=== PATIENT | female | born 1985 | race Caucasian/White ===

== ENCOUNTER 2018-06-03 21:30 | Emergency (ER) | payer MEDICAID, SELFPAY ==
[2018-06-03 21:39] VITALS: BP 127/99; PULSE 87; RESP 18; TEMP 36.2; O2SAT 100
[2018-06-03 21:44] VITALS: RESP 18
--- NOTE | 2018-06-03 21:46 | DI.RAD_ITS ---
SYMPTOM/DIAGNOSIS: RT CHEST PAIN PA AND LATERAL CHEST: Comparison is made with 02/29/12. The heart is normal in size. The lungs are clear. The mediastinal structures and pleura appear intact. CONCLUSION: Normal chest.
--- NOTE | 2018-06-03 21:48 | W.ED.GENAD ---
Discharge Plan Disposition Patient Disposition: HOME Condition: Improving Discharge Details Chief Complaint: Chest Pain Clinical Impression: Strain of right pectoralis muscle Primary Care Provider: Kourtney Lam ED Provider: Joe Garzon Home Meds and New Rx's Prescriptions: Continued aripiprazole [Abilify] 5 MG tablet 5 mg PO DAILY Qty: 90 RF: 2 Vyvanse 70 MG capsule 70 mg PO DAILY RF: 0 venlafaxine [Effexor XR] 150 MG capsule,extended release 24hr 150 mg PO DAILY RF: 0 loratadine 10 MG tablet 10 mg PO DAILY Qty: 30 RF: 3 Discharge Instructions Instructions: Muscle Strain (ED) Additional Instructions: Home to rest. Ice and/or heat to reduce discomfort. May use ibuprofen and/or Tylenol as needed for pain. Return if you develop a fever, cough, rash, worsening pain or any other acute concerns. Medical Decision Making 32-year-old female presents with the progressive onset today of aching right chest pain. She has not had a cough, leg pain or swelling, recent travel. 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 She is afebrile, well-appearing, with normal vital signs (mild diastolic HTN). Differential diagnosis includes PE, ACS, mild muscular strain from her recent activity. Screening EKG, labs, chest x-ray obtained: images are unremarkable for acute process. Pt with some mild improvement following Toradol. Given the reproducible nature and recent strain of playing [employer], I do feel this is most consistent with myalgias. Discussed with her home management. She stable for discharge home at this time. Lab Data Lab results reviewed: Yes I reviewed the patient's lab results. Laboratory Results - last 24 hr 06/03/18 06/03/18 06/03/18 Unknown Unknown Unknown WBC 6.69 RBC 4.07 Hgb 14.4 Hct 41.4 MCV 101.7 H MCH 35.4 H MCHC 34.8 RDW 11.2 L Plt Count 333 MPV 9.3 Immature Gran % 0.1 Neutrophils % 52.5 Lymphocytes % 36.0 Monocytes % 8.2 Eosinophils % 2.8 Basophils % 0.4 Absolute Neutrophils 3.50 Absolute Lymphocytes 2.41 Absolute Monocytes 0.55 Absolute Eosinophils 0.19 Absolute Basophils 0.03 D-Dimer 146 Sodium 143 Potassium 3.7 Chloride 105 Carbon Dioxide 27.8 Anion Gap 10.2 BUN 17 Creatinine 0.82 Estimated GFR/1.73 m2 >= 60.00 Glucose 86 Calcium 8.7 Magnesium 2.2 Total Bilirubin 0.2 AST 17 ALT 23 Alkaline Phosphatase 100 Troponin I < 0.02 Total Protein 7.4 Albumin 4.0 ECG Data Attestation: I personally reviewed and interpreted this ECG (s) as follows: Interpretation: Normal sinus rhythm, rate of 89, there is inverted T wave present in V3, no ST segment elevation HPI General Mode of arrival: ambulatory. Date/Time Provider Initiated Documentation: 06/03/18 21:32. Limitations to Documentation: no limitations. Information obtained by: patient and family. History of Present Illness 32 year old F presents to the emergency department with the chief complaint of Right chest pain increasing over the day, described as moderate, Quality is described as aching, and is localized to the chest and right. Patient reports no radiation. Patient started experiencing this hour(s) and it has been constant. No relieving factors improve symptom(s), Movement worsens symptoms . Patient notes no other symptoms.; denies cough, fever/chills and shortness of breath. Patient did receive the following treatments prior to arrival, none Related Data Home Medications Medication Instructions Recorded Confirmed aripiprazole [Abilify] 5 mg PO DAILY #90 tab-cap 10/30/13 06/03/18 Vyvanse 70 mg PO DAILY tab-cap 09/10/14 06/03/18 venlafaxine [Effexor XR] 150 mg PO DAILY tab-cap 02/20/16 06/03/18 loratadine 10 mg PO DAILY #30 tab-cap 09/15/17 06/03/18 Previous Rx's Medication Instructions Recorded loratadine 10 mg PO DAILY #30 tab-cap 09/15/17 Allergies Allergy/AdvReac Type Severity Reaction Status Date / Time hydromorphone HCl Allergy Skin Rash Unverified 06/03/18 21:42 [From Dilaudid] latex Allergy Rash Unverified 06/03/18 21:42 sulfamethoxazole Allergy Hives Unverified 06/03/18 21:42 [From Bactrim] trimethoprim Allergy Hives Unverified 06/03/18 21:42 lactose AdvReac Diarrhea/Vo Unverified 06/03/18 21:42 miting General Stated Complaint: Chest Pain KARLEE: 2 Review of Systems Review of Systems 8 systems reviewed and otherwise - [facility] Medical History Kidney stone Substance use disorder pseudotumor cerebri Surgical History Kidney Stone Extraction (~2006) Ligation of fallopian tube (08/29/14) SARWAT IN LEG (~2012) Tonsillectomy (~2010) Family History Mother No problems noted. Father No problems noted. Grandfather Personal history of malignant neoplasm Heart disease Hyperlipidemia Grandfather Personal history of malignant neoplasm Grandmother No problems noted. Grandmother No problems noted. Social History Smoking/Tobacco Use Status: Current every day Exam Narrative Exam Narrative: GEN: awake, alert, oriented 3. Pleasant, well groomed, interactive. HEAD: Normocephalic, atraumatic ENT: Mucous membranes moist, oropharynx unremarkable, External ear exam unremarkable EYES: PERRL, EOMI NECK: Full ROM, no SHERRI, no menigismus CHEST/RESP: Right chest wall tenderness anteriorly, no rash, clear to auscultation bilateral, no wheeze/rhonchi/rales CARDIOVASCULAR: RRR, no murmur, rub marisela. 2+ Rad pulse bilateral ABDOMEN: Soft, nontender, no mass. +Bowel sounds EXT: Full ROM, no edema, no rash Neuro: Grossly normal neurologic exam, conversant, interactive. Psych: Speech fluent, thoughts congruent, affect normal Course Vital Signs Temperature 36.2 C L 06/03/18 21:39 Pulse 87 06/03/18 21:39 Respiratory Rate 18 06/03/18 21:39 Blood Pressure 127/99 H 06/03/18 21:39 Pulse Oximetry 100 06/03/18 21:39 Temperature 36.2 C L 06/03/18 21:39 Temperature Source Temporal Artery Scan 06/03/18 21:39 Pulse 87 06/03/18 21:39 Respiratory Rate 18 06/03/18 21:44 Respiratory Effort Non-Labored 06/03/18 21:44 Respiratory Depth Normal 06/03/18 21:44 Blood Pressure 127/99 H 06/03/18 21:39 Blood Pressure Position Supine 06/03/18 21:39 Pulse Oximetry 100 06/03/18 21:39 Oxygen Delivery Method Room Air 06/03/18 21:39 Oxygen Flow Rate 0 06/03/18 21:39 Pain Level 7 06/03/18 21:44
--- NOTE | 2018-06-03 21:51 | ED.GENADUL_ITS ---
Discharge Plan Disposition Patient Disposition: HOME Condition: Improving Discharge Details Chief Complaint: Chest Pain Clinical Impression: Strain of right pectoralis muscle Primary Care Provider: Kourtney Lam ED Provider: Joe Garzon Home Meds and New Rx's Prescriptions: Continued aripiprazole [Abilify] 5 MG tablet 5 mg PO DAILY Qty: 90 RF: 2 Vyvanse 70 MG capsule 70 mg PO DAILY RF: 0 venlafaxine [Effexor XR] 150 MG capsule,extended release 24hr 150 mg PO DAILY RF: 0 loratadine 10 MG tablet 10 mg PO DAILY Qty: 30 RF: 3 Discharge Instructions Instructions: Muscle Strain (ED) Additional Instructions: Home to rest. Ice and/or heat to reduce discomfort. May use ibuprofen and/or Tylenol as needed for pain. Return if you develop a fever, cough, rash, worsening pain or any other acute concerns. Medical Decision Making 32-year-old female presents with the progressive onset today of aching right chest pain. She has not had a cough, leg pain or swelling, recent travel. 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 She is afebrile, well-appearing, with normal vital signs (mild diastolic HTN). Differential diagnosis includes PE, ACS, mild muscular strain from her recent activity. Screening EKG, labs, chest x-ray obtained: images are unremarkable for acute process. Pt with some mild improvement following Toradol. Given the reproducible nature and recent strain of playing [employer], I do feel this is most consistent with myalgias. Discussed with her home management. She stable for discharge home at this time. Lab Data Lab results reviewed: Yes I reviewed the patient's lab results. Laboratory Results - last 24 hr 06/03/18 06/03/18 06/03/18 Unknown Unknown Unknown WBC 6.69 RBC 4.07 Hgb 14.4 Hct 41.4 MCV 101.7 H MCH 35.4 H MCHC 34.8 RDW 11.2 L Plt Count 333 MPV 9.3 Immature Gran % 0.1 Neutrophils % 52.5 Lymphocytes % 36.0 Monocytes % 8.2 Eosinophils % 2.8 Basophils % 0.4 Absolute Neutrophils 3.50 Absolute Lymphocytes 2.41 Absolute Monocytes 0.55 Absolute Eosinophils 0.19 Absolute Basophils 0.03 D-Dimer 146 Sodium 143 Potassium 3.7 Chloride 105 Carbon Dioxide 27.8 Anion Gap 10.2 BUN 17 Creatinine 0.82 Estimated GFR/1.73 m2 >= 60.00 Glucose 86 Calcium 8.7 Magnesium 2.2 Total Bilirubin 0.2 AST 17 ALT 23 Alkaline Phosphatase 100 Troponin I < 0.02 Total Protein 7.4 Albumin 4.0 ECG Data Attestation: I personally reviewed and interpreted this ECG (s) as follows: Interpretation: Normal sinus rhythm, rate of 89, there is inverted T wave present in V3, no ST segment elevation HPI General Mode of arrival: ambulatory . Date/Time Provider Initiated Documentation: 06/03/18 21:32 . Limitations to Documentation: no limitations . Information obtained by: patient and family . History of Present Illness 32 year old F presents to the emergency department with the chief complaint of Right chest pain increasing over the day, described as moderate, Quality is described as aching, and is localized to the chest and right. Patient reports no radiation. Patient started experiencing this hour(s) and it has been constant. No relieving factors improve symptom(s), Movement worsens symptoms . Patient notes no other symptoms.; denies cough, fever/chills and shortness of breath. Patient did receive the following treatments prior to arrival, none Related Data Home Medications Medication Instructions Recorded Confirmed aripiprazole [Abilify] 5 mg PO DAILY #90 tab-cap 10/30/13 06/03/18 Vyvanse 70 mg PO DAILY tab-cap 09/10/14 06/03/18 venlafaxine [Effexor XR] 150 mg PO DAILY tab-cap 02/20/16 06/03/18 loratadine 10 mg PO DAILY #30 tab-cap 09/15/17 06/03/18 Previous Rx's Medication Instructions Recorded loratadine 10 mg PO DAILY #30 tab-cap 09/15/17 Allergies Allergy/AdvReac Type Severity Reaction Status Date / Time hydromorphone HCl Allergy Skin Rash Unverified 06/03/18 21:42 [From Dilaudid] latex Allergy Rash Unverified 06/03/18 21:42 sulfamethoxazole Allergy Hives Unverified 06/03/18 21:42 [From Bactrim] trimethoprim Allergy Hives Unverified 06/03/18 21:42 lactose AdvReac Diarrhea/Vo Unverified 06/03/18 21:42 miting General Stated Complaint: Chest Pain KARLEE: 2 Review of Systems Review of Systems 8 systems reviewed and otherwise - [facility] Medical History Kidney stone Substance use disorder pseudotumor cerebri Surgical History Kidney Stone Extraction (~2006) Ligation of fallopian tube (08/29/14) SARWAT IN LEG (~2012) Tonsillectomy (~2010) Family History Mother No problems noted. Father No problems noted. Grandfather Personal history of malignant neoplasm Heart disease Hyperlipidemia Grandfather Personal history of malignant neoplasm Grandmother No problems noted. Grandmother No problems noted. Social History Smoking/Tobacco Use Status: Current every day Exam Narrative Exam Narrative: GEN: awake, alert, oriented 3. Pleasant, well groomed, interactive. HEAD: Normocephalic, atraumatic ENT: Mucous membranes moist, oropharynx unremarkable, External ear exam unremarkable EYES: PERRL, EOMI NECK: Full ROM, no SHERRI, no menigismus CHEST/RESP: Right chest wall tenderness anteriorly, no rash, clear to ausc ultation bilateral, no wheeze/rhonchi/rales CARDIOVASCULAR: RRR, no murmur, rub marisela. 2+ Rad pulse bilateral ABDOMEN: Soft, nontender, no mass. +Bowel sounds EXT: Full ROM, no edema, no rash Neuro: Grossly normal neurologic exam, conversant, interactive. Psych: Speech fluent, thoughts congruent, affect normal Course Vital Signs Temperature 36.2 C L 06/03/18 21:39 Pulse 87 06/03/18 21:39 Respiratory Rate 18 06/03/18 21:39 Blood Pressure 127/99 H 06/03/18 21:39 Pulse Oximetry 100 06/03/18 21:39 Temperature 36.2 C L 06/03/18 21:39 Temperature Source Temporal Artery Scan 06/03/18 21:39 Pulse 87 06/03/18 21:39 Respiratory Rate 18 06/03/18 21:44 Respiratory Effort Non-Labored 06/03/18 21:44 Respiratory Depth Normal 06/03/18 21:44 Blood Pressure 127/99 H 06/03/18 21:39 Blood Pressure Position Supine 06/03/18 21:39 Pulse Oximetry 100 06/03/18 21:39 Oxygen Delivery Method Room Air 06/03/18 21:39 Oxygen Flow Rate 0 06/03/18 21:39 Pain Level 7 06/03/18 21:44
[2018-06-03] MEDS: Ketorolac 15 MG/ML VIAL IVP (21:52)
[2018-06-03 21:54] LABS: Abs Immature Grans 0.01 k/cumm (0.0-0.09); Absolute Basophil Count 0.03 k/cumm (0.0-0.2); Absolute Eosinophil Count 0.19 k/cumm (0.0-0.7); Absolute Lymphocyte Count 2.41 k/cumm (1.2-3.4); Absolute Monocyte Count 0.55 k/cumm (0.11-0.7); Basophils % 0.4; Eosinophils % 2.8; HCT 41.4 % (36.0-46.0); HGB 14.4 g/dL (12.0-15.5); Immature Grans % 0.1; Mean Corp. HGB Concentration 34.8 g/dL (32.0-36.0); Mean Corpuscular Hemoglobin 35.4 pg (27.0-33.0); Mean Corpuscular Volume 101.7 fL (80-95); Mean Platelet Volume 9.3 fL (8.0-11.0); Monocytes % 8.2; Neutrophils % 52.5; Platelet Count 333 x1000/uL (130-400); RBC 4.07 m/cumm (4.00-5.20); RBC Distribution Width 11.2 % (11.7-14.6); White Blood Cell Count 6.69 k/cumm (4.4-10.8)
[2018-06-03 22:13] LABS: ALT 23 U/L (12-78); AST 17 U/L (15-37); Alkaline Phosphatase 100 U/L (46-116); Anion Gap 10.2 mmol/L (3-11); BUN 17 mg/dL (7-18); Bilirubin, Total 0.2 mg/dL (0.2-1.0); CO2 27.8 mmol/L (21.0-32.0); CREATININE 0.82 mg/dL (0.55-1.02); Calcium 8.7 mg/dL (8.5-10.1); Chloride 105 mmol/L (98-107); Glucose 86 mg/dL (70-100); Magnesium 2.2 mg/dL (1.8-2.4); Potassium 3.7 mmol/L (3.5-5.1); Sodium 143 mmol/L (136-145); Total Protein 7.4 g/dL (6.4-8.2)
[2018-06-03 22:17] LABS: Troponin I < 0.02 ng/mL (0.00-0.06)
[2018-06-03 22:28] LABS: D-Dimer 146 ng/mlFEU (<500)
--- NOTE | 2018-06-03 22:39 | DI.VRAD_ITS ---
EXAM: XR Chest, 2 Views EXAM DATE/TIME: 06/03/2018 9:47 PM CLINICAL HISTORY: 32 years old, female; Pain; Chest pain; On breathing; Patient HX: R chest pain TECHNIQUE: XR of the chest, 2 views. COMPARISON: CT Chest / Abdomen / P 02/29/2012 5:50 PM FINDINGS: Lungs: Unremarkable. No consolidation. Pleural space: Unremarkable. No pleural effusion. No pneumothorax. Heart/Mediastinum: Unremarkable. No cardiomegaly. Bones/joints: No acute bony findings. IMPRESSION: Normal chest x-ray. Dictated and Authenticated by: Jerald Martinez MD. Ordering:HARSHAL Diaz MD
[2018-06-03 22:56] VITALS: BP 132/79; PULSE 81; RESP 18; TEMP 36.2; O2SAT 100
== END 2018-06-03 22:53 | disposition home or self-care (01) ==
PROVIDERS: Emergency Provider Emergency Medicine; PCP Family Medicine
DX: S29.011A Strain of muscle and tendon of front wall of thorax, initial encounter (principal); X50.9XXA Other and unspecified overexertion or strenuous movements or postures, initial encounter
CPT/HCPCS: 36415; 80053; 93005; 96374; 99285; 71046; 83735; 84484; 85025; 85379; 93010; 99284; J1885

== ENCOUNTER 2018-06-07 12:45 | Emergency (ER) | payer MEDICAID, SELFPAY ==
--- NOTE | 2018-06-07 12:52 | W.ED.GENAD ---
Discharge Plan Disposition Patient Disposition: HOME Condition: Stable Discharge Details Chief Complaint: Orthopedic Clinical Impression: Pain in right shoulder, Right-sided chest pain Primary Care Provider: Kourtney Lam ED Provider: Doris Smith Home Meds and New Rx's Prescriptions: Continued aripiprazole [Abilify] 5 MG tablet 5 mg PO DAILY Qty: 90 RF: 2 Vyvanse 70 MG capsule 70 mg PO DAILY RF: 0 venlafaxine [Effexor XR] 150 MG capsule,extended release 24hr 150 mg PO DAILY RF: 0 loratadine 10 MG tablet 10 mg PO DAILY Qty: 30 RF: 3 Discharge Instructions Instructions: Chest Pain (ED), Shoulder Pain (ED) Additional Instructions: Please return immediately to the emergency department if you develop any new or worsening symptoms or if you become otherwise concerned. It is extremely important that you make an appointment to be seen by your primary care doctor within the next week and follow-up for this visit. You have elected to leave the emergency department AGAINST MEDICAL ADVICE. You may return to emergency department at any time if you change your mind. Referrals: Kourtney Lam MD [Primary Care Provider] - Medical Decision Making Giulia Forbes is a 32 y/o woman with history of anxiety, depression, ADHD who presented to the emergency department with ongoing right chest/shoulder pain after being seen here for same 06/03 with negative workup. On exam patient is very well and nontoxic appearing. Pain is reproducible with palpation of the right lateral pectoralis and right trapezius, also with ranging right shoulder. She does have full range of motion of the right shoulder. There is no neuro deficit. At this time, particularly in light of recent workup suspect myalgia, doubt acute emergent life-threatening process. However cannot rule out cardiac, PE, other pulmonary cause at this time. Exam/history not consistent with septic joint, sepsis, other life-threatening infectious process, acute aortic etiology. Plan for EKG, chest x-ray, screening labs troponin x1 given constant pain unchanged for greater than 6 hours. Patient initially amenable to workup, and states that she does not think that her pain is related to a problem with her lungs or her heart. She reports that she needs to go to work, and does not have time for laboratory studies EKG, or x-ray. I discussed the risks of leaving the medical the patient , or permanent disability and that life-threatening etiologies not ruled out at this time. Patient verbalizes understanding of the risks, and continues to wish to leave the emergency department at this time. I had a lengthy discussion with the patient regarding return to emergency department precautions, that she may return to the emergency department at any time, and importance of outpatient follow-up with her PCP. She verbalizes understanding of the plan and is amenable. Medical Records Medical records reviewed: Yes I reviewed the patient's medical records. HPI General Mode of arrival: ambulatory. Date/Time Provider Initiated Documentation: 06/07/18 12:48. Limitations to Documentation: no limitations. Information obtained by: patient, RN notes reviewed and old records reviewed. HPI Narrative: Giulia Forbes is a 32 y/o woman with history of anxiety, depression, ADHD presenting to the emergency department with right chest/right shoulder pain. Patient reports that she was seen here for same on 06/03. She reports that she woke up the morning of 06/03 with pain in her right chest and right shoulder. Upon considering events surrounding onset of pain, she reports that she had played [employer] recently and also had been wrestling with her kids. She is unsure if she injured herself. At that time patient underwent negative cardiac workup and was discharged home, etiology of pain was thought to be myalgia. Patient reports that pain has been constant and unchanged since that encounter. She reports that she has pain in the right anterior chest, the top of her right shoulder, and behind her shoulder blade. She reports that pain is burning and aching, is pleuritic, and is worse with babying the arm or loss of movement of the right shoulder, improved with pressure/rubbing the affected areas and with moderate motion of the right arm. Pain is not exertional. No associated symptoms, no other pain, no fever, no shortness of breath, no cough, no nausea/vomiting/diarrhea, no numbness/tingling/weakness. No recent illness. Has been eating and drinking as usual. Patient reports that pain is not waxing and waning, she wakes up with it in the morning and goes to bed with it at night unchanged. Related Data Home Medications Medication Instructions Recorded Confirmed aripiprazole [Abilify] 5 mg PO DAILY #90 tab-cap 10/30/13 06/07/18 Vyvanse 70 mg PO DAILY tab-cap 09/10/14 06/07/18 venlafaxine [Effexor XR] 150 mg PO DAILY tab-cap 02/20/16 06/07/18 loratadine 10 mg PO DAILY #30 tab-cap 09/15/17 06/07/18 Previous Rx's Medication Instructions Recorded loratadine 10 mg PO DAILY #30 tab-cap 09/15/17 Allergies Allergy/AdvReac Type Severity Reaction Status Date / Time hydromorphone HCl Allergy Skin Rash Unverified 06/07/18 12:56 [From Dilaudid] latex Allergy Rash Unverified 06/07/18 12:56 sulfamethoxazole Allergy Hives Unverified 06/07/18 12:56 [From Bactrim] trimethoprim Allergy Hives Unverified 06/07/18 12:56 lactose AdvReac Diarrhea/Vo Unverified 06/07/18 12:56 miting General Stated Complaint: Orthopedic KARLEE: 4 Review of Systems Review of Systems Constitutional: denies fevers Eyes: denies eye pain ENT: denies facial pain, dental pain, sore throat Cardiovascular: denies edema, reports right chest pain Respiratory: denies SOB, cough GI: denies abdominal pain, vomiting, diarrhea : denies flank pain MSK: denies back pain, neck pain, reports right shoulder arthralgia, myalgia, denies other joint/muscle pain Skin: denies rash Neuro: denies headaches, numbness, weakness PFSH Medical History Kidney stone Substance use disorder pseudotumor cerebri Social History Smoking/Tobacco Use Status: Current every day Exam Narrative Exam Narrative: Constitutional: well and [id number], pleasant, conversing normally HENT: head atraumatic, normocephalic normal inspection, mucous membranes moist Eyes: conjunctiva normal, sclera normal, pupils 3mm b/l Neck: no stridor, normal ROM, trachea midline Chest: normal inspection, pain with palpation of right lateral pectoralis muscle, reproduces pain, no overlying skin changes Resp: normal work of breathing, LCTAB Cardio: normal rate, normal rhythm, no murmur appreciated, radial pulses intact and symmetric GI: abdomen soft, non-tender, non-distended Back: normal inspection, no rash Skin: warm, dry, normal color, no rash Neuro: alert, not altered, grossly non-focal, normal tone, normal strength/sensation right upper extremity Ext: no edema, no skin changes to right shoulder, right scapula, paraspinals nontender to palpation, right trapezius tender to palpation, reproduces pain, full range of motion right shoulder with some pain Psych: normal mood, normal affect, normal behavior
[2018-06-07 12:54] VITALS: BP 132/88; PULSE 98; RESP 16; TEMP 36.8; O2SAT 99
== END 2018-06-07 13:45 | disposition home or self-care (01) ==
PROVIDERS: Emergency Provider Student in an Organized Health Care Education/Training Program; PCP Family Medicine
DX: M25.511 Pain in right shoulder (principal); R07.89 Other chest pain; Z53.29 Procedure and treatment not carried out because of patient's decision for other reasons; F17.210 Nicotine dependence, cigarettes, uncomplicated
CPT/HCPCS: 80053; 99282; 84484; 85025; 85379

== ENCOUNTER 2019-01-18 09:07 | Emergency (ER) | payer MEDICAID, SELFPAY ==
[2019-01-18 09:10] VITALS: BP 137/70; PULSE 88; RESP 16; TEMP 36.7; O2SAT 99
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
[2019-01-18] MEDS: Acetaminophen 325 MG TAB (09:42)
== END 2019-01-18 10:30 | disposition home or self-care (01) ==
PROVIDERS: Emergency Provider Physician Assistant; PCP Family Medicine
DX: S00.83XA Contusion of other part of head, initial encounter (principal); S00.12XA Contusion of left eyelid and periocular area, initial encounter; R68.84 Jaw pain; M26.621 Arthralgia of right temporomandibular joint; Y04.0XXA Assault by unarmed brawl or fight, initial encounter; M54.2 Cervicalgia
CPT/HCPCS: 81025; 99284; 70450; 70486; 72125; 99285

== ENCOUNTER 2019-02-11 14:58 | Emergency (ER) | payer MEDICAID, SELFPAY ==
[2019-02-11 15:02] VITALS: BP 140/83; PULSE 78; RESP 20; TEMP 36.7; O2SAT 100
--- NOTE | 2019-02-11 15:25 | ED.GENADUL_ITS ---
Discharge Plan Disposition Patient Disposition: HOME Discharge Details Chief Complaint: Nk/Back Pain Clinical Impression: Leg pain, right Primary Care Provider: Kourtney Lam ED Provider: Ru Smith Home Meds and New Rx's Prescriptions: Continued hydroxyzine HCl 50 mg tablet 50 mg PO BID PRN (Reason: itching) Qty: 60 RF: 0 triamcinolone acetonide 0.025 % cream 1 applic TP BID Qty: 15 RF: 1 aripiprazole [Abilify] 5 MG tablet 5 mg PO DAILY Qty: 90 RF: 2 Vyvanse 70 MG capsule 70 mg PO DAILY RF: 0 venlafaxine [Effexor XR] 150 MG capsule,extended release 24hr 150 mg PO DAILY RF: 0 Discharge Instructions Instructions: Leg Pain (ED) Additional Instructions: Please take ibuprofen over the counter. Take 600mg by mouth every 6 hours as needed for pain. Please contact your primary care physician to arrange follow-up. Return to the ER for any worsening or new concerning symptoms. Stand Alone Forms: Work Release Referrals: Kourtney Lam MD [Primary Care Provider] - Jamil Frankel MD [ [facility] STAFF PHYSICIAN] - Medical Decision Making 15:32 -- 33-year-old female status post remote right femur ORIF and subsequent hardware removal, here with exacerbation of chronic intermittent pain in her right femur which she attributes to overuse and associated right mid to low back spasm. No recent trauma. No infectious signs or symptoms. Plan to treat with Toradol 30 mg IM and Valium 2 mg po. Patient did take Tylenol prior to arrival. Plan to reassess. --Patient refusing Valium. 16:23 --patient reassessed and with significant improvement after Toradol. Leg was examined and there is no erythema or warmth. Now able to elevate off the bed. Back pain resolved. Patient was instructed to follow-up with orthopedics given recurrent in termittent pain. She was encouraged to return for any worsening or new concerning symptoms. Usual and customary discharge instructions were provided. HPI General Mode of arrival: ambulatory . Date/Time Provider Initiated Documentation: 02/11/19 14:58 . Limitations to Documentation: no limitations . Information obtained by: patient . HPI Narrative: 33-year-old female presents with chief complaint of right leg pain. Pain is localized to her right mid lateral thigh. Pain radiates up into her right hip. Pain is described as an ache. Pain is currently severe. Pain worse with certain positions. She notes that she has experienced the same in the past with intermittent exacerbations of pain in her right femur status post ORIF for femur fracture and subsequent removal of hardware. She notes that when weather changes and its raining and cold she notices the pain more often. She also notes she notices it after excessive use. She states that over the past week she has been working daily on her feet and thinks she may have overdone it. No trauma to the leg. No fall. No fever or rash. Patient does also note a knot in her right mid to low back that she attributes to muscle spasm from ambulating/positioning herself in such a way to minimize pain in her thigh. Related Data Home Medications Medication Instructions Recorded Confirmed aripiprazole [Abilify] 5 mg PO DAILY #90 tab-cap 10/30/13 02/11/19 Vyvanse 70 mg PO DAILY tab-cap 09/10/14 02/11/19 venlafaxine [Effexor XR] 150 mg PO DAILY tab-cap 02/20/16 02/11/19 hydroxyzine HCl 50 mg tablet 50 mg PO BID PRN #60 tab 02/07/19 02/11/19 triamcinolone acetonide 0.025 % 1 applic TP BID #15 gm 02/07/19 02/11/19 topical cream Previous Rx's Medication Instructions Recorded hydroxyzine HCl 50 mg tablet 50 mg PO BID PRN #60 tab 02/07/19 triamcinolone acetonide 0.025 % 1 applic TP BID #15 gm 02/07/19 topical cream Allergies Allergy/AdvReac Type Severity Reaction Status Date / Time hydromorphone HCl Allergy Skin Rash Verified 02/11/19 15:06 [From Dilaudid] latex Allergy Rash Verified 02/11/19 15:06 sulfamethoxazole Allergy Hives Verified 02/11/19 15:06 [From Bactrim] trimethoprim Allergy Hives Verified 02/11/19 15:06 lactose AdvReac Diarrhea/Vo Verified 02/11/19 15:06 miting General Stated Complaint: Nk/Back Pain KARLEE: 3 Review of Systems Constitutional Constitutional: Denies fever(s) Musculoskeletal Musculoskeletal: Reports as per [facility] Medical History ADHD (attention deficit hyperactivity disorder) (Inactive) Agoraphobia with panic attacks (Inactive) Anxiety and depression (Inactive) History of alcoholism (Inactive) History of papilledema (Inactive) neg. CT; neg. spinal tap; Kidney stone Migraine (Inactive) Opioid abuse (Inactive) H/O SUBOXONE THERAPY (CURRENTLY OFF THIS) pseudotumor cerebri pseudotumor cerebri in (Resolved 03/05/14) with headaches Substance use disorder Hx of opiate use in past. In AA for ETOH use. Thyroiditis (Inactive) Surgical History Kidney Stone Extraction (~2006) Ligation of fallopian tube (08/29/14) bilateral laparoscopic salpingectomy. aoc SARWAT IN LEG (~2012) Tonsillectomy (~2010) Family History Mother No problems noted. Father No problems noted. Grandfather Personal history of malignant neoplasm Heart disease Hyperlipidemia Grandfather Personal history of malignant neoplasm Grandmother No problems noted. Grandmother No problems noted. Social History Smoking/Tobacco Use Status: Current every day Alcohol Intake: current Alcohol Intake frequency: a few times a month Drug use: Current Sobriety Substance use type: does not use Do you feel safe at home: Yes Do you feel safe in your relationship?: Yes Exam Const General: cooperative and no acute distress HENMT Mouth: moist mucous membranes Eyes Conjunctivae: normal conjunctivae Sclera: normal sclerae Cardio Rate: regular rate and not tachycardic Rhythm: regular rhythm Pulses: dorsalis pedis pulses present on the right 2+ Skin General skin exam: no rashes or lesions noted Neuro General: awake Extrem General: no edema Right lower extremity: hip/thigh Details: tenderness Location: of the proximal upper leg Location: laterally and of the mid upper leg Location: laterally and abnormal ROM Details: pain with active ROM during (Elevation or external rotation of the hip); no swelling and no unusual warmth Course Vital Signs Vital signs: Vital Signs Temperature 36.7 C 02/11/19 15:02 Pulse 78 02/11/19 15:02 Respiratory Rate 20 02/11/19 15:02 Blood Pressure 140/83 02/11/19 15:02 Pulse Oximetry 100 02/11/19 15:02 Temperature 36.7 C 02/11/19 15:02 Temperature Source Skin 02/11/19 15:02 Pulse 78 02/11/19 15:02 Respiratory Rate 20 02/11/19 15:02 Respiratory Effort Non-Labored 02/11/19 15:08 Blood Pressure 140/83 02/11/19 15:02 Blood Pressure Position Sitting 02/11/19 15:02 Pulse Oximetry 100 02/11/19 15:02 Oxygen Delivery Method Room Air 02/11/19 15:02 Oxygen Flow Rate 0 02/11/19 15:02 Pain Level 10 02/11/19 15:02
[2019-02-11] MEDS: Ketorolac 30 MG/ML VIAL IVP (15:34)
== END 2019-02-11 17:03 | disposition home or self-care (01) ==
LOC: ER 16:08
PROVIDERS: Emergency Provider Student in an Organized Health Care Education/Training Program; PCP Family Medicine
DX: M79.604 Pain in right leg (principal)
CPT/HCPCS: 96372; 99284; J1885

== ENCOUNTER 2019-02-21 01:32 | Outpatient (CLI) | payer MEDICAID, SELFPAY ==
--- NOTE | 2019-02-21 11:15 | DI.RAD_ITS ---
EXAM: XR HIP RT COMPLETE AP PELVIS INDICATION: Hip pain, M25.559. COMPARISON: THORACIC SPINE from 06/09/2017 TECHNIQUE: 2D digital imaging was performed. FINDINGS: The patient is status post right hip pinning with removal of the orthopedic hardware. There are minim al periarticular degenerative changes involving the hip joint. There is no evidence of a fracture or dislocation. The pelvic bones are intact.
--- NOTE | 2019-02-21 11:17 | DI.RAD_ITS ---
EXAM: XR FEMUR RT INDICATION: Anterior leg pain, M79.606. COMPARISON: No exams were available for comparison TECHNIQUE: 2D digital imaging was performed. FINDINGS: There is evidence of an intramedullary yesy. There is no evidence of fracture or dislocation. As visu alized, the knee appears intact.
== END 2019-02-21 01:52 ==
PROVIDERS: PCP Family Medicine
DX: M79.661 Pain in right lower leg (principal); M25.551 Pain in right hip; M16.11 Unilateral primary osteoarthritis, right hip; M25.561 Pain in right knee; Z47.89 Encounter for other orthopedic aftercare
CPT/HCPCS: 73552; 73502

== ENCOUNTER 2019-03-08 06:47 | Emergency (ER) | payer MEDICAID, SELFPAY ==
[2019-03-08 06:54] VITALS: BP 118/84; PULSE 82; RESP 16; TEMP 36.5; O2SAT 100
--- NOTE | 2019-03-08 06:56 | ED.GENADUL_ITS ---
Discharge Plan Disposition Patient Disposition: HOME Condition: Stable Discharge Details Chief Complaint: Sorethroat Clinical Impression: Painful thyroid Primary Care Provider: Kourtney Lam ED Provider: Grayson Vasquez Home Meds and New Rx's Prescriptions: Continued hydroxyzine HCl 50 mg tablet 50 mg PO BID PRN (Reason: itching) Qty: 60 RF: 0 triamcinolone acetonide 0.025 % cream 1 applic TP BID Qty: 15 RF: 1 aripiprazole [Abilify] 5 MG tablet 5 mg PO DAILY Qty: 90 RF: 2 Vyvanse 70 MG capsule 70 mg PO DAILY RF: 0 venlafaxine [Effexor XR] 150 MG capsule,extended release 24hr 150 mg PO DAILY RF: 0 Discharge Instructions Additional Instructions: Your blood work did not show any concerning findings. follow up with your primary care provider within 1-2 weeks if you have difficulty swallowing liquids or difficulty breathing, or if you feel more ill return to the emergency department Discharge Data Discharge Date/Time-TO BE ENTERED AT DEPARTURE: 03/08/19 09:01 Medical Decision Making <Robert Neal MD - Last Filed: 03/08/19 20:01> This is not sore throat in the classic sense. This is anterior neck pain and is likely related to thyroiditis. Past medical history has thyroiditis listed but patient does not recall. She is not on thyroid medications currently. Will place IV and get labs. Will give Toradol for pain. Will obtain ultrasound of the thyroid. 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 Does have tenderness on thyroid. She doesn't want to stay for an ultrasound and wants to f/u with her pcp which I feel is reasonable given stable exam. Return precautions given Lab Data Lab results reviewed: Yes I reviewed the patient's lab results. HPI <Robert Neal MD - Last Filed: 03/08/19 20:01> General Mode of arrival: ambulatory . Date/Time Provider Initiated Documentation: 03/08/19 06:54 . Limitations to Documentation: no limitations . Information obtained by: patient and RN notes reviewed . HPI Narrative: Patient presents to ED with complaint of sore throat. Patient reports pain started yesterday. She denies having fever but has felt hot and cold spells. She denies earache, congestion, sinus pressure. She has had a cough this morning. She felt like there was something in her throat that needed to come up when she coughed to the point where she vomited. Her pain is not worse with swallowing. She does not have difficulty breathing. Related Data Home Medications Medication Instructions Recorded Confirmed aripiprazole [Abilify] 5 mg PO DAILY #90 tab-cap 10/30/13 03/08/19 Vyvanse 70 mg PO DAILY tab-cap 09/10/14 03/08/19 venlafaxine [Effexor XR] 150 mg PO DAILY tab-cap 02/20/16 03/08/19 hydroxyzine HCl 50 mg tablet 50 mg PO BID PRN #60 tab 02/07/19 03/08/19 triamcinolone acetonide 0.025 % 1 applic TP BID #15 gm 02/07/19 03/08/19 topical cream Previous Rx's Medication Instructions Recorded hydroxyzine HCl 50 mg tablet 50 mg PO BID PRN #60 tab 02/07/19 triamcinolone acetonide 0.025 % 1 applic TP BID #15 gm 02/07/19 topical cream Allergies Allergy/AdvReac Type Severity Reaction Status Date / Time hydromorphone HCl Allergy Skin Rash Verified 03/08/19 06:57 [From Dilaudid] latex Allergy Rash Verified 03/08/19 06:57 sulfamethoxazole Allergy Hives Verified 03/08/19 06:57 [From Bactrim] trimethoprim Allergy Hives Verified 03/08/19 06:57 lactose AdvReac Diarrhea/Vo Verified 03/08/19 06:57 miting General KARLEE: 3 Review of Systems <Robert Neal MD - Last Filed: 03/08/19 20:01> Review of Systems Narrative: As documented in HPI otherwise negative as below. Const: no fever, chills, weakness Resp: no cough, SOB, pleuritic pain CV: no CP, diaphoresis, edema, syncope GI: no abdominal pain, nausea, vomiting, diarrhea Neuro: no headache, numbness, focal weakness, confusion PFSH <Robert Neal MD - Last Filed: 03/08/19 20:01> Medical History ADHD (attention deficit hyperactivity disorder) (Inactive) Agoraphobia with panic attacks (Inactive) Anxiety and depression (Inactive) History of alcoholism (Inactive) History of papilledema (Inactive) neg. CT; neg. spinal tap; Kidney stone Migraine (Inactive) Opioid abuse (Inactive) H/O SUBOXONE THERAPY (CURRENTLY OFF THIS) pseudotumor cerebri in (Resolved 03/05/14) with headaches Substance use disorder Hx of opiate use in past. In AA for ETOH use. Thyroiditis (Inactive) Surgical History Kidney Stone Extraction (~2006) Ligation of fallopian tube (08/29/14) bilateral laparoscopic salpingectomy. aoc SARWAT IN LEG (~2012) Tonsillectomy (~2010) Social History Smoking/Tobacco Use Status: Current every day Alcohol Intake: current Alcohol Intake frequency: a few times a month Drug use: Current Sobriety Substance use type: does not use Current gender identity: female Do you feel safe at home: Yes Do you feel safe in your relationship?: Yes Exam <Robert Neal MD - Last Filed: 03/08/19 20:01> Narrative Exam Narrative: Vitals: Afebrile with normal vitals and room air pulse oximetry. Const: WDWN female in NAD. HEENT: NC/AT. Normal facial exam. TMs clear. OP with cobblestoning posteriorly. No exudate or edema. No ulcerations. Status post tonsillectomy. Eyes: Normal conjunctiva and sclera. Neck: Supple. Trachea midline. Fullness and significant tenderness to the thyroid. No discrete nodule. No significant adenopathy. Lungs: Normal respiratory effort. Lungs are clear. Cor: RRR without murmur/gallop. Good radial pulses. Neuro: A+O x 3. CN grossly in tact. Good strength and no focal deficit. Ext: No C/C/E. Skin: Warm and dry without rash. No erythema. Sign Out <Robert Neal MD - Last Filed: 03/08/19 20:01> Sign Out Data: Sign Out Comment: pending labs and U/S Last updated by Robert Neal MD at 03/08/19 07:39
[2019-03-08] MEDS: Ketorolac 30 MG/ML VIAL IVP (07:24)
[2019-03-08 07:27] LABS: Abs Immature Grans 0.01 k/cumm (0.0-0.09); Absolute Basophil Count 0.02 k/cumm (0.0-0.2); Absolute Eosinophil Count 0.38 k/cumm (0.0-0.7); Absolute Lymphocyte Count 1.41 k/cumm (1.2-3.4); Absolute Monocyte Count 0.54 k/cumm (0.11-0.7); Absolute Neutrophil Count 4.33 k/cumm (1.2-6.7); Basophils % 0.3; Eosinophils % 5.7; HCT 41.6 % (36.0-46.0); HGB 14.1 g/dL (12.0-15.5); Immature Grans % 0.1; Lymphocytes % 21.1; Mean Corp. HGB Concentration 33.9 g/dL (32.0-36.0); Mean Corpuscular Hemoglobin 34.6 pg (27.0-33.0); Mean Platelet Volume 9.8 fL (8.0-11.0); Monocytes % 8.1; Neutrophils % 64.7; Platelet Count 341 x1000/uL (130-400); RBC 4.08 m/cumm (4.00-5.20); White Blood Cell Count 6.69 k/cumm (4.4-10.8)
[2019-03-08 07:49] LABS: TSH (W/Ref FT4) 0.95 uIU/mL (0.36-3.74)
--- NOTE | 2019-03-08 08:51 | NUR.NOTE ---
post strep result but do not sent to lab for screen per Dr Arenas Note:
[2019-03-08 09:00] VITALS: BP 117/79; PULSE 79; RESP 16; TEMP 36.5; O2SAT 100
--- NOTE | 2019-03-08 09:51 | NUR.NOTE ---
Nursing Note: Referral faxed to PCP for follow up of ED visit and needs US. Maribeth Huntley.
== END 2019-03-08 09:01 | disposition home or self-care (01) ==
PROVIDERS: Emergency Medicine; Emergency Provider Emergency Medicine; PCP Family Medicine
DX: M54.2 Cervicalgia (principal)
CPT/HCPCS: 36415; 87880; 96374; 99284; 84443; 85025; J1885

== ENCOUNTER 2019-04-11 01:27 | Outpatient (CLI) | payer MEDICAID, SELFPAY ==
--- NOTE | 2019-04-11 09:23 | DI.MAMMO_ITS ---
EXAM: DIAGNOSTIC MAMMOGRAM AND US BREAST RT COMPLETE CLINICAL HISTORY: LUMP OF RT BREAST N63.10 TECHNIQUE: Mammograms were interpreted according to the usual protocol including computer analysis w Diffbot CAD system, tomosynthesis and C-view imaging. Ultrasound performed using standard protocol. COMPARISON: No previous for comparison FINDINGS: Mammogram and right breast ultrasound are interpreted in conjunction. The patient has palpable abnor mality of the medial retroareolar portion of the right breast. The breasts are heterogeneously dense. A fairly well-circumscribed bilobed 11 x 18 millimeter in diameter mass is noted in the medial retr oareolar portion of the right breast. No additional mass identified in either breast. No clumped mi crocalcification seen. Breast ultrasound shows a heterogeneous lobulated hypoechoic mass with minimally increased internal v ascularity corresponding to mammographically identified mass, ultrasonographically this measures abou t 10 x 10 x 19 millimeters in diameter. IMPRESSION: Findings as described are suspicious for breast carcinoma. Biopsy recommended for further evaluation. Category 4, breast density category C. BI-RADS Cat 4 - Suspicious Abnormality: Biopsy should be considered. Breast Density - Category C - Heterogeneously dense
== END 2019-04-11 01:47 ==
PROVIDERS: PCP Family Medicine; Visit Provider Internal Medicine
DX: N63.10 Unspecified lump in the right breast, unspecified quadrant (principal); R92.8 Other abnormal and inconclusive findings on diagnostic imaging of breast
CPT/HCPCS: 76642; 77062; 77066; G0279

== ENCOUNTER 2019-04-25 06:15 | Day surgery (SDC) | payer MEDICAID, SELFPAY ==
[2019-04-25 06:25] VITALS: BP 102/71; PULSE 79; RESP 16; TEMP 36.5; O2SAT 100
[2019-04-25] MEDS: Lactated Ringers 1,000 ML 80 ML IV ×2 (06:45→08:03)
[2019-04-25] MEDS: Celecoxib 200 MG CAP PO (06:46)
[2019-04-25] MEDS: Gabapentin 300 MG CAP 600 MG PO (06:46)
[2019-04-25] MEDS: Acetaminophen 500 MG TAB 1000 MG PO (06:46)
--- NOTE | 2019-04-25 06:51 | ROE_ITS ---
Date of service: 04/25/19 Time of Service: 08:20 Operative Note Operative Note DATE OF PROCEDURE: 04/25/19 PRE-OP DIAGNOSIS: Right Breast Lesion POST-OP DIAGNOSIS: same PROCEDURE: Excisional Biopsy of Right Breast Lesion SURGEON: Molly Greene TECHNICAL SPECIALIST CYTOGENETICS: Anusha Dutta ANESTHESIA: MAC, local (Exparel mixed 50/50 with 0.25 % Bupivocaine) and other ESTIMATED BLOOD LOSS: 5 PATHOLOGY: other (Right Breast lesion, single suture medial and double suture anterior) COMPLICATIONS: None Patient was transported to: same day Patient's condition: stable Indications: Mrs. Forbes is a pleasant 33-year-old female who was seen in the office for an abnormal mammogram and ultrasound. Biopsy was recommended. We discussed core needle biopsy under ultrasound in the office versus excisional biopsy. Because this lesion is causing her pain the patient wants it removed no matter whether it is benign or malignant. She would like to proceed with excisional biopsy. Risks, benefits and complications were reviewed with her. Complications include but are not limited to bleeding, seroma, hematoma, injury to nerve, infection and need for further surgery if this comes back malignant. Questions were entertained and answered to her satisfaction and she wished to proceed. We also discussed pain control with Tylenol and ibuprofen. I will inject Exparel for long-acting postoperative pain control. Findings: Small 11 x 15 cm hard lesion Specimen size 2.5 x 3 cm Procedure Description: After informed consent was obtained and the right breast was marked in same-day surgery, the patient was taken to the operating room and placed in a supine position. Monitors were applied by anesthesia and she was given moderate sedation. Once sedated and comfortable a timeout was done. The patient's name, date of , procedure type and site were reviewed. Fire risk was assessed. The patient's right breast and chest wall were prepped and draped in a sterile surgical fashion. Exparel mixed with bupivacaine was injected into the dermis and subcutaneous tissue of the palpable mass. A small 2-1/2 cm incision was made over the palpable lesion. Dissection was taken through the subcutaneous tissue with cautery. The lesion was palpated and grasped with an Allis grasper. Normal appearing tissue was dissected with cautery around the lesion circumferentially. The excised tissue was then carefully removed and marked with a single suture medially and double suture anteriorly. The specimen measured 2.5 x 3 cm. The specimen was placed in formalin and was sent to pathology. The cavity was then inspected small amount of bleeding was identified and was cauterized. The wound was then irrigated. No more bleeding was identified. The subcutaneous tissue was then re-approximated with 3-0 Vicryl interrupted sutures. The dermis was re-approximated with a running 4-0 Vicryl suture. The skin was then cleaned and dried and skin affix was applied over the incision. Instrument needle and sponge counts were correct at the end of the case. The patient was woken up and taken back to same-day surgery in stable condition. There were no immediate complications.
--- NOTE | 2019-04-25 06:54 | W.PM.DSUDISC ---
Discharge Plan Disposition Patient Disposition: HOME Condition: Good Discharge Details Reason For Visit: (R) BREAST MASS Attending Provider: Molly Greene Primary Care Provider: Kourtney Lam Home Meds and New Rx's Prescriptions: Continued hydroxyzine HCl 50 mg tablet 50 mg PO BID PRN (Reason: itching) Qty: 60 RF: 0 aripiprazole [Abilify] 5 MG tablet 5 mg PO DAILY Qty: 90 RF: 2 Vyvanse 70 MG capsule 70 mg PO DAILY RF: 0 venlafaxine [Effexor XR] 150 MG capsule,extended release 24hr 150 mg PO DAILY RF: 0 Discharge Instructions Instructions: Excisional Breast Biopsy (DC) Additional Instructions: Activity at Home after surgery: 1. Make sure you walk outside at least 4 times per day 2. You should be able to climb a flight of stairs 3. No driving while in pain or taking pain medications 4. No strenuous activity or heavy lifting for 4 weeks Diet, Nutrition, & wound healin. Avoid alcohol until after you are recovered from your surgery 2. Make sure to eat plenty of lean protein (meat, fish, eggs, cottage cheese, beans) 3. Eat a variety of fruits and vegetables. Eat plenty of high fiber foods to avoid constipation. 4. Drink plenty of liquids to stay hydrated and avoid constipation Pain Medications: 1. Tylenol 650 mg every 6 hours and Ibuprofen 600 mg every 6 hours (You may alternate between Tylenol and Ibuprofen every 3 hours. For example take Tylenol and 3 hours later you can take 600 mg of ibuprofen) 2. If a narcotic has been prescribed take as directed only for breakthrough pain For Constipation: 1. Take Milk of Magnesia or MiraLax as needed for constipation Other: 1. You may shower daily. Do not scrub the incisions 2. Do not soak the incisions for 1 week 3. You may alternate ice and heat as needed for pain and swelling Wound Care: 1. Keep the incisions clean and dry Please call our office if you develop: 1. Fevers >101.5 2. Nausea or Vomiting 3. Worsening pain 4. Redness and thick discharge from the wounds If after hours please call the Hospital at and ask to speak to the on-call surgeon Referrals: Molly Greene MD [ [facility] STAFF PHYSICIAN] - 05/18/19 8:45 am Activity:: Activity as Tolerated Diet:: As Tolerated Discharge Orders Discharge Orders: Discharge Order (Routine); Ordered 04/25/19 Ordered By: Molly Greene DS: Diagnosis Discharge Diagnosis (1) Breast mass, right: Status: Acute
[2019-04-25] MEDS: ceFAZolin 2 GM/50 ML BAG IVPB (07:33)
--- NOTE | 2019-04-25 07:55 | BREAST_PTH ---
PATIENT: Giulia Forbes LOC: [facility] U#:[id number] AGE/SX: 33/F ROOM: RE04/25/[address]: Molly Greene MD : 1985 BED: DIS: 04/25/2019 SPEC #: [id number] RECD: 04/25/19 12:41 STATUS: KERMITLeticia REQ #: [id number] EVELYN: 04/25/19 07:[address]: Molly Greene DEPT: Surgical Specimen RECD BY: Loretta Herring ENTERED: 04/25/19 12:42 SP TYPE: Breast OTHR DR: Kourtney Lam MD Tissues: 1 - BREAST INCISION/EXCISION Procedures: GROSS AND MICRO LEVEL 5 Comments: [id number]
[2019-04-25] MEDS: Bupivacaine 0.25% Pres-Free 30 ML VIAL (07:59)
[2019-04-25] MEDS: Bupivacaine LIPOSOME/PF 133 MG/10 ML VIAL IJ (07:59)
[2019-04-25 08:55] VITALS: BP 124/71; PULSE 75; RESP 16; TEMP 36; O2SAT 100
== END 2019-04-25 09:15 | disposition home or self-care (01) ==
LOC: SUR 09:47
PROVIDERS: PCP Family Medicine; Visit Provider Surgery
PROC: (CPT 19120; principal; 2019-04-25 07:30)
DX: D24.1 Benign neoplasm of right breast (principal); N60.11 Diffuse cystic mastopathy of right breast
CPT/HCPCS: 19120; 88307; J0131; J0690; J1100; J1200; J1885; J2250; J2405; J3010

== ENCOUNTER 2019-06-02 14:10 | Emergency (ER) | payer MEDICAID, SELFPAY ==
[2019-06-02 14:25] VITALS: BP 117/87; PULSE 87; TEMP 36.4; O2SAT 100
--- NOTE | 2019-06-02 14:36 | W.ED.GENAD ---
Discharge Plan Disposition Patient Disposition: HOME Condition: Improving Discharge Details Chief Complaint: Headache Clinical Impression: Migraine Primary Care Provider: Kourtney Lam ED Provider: Joe Garzon Home Meds and New Rx's Prescriptions: Continued hydroxyzine HCl 50 mg tablet 50 mg PO BID PRN (Reason: itching) Qty: 60 RF: 0 aripiprazole [Abilify] 5 MG tablet 5 mg PO DAILY Qty: 90 RF: 2 Vyvanse 70 MG capsule 70 mg PO DAILY RF: 0 venlafaxine [Effexor XR] 150 MG capsule,extended release 24hr 150 mg PO DAILY RF: 0 triamcinolone acetonide 0.1 % cream 1 applic TP BID Qty: 80 RF: 0 Discharge Instructions Instructions: Migraine Headache (ED) Additional Instructions: Home to rest today. Please sleep in a dark, quiet room. Return for recurrent or worsening headache, the development of fever, or any other acute concerns. Continue your regularly prescribed medications. Medical Decision Making 33-year-old female presents from home complaining of day 4-/2 of typical migraine headache associated with one episode of emesis after trying to take ibuprofen. She denies fall or injury, no recent illness. Her vital signs are unremarkable and she has no neurologic deficits on exam. IV placed, patient given dexamethasone, Toradol, fluids and antiemetic. She is observed and subsequently both subjectively and objectively improved, stating that her pain is improved. We will discharged home. She understands indications to seek reevaluation. HPI General Mode of arrival: ambulatory. Date/Time Provider Initiated Documentation: 06/02/19 14:30. Limitations to Documentation: no limitations. Information obtained by: patient. History of Present Illness 33 year old F presents to the emergency department with the chief complaint of Day 4 of headache, described as moderate and similar to prior episodes, and is localized to the head. Patient reports no radiation. Patient started experiencing this day(s) and it has been constant. No relieving factors improve symptom(s), Other factors that worsen symptoms (Bright lights) . Patient notes loss of appetite and nausea/vomiting. Patient did receive the following treatments prior to arrival, NSAID Related Data Home Medications Medication Instructions Recorded Confirmed aripiprazole [Abilify] 5 mg PO DAILY #90 tab-cap 10/30/06/02/19 Vyvanse 70 mg PO DAILY tab-cap 09/10/14 06/02/19 venlafaxine [Effexor XR] 150 mg PO DAILY tab-cap 02/20/16 06/02/19 hydroxyzine HCl 50 mg tablet 50 mg PO BID PRN #60 tab 02/07/19 06/02/19 triamcinolone acetonide 0.1 % 1 applic TP BID #80 gm 05/04/19 06/02/19 topical cream Previous Rx's Medication Instructions Recorded hydroxyzine HCl 50 mg tablet 50 mg PO BID PRN #60 tab 02/07/19 triamcinolone acetonide 0.1 % 1 applic TP BID #80 gm 05/04/19 topical cream Allergies Allergy/AdvReac Type Severity Reaction Status Date / Time hydromorphone HCl Allergy Skin Rash Verified 06/02/19 14:33 [From Dilaudid] latex Allergy Rash Verified 06/02/19 14:33 sulfamethoxazole Allergy Hives Verified 06/02/19 14:33 [From Bactrim] trimethoprim Allergy Hives Verified 06/02/19 14:33 lactose AdvReac Diarrhea/Vo Verified 06/02/19 14:33 miting General Stated Complaint: Headache KARLEE: 3 Review of Systems Narrative: No fall or injury. No fever or recent illness. Vomited once. No change to speech or gait, no focal weakness. [facility], [facility] Medical History ADHD (attention deficit hyperactivity disorder) (Inactive) Agoraphobia with panic attacks (Inactive) Anxiety and depression (Inactive) Atopic dermatitis (Acute) Fibroadenoma of right breast in female (Acute) History of alcoholism (Inactive) History of papilledema (Inactive) neg. CT; neg. spinal tap; Kidney stone Migraine (Inactive) Opioid abuse (Inactive) H/O SUBOXONE THERAPY (CURRENTLY OFF THIS) pseudotumor cerebri in (Resolved 03/05/14) with headaches Substance use disorder Hx of opiate use in past. In AA for ETOH use. Thyroiditis (Inactive) Surgical History (Updated 05/18/19 @ 08:18 by Molly Greene MD) History of breast lump/mass excision (Acute ~04/25/19) Fibroadenoma RT Breast Kidney Stone Extraction (~2006) Ligation of fallopian tube (08/29/14) bilateral laparoscopic salpingectomy. aoc SARWAT IN LEG (~2012) SARWAT AND ASSOCIATED HARDWARE HAS SINCE BEEN REMOVED Tonsillectomy (~2010) Family History Mother No problems noted. Father No problems noted. Grandfather Personal history of malignant neoplasm Heart disease Hyperlipidemia Grandfather Personal history of malignant neoplasm Grandmother No problems noted. Grandmother No problems noted. Social History Smoking/Tobacco Use Status: Current every day Tobacco Type: cigarettes Alcohol Intake: current Alcohol Intake frequency: a few times a month Drug use: Current Sobriety Substance use type: does not use Current gender identity: female Do you feel safe at home: Yes Do you feel safe in your relationship?: Yes Exam Narrative Exam Narrative: GEN: awake, alert, oriented 3. Pleasant, well groomed, interactive, lying in a darkened room HEAD: Normocephalic, atraumatic ENT: Mucous membranes moist, oropharynx unremarkable, External ear exam unremarkable EYES: PERRL, EOMI NECK: Full ROM, no SHERRI, no menigismus CHEST/RESP: Nontender, clear to auscultation bilateral, no wheeze/rhonchi/rales CARDIOVASCULAR: RRR, no murmur, rub marisela. 2+ Rad pulse bilateral ABDOMEN: Soft, nontender, no mass. +Bowel sounds EXT: Full ROM, no edema, no rash Neuro: Grossly normal neurologic exam, conversant, interactive. Psych: Speech fluent, thoughts congruent, affect normal Course Vital Signs Vital signs: Vital Signs Temperature 36.4 C L 06/02/19 14:25 Pulse 87 06/02/19 14:25 Blood Pressure 117/87 06/02/19 14:25 Pulse Oximetry 100 06/02/19 14:25 Temperature 36.4 C L 06/02/19 14:25 Temperature Source Skin 06/02/19 14:25 Pulse 87 06/02/19 14:25 Respiratory Effort Non-Labored 06/02/19 14:33 Blood Pressure 117/87 06/02/19 14:25 Blood Pressure Position Sitting 06/02/19 14:25 Pulse Oximetry 100 06/02/19 14:25 Oxygen Delivery Method Room Air 06/02/19 14:25 Oxygen Flow Rate 0 06/02/19 14:25 Pain Level 5 06/02/19 14:25
[2019-06-02] MEDS: Normal Saline 1,000 ML 1000 ML IV (15:04)
[2019-06-02] MEDS: Ondansetron 4 MG/2 ML VIAL IVP (15:05)
[2019-06-02] MEDS: Ketorolac 30 MG/ML VIAL IVP (15:06)
[2019-06-02] MEDS: Dexamethasone 10 MG/ML VIAL IVP (15:07)
[2019-06-02] MEDS: Normal Saline Flush 10 ML SYR IVP (15:07)
[2019-06-02 15:55] VITALS: BP 116/74; PULSE 78; RESP 17; TEMP 36.8; O2SAT 99
== END 2019-06-02 15:56 | disposition home or self-care (01) ==
PROVIDERS: Emergency Provider Emergency Medicine; PCP Family Medicine
DX: R51 Headache (principal); R11.2 Nausea with vomiting, unspecified; G43.909 Migraine, unspecified, not intractable, without status migrainosus
CPT/HCPCS: 96361; 96374; 96375; 99284; J1100; J1885; J2405; J3490

== ENCOUNTER 2019-06-10 13:48 | Emergency (ER) | payer MEDICAID, SELFPAY ==
[2019-06-10 13:52] VITALS: BP 126/77; PULSE 88; RESP 18; TEMP 37.3; O2SAT 98
--- NOTE | 2019-06-10 14:05 | W.ED.GENAD ---
Discharge Plan Disposition Patient Disposition: HOME Condition: Improving Discharge Details Chief Complaint: RespSymp Clinical Impression: Acute bronchitis Primary Care Provider: Kourtney Lam ED Provider: Joe Garzon Home Meds and New Rx's Prescriptions: New amoxicillin-pot clavulanate 875-125 mg tablet 1 tab PO BID 10 Days Qty: 19 RF: 0 Continued hydroxyzine HCl 50 mg tablet 50 mg PO BID PRN (Reason: itching) Qty: 60 RF: 0 aripiprazole [Abilify] 5 MG tablet 5 mg PO DAILY Qty: 90 RF: 2 Vyvanse 70 MG capsule 70 mg PO DAILY RF: 0 venlafaxine [Effexor XR] 150 MG capsule,extended release 24hr 150 mg PO DAILY RF: 0 triamcinolone acetonide 0.1 % cream 1 applic TP BID Qty: 80 RF: 0 Discharge Instructions Instructions: Acute Bronchitis (ED) Additional Instructions: Continue efforts to decrease tobacco use. Please take antibiotics as prescribed. Small, frequent sips of fluids to maintain hydration. Return to the emergency department for any acute concerns. Medical Decision Making Otherwise healthy 33-year-old female who is a smoker. She presents with day 5 of upper respiratory illness with cough, congestion, fever, body ache. Her vital signs are normal but she is mildly ill in appearance. Differential diagnosis includes bronchitis, pneumonia, influenza, viral syndrome. Patient had flu swab obtained and is referred for chest x-ray. Chest x-ray without acute findings. Flu swab was negative. As she is a smoker with production of sputum as well as sinus pain and pressure I do feel she merits treatment for acute bronchitis. Discussed with her home management as well as indications to return. She will continue her efforts to decrease tobacco use. HPI General Mode of arrival: ambulatory. Date/Time Provider Initiated Documentation: 06/10/19 13:50. Limitations to Documentation: no limitations. Information obtained by: patient. History of Present Illness 33 year old F presents to the emergency department with the chief complaint of Cough, congestion, fever for 4 to 5 days, described as moderate, Quality is described as dull, and is localized to the chest. Patient reports no radiation. Patient started experiencing this day(s) and it has been constant. No relieving factors improve symptom(s), No exacerbating factors reported . Patient notes cough, fever/chills, malaise and other (Sore throat); denies nausea/vomiting. Patient did receive the following treatments prior to arrival, other (Tylenol) Related Data Home Medications Medication Instructions Recorded Confirmed aripiprazole [Abilify] 5 mg PO DAILY #90 tab-cap 10/30/13 06/10/19 Vyvanse 70 mg PO DAILY tab-cap 09/10/14 06/10/19 venlafaxine [Effexor XR] 150 mg PO DAILY tab-cap 02/20/16 06/10/19 hydroxyzine HCl 50 mg tablet 50 mg PO BID PRN #60 tab 02/07/19 06/10/19 triamcinolone acetonide 0.1 % 1 applic TP BID #80 gm 05/04/19 06/10/19 topical cream amoxicillin-pot clavulanate 1 tab PO BID 10 Days #19 tab 06/10/19 Previous Rx's Medication Instructions Recorded hydroxyzine HCl 50 mg tablet 50 mg PO BID PRN #60 tab 02/07/19 triamcinolone acetonide 0.1 % 1 applic TP BID #80 gm 05/04/19 topical cream amoxicillin-pot clavulanate 1 tab PO BID 10 Days #19 tab 06/10/19 Allergies Allergy/AdvReac Type Severity Reaction Status Date / Time hydromorphone HCl Allergy Skin Rash Verified 06/10/19 13:59 [From Dilaudid] latex Allergy Rash Verified 06/10/19 13:59 sulfamethoxazole Allergy Hives Verified 06/10/19 13:59 [From Bactrim] trimethoprim Allergy Hives Verified 06/10/19 13:59 lactose AdvReac Diarrhea/Vo Verified 06/10/19 13:59 miting General Stated Complaint: RespSymp KARLEE: 3 Review of Systems Narrative: 6 systems reviewed and otherwise negative [facility] Surgical History (Updated 05/18/19 @ 08:18 by Molly Greene MD) History of breast lump/mass excision (Acute ~04/25/19) Fibroadenoma RT Breast Kidney Stone Extraction (~2006) Ligation of fallopian tube (08/29/14) bilateral laparoscopic salpingectomy. aoc SARWAT IN LEG (~2012) SARWAT AND ASSOCIATED HARDWARE HAS SINCE BEEN REMOVED Tonsillectomy (~2010) Social History Smoking/Tobacco Use Status: Current every day Tobacco Type: cigarettes Alcohol Intake: current Alcohol Intake frequency: a few times a month Drug use: Current Sobriety Substance use type: does not use Current gender identity: female Do you feel safe at home: Yes Do you feel safe in your relationship?: Yes Exam Narrative Exam Narrative: GEN: awake, alert, oriented 3. Pleasant, well groomed, interactive. HEAD: Normocephalic, atraumatic ENT: Mucous membranes moist, oropharynx unremarkable, External ear exam unremarkable EYES: PERRL, EOMI NECK: Full ROM, no SHERRI, no menigismus CHEST/RESP: Nontender, few scattered rhonchi CARDIOVASCULAR: RRR, no murmur, rub marisela. 2+ Rad pulse bilateral ABDOMEN: Soft, nontender, no mass. +Bowel sounds EXT: Full ROM, no edema, no rash Neuro: Grossly normal neurologic exam, conversant, interactive. Psych: Speech fluent, thoughts congruent, affect normal Course Vital Signs Vital signs: Vital Signs Temperature 37.3 C 06/10/19 13:52 Pulse 88 06/10/19 13:52 Respiratory Rate 18 06/10/19 13:52 Blood Pressure 126/77 06/10/19 13:52 Pulse Oximetry 98 06/10/19 13:52 Temperature 37.3 C 06/10/19 13:52 Temperature Source Oral 06/10/19 13:52 Pulse 88 06/10/19 13:52 Respiratory Rate 18 06/10/19 13:52 Respiratory Effort Non-Labored 06/10/19 14:00 Respiratory Depth Normal 06/10/19 14:00 Blood Pressure 126/77 06/10/19 13:52 Blood Pressure Position Sitting 06/10/19 13:52 Pulse Oximetry 98 06/10/19 13:52 Oxygen Delivery Method Room Air 06/10/19 13:52 Oxygen Flow Rate 0 06/10/19 13:52 Pain Level 6 06/10/19 13:52 Lab/Test Results Lab/Test Results: 06/10/19 14:05 Nasopharynx Influenza Types A,B Antigen - Pending
[2019-06-10] MEDS: Ibuprofen 800 MG TAB PO (14:09)
--- NOTE | 2019-06-10 14:32 | DI.RAD_ITS ---
EXAM: XR CHEST 2V PA LATERAL CLINICAL HISTORY: cough, congestion TECHNIQUE: 2D digital imaging was performed. COMPARISON: XR CHEST 2V PA LATERAL from 06/03/2018 FINDINGS: The cardiac and mediastinal contours have a normal appearance. The lungs are well inflated and clear . No infiltrate, effusion or pneumothorax is seen. No spine or rib fracture is identified. IMPRESSION: Negative chest x-ray.
[2019-06-10] MEDS: Amoxicillin 875/Clav. 125 TAB PO (14:54)
--- NOTE | 2019-06-10 15:19 | DI.VRAD_ITS ---
PROCEDURE INFORMATION: Exam: XR Chest, 2 Views Exam date and time: 06/10/2019 2:33 PM Age: 33 years old Clinical indication: Cough TECHNIQUE: Imaging protocol: XR of the chest Views: 2 views. COMPARISON: CR XR CHEST 2V PA LATERAL 06/03/2018 10:09 PM FINDINGS: Lungs: Unremarkable. No consolidation. Pleural space: Unremarkable. No pleural effusion. No pneumothorax. Heart/Mediastinum: Unremarkable. No cardiomegaly. Bones/joints: Unremarkable. IMPRESSION: No acute findings. Dictated and Authenticated by: Jessie Okeefe MD. Ordering:HARSHAL Diaz MD
== END 2019-06-10 14:56 | disposition home or self-care (01) ==
PROVIDERS: Emergency Provider Emergency Medicine; PCP Family Medicine
DX: J20.9 Acute bronchitis, unspecified (principal); F17.210 Nicotine dependence, cigarettes, uncomplicated
CPT/HCPCS: 87449; 99283; 71046

== ENCOUNTER 2019-10-03 12:20 | Outpatient (REF) | payer MEDICAID, SELFPAY ==
--- NOTE | 2019-10-03 10:30 | PAPFT_PTH ---
PATIENT: Giulia Forbes LOC: [facility] U#:[id number] AGE/SX: 34/F ROOM: RE10/03/[address]: Kourtney Lam MD : 1985 BED: DIS: 10/03/2019 SPEC #: [id number] RECD: 10/04/19 12:39 STATUS: [place] #: [id number] EVELYN: 10/03/19 10:[address]: Kourtney Lam DEPT: [facility] Cytology RECD BY: Loretta Herring Tissues: 1 - CX/ENDOCX FOR PAP SMEARS Procedures: PAP THIN PREP/UVM Screening HPV DNA PROBE Comments: [id number]
== END 2019-10-03 12:40 ==
LOC: LBN 12:20
PROVIDERS: PCP Family Medicine; Visit Provider Family Medicine
DX: Z12.4 Encounter for screening for malignant neoplasm of cervix (principal); Z11.51 Encounter for screening for human papillomavirus (HPV)
CPT/HCPCS: 88142; 87624

== ENCOUNTER 2019-11-20 13:50 | Emergency (ER) | payer MEDICAID, SELFPAY ==
[2019-11-20 13:53] VITALS: BP 130/87; PULSE 87; RESP 16; TEMP 36.9; O2SAT 99
[2019-11-20] MEDS: Lactated Ringers 1,000 ML 1000 ML IV ×2 (14:05→14:34)
[2019-11-20] MEDS: Ondansetron 4 MG/2 ML VIAL IVP (14:14)
[2019-11-20 14:25] LABS: Abs Immature Grans 0.01 k/cumm (0.0-0.09); Absolute Basophil Count 0.01 k/cumm (0.0-0.2); Absolute Eosinophil Count 0.22 k/cumm (0.0-0.7); Absolute Lymphocyte Count 1.97 k/cumm (1.2-3.4); Absolute Monocyte Count 0.56 k/cumm (0.11-0.7); Absolute Neutrophil Count 3.48 k/cumm (1.2-6.7); Basophils % 0.2; Eosinophils % 3.5; HCT 42.6 % (36.0-46.0); HGB 14.1 g/dL (12.0-15.5); Immature Grans % 0.2 %; Lymphocytes % 31.5; Mean Corp. HGB Concentration 33.1 g/dL (32.0-36.0); Mean Corpuscular Hemoglobin 33.8 pg (27.0-33.0); Mean Corpuscular Volume 102.2 fL (80-95); Neutrophils % 55.6; Platelet Count 322 x1000/uL (130-400); RBC 4.17 m/cumm (4.00-5.20); RBC Distribution Width 11.7 % (11.7-14.6); White Blood Cell Count 6.25 k/cumm (4.4-10.8)
[2019-11-20 14:37] LABS: ALT 28 U/L (14-59); AST 22 U/L (15-37); Albumin 3.7 g/dL (3.4-5.0); Alkaline Phosphatase 103 U/L (46-116); Anion Gap 8.3 mmol/L (3-11); BUN 15 mg/dL (7-18); Bilirubin, Total 0.5 mg/dL (0.2-1.0); CO2 27.7 mmol/L (21.0-32.0); CREATININE 0.67 mg/dL (0.55-1.02); Calcium 9.1 mg/dL (8.5-10.1); Chloride 105 mmol/L (98-107); Glucose 98 mg/dL (74-106); Magnesium 2.1 mg/dL (1.8-2.4); Potassium 3.7 mmol/L (3.5-5.1); Sodium 141 mmol/L (136-145); Total Protein 7.1 g/dL (6.4-8.2)
--- NOTE | 2019-11-20 14:40 | ED.GENADUL_ITS ---
Discharge Plan Disposition Patient Disposition: HOME Condition: Stable Discharge Details Chief Complaint: Nausea/Vomit/Diar Clinical Impression: Nausea & vomiting, Excess sun exposure Primary Care Provider: Kourtney Lam ED Provider: Ru Smith Home Meds and New Rx's Prescriptions: New ondansetron 4 mg tablet,disintegrating 4 mg PO Q8H PRN (Reason: nausea and vomiting) Qty: 10 RF: 0 Continued meloxicam 15 mg tablet 15 mg PO DAILY Qty: 30 RF: 1 hydroxyzine HCl 50 mg tablet 50 mg PO BID PRN (Reason: itching) Qty: 60 RF: 0 aripiprazole [Abilify] 5 MG tablet 5 mg PO DAILY Qty: 90 RF: 2 Vyvanse 70 MG capsule 70 mg PO DAILY RF: 0 venlafaxine [Effexor XR] 150 MG capsule,extended release 24hr 150 mg PO DAILY RF: 0 Discharge Instructions Instructions: Acute Nausea and Vomiting (ED) Additional Instructions: Rest and stay out of the sun over the next few days. Limit future sun exposure and take frequent breaks indoors. Please drink small amounts of food, frequently in order to stay hydrated. Please contact your primary care physician to arrange follow-up. Return to the ER for any worsening or new concerning symptoms. Referrals: Kourtney Lam MD [Primary Care Provider] - Medical Decision Making 1500??34-year-old female here with nausea, vomiting, inability to tolerate fluids over the past 2 days after significant sun exposure. Abdominal exam is benign. Concern for heat related illness versus gastroenteritis. Consider electrolyte abnormality given biliary disease. Will check labs. Will give IV fluid bolus and Zofran IV. --Labs reviewed and nondiagnostic. No anion gap acidosis noted. Patient was given 2 L of crystalloid and reassessed. She is feeling much better. Tolerating p.o. fluids. Usual and customary discharge instructions were provided. HPI General Mode of arrival: ambulatory . Date/Time Provider Initiated Documentation: 11/20/19 14:02 . Limitations to Documentation: no limitations . Information obtained by: patient . HPI Narrative: 34-year-old female here with chief complaint of nausea. Patient notes nausea and vomiting for the past 2 days. She states that she had significant sun exposure outside in her pool Tuesday and Tuesday and then developed symptoms. Nausea is severe. She has inability to tolerate fluids. No associated diarrhea. No abdominal pain. No fever. No known sick contacts or travel. Related Data Home Medications Medication Instructions Recorded Confirmed aripiprazole [Abilify] 5 mg PO DAILY #90 tab-cap 10/30/13 11/20/19 Vyvanse 70 mg PO DAILY tab-cap 09/10/14 11/20/19 venlafaxine [Effexor XR] 150 mg PO DAILY tab-cap 02/20/16 11/20/19 hydroxyzine HCl 50 mg tablet 50 mg PO BID PRN #60 tab 02/07/19 11/20/19 meloxicam 15 mg tablet 15 mg PO DAILY #30 tab 11/05/19 11/20/19 ondansetron 4 mg PO Q8H PRN #10 tab 11/20/19 Previous Rx's Medication Instructions Recorded hydroxyzine HCl 50 mg tablet 50 mg PO BID PRN #60 tab 02/07/19 meloxicam 15 mg tablet 15 mg PO DAILY #30 tab 11/05/19 ondansetron 4 mg PO Q8H PRN #10 tab 11/20/19 Allergies Allergy/AdvReac Type Severity Reaction Status Date / Time hydromorphone HCl Allergy Skin Rash Verified 11/20/19 13:58 [From Dilaudid] latex Allergy Rash Verified 11/20/19 13:58 sulfamethoxazole Allergy Hives Verified 11/20/19 13:58 [From Bactrim] trimethoprim Allergy Hives Verified 11/20/19 13:58 lactose AdvReac Diarrhea/Vo Verified 11/20/19 13:58 miting General Stated Complaint: Nausea/Vomit/Diar KARLEE: 3 Review of Systems All systems reviewed & are unremarkable except as noted in HPI and below Constitutional Constitutional: Denies fever(s) Cardiovascular Cardiovascular: Denies chest pain Gastrointestinal Gastrointestinal: Reports as per HPI, Denies abdominal pain, Reports nausea, Reports vomiting and Denies hematemesis Genitourinary Genitourinary: Denies dysuria [facility] Medical History ADHD (attention deficit hyperactivity disorder) (Inactive) Agoraphobia with panic attacks (Inactive) Anxiety and depression (Inactive) Atopic dermatitis (Acute) Fibroadenoma of right breast in female (Acute) History of alcoholism (Inactive) History of papilledema (Inactive) neg. CT; neg. spinal tap; Kidney stone Migraine (Inactive) Opioid abuse (Inactive) H/O SUBOXONE THERAPY (CURRENTLY OFF THIS) pseudotumor cerebri in (Resolved 03/05/14) with headaches Substance use disorder Hx of opiate use in past. In AA for ETOH use. Thyroiditis (Inactive) Surgical History History of breast lump/mass excision (Acute ~04/25/19) Fibroadenoma RT Breast Kidney Stone Extraction (~2006) Ligation of fallopian tube (08/29/14) bilateral laparoscopic salpingectomy. aoc SARWAT IN LEG (~2012) SARWAT AND ASSOCIATED HARDWARE HAS SINCE BEEN REMOVED Tonsillectomy (~2010) Family History Mother Depression Father , age 70 COPD (chronic obstructive pulmonary disease) Maternal Grandfather Heart disease Hyperlipidemia Cancer Paternal Grandfather Cancer Maternal Grandmother No problems noted. Paternal Grandmother No problems noted. Social History Smoking/Tobacco Use Status: Current every day Tobacco Type: cigarettes Tobacco: How many years used: 10 Quit status: not considering quitting Alcohol Intake: former Drug use: Current Sobriety Substance use type: does not use Caregiver/Support person: No Household members: children Housing: house Communication Needs: Cannot Read Pets and animals: Yes Pets and animals: cat(s) and dog(s) Sexually active: No Current gender identity: female What is your relationship status?: How often do you talk on the phone with friends or family?: three or more times per week How often do you get together with friends or relatives?: once per week How often do you attend yazidism or bahai services?: decline to answer Do you belong to any clubs or organized social groups?: no Panel score (0-1 are the most socially isolated patients): 1 What type of physical activity do you participate in: walking, running and yoga Duration: 30-45 minutes/day Frequency: 3-4 times per week Lynnette/Temple: None Special lynnette needs: No Seatbelt use: always Drive intox or ride w/intox driver license reviewing officer: No Do you feel safe at home: Yes Do you feel safe in your relationship?: Yes Exam Const General: cooperative and no acute distress HENMT Mouth: mucous membranes dry Eyes Conjunctivae: normal conjunctivae Sclera: normal sclerae Neck Neck: trachea midline and supple Resp Auscultation: clear to auscultation bilaterally, no rales, no rhonchi and no wheezes Cardio Jugular venous pressure: no JVD Rate: regular rate and not tachycardic Rhythm: regular rhythm GI Palpation: soft, not firm, no guarding, no masses, not rigid, nontender and No ascites Auscultation: normal bowel sounds Skin General skin exam: no rashes or lesions noted Neuro General: patient alert, patient awake and tone normal Extrem General: no edema Psych Appearance: grossly normal Mental Status: mental status grossly normal Speech and Movement: speech and movement normal Course Vital Signs Vital signs: Vital Signs Temperature 36.9 C 11/20/19 13:53 Pulse 87 11/20/19 13:53 Respiratory Rate 16 11/20/19 13:53 Blood Pressure 130/87 11/20/19 13:53 Pulse Oximetry 99 11/20/19 13:53 Temperature 36.9 C 11/20/19 13:53 Temperature Source Oral 11/20/19 13:53 Pulse 87 11/20/19 13:53 Respiratory Rate 16 11/20/19 13:53 Respiratory Effort Non-Labored 11/20/19 13:59 Blood Pressure 130/87 11/20/19 13:53 Blood Pressure Position Sitting 11/20/19 13:53 Pulse Oximetry 99 11/20/19 13:53 Oxygen Delivery Method Room Air 11/20/19 13:53 Oxygen Flow Rate 0 11/20/19 13:53 Pain Level 0 11/20/19 13:53 Lab/Test Results Lab/Test Results: Laboratory Tests Range/Units 11/20/19 11/20/19 14:05 14:05 WBC (4.4-10.8) k/cumm 6.25 RBC (4.00-5.20) m/cumm 4.17 Hgb (12.0-15.5) g/dL 14.1 Hct (36.0-46.0) % 42.6 MCV (80-95) fL 102.2 H MCH (27.0-33.0) pg 33.8 H MCHC (32.0-36.0) g/dL 33.1 RDW (11.7-14.6) % 11.7 Plt Count (130-400) x1000/uL 322 MPV (8.0-11.0) fL 10.0 Immature Gran % % 0.2 Neutrophils % 55.6 Lymphocytes % 31.5 Monocytes % 9.0 Eosinophils % 3.5 Basophils % 0.2 Absolute Neutrophils (1.2-6.7) k/cumm 3.48 Absolute Lymphocytes (1.2-3.4) k/cumm 1.97 Absolute Monocytes (0.11-0.7) k/cumm 0.56 Absolute Eosinophils (0.0-0.7) k/cumm 0.22 Absolute Basophils (0.0-0.2) k/cumm 0.01 Sodium (136-145) mmol/L 141 Potassium (3.5-5.1) mmol/L 3.7 Chloride (98-107) mmol/L 105 Carbon Dioxide (21.0-32.0) mmol/L 27.7 Anion Gap (3-11) mmol/L 8.3 BUN (7-18) mg/dL 15 Creatinine (0.55-1.02) mg/dL 0.67 Estimated GFR/1.73 m2 (mL/min/1.73m2) >= 60.00 Glucose (74-106) mg/dL 98 Calcium (8.5-10.1) mg/dL 9.1 Magnesium (1.8-2.4) mg/dL 2.1 Total Bilirubin (0.2-1.0) mg/dL 0.5 AST (15-37) U/L 22 ALT (14-59) U/L 28 Alkaline Phosphatase (46-116) U/L 103 Total Protein (6.4-8.2) g/dL 7.1 Albumin (3.4-5.0) g/dL 3.7
[2019-11-20 15:14] LABS: Bilirubin Negative (Negative); Blood Negative (Negative); Clarity Sl Cloudy (Clear); Glucose Negative (Negative); Ketones Negative (Negative); Leukocyte Esterase Small (Negative); Nitrite Negative (Negative); Specific Gravity 1.025 (1.005-1.025)
[2019-11-20 15:23] LABS: Bacteria Moderate HPF (Negative); C & S Indicated? Yes; Casts Negative LPF (Negative); Crystals Few Amorphous HPF (Negative); Epithelial Cells Few HPF (Negative); Mucus Trace (Negative); RBC Negative HPF (0-2)
[2019-11-20 15:54] VITALS: BP 116/72; PULSE 66; RESP 18; TEMP 37; O2SAT 100
== END 2019-11-20 16:08 | disposition home or self-care (01) ==
PROVIDERS: Emergency Provider Student in an Organized Health Care Education/Training Program; PCP Family Medicine
DX: R11.2 Nausea with vomiting, unspecified (principal); X32.XXXA Exposure to sunlight, initial encounter
CPT/HCPCS: 80053; 81025; 87077; 96361; 96374; 99284; 81003; 81015; 83735; 85025; 87086; 87186; J2405

== ENCOUNTER 2020-02-28 07:30 | Outpatient (CLI) | payer MEDICAID, SELFPAY ==
[2020-03-01 23:32] LABS: Patient Race White; SARS-CoV-2 RNA Undetected (Undetected); SARS-CoV-2 Specimen Source Nasopharynx
== END 2020-02-28 07:50 ==
PROVIDERS: PCP Family Medicine; Visit Provider Physician Assistant
DX: Z20.828 Contact with and (suspected) exposure to other viral communicable diseases (principal)
CPT/HCPCS: U0003

== ENCOUNTER 2020-07-17 15:40 | Outpatient (REF) | payer MEDICAID, SELFPAY ==
[2020-07-19 14:06] LABS: COVID-19 RT-PCR UVMMC Result Negative (Negative)
== END 2020-07-17 15:41 | disposition home or self-care (01) ==
LOC: NCHCN 15:40
PROVIDERS: PCP Family Medicine; Visit Provider Nurse Practitioner Family
DX: Z20.822 Contact with and (suspected) exposure to COVID-19 (principal)
CPT/HCPCS: U0003

== ENCOUNTER 2020-10-07 18:07 | Outpatient (REF) | payer MEDICAID, SELFPAY ==
--- NOTE | 2020-10-07 17:35 | PAPFT_PTH ---
PATIENT: Giulia Forbes LOC: [facility] U#:[id number] AGE/SX: 35/F ROOM: RE10/07/[address]: Karo Simpson NP : 1985 BED: DIS: 10/07/2020 SPEC #: [id number] RECD: 10/08/20 12:21 STATUS: ANU [place] #: [id number] EVELYN: 10/07/20 17:[address]: Karo Simpson DEPT: [facility] Cytology RECD BY: Loretta Herring ENTERED: 10/08/20 12:22 SP TYPE: PAPFT OTHR DR: Kourtney Lam MD Tissues: 1 - CX/ENDOCX FOR PAP SMEARS Procedures: PAP THIN PREP/UVM Screening HPV DNA PROBE Comments: [id number] (CHLAMYDIA/GC)
[2020-10-09 14:36] LABS: Chlamydia Result Negative (Negative); GC Result Negative (Negative)
== END 2020-10-07 18:08 | disposition home or self-care (01) ==
LOC: LBN 18:07
PROVIDERS: PCP Family Medicine; Visit Provider Nurse Practitioner Family
DX: Z12.4 Encounter for screening for malignant neoplasm of cervix (principal); Z11.3 Encounter for screening for infections with a predominantly sexual mode of transmission; Z11.51 Encounter for screening for human papillomavirus (HPV)
CPT/HCPCS: 87491; 87591; 88142; 87624

== ENCOUNTER 2020-10-21 16:20 | Emergency (ER) | payer MEDICAID, SELFPAY ==
--- NOTE | 2020-10-21 16:30 | DI.RAD_ITS ---
Exam(s) XR ELBOW RT COMPLETE EXAM: XR ELBOW RT COMPLETE CLINICAL HISTORY: bent elbow in railing, suspect fx. TECHNIQUE: 2D digital imaging was performed. COMPARISON: No exams were available for comparison FINDINGS: BONES: No acute fracture is present. No bony destructive lesion is seen. JOINTS: The elbow is normally aligned. No joint effusion is seen. SOFT TISSUE: Normal. IMPRESSION: Unremarkable radiographs of the right elbow. DATA REPOSITORY: RADIATION DOSE DELIVERED:
[2020-10-21 16:31] VITALS: BP 130/99; PULSE 83; RESP 18; TEMP 36.4; O2SAT 98
[2020-10-21] MEDS: Ketorolac 30 MG/ML VIAL IM (16:42)
[2020-10-21] MEDS: Acetaminophen 500 MG TAB 1000 MG PO (16:42)
--- NOTE | 2020-10-21 17:25 | DI.VRAD_ITS ---
PROCEDURE INFORMATION: Exam: XR Right Elbow Exam date and time: 10/21/2020 4:35 PM Age: 35 years old Clinical indication: Pain; Elbow; Right; Patient HX: PT fell, limited rom, PT unable to do good lateral TECHNIQUE: Imaging protocol: XR Right elbow. Views: 3 or more views. Total images: 3 COMPARISON: No relevant prior studies available. FINDINGS: Bones/joints: No bony or joint space abnormality. No fracture. No dislocation. Soft tissues: Unremarkable. No effusion. IMPRESSION: No acute findings. Dictated and Authenticated by: Joe Leyva MD. Ordering:CHRISTIAN Muller MD
--- NOTE | 2020-10-21 17:41 | W.ED.GENAD ---
Discharge Plan Disposition Patient Disposition: HOME Condition: Good Discharge Details Clinical Impression: Ulnar nerve compression Primary Care Provider: Kourtney Lam ED Provider: Renzo Torres Home Meds and New Rx's Prescriptions: Continued hydroxyzine HCl 50 mg tablet 50 mg PO BID PRN (Reason: itching) Qty: 60 RF: 0 aripiprazole [Abilify] 5 MG tablet 5 mg PO DAILY Qty: 90 RF: 2 Vyvanse 70 MG capsule 70 mg PO DAILY RF: 0 venlafaxine [Effexor XR] 150 MG capsule,extended release 24hr 150 mg PO DAILY RF: 0 valacyclovir 1 gram tablet 2,000 mg PO .bid as directed Qty: 20 RF: 2 Discharge Instructions Instructions: Tennis Elbow (ED) Additional Instructions: At this time your x-ray shows no evidence of fracture. I suspect what occurred with compression of the ulnar nerve by the elbow. This is often similar to a condition called golfers elbow. I have included discharge instructions of tennis elbow which is similar and helpful for understanding. Often times the irritation around the nerve will improve over the next 2 to 3 days. Please take 800 mg of ibuprofen every 6 hours and 1000 mg of Tylenol every 6 hours as needed for pain. These are the maximum doses. Please use ice on the area as often as possible. Use the sling only as needed. If you do not have an improvement of your symptoms over the neck 3 to 5 days you may need further evaluation by the media center specialist. If you notice any worsening of your symptoms, or any new symptoms such as vomiting, diarrhea, fever, chills, shortness of breath, chest pain, numbness, weakness, or fainting , please return immediately to the emergency department for reevaluation. Please follow up with your primary care provider as soon as possible for reassessment and reevaluation. As always, it was a pleasure participating in your medical care today. Referrals: Kourtney Lam MD [Primary Care Provider] - Discharge Data Discharge Date/Time-TO BE ENTERED AT DEPARTURE: 10/21/20 17:53 Medical Decision Making This is a pleasant 35-year-old female who presents today for evaluation of right arm pain. Patient states that she was walking down her stairs when her arm got caught in the railings, and she notably pinched the medial aspect of her arm just proximal to the elbow. After that she had severe searing pain in that area unable to move her hand or arm otherwise. Pain was described as 10 out of 10. She denies any other trauma. No other complaints at this time. Pain is made worse with palpation and movement. Improved by nothing. Exam demonstrates a small bruise and pinch linden just proximal to the medial right elbow. Exam also demonstrates subjective tingling in the ulnar distribution of the right hand. She does have good two-point discrimination though still. Notable reproducible tenderness over the pinch linden on the elbow. X-ray is negative for acute fracture. After Tylenol and Motrin and a sling the patient had significant improvement of her symptoms. Pain is notably more tolerable, she feels well and comfortable for going home. Repeat neurovascular exam demonstrates continued symptoms but improving sensation over the ulnar distribution. Suspect notable ulnar nerve compression and irritation secondary to pincer movement that was enacted on her arm. With this mild neuralgia will recommend continue Tylenol, Motrin and ice as well as sling. No indication for emergent surgical management at this time. Discussed red flags which to return. I have extensively reviewed the treatment plan and discharge instructions with the patient and their family. I have addressed all patient concerns at this time. The patient and family was made aware of what symptoms to monitor for that would warrant a return to the emergency department. Discussed the plan with the patient and family, they demonstrate verbal understanding and agreement with our assessment and plan at this time. The documentation in this chart was dictated using [employer] ([email or web address]) dictation software. Please excuse any dictation errors. FINDINGS: Bones/joints: No bony or joint space abnormality. No fracture. No dislocation. Soft tissues: Unremarkable. No effusion. IMPRESSION: No acute findings. Thank you for allowing us to participate in the care of your patient. Dictated and Authenticated by: Joe Leyva MD 10/21/2020 5:25 PM Eastern Time ([place] & [place]) HPI General Date/Time Provider Initiated Documentation: 10/21/20 16:21. HPI Narrative: This is a pleasant 35-year-old female who presents today for evaluation of right arm pain. Patient states that she was walking down her stairs when her arm got caught in the railings, and she notably pinched the medial aspect of her arm just proximal to the elbow. After that she had severe searing pain in that area unable to move her hand or arm otherwise. Pain was described as 10 out of 10. She denies any other trauma. No other complaints at this time. Pain is made worse with palpation and movement. Improved by nothing. Related Data Home Medications Medication Instructions Recorded Confirmed aripiprazole [Abilify] 5 mg PO DAILY #90 tab-cap 10/30/13 10/21/20 Vyvanse 70 mg PO DAILY tab-cap 09/10/14 10/21/20 venlafaxine [Effexor XR] 150 mg PO DAILY tab-cap 02/20/16 10/21/20 hydroxyzine HCl 50 mg tablet 50 mg PO BID PRN #60 tab 02/07/19 10/21/20 valacyclovir 1 gram tablet 2,000 mg PO .bid as directed #20 06/05/20 10/21/20 tab Previous Rx's Medication Instructions Recorded hydroxyzine HCl 50 mg tablet 50 mg PO BID PRN #60 tab 02/07/19 valacyclovir 1 gram tablet 2,000 mg PO .bid as directed #20 06/05/20 tab Allergies Allergy/AdvReac Type Severity Reaction Status Date / Time hydromorphone HCl Allergy Skin Rash Verified 10/21/20 16:37 [From Dilaudid] latex Allergy Rash Verified 10/21/20 16:37 sulfamethoxazole Allergy Hives Verified 10/21/20 16:37 [From Bactrim] trimethoprim Allergy Hives Verified 10/21/20 16:37 lactose AdvReac Diarrhea/Vo Verified 10/21/20 16:37 miting General Stated Complaint: Orthopedic KARLEE: 3 Review of Systems All systems reviewed & are unremarkable except as noted in HPI and below PFSH Medical History ADHD (attention deficit hyperactivity disorder) Agoraphobia with panic attacks Anxiety and depression Atopic dermatitis 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 CT; neg. spinal tap; Kidney stone Migraine Opioid abuse H/O SUBOXONE THERAPY (CURRENTLY OFF THIS) pseudotumor cerebri in (03/05/14) with headaches Substance use disorder Hx of opiate use in past. In AA for ETOH use. Thyroiditis Surgical History History of breast lump/mass excision (~04/25/19) Fibroadenoma RT Breast Kidney Stone Extraction (~2006) Ligation of fallopian tube (08/29/14) bilateral laparoscopic salpingectomy. aoc SARWAT IN LEG (~2012) SARWAT AND ASSOCIATED HARDWARE HAS SINCE BEEN REMOVED Tonsillectomy (~2010) Family History Mother Depression Father , age 70 COPD (chronic obstructive pulmonary disease) Maternal Grandfather Heart disease Hyperlipidemia Cancer Paternal Grandfather Cancer Maternal Grandmother No problems noted. Paternal Grandmother No problems noted. Social History Smoking/Tobacco Use Status: Current every day Tobacco Type: cigarettes Tobacco: How many years used: 10 Quit status: not considering quitting Second Hand Exposure: Yes Smoking risk assessment performed?: Yes Alcohol Intake: former Drug use: Current Sobriety Substance use type: does not use Caregiver/Support person: No Household members: children Housing: house Communication Needs: None Do you need help understanding health information?: Often Pets and animals: Yes Sexually active: Yes Do you think of yourself as: straight/heterosexual Current gender identity: female What is your relationship status?: How often do you talk on the phone with friends or family?: twice per week How often do you get together with friends or relatives?: decline to answer How often do you attend latter day or voodoo services?: decline to answer Do you belong to any clubs or organized social groups?: decline to answer Panel score (0-1 are the most socially isolated patients): 0 What type of physical activity do you participate in: walking Duration: 15-30 minutes/day Frequency: 3-4 times per week Lynnette/Orthodox: No preference Special lynnette needs: No Seatbelt use: always Helmet use: Yes Helmet use: always Drive intox or ride w/intox taxi 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 3.ENT: Atraumatic external nose and ears. Moist MM. Neck: Symmetric, trachea midline, No thyromegaly. 4.CVS: +S1/S2, No murmurs or gallops. Peripheral pulses 2+ and equal in all extremities. Brisk capillary refill in all extremities. 5.RESP: Unlabored respiratory effort. Clear to auscultation bilaterally. No wheezes rales or rhonchi 6.GI: Soft, Nontender/Nondistended, No hepatosplenomegaly. No guarding or rebound. 7.MSK: Normocephalic patient's right upper extremity demonstrates a small bruise just proximal to the medial aspect of the elbow. No bony tenderness over the proximal radius ulna or humerus. Patient demonstrates good range of motion of the elbow and wrist although it is somewhat limited by pain. Patient does have subjective tingling in the ulnar distribution of the hand, however she does demonstrate good intact two-point discrimination of the fingertips of all fingers. Good capillary refill. 8.Skin: Warm, Dry. No rashes or lesions. 9.Neuro: nuclear pharmacist II-XII grossly intact. Sensation grossly intact, no focal neurologic deficits. 10.Psych: (AAO) x3. Appropriate mood and affect Course Vital Signs Vital signs: Vital Signs Temperature 36.4 C L 10/21/20 16:31 Pulse 83 10/21/20 16:31 Respiratory Rate 18 10/21/20 16:31 Blood Pressure 130/99 H 10/21/20 16:31 Pulse Oximetry 98 10/21/20 16:31 Temperature 36.4 C L 10/21/20 16:31 Temperature Source Temporal Artery Scan 10/21/20 16:31 Pulse 83 10/21/20 16:31 Respiratory Rate 18 10/21/20 16:31 Respiratory Effort Non-Labored 10/21/20 16:35 Blood Pressure 130/99 H 10/21/20 16:31 Blood Pressure Position Sitting 10/21/20 16:31 Pulse Oximetry 98 10/21/20 16:31 Oxygen Delivery Method Room Air 10/21/20 16:31 Oxygen Flow Rate 0 10/21/20 16:31 Pain Level 7 10/21/20 16:36
== END 2020-10-21 17:53 | disposition home or self-care (01) ==
PROVIDERS: Emergency Provider Student in an Organized Health Care Education/Training Program; PCP Family Medicine
DX: G56.21 Lesion of ulnar nerve, right upper limb (principal); R20.2 Paresthesia of skin; W23.1XXA Caught, crushed, jammed, or pinched between stationary objects, initial encounter
CPT/HCPCS: 96372; 99284; 73080; J1885

== ENCOUNTER 2021-02-27 10:18 | Outpatient (REF) | payer MEDICAID, SELFPAY ==
[2021-02-28 15:32] LABS: COVID-19 RT-PCR UVMMC Result Negative (Negative)
== END 2021-02-27 10:19 | disposition home or self-care (01) ==
LOC: LBN 10:18
PROVIDERS: PCP Family Medicine; Visit Provider Family Medicine
DX: Z20.822 Contact with and (suspected) exposure to COVID-19 (principal)
CPT/HCPCS: U0003

== ENCOUNTER 2022-03-08 10:21 | Emergency (ER) | payer MEDICAID, SELFPAY ==
[2022-03-08 10:39] VITALS: BP 130/90; PULSE 100; RESP 14; TEMP 36.8; O2SAT 98
--- NOTE | 2022-03-08 18:50 | NUR.NOTE ---
Nursing Note: Access called stating patient LWBS @ [id number]
== END 2022-03-08 10:50 | disposition left before discharge ==
LOC: ER 10:26
PROVIDERS: PCP Nurse Practitioner
DX: Z53.21 Procedure and treatment not carried out due to patient leaving prior to being seen by health care provider (principal)

== ENCOUNTER → 2022-03-08 15:56 | Outpatient (CLI) | payer MEDICAID, SELFPAY ==
--- NOTE | 2022-03-08 13:22 | DI.RAD_ITS ---
Exam(s) XR MANDIBLE COMPLETE EXAM: XR MANDIBLE COMPLETE CLINICAL HISTORY: trauma to mandible/inability to bite, S09.93XA-unspecified injury of face. TECHNIQUE: 2D digital imaging was performed. COMPARISON: No exams were available for comparison FINDINGS: BONES: No evidence of fracture. JOINTS: No evidence of temporomandibular joint dislocation. SOFT TISSUES: Unremarkable. IMPRESSION: Unremarkable radiographs of the mandible. DATA REPOSITORY: RADIATION DOSE DELIVERED:
== END ==
PROVIDERS: PCP Nurse Practitioner; Visit Provider Nurse Practitioner Family
DX: S09.93XA Unspecified injury of face, initial encounter (principal); X58.XXXA Exposure to other specified factors, initial encounter
CPT/HCPCS: 70110

== ENCOUNTER 2022-07-29 02:45 | Outpatient (CLI) | payer MEDICAID, SELFPAY ==
[2022-07-29 13:25] LABS: Abs Immature Grans 0.02 10^3/uL (0.0-0.06); Absolute Basophil Count 0.03 10^3/uL (0.0-0.2); Absolute Eosinophil Count 0.28 10^3/uL (0.0-0.7); Absolute Monocyte Count 0.56 10^3/uL (0.1-0.8); Absolute Neutrophil Count 4.22 10^3/uL (1.2-6.7); Basophils % 0.4; Eosinophils % 3.8; HCT 43.3 % (36.0-46.0); HGB 15.2 g/dL (11.2-15.7); Immature Grans % 0.3; MCH 35.1 pg (27.0-33.0); MCHC 35.1 % (32.0-36.0); MCV 100 fL (80-95); MPV 9.6 fL (8.0-11.0); Monocytes % 7.6; Neutrophils % 56.9; Platelet Count 317 10^3/uL (130-400); RBC 4.33 10^6/uL (3.93-5.22); RDW 11.2 % (11.7-14.6); RDW-SD 41.2 fL; WBC 7.41 10^3/uL (4.4-10.8)
[2022-07-29 13:43] LABS: Hemoglobin A1C 5.3 % (<5.7)
[2022-07-29 14:49] LABS: ALT 50 U/L (14-59); AST 25 U/L (15-37); Albumin 3.8 g/dL (3.4-5.0); Alkaline Phosphatase 118 U/L (46-116); Anion Gap 6.9 mmol/L (3-11); BUN 24 mg/dL (7-18); Bilirubin, Total 0.2 mg/dL (0.2-1.0); CO2 27.1 mmol/L (21.0-32.0); CREATININE 0.7 mg/dL (0.55-1.02); Calcium 8.8 mg/dL (8.5-10.1); Calculated LDL 68 mg/dL (<100); Chloride 105 mmol/L (98-107); Cholesterol 163 mg/dL (<200); Estimated GFR 112.75 (mL/min/1.73m2); Ferritin 691 ng/mL (8-252); Folate 17.2 ng/mL (8.6-20.0); Glucose 120 mg/dL (74-106); HDL Cholesterol 60 mg/dL (40-60); Magnesium 2.2 mg/dL (1.8-2.4); Potassium 3.8 mmol/L (3.5-5.1); Sodium 139 mmol/L (136-145); TSH 1.36 uIU/mL (0.36-3.74); Total Protein 7.4 g/dL (6.4-8.2); Triglyceride 177 mg/dL (<150); Vitamin B12 545 pg/mL (193-986)
[2022-07-29 15:45] LABS: FREE T4 0.91 ng/dL (0.76-1.46)
[2022-07-29 16:44] LABS: Vitamin D 25 Total 15.6 ng/mL (30-100)
[2022-07-29 22:07] LABS: T3,Free 4.1 pg/mL (2.8-5.3)
[2022-07-31 10:58] LABS: Copper, Serum 119 mcg/dL (77-206)
== END 2022-07-29 02:46 | disposition home or self-care (01) ==
LOC: LBO 02:45
PROVIDERS: Psychiatry & Neurology Psychiatry; PCP Nurse Practitioner Family; Visit Provider Nurse Practitioner Family
DX: F43.10 Post-traumatic stress disorder, unspecified (principal); Z79.899 Other long term (current) drug therapy; L28.2 Other prurigo
CPT/HCPCS: 36415; 80053; 80061; 82306; 82525; 83090; 84630; 82607; 82728; 82746; 83036; 83735; 84439; 84443; 84481; 85025

== ENCOUNTER 2022-08-10 02:53 | Outpatient (CLI) | payer MEDICAID, SELFPAY ==
[2022-08-11 22:08] LABS: Zinc, S 62 mcg/dL (60-106)
== END 2022-08-10 02:54 | disposition home or self-care (01) ==
LOC: LBO 02:53
PROVIDERS: PCP Nurse Practitioner Family; Visit Provider Psychiatry & Neurology Psychiatry
DX: F43.12 Post-traumatic stress disorder, chronic (principal); Z79.899 Other long term (current) drug therapy
CPT/HCPCS: 84630

== ENCOUNTER 2022-08-13 08:10 | Emergency (ER) | payer MEDICAID, SELFPAY ==
[2022-08-13 08:12] VITALS: BP 129/75; PULSE 88; RESP 16; TEMP 36.7; O2SAT 100
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
[2022-08-13] MEDS: Ketorolac 10 MG TAB PO (08:53)
[2022-08-13] MEDS: Clindamycin 150 MG CAP 450 MG PO (08:53)
== END 2022-08-13 09:00 | disposition home or self-care (01) ==
PROVIDERS: Emergency Provider Nurse Practitioner Family; PCP Nurse Practitioner Family
DX: M70.31 Other bursitis of elbow, right elbow (principal)
CPT/HCPCS: 99283; 99284

== ENCOUNTER 2022-08-14 15:11 | Observation (INO) | payer MEDICAID, SELFPAY ==
[2022-08-14 15:19] VITALS: BP 129/87; PULSE 95; RESP 16; TEMP 36.7; O2SAT 98
--- NOTE | 2022-08-14 15:35 | ED.GENADUL_ITS ---
Discharge Plan Disposition Patient Disposition: Admit to [facility] Condition: Fair Discharge Details Clinical Impression: Bursitis, Cellulitis Primary Care Provider: Alyssa Hernandez ED Provider: Robert Neal and New Rx's Prescriptions: No Action hydroxyzine HCl 50 mg tablet 50 mg PO BID PRN (Reason: itching) Qty: 60 0RF aripiprazole [Abilify] 5 MG tablet 5 mg PO DAILY Qty: 90 Vyvanse 70 MG capsule 70 mg PO DAILY venlafaxine [Effexor XR] 150 MG capsule,extended release 24hr 150 mg PO DAILY clindamycin HCl 150 mg capsule 450 mg PO QID 7 Days Qty: 84 0RF ibuprofen [IBU] 600 mg tablet 600 mg PO QID PRN (Reason: pain) Qty: 20 0RF Medical Decision Making Patient presents to ED with worsening erythema and pain after 6 doses of oral clindamycin on for presumed septic bursitis. She has had no injury to the area. Since being seen about 36 hours ago her pain has become much worse as well as the redness. She has had chills but no fever. She has had nausea and diarrhea since starting the clindamycin. She denies any numbness or weakness in the distal right upper extremity. She denies any significant medical history. She does have prior substance abuse history but has been clean. Her exam is concerning for bursitis/cellulitis. Unfortunately, there does not appear to be enough fluid within the bursa to aspirate. I did speak with orthopedics, Dr. Tijerina. Given the apparent failure of oral antibiotics we do think IV antibiotics and observation admission until improvement is reasonable. Discussed with patient. IV established and CBC, ESR, C-reactive protein sent. 2 g of Ancef given. Patient sed rate and white count are normal. C-reactive protein slightly elevated. Case discussed with hospitalist and plan as discussed with orthoped ics reviewed. We will continue Ancef 1 g every 6 hours. Admitted in stable condition. Lab Data Lab results reviewed: Yes I reviewed the patient's lab results. HPI General Date/Time Provider Initiated Documentation: 08/14/22 15:12 . HPI Narrative: Patient presents to ED with worsening right elbow pain and swelling. Patient woke with same yesterday morning. She was seen in the ED and diagnosed with bursitis possibly infectious and started on clindamycin. She has taken 6 doses of 450 mg clindamycin over the last day and a half. Her pain, redness, swelling has all worsened. She has had chills but no fever. She denies any previous trauma or injury. She did have blood drawn in the right antecubitus a couple of days prior. She is otherwise healthy in regards to medical problems. She does have prior history of substance abuse but has been clean for years. Related Data Home Medications Medication Instructions Recorded Confirmed aripiprazole 5 mg tablet (Abilify) 5 mg PO DAILY #90 tab-caps 10/30/13 08/14/22 lisdexamfetamine 70 mg capsule 70 mg PO DAILY 09/10/14 08/14/22 (Vyvanse) venlafaxine 150 mg 150 mg PO DAILY 02/20/16 08/14/22 capsule,extended release 24 hr (Effexor XR) hydroxyzine HCl 50 mg tablet 50 mg PO BID PRN itching #60 tabs 02/07/19 08/14/22 clindamycin HCl 150 mg capsule 450 mg PO QID 7 days #84 caps 08/13/22 08/14/22 ibuprofen 600 mg tablet (IBU) 600 mg PO QID PRN pain #20 tabs 08/13/22 08/14/22 Previous Rx's Medication Instructions Recorded hydroxyzine HCl 50 mg tablet 50 mg PO BID PRN itching #60 tabs 02/07/19 clindamycin HCl 150 mg capsule 450 mg PO QID 7 days #84 caps 08/13/22 ibuprofen 600 mg tablet (IBU) 600 mg PO QID PRN pain #20 tabs 08/13/22 Allergies Allergy/AdvReac Type Severity Reaction Status Date / Time hydromorphone HCl Allergy Skin Rash Verified 08/14/22 15:24 [From Dilaudid] latex Allergy Rash Verified 08/14/22 15:24 sulfamethoxazole Allergy Hives Verified 08/14/22 15:24 [From Bactrim] trimethoprim Allergy Hives Verified 08/14/22 15:24 lactose AdvReac Diarrhea/Vo Verified 08/14/22 15:24 miting General Stated Complaint: Cellulitis KARLEE: 3 Review of Systems Narrative: per HPI PFSH All Active Problems (Updated 08/14/22 @ 18:35 by Kory Torres) Cellulitis of right elbow (Acute) Olecranon bursa abscess (Acute) Bursitis (Acute) Injury of mandible (Acute) Pruritic rash (Acute) ADD (attention deficit disorder) (Acute) psychiatry Depressive disorder (Chronic) with learning disorder Lipoma of back (Acute) Lump of skin of back (Acute) Nicotine dependence (Acute) 08/2021-05/17 ppd Chronic pain syndrome (Chronic 04/19/12) Medical History ADHD (attention deficit hyperactivity disorder) Adrenal gland cyst Agoraphobia with panic attacks Anxiety and depression Atopic dermatitis 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 CT; neg. spinal tap; Kidney stone Migraine Mood disorder psychiatry Opioid abuse H/O SUBOXONE THERAPY (CURRENTLY OFF THIS) pseudotumor cerebri in (03/05/14) with headaches Renal cyst Spontaneous (04/14/00) Substance use disorder Hx of opiate use in past. In AA for ETOH use. Thyroiditis Surgical History History of breast lump/mass excision (~04/25/19) Fibroadenoma RT Breast Kidney Stone Extraction (~2006) Ligation of fallopian tube (08/29/14) bilateral laparoscopic salpingectomy. aoc SARWAT IN LEG (~2012) SARWAT AND ASSOCIATED HARDWARE HAS SINCE BEEN REMOVED Tonsillectomy (~2010) Family History Mother Depression Father , age 70 COPD (chronic obstructive pulmonary disease) Maternal Grandfather Heart disease Hyperlipidemia Cancer Paternal Grandfather Cancer Maternal Grandmother No problems noted. Paternal Grandmother No problems noted. Social History Smoking/Tobacco Use Status: Current every day Tobacco Type: cigarettes Tobacco: How many years used: 10 Quit status: not considering quitting Second Hand Exposure: Yes Counseling given: provider counseling Smoking risk assessment performed?: Yes Alcohol Intake: current Alcohol Intake frequency: a few times a week Drug use: Current Sobriety Substance use type: does not use Caregiver/Support person: No Household members: children Housing: house Communication Needs: None Do you need help understanding health information?: Often Pets and animals: Yes Sexually active: Yes Do you think of yourself as: straight/heterosexual Current gender identity: female What is your relationship status?: How often do you talk on the phone with friends or family?: twice per week How often do you get together with friends or relatives?: decline to answer How often do you attend temple or gnosticist services?: decline to answer Do you belong to any clubs or organized social groups?: decline to answer Panel score (0-1 are the most socially isolated patients): 0 What type of physical activity do you participate in: walking Duration: 15-30 minutes/day Frequency: 3-4 times per week Lynnette/Quaker: No preference Special lynnette needs: No Seatbelt use: always Helmet use: Yes Helmet use: always Drive intox 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 HEENT: NC/AT. Normal facial exam. Eyes: Normal conjunctiva and sclera. Neck: Supple. Trachea midline. Lungs: Normal respiratory effort. Cor: RRR. Good radial pulses. Neuro: A+O x 3. Normal speech, mentation, gait. Cranial nerves II - XII grossly intact. No gross motor or sensory deficit. Ext: No C/C/E. R elbow with erythema in a circular pattern that is about 4 cm in diameter. There is marked tenderness centrally and fullness. Pronation and supination is normal. Flexion and extension is mostly normal though causes significant pain. She is neurovascularly intact distally. Course Vital Signs Vital signs: Vital Signs Temperature 98.0 F 08/14/22 15:19 Pulse 95 H 08/14/22 15:19 Respiratory Rate 16 08/14/22 15:19 Blood Pressure 129/87 08/14/22 15:19 Pulse Oximetry 98 08/14/22 15:19 Temperature 98.0 F 08/14/22 15:19 Temperature Source Tympanic 08/14/22 15:19 Pulse 95 H 08/14/22 15:19 Respiratory Rate 16 08/14/22 15:19 Respiratory Effort Normal 08/14/22 15:23 Blood Pressure 129/87 08/14/22 15:19 Blood Pressure Position Sitting 08/14/22 15:19 Pulse Oximetry 98 08/14/22 15:19 Oxygen Delivery Method Room Air 08/14/22 15:19 Oxygen Flow Rate 0 08/14/22 15:19 Pain Level 8 08/14/22 15:19
[2022-08-14 17:32] LABS: Abs Immature Grans 0.04 10^3/uL (0.0-0.06); Absolute Basophil Count 0.04 10^3/uL (0.0-0.2); Absolute Eosinophil Count 0.35 10^3/uL (0.0-0.7); Absolute Lymphocyte Count 2.55 10^3/uL (1.2-3.4); Absolute Monocyte Count 0.79 10^3/uL (0.1-0.8); Absolute Neutrophil Count 4.42 10^3/uL (1.2-6.7); Basophils % 0.5; Eosinophils % 4.3; HCT 40.3 % (36.0-46.0); HGB 13.9 g/dL (11.2-15.7); Immature Grans % 0.5; Lymphocytes % 31.1; MCHC 34.5 % (32.0-36.0); MCV 99 fL (80-95); MPV 9.6 fL (8.0-11.0); Monocytes % 9.6; Platelet Count 309 10^3/uL (130-400); RBC 4.09 10^6/uL (3.93-5.22); RDW 11.6 % (11.7-14.6); RDW-SD 41.7 fL; WBC 8.19 10^3/uL (4.4-10.8)
[2022-08-14 17:37] LABS: ESR 13 mm/hr (0-20)
[2022-08-14 17:43] LABS: C-Reactive Protein 1.95 mg/dL (0.0-0.3)
--- NOTE | 2022-08-14 18:30 | HPE_ITS ---
Date of service: 08/14/22 Time of Service: 18:30 Assessment and Plan Assessment and plan (1) Olecranon bursa abscess: Start date: 08/12/22 Status: Acute Assessment and plan: This is a 37-year-old lady who awakened with tenderness and swelling of her right elbow about 2 days prior to admission. She was seen 1 day prior to admission and initiated on oral antibiotic therapy which she failed. She had progressive erythema and tenderness as well as stiffness but has responded to Ancef IV loading dose 2 g and now on 1 g every 6 hours. She will continue the same covering to Keflex before discharge with observation of the next 24 hours. Surgery had been consulted and can evaluate patient if I&D is necessary. It appears this is not going to be a problem. She is a full code. (2) Cellulitis of right elbow: Start date: 08/14/22 Status: Acute Assessment and plan: Worsening symptoms with outpatient therapy now improving on IV Ancef. Continue the same covering the Keflex if continued improvement. Surgery was consulted to review if needed. (3) ADD (attention deficit disorder): Status: Chronic Assessment and plan: Continue outpatient medical therapy. (4) Depressive disorder: Status: Chronic Assessment and plan: Continue outpatient medical therapy. (5) Chronic pain syndrome: Status: Chronic Assessment and plan: Ibuprofen as needed with patient not on it recently. She does not complain of pain with the tenderness in right elbow even improving with IV antibiotic th erapy. She did receive something for pain with one of her earlier ED visits and narcotics will be avoided with a history of substance abuse. (6) Substance use disorder: Assessment and plan: Previously on Suboxone but now on no medical therapy for this problem. She takes ibuprofen as needed for chronic pain and is not asking for narcotic pain control at this time. She seems to have good insight. History of Present Illness History of Present Illness Chief Complaint: Right elbow stiffness and swelling Narrative: This is a 37-year-old female patient with no previous trauma over her right upper extremity but awakening with a stiff right elbow about 2 days prior to admission which worsened having been seen in the ED the day prior to admission and initiated on clindamycin. This did not improve and was worsening with increasing redness and pain prompting evaluation in the ED today. There is no imaging performed of the extremity. She does have a blood draw on the right arm prior to the onset of the symptoms. She is not diabetic. She was initiated on Ancef 2 g loading dose and is on Ancef 1 g every 6 hours with improvement of her right elbow over the last couple of hours in the ED. She will continue IV antibiotic therapy converted to oral Keflex if continues improving over the next 24 hours. She is a full code. Review of Systems Narrative: 13 point review of systems otherwise unrevealing or stable. PFSH All Active Problems (Updated 08/14/22 @ 23:19 by Kory Torres) Cellulitis of right elbow (Acute) Olecranon bursa abscess (Acute) Bursitis (Acute) Injury of mandible (Acute) Pruritic rash (Acute) ADD (attention deficit disorder) (Chronic) psychiatry Depressive disorder (Chronic) with learning disorder Lipoma of back (Acute) Lump of skin of back (Acute) Nicotine dependence (Acute) 08/2021-05/17 ppd Chronic pain syndrome (Chronic 04/19/12) Medical History ADHD (attention deficit hyperactivity disorder) Adrenal gland cyst Agoraphobia with panic attacks Anxiety and depression Atopic dermatitis 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 CT; neg. spinal tap; Kidney stone Migraine Mood disorder psychiatry Opioid abuse H/O SUBOXONE THERAPY (CURRENTLY OFF THIS) pseudotumor cerebri in (03/05/14) with headaches Renal cyst Spontaneous (04/14/00) Substance use disorder Hx of opiate use in past. In AA for ETOH use. Thyroiditis Surgical History History of breast lump/mass excision (~04/25/19) Fibroadenoma RT Breast Kidney Stone Extraction (~2006) Ligation of fallopian tube (08/29/14) bilateral laparoscopic salpingectomy. aoc SARWAT IN LEG (~2012) SARWAT AND ASSOCIATED HARDWARE HAS SINCE BEEN REMOVED Tonsillectomy (~2010) Family History Mother Depression Father , age 70 COPD (chronic obstructive pulmonary disease) Maternal Grandfather Heart disease Hyperlipidemia Cancer Paternal Grandfather Cancer Maternal Grandmother No problems noted. Paternal Grandmother No problems noted. Social History Smoking/Tobacco Use Status: Current every day Tobacco Type: cigarettes Tobacco: How many years used: 10 Quit status: not considering quitting Second Hand Exposure: Yes Counseling given: provider counseling Smoking risk assessment performed?: Yes Alcohol Intake: current Alcohol Intake frequency: a few times a week Drug use: Current Sobriety Substance use type: does not use Caregiver/Support person: No Household members: children Housing: house Communication Needs: None Do you need help understanding health information?: Often Pets and animals: Yes Sexually active: Yes Do you think of yourself as: straight/heterosexual Current gender identity: female What is your relationship status?: How often do you talk on the phone with friends or family?: twice per week How often do you get together with friends or relatives?: decline to answer How often do you attend mu-ism or worship services?: decline to answer Do you belong to any clubs or organized social groups?: decline to answer Panel score (0-1 are the most socially isolated patients): 0 What type of physical activity do you participate in: walking Duration: 15-30 minutes/day Frequency: 3-4 times per week Lynnette/Scientology: No preference Special lynnette needs: No Seatbelt use: always Helmet use: Yes Helmet use: always Drive intox or ride w/intox front 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: No Do you feel safe at home: Yes Do you feel safe in your relationship?: Yes Meds Allergies and Home Medications Allergies Allergy/AdvReac Type Severity Reaction Status Date / Time hydromorphone HCl Allergy Skin Rash Verified 08/14/22 15:24 [From Dilaudid] latex Allergy Rash Verified 08/14/22 15:24 sulfamethoxazole Allergy Hives Verified 08/14/22 15:24 [From Bactrim] trimethoprim Allergy Hives Verified 08/14/22 15:24 lactose AdvReac Diarrhea/Vo Verified 08/14/22 15:24 miting Home Medications Medication Instructions Recorded Confirmed Type aripiprazole 5 mg tablet (Abilify) 5 mg PO DAILY #90 tab-caps 10/30/13 08/14/22 History lisdexamfetamine 70 mg capsule 70 mg PO DAILY 09/10/14 08/14/22 History (Vyvanse) venlafaxine 150 mg 150 mg PO DAILY 02/20/16 08/14/22 History capsule,extended release 24 hr (Effexor XR) hydroxyzine HCl 50 mg tablet 50 mg PO BID PRN itching #60 tabs 02/07/19 08/14/22 Rx clindamycin HCl 150 mg capsule 450 mg PO QID 7 days #84 caps 08/13/22 08/14/22 Rx ibuprofen 600 mg tablet (IBU) 600 mg PO QID PRN pain #20 tabs 08/13/22 08/14/22 Rx Exam Narrative Exam Narrative: General: Patient appears appropriate for age, alert and oriented x3 and in no acute distress. She is moderately obese. HEENT: Normocephalic, eyes with pupils equal react light symmetrically, extraocular movement tact and sclera anicteric. Oropharynx with moist mucosa. Neck: Supple without JVD. Back: Stooped posture without CVA tenderness. Lungs: Fair aeration clear to auscultation percussion. No focalizing rales or rhonchi. Breast: Exam deferred. Heart: Regular rate and rhythm with no murmurs gallops future. Abdomen: Obese contour, soft and nontender to palpation with no palpable hepatosplenomegaly. Bowel sounds positive all quadrants. Genitalia/rectal: Exam deferred. Extremities: Without clubbing, cyanosis or pitting edema. Peripheral pulses intact. Right elbow does have erythema with exquisite tenderness over the olecranon process but no fluctuance and only moderate swelling. Fair range of motion of right elbow. Skin: Normal color, warm and dry. Neuro: Cranial nerves II through XII gross intact, no focalizing motor deficits and no tremors. Psych: Normal affect and mood. No abnormal th Results Labs 08/14/22 17:22 Labs: Laboratory Results - last 24 hr 08/14/22 08/14/22 08/14/22 17:22 17:22 17:22 WBC 8.19 RBC 4.09 Hgb 13.9 Hct 40.3 MCV 99 H MCH 34.0 H MCHC 34.5 RDW 11.6 L Plt Count 309 MPV 9.6 Immature Gran % 0.5 Neutrophils % 54.0 Lymphocytes % 31.1 Monocytes % 9.6 Eosinophils % 4.3 Basophils % 0.5 Nucleated RBC % 0.0 Absolute Neutrophils 4.42 Absolute Lymphocytes 2.55 Absolute Monocytes 0.79 Absolute Eosinophils 0.35 Absolute Basophils 0.04 ESR 13 C-Reactive Protein 1.95 H Last Vital Signs Temp 36.7 C 08/14/22 15:19 Pulse 95 H 08/14/22 15:19 Resp 16 08/14/22 15:19 BP 129/87 08/14/22 15:19 Pulse Ox 98 08/14/22 15:19 Time Spent Time spent with Patient: 55-74 minutes Time was spent: preparing to see the patient(eg.review tests), obtaining and/or reviewing separately otained hiistory, ordering medications,tests, procedures, indepentently interpreting results and care coordination
[2022-08-14 18:34] LABS: Source Nasal/Nares
[2022-08-14 19:10] LABS: COVID-19 PCR Negative (Negative)
[2022-08-14] MEDS: Ondansetron 4 MG/2 ML VIAL IVP (20:15)
[2022-08-14] MEDS: ACETAMINOPHEN 1,000 MG/100 ML BTL 400 MG IVPB (20:17)
[2022-08-14] MEDS: Heparin 5,000 UNITS/ML VIAL 5000 UNITS SC (21:52)
[2022-08-14 23:01] VITALS: BP 129/66; PULSE 85; TEMP 36.7; O2SAT 96
[2022-08-15] VITALS (7 sets, daily range): BP systolic 101–132; BP diastolic 64–73; PULSE 70–85; RESP 16–19; TEMP 36.4–36.7; O2SAT 96–98
[2022-08-15] MEDS: Acetaminophen 325 MG TAB PO (01:02)
[2022-08-15] MEDS: Heparin 5,000 UNITS/ML VIAL 5000 UNITS SC ×2 (06:21→13:30)
[2022-08-15 08:25] LABS: Lab Add On Test DONE
[2022-08-15 08:37] LABS: HCT 40.2 % (36.0-46.0); HGB 13.7 g/dL (11.2-15.7); MCH 34.3 pg (27.0-33.0); MCHC 34.1 % (32.0-36.0); MCV 101 fL (80-95); MPV 9.8 fL (8.0-11.0); Platelet Count 289 10^3/uL (130-400); RDW 11.6 % (11.7-14.6); RDW-SD 42.9 fL; WBC 5.69 10^3/uL (4.4-10.8)
[2022-08-15 08:49] LABS: ALT 45 U/L (14-59); AST 18 U/L (15-37); Albumin 3.5 g/dL (3.4-5.0); Alkaline Phosphatase 100 U/L (46-116); Anion Gap 8.6 mmol/L (3-11); BUN 23 mg/dL (7-18); Bilirubin, Total 0.4 mg/dL (0.2-1.0); C-Reactive Protein 1.46 mg/dL (0.0-0.3); CO2 24.4 mmol/L (21.0-32.0); CREATININE 0.8 mg/dL (0.55-1.02); Calcium 8.5 mg/dL (8.5-10.1); Chloride 106 mmol/L (98-107); Estimated GFR 96.06 (mL/min/1.73m2); Glucose 135 mg/dL (74-106); Magnesium 1.8 mg/dL (1.8-2.4); Potassium 3.9 mmol/L (3.5-5.1); Sodium 139 mmol/L (136-145); Total Protein 6.8 g/dL (6.4-8.2)
[2022-08-15] MEDS: ARIPiprazole 5 MG TAB PO (08:49)
[2022-08-15] MEDS: Venlafaxine 150 MG CAPCR PO (08:49)
[2022-08-15 08:58] LABS: Procalcitonin < 0.1 ng/mL
[2022-08-15] MEDS: Ibuprofen 600 MG TAB PO (09:25)
[2022-08-15] MEDS: ceFAZolin 1 GM/50 ML BAG IVPB (09:30)
--- NOTE | 2022-08-15 11:41 | OCONE_ITS ---
Date of service: 08/15/22 Time of Service: 11:41 History of Present Illness History of Present Illness Chief Complaint: Right elbow pain Narrative: The patient is a pleasant 37-year-old [id number] female who was admitted yesterday from the emergency department with right elbow pain and concern for cellulitis versus septic bursitis. She states that about 2 days ago she had the acute onset waking up in the morning with right elbow pain posteriorly. No prior issues with this. No history of gout. She was put on clindamycin and took that for about 24 hours without improvement. She came to the emergency department yesterday and was admitted to the hospital medicine service and put on IV Ancef. She states that today her right elbow feels much better than it did yesterday. At times she was unable to even move her elbow but today only has pain at the extremes of flexion and extension. She had numbness posterior in the elbow originally but now that is gone and no numbness in the fingers. She had some chills but no fevers. Consults Consult date: 08/15/22 Requesting physician: Chantell Carrera Consult Reason Right elbow pain concern for septic bursitis Assessment and Plan Assessment and plan (1) Cellulitis of right elbow: Status: Acute Assessment and plan: 37-year-old [id number] female with right elbow pain consistent with cellulitis versus very mild olecranon septic bursitis. At this point there is no fluid collection noted on exam. She has basically full range of motion. No effusion. Normal neurovascular exam. She has gotten better on 1 day of Ancef IV. At this point I recommend discharge home with p.o. antibiotics as deemed reasonable by the hospital medicine service. Keflex seems reasonable given her improvement on Ancef. We did discuss the possibility of gout but no history of this and antibiotics have improved her situation. I think septic arthritis is extremely low on the differential given her good range of motion and white count that is normal and CRP only mildly elevated at 1.4. She will return if things get worse. Would recommend right elbow x-rays if things are not improving. 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 CT; neg. spinal tap; Kidney stone Migraine Mood disorder psychiatry Opioid abuse H/O SUBOXONE THERAPY (CURRENTLY OFF THIS) pseudotumor cerebri in (03/05/14) with headaches Renal cyst Spontaneous (04/14/00) Substance use disorder Hx of opiate use in past. In AA for ETOH use. Thyroiditis Surgical History History of breast lump/mass excision (~04/25/19) Fibroadenoma RT Breast Kidney Stone Extraction (~2006) Ligation of fallopian tube (08/29/14) bilateral laparoscopic salpingectomy. aoc SARWAT IN LEG (~2012) SARWAT AND ASSOCIATED HARDWARE HAS SINCE BEEN REMOVED Tonsillectomy (~2010) Family History Mother Depression Father , age 70 COPD (chronic obstructive pulmonary disease) Maternal Grandfather Heart disease Hyperlipidemia Cancer Paternal Grandfather Cancer Maternal Grandmother No problems noted. Paternal Grandmother No problems noted. Social History Smoking/Tobacco Use Status: Current every day Tobacco Type: cigarettes Tobacco: How many years used: 10 Quit status: not considering quitting Second Hand Exposure: Yes Counseling given: provider counseling Smoking risk assessment performed?: Yes Alcohol Intake: current Alcohol Intake frequency: a few times a week Drug use: Current Sobriety Substance use type: does not use Caregiver/Support person: No Household members: children Housing: house Communication Needs: None Do you need help understanding health information?: Often Pets and animals: Yes Sexually active: Yes Do you think of yourself as: straight/heterosexual Current gender identity: female What is your relationship status?: How often do you talk on the phone with friends or family?: twice per week How often do you get together with friends or relatives?: decline to answer How often do you attend yazidi or worship services?: decline to answer Do you belong to any clubs or organized social groups?: decline to answer Panel score (0-1 are the most socially isolated patients): 0 What type of physical activity do you participate in: walking Duration: 15-30 minutes/day Frequency: 3-4 times per week Lynnette/Catholic: No preference Special lynnette needs: No Seatbelt use: always Helmet use: Yes Helmet use: always Drive intox or ride w/intox refrigerated 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 Range of motion from a few degrees shy of full extension to about 125 degrees of flexion. No fluid collection noted. Some mild warmth posteriorly in the elbow. 2+ radial pulse brisk capillary fill distally. EPL FPL interossei intact. Sensation intact axillary median radial ulnar. Results Last Vital Signs Temp 36.7 C 08/15/22 11:21 Pulse 70 08/15/22 11:21 Resp 16 08/15/22 11:21 BP 113/73 08/15/22 11:21 Pulse Ox 98 08/15/22 11:21 Labs 08/15/22 08:15 08/15/22 08:15 Labs: Laboratory Results - last 24 hr 08/14/22 08/14/22 08/14/22 17:22 17:22 17:22 WBC 8.19 RBC 4.09 Hgb 13.9 Hct 40.3 MCV 99 H MCH 34.0 H MCHC 34.5 RDW 11.6 L Plt Count 309 MPV 9.6 Immature Gran % 0.5 Neutrophils % 54.0 Lymphocytes % 31.1 Monocytes % 9.6 Eosinophils % 4.3 Basophils % 0.5 Nucleated RBC % 0.0 Absolute Neutrophils 4.42 Absolute Lymphocytes 2.55 Absolute Monocytes 0.79 Absolute Eosinophils 0.35 Absolute Basophils 0.04 ESR 13 Sodium Potassium Chloride Carbon Dioxide Anion Gap BUN Creatinine Est GFR (CKD-EPI 2020) Glucose Calcium Magnesium Total Bilirubin AST ALT Alkaline Phosphatase C-Reactive Protein 1.95 H Total Protein Albumin Procalcitonin COVID-19 Source SARS-CoV-2 (PCR) Add-On Test Request 08/14/22 08/15/22 08/15/22 18:28 08:15 08:15 WBC 5.69 RBC 4.00 Hgb 13.7 Hct 40.2 MCV 101 H MCH 34.3 H MCHC 34.1 RDW 11.6 L Plt Count 289 MPV 9.8 Immature Gran % Neutrophils % Lymphocytes % Monocytes % Eosinophils % Basophils % Nucleated RBC % Absolute Neutrophils Absolute Lymphocytes Absolute Monocytes Absolute Eosinophils Absolute Basophils ESR Sodium 139 Potassium 3.9 Chloride 106 Carbon Dioxide 24.4 Anion Gap 8.6 BUN 23 H Creatinine 0.8 Est GFR (CKD-EPI 2020) 96.06 Glucose 135 H Calcium 8.5 Magnesium 1.8 Total Bilirubin 0.4 AST 18 ALT 45 Alkaline Phosphatase 100 C-Reactive Protein Total Protein 6.8 Albumin 3.5 Procalcitonin COVID-19 Source Nasal/Nares SARS-CoV-2 (PCR) Negative Add-On Test Request 08/15/22 08/15/22 08/15/22 08:15 08:15 08:15 WBC RBC Hgb Hct MCV MCH MCHC RDW Plt Count MPV Immature Gran % Neutrophils % Lymphocytes % Monocytes % Eosinophils % Basophils % Nucleated RBC % Absolute Neutrophils Absolute Lymphocytes Absolute Monocytes Absolute Eosinophils Absolute Basophils ESR Sodium Potassium Chloride Carbon Dioxide Anion Gap BUN Creatinine Est GFR (CKD-EPI 2020) Glucose Calcium Magnesium Total Bilirubin AST ALT Alkaline Phosphatase C-Reactive Protein 1.46 H Total Protein Albumin Procalcitonin < 0.1 COVID-19 Source SARS-CoV-2 (PCR) Add-On Test Request DONE
--- NOTE | 2022-08-15 13:59 | DSE_ITS ---
Date of service: 08/15/22 Time of Service: 14:27 DS: Diagnosis Discharge Diagnosis (1) Cellulitis of right elbow: Status: Acute (2) Bursitis: Status: Acute (3) Antibiotic-associated diarrhea: Status: Acute (4) Tobacco abuse: Status: Acute Discharge Plan Disposition Patient Disposition: Home Condition: Improving Discharge Details Reason For Visit: Right Elbow Cellulitis,Olecranon Bursistis Admit Date/Time: 08/14/22 18:35 Admit Provider: Kory Torres Attending Provider: Kory Torres [facility]: Ms Forbes is a 37 year old female with PMHx of prior substance use disorder, as well as h/o anxiety, depressnion, ADHD, and obesity with BMI of 38.3 kg/M2 who was a patient on [facility] hospitalist service from 08/14/22 until 08/15/22 for septic olecranon bursitis of the R elbow, not having improved on outpatient clindamycin x 24 hrs. The patient was started on empiric cefazolin with significant improvement of her symptoms. She was evaluated by orthopedics and not felt to have an abscess or to require drainage. She is being discharged home today with 10 days of PO keflex, referral to orthopedics prn, and a follow up with PCP. Because the patient did report diarrhea while on antibiotics, I also recommended probiotics. She was advised to stop smoking. The patient requested nicotrol inhalers on discharge - I was unable to verify whether her pharmacy carries them, so we are also sending in a script for nicotine patches. Care for patient as well as completion of her discharge summary on day of discharge took 45 minutes. Home Meds and New Rx's Prescriptions: New Nicotrol 10 mg Cartridge 120 mg inhalation Q2H PRN PRN (Reason: nicotine cravings) Qty: 168 0RF nicotine 14 mg/24 hr patch 24 hour 1 patch transdermal DAILY PRN PRN (Reason: nicotine withdrawal) Qty: 28 0RF cephalexin 500 mg capsule 500 mg PO QID Qty: 40 0RF Bio-K plus 50 billion cell capsule,delayed release(DR/EC) 1 cap PO DAILY Qty: 30 0RF Continued hydroxyzine HCl 50 mg tablet 50 mg PO BID PRN (Reason: itching) Qty: 60 0RF aripiprazole [Abilify] 5 MG tablet 5 mg PO DAILY Qty: 90 Vyvanse 70 MG capsule 70 mg PO DAILY venlafaxine [Effexor XR] 150 MG capsule,extended release 24hr 150 mg PO DAILY ibuprofen [IBU] 600 mg tablet 600 mg PO QID PRN (Reason: pain) Qty: 20 0RF Discontinued clindamycin HCl 150 mg capsule 450 mg PO QID 7 Days Qty: 84 0RF Discharge Instructions Instructions: Cephalexin (By mouth), Elbow Bursitis (ED) Additional Instructions: Finish your antibiotics as prescribed. Return to the hospital with any worsening redness/swelling/fever, bleeding, chest pain, or shortness of breath. Follow up with your PCP In 1-2 days. Follow up with orthopedics prn. Stand Alone Forms: Nursing Discharge Form Referrals: Alyssa Hernandez NP [Primary Care Provider] - (Please call on Tuesday to make a follow up appointment.) Cameron Castillo MD [ [facility] STAFF PHYSICIAN] - (Please call Tuesday to make an appointment.) Activity:: Activity as Tolerated Equipment/Supplies:: No Equipment Needed Diet:: As Tolerated Discharge Orders Discharge Orders: Discharge Order (Routine); Ordered 08/15/22 Ordered By: Chantell Carrera Discharge Data Discharge Date/Time-TO BE ENTERED AT DEPARTURE: 08/15/22 14:56 DS: Summary Time Spent with Patient providing and/or coordinating discharge services: Greater than 30 minutes Status at Discharge Functional status at discharge: independent ambulation Overall status at discharge: patient is progressing back to baseline Mental Status: mental status grossly normal Speech and Movement: speech and movement normal Mood: congruent mood Affect: normal affect Exam Narrative Exam Narrative: General: Pleasant Obese female who appears comfortable HEENT: EOMI, MMM Heart: RRR, no m/r/g Lungs: CTAB Abdomen: soft, nontender, nondistended Extremities: very mild erythema around R elbow, preserved ROM, minimal TTP, no evidence of a fluid collection/abscess Psych Mental Status: mental status grossly normal Speech and Movement: speech and movement normal Mood: congruent mood Affect: normal affect DS: Data Vitals/I&O Vitals and I&O: Vital Signs Temperature 36.7 C 08/15/22 11:21 Temperature Source Tympanic 08/15/22 11:21 Pulse 70 08/15/22 11:21 Pulse Rhythm Regular 08/15/22 07:30 Respiratory Rate 16 08/15/22 11:21 Respiratory Effort Normal, Non-Labored 08/15/22 07:30 Respiratory Depth Normal 08/15/22 07:30 Respiratory Pattern Normal 08/15/22 07:30 Blood Pressure 113/73 08/15/22 11:21 Blood Pressure Mean 72 08/15/22 06:25 Blood Pressure Position Sitting 08/14/22 15:19 Pulse Oximetry 98 08/15/22 11:21 Oxygen Delivery Method Room Air 08/15/22 11:21 Oxygen Flow Rate 0 08/15/22 11:21 Pain Level 2 08/15/22 07:32 Intake & Output 08/14/22 08/15/22 08/15/22 23:59 11:59 23:59 Intake Total 200 / 200 250 / 370 120 / 370 Output Total 435 / 435 Balance 200 / 200 -185 / -65 120 / -65 Weight 95.254 kg 101.2 kg Intake: IV 200 / 200 100 / 100 Oral 150 / 270 120 / 270 Output: Urine 435 / 435 Other: Urine Color Yellow Urine Appearance Clear Urine Odor None Comment pT voided in toliet Voiding Methods Toilet Data Completed and Pending Labs on day of discharge: Labs from last 24 hours 08/15/22 08/15/22 08/15/22 08:15 08:15 08:15 WBC RBC Hgb Hct MCV MCH MCHC RDW Plt Count MPV Immature Gran % Neutrophils % Lymphocytes % Monocytes % Eosinophils % Basophils % Nucleated RBC % Absolute Neutrophils Absolute Lymphocytes Absolute Monocytes Absolute Eosinophils Absolute Basophils ESR Sodium Potassium Chloride Carbon Dioxide Anion Gap BUN Creatinine Est GFR (CKD-EPI 2020) Glucose Calcium Magnesium Total Bilirubin AST ALT Alkaline Phosphatase C-Reactive Protein 1.46 H Total Protein Albumin Procalcitonin < 0.1 COVID-19 Source SARS-CoV-2 (PCR) Add-On Test Request DONE 08/15/22 08/15/22 08/14/22 08:15 08:15 18:28 WBC 5.69 RBC 4.00 Hgb 13.7 Hct 40.2 MCV 101 H MCH 34.3 H MCHC 34.1 RDW 11.6 L Plt Count 289 MPV 9.8 Immature Gran % Neutrophils % Lymphocytes % Monocytes % Eosinophils % Basophils % Nucleated RBC % Absolute Neutrophils Absolute Lymphocytes Absolute Monocytes Absolute Eosinophils Absolute Basophils ESR Sodium 139 Potassium 3.9 Chloride 106 Carbon Dioxide 24.4 Anion Gap 8.6 BUN 23 H Creatinine 0.8 Est GFR (CKD-EPI 2020) 96.06 Glucose 135 H Calcium 8.5 Magnesium 1.8 Total Bilirubin 0.4 AST 18 ALT 45 Alkaline Phosphatase 100 C-Reactive Protein Total Protein 6.8 Albumin 3.5 Procalcitonin COVID-19 Source Nasal/Nares SARS-CoV-2 (PCR) Negative Add-On Test Request 08/14/22 08/14/22 08/14/22 17:22 17:22 17:22 WBC 8.19 RBC 4.09 Hgb 13.9 Hct 40.3 MCV 99 H MCH 34.0 H MCHC 34.5 RDW 11.6 L Plt Count 309 MPV 9.6 Immature Gran % 0.5 Neutrophils % 54.0 Lymphocytes % 31.1 Monocytes % 9.6 Eosinophils % 4.3 Basophils % 0.5 Nucleated RBC % 0.0 Absolute Neutrophils 4.42 Absolute Lymphocytes 2.55 Absolute Monocytes 0.79 Absolute Eosinophils 0.35 Absolute Basophils 0.04 ESR 13 Sodium Potassium Chloride Carbon Dioxide Anion Gap BUN Creatinine Est GFR (CKD-EPI 2020) Glucose Calcium Magnesium Total Bilirubin AST ALT Alkaline Phosphatase C-Reactive Protein 1.95 H Total Protein Albumin Procalcitonin COVID-19 Source SARS-CoV-2 (PCR) Add-On Test Request COUNTS INCLUDE 234 BEDS AT THE [facility] All Active Problems (Updated 08/15/22 @ 14:28 by Chantell Carrera MD) Antibiotic-associated diarrhea (Acute) Tobacco abuse (Acute) Cellulitis of right elbow (Acute) Olecranon bursa abscess (Acute) Bursitis (Acute) Injury of mandible (Acute) Pruritic rash (Acute) ADD (attention deficit disorder) (Chronic) psychiatry Depressive disorder (Chronic) with learning disorder Lipoma of back (Acute) Lump of skin of back (Acute) Nicotine dependence (Acute) 08/2021-05/17 ppd Chronic pain syndrome (Chronic 04/19/12) Medical History ADHD (attention deficit hyperactivity disorder) Adrenal gland cyst Agoraphobia with panic attacks Anxiety and depression Atopic dermatitis 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 CT; neg. spinal tap; Kidney stone Migraine Mood disorder psychiatry Opioid abuse H/O SUBOXONE THERAPY (CURRENTLY OFF THIS) pseudotumor cerebri in (03/05/14) with headaches Renal cyst Spontaneous (04/14/00) Substance use disorder Hx of opiate use in past. In AA for ETOH use. Thyroiditis Surgical History History of breast lump/mass excision (~04/25/19) Fibroadenoma RT Breast Kidney Stone Extraction (~2006) Ligation of fallopian tube (08/29/14) bilateral laparoscopic salpingectomy. aoc SARWAT IN LEG (~2012) SARWAT AND ASSOCIATED HARDWARE HAS SINCE BEEN REMOVED Tonsillectomy (~2010) Family History Mother Depression Father , age 70 COPD (chronic obstructive pulmonary disease) Maternal Grandfather Heart disease Hyperlipidemia Cancer Paternal Grandfather Cancer Maternal Grandmother No problems noted. Paternal Grandmother No problems noted. Social History Smoking/Tobacco Use Status: Current every day Tobacco Type: cigarettes Tobacco: How many years used: 10 Quit status: not considering quitting Second Hand Exposure: Yes Counseling given: provider counseling Smoking risk assessment performed?: Yes Alcohol Intake: current Alcohol Intake frequency: a few times a week Drug use: Current Sobriety Substance use type: does not use Caregiver/Support person: No Household members: children Housing: house Communication Needs: None Do you need help understanding health information?: Often Pets and animals: Yes Sexually active: Yes Do you think of yourself as: straight/heterosexual Current gender identity: female What is your relationship status?: How often do you talk on the phone with friends or family?: twice per week How often do you get together with friends or relatives?: decline to answer How often do you attend anabaptist or protestant services?: decline to answer Do you belong to any clubs or organized social groups?: decline to answer Panel score (0-1 are the most socially isolated patients): 0 What type of physical activity do you participate in: walking Duration: 15-30 minutes/day Frequency: 3-4 times per week Lynnette/Restoration: No preference Special lynnette needs: No Seatbelt use: always Helmet use: Yes Helmet use: always Drive intox or ride w/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
--- NOTE | 2022-08-15 14:08 | PDOC.CMIN ---
- If Service Date Differs Date of service: 08/15/22 Time of Service: 14:08 Care Management Initial Assess REASON FOR HOSPITALIZATION:: Right elbow cellulitis, olecranon bursitis. PAST MEDICAL HISTORY/PAST SURGICAL HISTORY:: All Active Problems: Cellulitis of right elbow (Acute), Olecranon bursa abscess (Acute), Bursitis (Acute), Injury of mandible (Acute), Pruritic rash (Acute), ADD (attention deficit disorder) (Chronic) - psychiatry, Depressive disorder (Chronic) - with learning disorder, Lipoma of back (Acute), Lump of skin of back (Acute), Nicotine dependence (Acute) - 08/2021-05/17 ppd, and Chronic pain syndrome (Chronic 04/19/12). Medical History: ADHD (attention deficit hyperactivity disorder), Adrenal gland cyst, Agoraphobia with panic attacks, Anxiety and depression,. Atopic dermatitis, Fibroadenoma of right breast in female, History of alcoholism, History of papilledema - neg. CT; neg. spinal tap, Kidney stone, Migraine, Mood disorder - psychiatry, Opioid abuse - H/O SUBOXONE THERAPY (CURRENTLY OFF THIS), pseudotumor cerebri in (03/05/14) - with headaches, Renal cyst, Spontaneous (04/14/00), Substance use disorder - Hx of opiate use in past. In AA for ETOH use, and Thyroiditis. Surgical History: History of breast lump/mass excision (~04/25/19) -. Fibroadenoma RT Breast, Kidney Stone Extraction (~2006), Ligation of fallopian tube (08/29/14) - bilateral laparoscopic salpingectomy. aoc,. SARWAT IN LEG (~2012) - SARWAT AND ASSOCIATED HARDWARE HAS SINCE BEEN REMOVED, and Tonsillectomy (~2010). PREVIOUS FUNCTIONAL STATUS/SOCIAL/FAMILY SUPPORTS:: Giulia resides in [place] with her 3 daughters. She works at the [employer] and is independent at baseline. She has a sister and brother who live locally and are supportive of her. CURRENT FUNCTIONAL STATUS:: Giulia is sitting up in bed when FABIANA enters her room. One of her daughters is present in the room. Giulia states she is feeling better and is looking forward to returning home. She shares she does not like hospitals and has some anxiety around needles/IVs. ADVANCE DIRECTIVES:: None on file; patient declines form. Has patient been provided with info about the portal/API?: Yes Did the patient sign up for the portal?: Yes (Previously enrolled.) CODE STATUS:: Full Code INSURANCE COVERAGE / FINANCIAL ISSUES:: Medicaid. CURRENT HOME/COMMUNITY SERVICES/EQUIPMENT:: None. PRIMARY CARE PHYSICIAN:: OMAR Newell POTENTIAL DISCHARGE NEEDS:: Follow up appointment with PCP. PATIENT/FAMILY EDUCATION NEEDS:: Review of discharge instructions re medications and limitations; discuss Ask Me Three. ANTICIPATED BARRIERS TO DISCHARGE:: None identified at this time. TRANSPORTATION:: Via private vehicle with family. PLAN:: Giulia will be discharged home with no services when medically cleared by provider. She will follow up with her PCP and plan of care as instructed. She will be transported home by her daughter via private vehicle when ready. CM will continue to follow.
--- NOTE | 2022-08-15 14:23 | PDOC.CMDIS ---
- If Service Date Differs Date of service: 08/15/22 Time of Service: 14:23 LACE Index Scoring Tool - Questions: Length of Stay (in days): 1 Acuity (Admit via E.D.?): Yes E.D. Visits: 3 - Answers: Total Score: 7 Risk of Readmission: Low Risk Care Management Discharge Reason for Hospitalization: Right elbow cellulitis, olecranon bursitis. Discharge Plan: Giulia is discharged home with no services. She will follow up with her PCP and plan of care as instructed. She is transported home by her daughter via private vehicle. Patient/Family Education Needs: Review of discharge instructions including medications and limitations; discuss Ask Me Three.
== END 2022-08-15 14:56 | disposition home or self-care (01) ==
LOC: ER 23:27 → ICU 08-15 00:24 → MS 08-15 07:35
PROVIDERS: Internal Medicine; Admitting Provider Family Medicine; Emergency Provider Emergency Medicine; PCP Nurse Practitioner Family; Visit Provider Family Medicine
DX: M71.021 Abscess of bursa, right elbow (principal); L03.113 Cellulitis of right upper limb; K52.1 Toxic gastroenteritis and colitis; F98.8 Other specified behavioral and emotional disorders with onset usually occurring in childhood and adolescence; F32.9 Major depressive disorder, single episode, unspecified; F17.210 Nicotine dependence, cigarettes, uncomplicated; G89.4 Chronic pain syndrome; F81.9 Developmental disorder of scholastic skills, unspecified; G43.909 Migraine, unspecified, not intractable, without status migrainosus; F11.11 Opioid abuse, in remission; F10.21 Alcohol dependence, in remission; F40.01 Agoraphobia with panic disorder; T36.95XA Adverse effect of unspecified systemic antibiotic, initial encounter; Z20.822 Contact with and (suspected) exposure to COVID-19
CPT/HCPCS: 36415; 80053; 84145; 85027; 85652; 87635; 96365; 96366; 96367; 96375; 96376; 99223; 99285; 83735; 85025; 86140; 99222; 99239; G0378; J0131; J0690; J1644; J2405

== ENCOUNTER 2022-08-25 18:51 | Emergency (ER) | payer MEDICAID, SELFPAY ==
[2022-08-25 19:01] VITALS: BP 125/79; PULSE 91; RESP 18; TEMP 37.1; O2SAT 98
--- NOTE | 2022-08-25 19:24 | ED.GENADUL_ITS ---
Discharge Plan Disposition Patient Disposition: Home Condition: Stable Discharge Details Clinical Impression: Arthralgia of right shoulder region Primary Care Provider: Alyssa Hernandez ED Provider: Ru Smith Home Meds and New Rx's Prescriptions: Continued hydroxyzine HCl 50 mg tablet 50 mg PO BID PRN (Reason: itching) Qty: 60 0RF aripiprazole [Abilify] 5 MG tablet 5 mg PO DAILY Qty: 90 Vyvanse 70 MG capsule 70 mg PO DAILY venlafaxine [Effexor XR] 150 MG capsule,extended release 24hr 150 mg PO DAILY cephalexin 500 mg capsule 500 mg PO QID Qty: 16 0RF ibuprofen [IBU] 600 mg tablet 600 mg PO QID PRN (Reason: pain) Qty: 20 0RF Nicotrol 10 mg Cartridge 120 mg inhalation Q2H PRN PRN (Reason: nicotine cravings) Qty: 168 0RF nicotine 14 mg/24 hr patch 24 hour 1 patch transdermal DAILY PRN PRN (Reason: nicotine withdrawal) Qty: 28 0RF Bio-K plus 50 billion cell capsule,delayed release(DR/EC) 1 cap PO DAILY Qty: 30 0RF Discharge Instructions Instructions: Shoulder Pain (ED) Additional Instructions: Perform pendulum shoulder exercises as reviewed. Continue antibiotic course for another 4 days. Please contact your primary care physician to arrange follow-up. Please follow-up with orthopedics as scheduled. Return to the ER immediately for any worsening or new concerning symptoms including fever, worsening pain or swelling. Referrals: [facility] [Provider Group] Alyssa Hernandez NP [Primary Care Provider] - Discharge Data Discharge Date/Time-TO BE ENTERED AT DEPARTURE: 08/25/22 19:36 Medical Decision Making 37-year-old female with recent cellulitis and bursitis of right elbow, completed 10-day course of clindamycin today with improvement in elbow inflammation, now with some discomfort in her upper arm and shoulder. Patient is afebrile and hemodynamically stable. No inflammatory changes on exam. Patient does acknowledge that she may have slept on her arm wrong and has been babying her elbow recently. No signs of septic joint at this time. Plan for continued use of ibuprofen. Recommended pendulum exercises of the shoulder. Patient has follow-up scheduled with orthopedics. Out of an abundance of caution, I will continue clindamycin for another 4 days for full 2-week course. HPI General Mode of arrival: ambulatory . Date/Time Provider Initiated Documentation: 08/25/22 19:11 . Limitations to Documentation: no limitations . Information obtained by: patient . HPI Narrative: 37-year-old female presents with chief complaint of right upper arm and shoulder discomfort. Patient notes she had infection of her right elbow bursa and was admitted to the hospital for 123 for IV antibiotics. Infection improved with antibiotic and she was discharged on clindamycin which she has been taking as prescribed. She notes she just completed her 10-day course today. She states that earlier today she developed discomfort described as an ache in her right upper arm and shoulder. She is concerned that maybe she slept on it wrong last night but worried that it could be worsening infection. She states her elbow still hurts on palpation of her bursa but otherwise has dramatically improved in terms of inflammation. Patient denies associated fever. Related Data Home Medications Medication Instructions Recorded Confirmed aripiprazole 5 mg tablet (Abilify) 5 mg PO DAILY #90 tab-caps 10/30/13 08/19/22 lisdexamfetamine 70 mg capsule 70 mg PO DAILY 09/10/14 08/19/22 (Vyvanse) venlafaxine 150 mg 150 mg PO DAILY 02/20/16 08/19/22 capsule,extended release 24 hr (Effexor XR) hydroxyzine HCl 50 mg tablet 50 mg PO BID PRN itching #60 tabs 02/07/19 08/19/22 ibuprofen 600 mg tablet (IBU) 600 mg PO QID PRN pain #20 tabs 08/13/22 08/19/22 L. acidophilus,casei,rhamnosus 50 1 cap PO DAILY #30 caps 08/15/22 08/19/22 billion cell capsule,delayed release (Bio-K plus) nicotine 10 mg inhalation 120 mg inhalation Q2H PRN PRN 08/15/22 08/19/22 cartridge (Nicotrol) nicotine cravings #168 ea nicotine 14 mg/24 hr daily 1 patch transdermal DAILY PRN PRN 08/15/22 08/19/22 transdermal patch nicotine withdrawal #28 ea cephalexin 500 mg capsule 500 mg PO QID #16 caps 08/25/22 Previous Rx's Medication Instructions Recorded hydroxyzine HCl 50 mg tablet 50 mg PO BID PRN itching #60 tabs 02/07/19 ibuprofen 600 mg tablet (IBU) 600 mg PO QID PRN pain #20 tabs 08/13/22 L. acidophilus,casei,rhamnosus 50 1 cap PO DAILY #30 caps 08/15/22 billion cell capsule,delayed release (Bio-K plus) nicotine 10 mg inhalation 120 mg inhalation Q2H PRN PRN 08/15/22 cartridge (Nicotrol) nicotine cravings #168 ea nicotine 14 mg/24 hr daily 1 patch transdermal DAILY PRN PRN 08/15/22 transdermal patch nicotine withdrawal #28 ea cephalexin 500 mg capsule 500 mg PO QID #16 caps 08/25/22 Allergies Allergy/AdvReac Type Severity Reaction Status Date / Time hydromorphone HCl Allergy Skin Rash Verified 08/19/22 14:38 [From Dilaudid] latex Allergy Rash Verified 08/19/22 14:38 sulfamethoxazole Allergy Hives Verified 08/19/22 14:38 [From Bactrim] trimethoprim Allergy Hives Verified 08/19/22 14:38 lactose AdvReac Diarrhea/Vo Verified 08/19/22 14:38 miting General Stated Complaint: Orthopedic KARLEE: 3 Review of Systems All systems reviewed & are unremarkable except as noted in HPI and below Constitutional Constitutional: Denies body ache(s) and Denies fever(s) Cardiovascular Cardiovascular: Denies chest pain Musculoskeletal Musculoskeletal: Reports as per HPI, Denies joint swelling and Denies numbness Neurologic Neurologic: Denies numbness PFSH All Active Problems Arthralgia of right shoulder region (Acute) Antibiotic-associated diarrhea (Acute) Tobacco abuse (Acute) Cellulitis of right elbow (Acute) Olecranon bursa abscess (Acute) Bursitis (Acute) Injury of mandible (Acute) Pruritic rash (Acute) ADD (attention deficit disorder) (Chronic) psychiatry Depressive disorder (Chronic) with learning disorder Lipoma of back (Acute) Lump of skin of back (Acute) Nicotine dependence (Acute) 08/2021-05/17 ppd Chronic pain syndrome (Chronic 04/19/12) Medical History ADHD (attention deficit hyperactivity disorder) Adrenal gland cyst Agoraphobia with panic attacks Anxiety and depression Atopic dermatitis 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 CT; neg. spinal tap; Kidney stone Migraine Mood disorder psychiatry Opioid abuse H/O SUBOXONE THERAPY (CURRENTLY OFF THIS) pseudotumor cerebri in (03/05/14) with headaches Renal cyst Spontaneous (04/14/00) Substance use disorder Hx of opiate use in past. In AA for ETOH use. Thyroiditis Surgical History History of breast lump/mass excision (~04/25/19) Fibroadenoma RT Breast Kidney Stone Extraction (~2006) Ligation of fallopian tube (08/29/14) bilateral laparoscopic salpingectomy. aoc SARWAT IN LEG (~2012) SARWAT AND ASSOCIATED HARDWARE HAS SINCE BEEN REMOVED Tonsillectomy (~2010) Family History Mother Depression Father , age 70 COPD (chronic obstructive pulmonary disease) Maternal Grandfather Heart disease Hyperlipidemia Cancer Paternal Grandfather Cancer Maternal Grandmother No problems noted. Paternal Grandmother No problems noted. Social History Smoking/Tobacco Use Status: Current every day Tobacco Type: cigarettes Tobacco: How many years used: 10 Quit status: not considering quitting Second Hand Exposure: Yes Counseling given: provider counseling Smoking risk assessment performed?: Yes Alcohol Intake: current Alcohol Intake frequency: a few times a week Drug use: Current Sobriety Substance use type: does not use Caregiver/Support person: No Household members: children Housing: house Communication Needs: None Do you need help understanding health information?: Often Pets and animals: Yes Sexually active: Yes Do you think of yourself as: straight/heterosexual Current gender identity: female What is your relationship status?: How often do you talk on the phone with friends or family?: twice per week How often do you get together with friends or relatives?: decline to answer How often do you attend christian or shinto services?: decline to answer Do you belong to any clubs or organized social groups?: decline to answer Panel score (0-1 are the most socially isolated patients): 0 What type of physical activity do you participate in: walking Duration: 15-30 minutes/day Frequency: 3-4 times per week Lynnette/Nondenominational: No preference Special lynnette needs: No Seatbelt use: always Helmet use: Yes Helmet use: always Drive intox or ride w/intox driver 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: No Do you feel safe at home: Yes Do you feel safe in your relationship?: Yes Exam Cardio Rate: regular rate and not tachycardic Rhythm: regular rhythm Skin General skin exam: no rashes or lesions noted Neuro General: patient alert, patient awake and tone normal Extrem General: no edema Right upper extremity: shoulder/upper arm Details: normal to inspection, tenderness (mild over shoulder laterally ), axillary nerve sensory function normal and other (no erythema or swelling); no swelling and no unusual warmth and elbow/forearm Details: tenderness (over bursa), swelling (mild swelling bursa), normal ROM and distal pulses intact; no unusual warmth Course Vital Signs Vital signs: Vital Signs Temperature 37.1 C 08/25/22 19:01 Pulse 91 H 08/25/22 19:01 Respiratory Rate 18 08/25/22 19:01 Blood Pressure 125/79 08/25/22 19:01 Pulse Oximetry 98 08/25/22 19:01 Temperature 37.1 C 08/25/22 19:01 Temperature Source Oral 08/25/22 19:01 Pulse 91 H 08/25/22 19:01 Respiratory Rate 18 08/25/22 19:01 Respiratory Effort Normal 08/25/22 19:05 Blood Pressure 125/79 08/25/22 19:01 Blood Pressure Position Sitting 08/25/22 19:01 Pulse Oximetry 98 08/25/22 19:01 Oxygen Delivery Method Room Air 08/25/22 19:01 Oxygen Flow Rate 0 08/25/22 19:01 Pain Level 4 08/25/22 19:01
== END 2022-08-25 19:36 | disposition home or self-care (01) ==
PROVIDERS: Emergency Provider Student in an Organized Health Care Education/Training Program; PCP Nurse Practitioner Family
DX: M25.511 Pain in right shoulder (principal)
CPT/HCPCS: 99281; 99282

== ENCOUNTER 2022-11-07 21:10 | Emergency (ER) | payer MEDICAID, SELFPAY ==
[2022-11-07 21:14] VITALS: BP 131/85; PULSE 94; RESP 20; TEMP 37; O2SAT 99
--- NOTE | 2022-11-07 21:20 | ED.GENADUL_ITS ---
Discharge Plan Disposition Patient Disposition: Home Condition: Stable Discharge Details Clinical Impression: Sore throat, Environmental allergies Primary Care Provider: Alyssa Hernandez ED Provider: Monae Livingston Home Meds and New Rx's Prescriptions: New cetirizine [Zyrtec] 10 mg tablet 10 mg PO DAILY PRNQty: 20 0RF Rx Instructions: Take one tablet as directed daily Continued hydroxyzine HCl 50 mg tablet 50 mg PO BID PRN (Reason: itching) Qty: 60 0RF Nicotrol 10 mg cartridge 120 mg inhalation Q2H PRN MDD 12 inhalations daily PRN (Reason: nicotine cravings) Qty: 168 1RF Vyvanse 70 mg capsule 70 mg PO DAILY MDD 70 mg Qty: 28 0RF ibuprofen [IBU] 600 mg tablet 600 mg PO QID PRN (Reason: pain) Qty: 20 0RF Bio-K plus 50 billion cell capsule,delayed release(DR/EC) 1 cap PO DAILY Qty: 30 0RF Discharge Instructions Instructions: Pharyngitis (ED) Additional Instructions: The Rapid strep test is negative. Gargle with warm salt water three times daily. Take Zyrtec or similar as directed. I do suspect you have seasonal allergies. Follow up with primary care provider in 3-5 days. Return to ED sooner if any worsening or concerns. Increase oral fluids. Please take Tylenol or Ibuprofen with food every 4-6 hours as needed for pain and swelling. Referrals: Alyssa Hernandez, WEB MANAGER [Primary Care Provider] - 5 days Medical Decision Making 37-year-old female presents to the ER with a CC of sore throat x 3 weeks. Reports associated cough. She is a daily smoker. Has been seen at and tested for MOno and strep which were negative. Posterior oropharynx appears cobble- stoned. Last took Ibuprofen at 1400. Rapid strep swab obtained, 10 mg Dexamethasone and 8oo mg Ibuprofen ordered. Rapid strep negative. Patient given Ceterizine prescription, discussed home care, verbalized understanding. This text was generated using [employer] system, please disregard any oddities of phrase or misspellings. HPI General Mode of arrival: ambulatory . Date/Time Provider Initiated Documentation: 11/07/22 21:13 . Limitations to Documentation: no limitations . Information obtained by: patient, RN notes reviewed and old records reviewed . HPI Narrative: 37-year-old female presents to the ER with a CC of sore throat x 3 weeks. R eports associated cough. She is a daily smoker. Has been seen at and tested for MOno and strep which were negative. Posterior oropharynx appears cobble- stoned. Last took Ibuprofen at 1400. Related Data Home Medications Medication Instructions Recorded Confirmed hydroxyzine HCl 50 mg tablet 50 mg PO BID PRN itching #60 tabs 02/07/19 10/25/22 ibuprofen 600 mg tablet (IBU) 600 mg PO QID PRN pain #20 tabs 08/13/22 10/25/22 L. acidophilus,casei,rhamnosus 50 1 cap PO DAILY #30 caps 08/15/22 10/25/22 billion cell capsule,delayed release (Bio-K plus) nicotine 10 mg inhalation 120 mg inhalation Q2H PRN PRN 09/13/22 10/25/22 cartridge (Nicotrol) nicotine cravings #168 ea lisdexamfetamine 70 mg capsule 70 mg PO DAILY #28 tab-caps 11/04/22 (Vyvanse) cetirizine 10 mg tablet (Zyrtec) 10 mg PO DAILY PRN #20 tabs 11/07/22 Previous Rx's Medication Instructions Recorded hydroxyzine HCl 50 mg tablet 50 mg PO BID PRN itching #60 tabs 02/07/19 ibuprofen 600 mg tablet (IBU) 600 mg PO QID PRN pain #20 tabs 08/13/22 L. acidophilus,casei,rhamnosus 50 1 cap PO DAILY #30 caps 08/15/22 billion cell capsule,delayed release (Bio-K plus) nicotine 10 mg inhalation 120 mg inhalation Q2H PRN PRN 09/13/22 cartridge (Nicotrol) nicotine cravings #168 ea lisdexamfetamine 70 mg capsule 70 mg PO DAILY #28 tab-caps 11/04/22 (Vyvanse) cetirizine 10 mg tablet (Zyrtec) 10 mg PO DAILY PRN #20 tabs 11/07/22 Allergies Allergy/AdvReac Type Severity Reaction Status Date / Time hydromorphone HCl Allergy Skin Rash Verified 11/07/22 21:17 [From Dilaudid] latex Allergy Rash Verified 11/07/22 21:17 sulfamethoxazole Allergy Hives Verified 11/07/22 21:17 [From Bactrim] trimethoprim Allergy Hives Verified 11/07/22 21:17 lactose AdvReac Diarrhea/Vo Verified 11/07/22 21:17 miting General Stated Complaint: Sorethroat KARLEE: 4 Review of Systems All systems reviewed & are unremarkable except as noted in HPI and below ENT Ears, Nose, Mouth, and Throat: Reports as per HPI and Reports sore throat PFSH All Active Problems (Updated 11/07/22 @ 21:30 by Monae Livingston NP) Sore throat (Acute) Environmental allergies (Acute) Septic olecranon bursitis of right elbow (Acute) Tobacco abuse (Acute) ADD (attention deficit disorder) (Chronic) psychiatry Depressive disorder (Chronic) with learning disorder Lipoma of back (Acute) Nicotine dependence (Acute) 08/2021-05/17 ppd Chronic pain syndrome (Chronic 04/19/12) Medical History ADHD (attention deficit hyperactivity disorder) Adrenal gland cyst Agoraphobia with panic attacks Anxiety and depression Atopic dermatitis Cellulitis of right elbow 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 CT; neg. spinal tap; Injury of mandible Kidney stone Lump of skin of back Migraine Mood disorder psychiatry Olecranon bursa abscess Opioid abuse H/O SUBOXONE THERAPY (CURRENTLY OFF THIS) Pruritic rash pseudotumor cerebri in (03/05/14) with headaches Renal cyst Spontaneous (04/14/00) Substance use disorder Hx of opiate use in past. In AA for ETOH use. Thyroiditis Surgical History History of breast lump/mass excision (~04/25/19) Fibroadenoma RT Breast Kidney Stone Extraction (~2006) Ligation of fallopian tube (08/29/14) bilateral laparoscopic salpingectomy. aoc SARWAT IN LEG (~2012) SARWAT AND ASSOCIATED HARDWARE HAS SINCE BEEN REMOVED Tonsillectomy (~2010) Family History Mother Depression Father , age 70 COPD (chronic obstructive pulmonary disease) Maternal Grandfather Heart disease Hyperlipidemia Cancer Paternal Grandfather Cancer Maternal Grandmother No problems noted. Paternal Grandmother No problems noted. Social History Smoking/Tobacco Use Status: Current every day Tobacco Type: cigars Tobacco: How many years used: 10 Quit status: not considering quitting Second Hand Exposure: Yes Counseling given: provider counseling Smoking risk assessment performed?: Yes Alcohol Intake: former Drug use: Never Substance use type: does not use Caregiver/Support person: No Household members: children Housing: house Communication Needs: Cannot Read Do you need help understanding health information?: Rarely Pets and animals: Yes Pets and animals: cat(s) and dog(s) Sexually active: Yes Do you think of yourself as: straight/heterosexual Current gender identity: female What is your relationship status?: refused to answer How often do you talk on the phone with friends or family?: three or more times per week How often do you get together with friends or relatives?: twice per week How often do you attend mandaen or amish services?: decline to answer Do you belong to any clubs or organized social groups?: no Panel score (0-1 are the most socially isolated patients): 1 What type of physical activity do you participate in: walking Duration: 15-30 minutes/day Frequency: 5-6 times per week Lynnette/Gnosticism: No preference Special lynnette needs: No Seatbelt use: always Helmet use: Yes Helmet use: always Drive intox or ride w/intox 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: No Do you feel safe at home: Yes Do you feel safe in your relationship?: Yes Exam HENMT Head: normal to inspection Ears: hearing grossly normal bilaterally General nose exam: external nose normal Throat: uvula midline, posterior oropharynx abnormal cobblestoning and erythema and tonsils absent Resp Effort & Inspection: normal respiratory effort Auscultation: clear to auscultation bilaterally Cardio Palpation: normal PMI Rate: regular rate Rhythm: regular rhythm Heart Sounds: S1 normal and S2 normal Course Vital Signs Vital signs: Vital Signs Temperature 37.0 C 11/07/22 21:14 Pulse 94 H 11/07/22 21:14 Respiratory Rate 20 11/07/22 21:14 Blood Pressure 131/85 11/07/22 21:14 Pulse Oximetry 99 11/07/22 21:14 Temperature 37.0 C 11/07/22 21:14 Temperature Source Oral 11/07/22 21:14 Pulse 94 H 11/07/22 21:14 Respiratory Rate 20 11/07/22 21:14 Respiratory Effort Normal 11/07/22 21:18 Blood Pressure 131/85 11/07/22 21:14 Blood Pressure Position Sitting 11/07/22 21:14 Pulse Oximetry 99 11/07/22 21:14 Oxygen Delivery Method Room Air 11/07/22 21:14 Oxygen Flow Rate 0 11/07/22 21:14
[2022-11-07] MEDS: Dexamethasone 10 MG/ML VIAL PO (21:36)
[2022-11-07] MEDS: Ibuprofen 800 MG TAB PO (21:37)
== END 2022-11-07 21:37 | disposition home or self-care (01) ==
PROVIDERS: Emergency Provider Registered Nurse Emergency; PCP Nurse Practitioner Family
DX: Z91.09 Other allergy status, other than to drugs and biological substances (principal); J02.9 Acute pharyngitis, unspecified
CPT/HCPCS: 87880; 99283; 87081; 99284; J1100

== ENCOUNTER 2022-11-10 17:18 | Outpatient (REF) | payer MEDICAID, SELFPAY ==
[2022-11-10 22:18] LABS: Abs Immature Grans 0.05 10^3/uL (0.0-0.06); Absolute Basophil Count 0.05 10^3/uL (0.0-0.2); Absolute Eosinophil Count 0.29 10^3/uL (0.0-0.7); Absolute Lymphocyte Count 2.63 10^3/uL (1.2-3.4); Absolute Monocyte Count 1.01 10^3/uL (0.1-0.8); Absolute Neutrophil Count 4.86 10^3/uL (1.2-6.7); Basophils % 0.6; Eosinophils % 3.3; HCT 39.8 % (36.0-46.0); HGB 13.6 g/dL (11.2-15.7); Immature Grans % 0.6; Lymphocytes % 29.6; MCH 33.9 pg (27.0-33.0); MCHC 34.2 % (32.0-36.0); MCV 99 fL (80-95); MPV 10.3 fL (8.0-11.0); Monocytes % 11.4; Neutrophils % 54.5; Platelet Count 326 10^3/uL (130-400); RBC 4.01 10^6/uL (3.93-5.22); RDW 11.3 % (11.7-14.6); RDW-SD 41.4 fL; WBC 8.89 10^3/uL (4.4-10.8)
[2022-11-10 22:37] LABS: Anion Gap 9.2 mmol/L (3-11); BUN 25 mg/dL (7-18); CO2 26.8 mmol/L (21.0-32.0); CREATININE 0.7 mg/dL (0.55-1.02); Calcium 8.7 mg/dL (8.5-10.1); Chloride 103 mmol/L (98-107); Estimated GFR 112.75 (mL/min/1.73m2); Glucose 94 mg/dL (74-106); Potassium 4.1 mmol/L (3.5-5.1); Sodium 139 mmol/L (136-145); TSH 1.62 uIU/mL (0.36-3.74)
== END 2022-11-10 17:19 | disposition home or self-care (01) ==
LOC: LBN 17:18
PROVIDERS: PCP Nurse Practitioner Family; Visit Provider Nurse Practitioner Family
DX: M54.2 Cervicalgia (principal)
CPT/HCPCS: 80048; 84443; 85025

== ENCOUNTER 2022-11-12 00:16 | Outpatient (CLI) | payer MEDICAID, SELFPAY ==
--- NOTE | 2022-11-12 07:45 | DI.US_ITS ---
Exam(s) US SOFT TISSUE HEAD OR NECK EXAM: US SOFT TISSUE HEAD OR NECK CLINICAL HISTORY: evaluate pathology,? growth,NECK PAIN, M54.2. TECHNIQUE: Ultrasound was performed using standard protocol. COMPARISON: No exams were available for comparison FINDINGS: Sonographic assessment utilizing grayscale and color Doppler imaging was performed and targeted to th e area of clinical concern. Edema is noted in the anterior soft tissues. There is hyperemia. A 4 x 2 millimeter fluid collectio n is measured. No mass is seen. CT recommended for further evaluation. DATA REPOSITORY:
== END 2022-11-12 00:36 ==
LOC: DI 00:17
PROVIDERS: PCP Nurse Practitioner Family; Visit Provider Nurse Practitioner Family
DX: M54.2 Cervicalgia (principal); E78.5 Hyperlipidemia, unspecified; R60.0 Localized edema
CPT/HCPCS: 76536

== ENCOUNTER 2022-11-15 13:09 | Outpatient (CLI) | payer MEDICAID, SELFPAY ==
--- NOTE | 2022-11-15 12:45 | DI.CT_ITS ---
Exam(s) CT NECK W EXAM: CT NECK W CLINICAL HISTORY: neck swelling, see US results, fluid collection, R22.1. TECHNIQUE: Imaging Protocol: Axial computed tomography images with coronal and sagittal reformatted images were created and reviewed CONTRAST MATERIAL: Intravenous: Omnipaque 350 Contrast volume:100 ml contrast COMPARISON: CT CT HEAD CERV SPINE FACIAL WO from 01/18/2019 US US SOFT TISSUE HEAD OR NECK from 11/12/2022 FINDINGS: Parotids/submandibular/thyroid gland: Normal. Lymphadenopathy: There are scattered lymph nodes seen along the level one to level three all measuri ng less than 8 mm in short axis diameter which are physiologic in nature. Carotids/Jugular: No significant stenosis or dissection.. Soft tissues: The floor the mouth is unremarkable. The epiglottis and vocal cords are within normal limits. There is minimal edema in the anterior soft tissues beneath the level of the hyoid. No fluid collect ion is visible. Lungs: Images through both lung apices are unremarkable. Bones: Degenerative changes of the cervical spine. Visualized portions of the brain and orbits: Unremarkable. Sinuses and mastoids: Clear. IMPRESSION: Mild edema beneath the level of the hyoid. No localized fluid collection mass or adenopathy is seen. RADIATION DOSE DELIVERED: 441.95mGy.cm Total DLP DATA REPOSITORY: All CT scans at this facility are submitted to the National Radiology Data Registry (NRDR) Dose Index Registry (DIR) with the [employer] (ACR). RADIATION OPTIMIZATION: All CT scans at this facility use at least one of these dose optimization te chniques: automated exposure control; mA and/or kV adjustment per patient size (includes targeted exa ms where dose is matched to clinical indication); or iterative reconstruction.
[2022-11-15] MEDS: Normal Saline - Diluent 50 ML VIAL IJ (14:42)
[2022-11-15] MEDS: Omnipaque 350 MG/ML 500 ML BTL-Imaging package IJ (14:43)
== END 2022-11-15 13:29 ==
LOC: DI 13:10
PROVIDERS: PCP Nurse Practitioner Family; Visit Provider Physician Assistant
DX: R22.1 Localized swelling, mass and lump, neck (principal)
CPT/HCPCS: 70491

== ENCOUNTER → 2023-03-23 00:41 | Outpatient (CLI) | payer MEDICAID, SELFPAY ==
--- NOTE | 2023-03-23 07:30 | DI.MAMMO_ITS ---
Exam(s) MAMMO SCREENING EXAM: MAMMO SCREENING CLINICAL HISTORY: screening,z12.39 TECHNIQUE: Bilateral full field digital CC and MLO mammographic images were obtained with 3D tomosyn thesis and utilizing computer aided detection (CAD). COMPARISON: Available for comparison. FINDINGS: Masses/Architectural Distortion: Question of a new 7 mm nodule in the medial left breast on the crani ocaudad view 6.5 cm from the nipple. No suspicious areas of architectural distortion. Microcalcifications: No suspicious pleomorphic-type are seen. Skin Thickening/Nipple Retraction: None. IMPRESSION: 1. Question of a new 7 mm nodule in the medial left breast. 2. Spot compression views requested for further evaluation. Ultrasound may be indicated at that time . BI-RADS Category 0 - Assessment Incomplete: Need additional imaging evaluation Breast Density - Category C - Heterogeneously dense Breast density category C or D implies that the patient has dense breast tissue. Dense breast tissue is very common and is not abnormal but dense breast tissue can make it harder to find cancer on a ma mmogram. Also, dense breast tissue may increase their breast cancer risk. This information about the result of the mammogram report was provided to the patient to raise their awareness. Use this report when you speak with the patient about their risks for breast cancer, which includes their family hist ory. At that time, you may recommend for more screening tests (Ultrasound or MRI) as they might be us eful based on their risk. A negative radiographic report should not delay biopsy if a dominant or clinically suspicious mass is present. Up to ten percent of cancers are not identified on mammography. A negative report may reinforce clinical impression. Adenosis and dense breasts may obscure an underlying neoplasm. False positive reports average 6 to 10%. Patient will receive a letter notifying them of these results.
== END ==
PROVIDERS: PCP Nurse Practitioner Family; Visit Provider Nurse Practitioner Family
DX: Z12.31 Encounter for screening mammogram for malignant neoplasm of breast (principal); R92.333 Mammographic heterogeneous density, bilateral breasts; R92.8 Other abnormal and inconclusive findings on diagnostic imaging of breast
CPT/HCPCS: 77063; 77067

== ENCOUNTER → 2023-04-13 01:24 | Outpatient (CLI) | payer MEDICAID, SELFPAY ==
--- NOTE | 2023-04-13 13:07 | DI.MAMMO_ITS ---
Exam(s) MG MAMMO SCREEN CALL BACK UNI EXAM: MG MAMMO SCREEN CALL BACK UNI CLINICAL HISTORY: F/U MAMMO, 7 MM NODULE MEDIAL LT BREAST. TECHNIQUE: Craniocaudal and mediolateral oblique Full Field Digital Mammography views of the left br east with Computer Aided Diagnosis. COMPARISON: Comparison is made with prior examinations. FINDINGS: Mammography/Tomosynthesis: Masses/Architectural Distortion: The area is rendered less concerning on the additional view. No mas s is identified. No area of architectural distortion is seen. Microcalcifictions: No suspicious pleomorphic-type are seen. Skin Thickening/Nipple Retraction: None. IMPRESSION: 1. No evidence of malignancy is noted. 2. Unless there is more urgent need, follow-up screening mammography is recommended, as per [place] [employer] guidelines. 3. The findings were discussed with the patient on the date of the examination. BI-RADS Category 1 - Negative Breast Density - Category C - Heterogeneously dense Breast density Category C or D implies that the patient has dense breast tissue. Dense breast tissue can make it harder to find cancer on a mammogram. Dense breast tissue is also associated with an incr eased risk of breast cancer. This information about the result of the mammogram report was provided to the patient to raise their awareness. Use this report when you speak with the patient about their risks for breast cancer, which includes their family history. At that time, you may recommend additional screening tests (Ultrasoun d or MRI) as these tests may add significant information. A negative radiographic report should not delay biopsy if a dominant or clinically suspicious mass is present. Up to ten percent of cancers are not identified on mammography. A negative report may reinforce clinical impression. Adenosis and dense breasts may obscure an underlying neoplasm. False positive reports average 6 to 10%. Patient will receive a letter notifying them of these results.
== END ==
PROVIDERS: PCP Nurse Practitioner Family; Visit Provider Nurse Practitioner Family
DX: Z12.31 Encounter for screening mammogram for malignant neoplasm of breast (principal); R92.8 Other abnormal and inconclusive findings on diagnostic imaging of breast
CPT/HCPCS: 77063; 77067

== ENCOUNTER 2023-04-29 16:06 | Outpatient (REF) | payer MEDICAID, SELFPAY ==
[2023-04-29 13:09] LABS: Abs Immature Grans 0.03 10^3/uL (0.0-0.06); Absolute Basophil Count 0.04 10^3/uL (0.0-0.2); Absolute Eosinophil Count 0.28 10^3/uL (0.0-0.7); Absolute Lymphocyte Count 2.04 10^3/uL (1.2-3.4); Absolute Monocyte Count 0.63 10^3/uL (0.1-0.8); Absolute Neutrophil Count 4.75 10^3/uL (1.2-6.7); Basophils % 0.5; Eosinophils % 3.6; HCT 43.1 % (36.0-46.0); HGB 14.9 g/dL (11.2-15.7); Immature Grans % 0.4; Lymphocytes % 26.3; MCH 34.6 pg (27.0-33.0); MCHC 34.6 % (32.0-36.0); MCV 100 fL (80-95); MPV 10.3 fL (8.0-11.0); Monocytes % 8.1; Neutrophils % 61.1; Platelet Count 348 10^3/uL (130-400); RBC 4.31 10^6/uL (3.93-5.22); RDW 11.5 % (11.7-14.6); RDW-SD 41.9 fL; WBC 7.77 10^3/uL (4.4-10.8)
[2023-04-29 13:15] LABS: ESR 4 mm/hr (0-20)
[2023-04-29 13:44] LABS: ALT 50 U/L (14-59); AST 21 U/L (15-37); Alkaline Phosphatase 111 U/L (46-116); BUN 25 mg/dL (7-18); Bilirubin, Total 0.3 mg/dL (0.2-1.0); CREATININE 0.7 mg/dL (0.55-1.02); Calcium 9.7 mg/dL (8.5-10.1); Chloride 101 mmol/L (98-107); Estimated GFR 112.75 (mL/min/1.73m2); Glucose 98 mg/dL (74-106); Potassium 4.7 mmol/L (3.5-5.1); Sodium 136 mmol/L (136-145); Total Protein 7.5 g/dL (6.4-8.2)
[2023-05-01 23:03] LABS: Anaplasma phagocytophilum Negative (Negative); B. miyamotoi PCR Negative (Negative); Babesia divergens/MO-1 Negative (Negative); Babesia duncani Negative (Negative); Babesia microti Negative (Negative); Ehrlichia chaffeensis Negative (Negative); Ehrlichia ewingii/canis Negative (Negative); Ehrlichia muris eauclairensis Negative (Negative)
[2023-05-02 11:37] LABS: Lyme Ab w Rflx to Lyme Confirm Negative (Negative)
== END 2023-04-29 16:07 | disposition home or self-care (01) ==
LOC: LBN 16:06
PROVIDERS: PCP Nurse Practitioner Family; Visit Provider Nurse Practitioner Family
DX: R52 Pain, unspecified (principal)
CPT/HCPCS: 80053; 85652; 87798; 85025; 86140; 86618

== ENCOUNTER 2023-12-14 02:43 | Outpatient (CLI) | payer MEDICAID, SELFPAY ==
--- OUTSIDE RECORDS SUMMARY | 2023-12-14 02:45 | XMS_ITS | Encounter Summary ---
Author Organization [facility] Address [facility] [place] [address] Care Team Providers Care Copper Miner Blasting Name Role Phone Antonia De La Vega MD Primary Care Provider Encounter Details Date Type Department Care Team (Late st Contact Info) Description 02/13/2014 Telephone Psychiatry [place] [id number] Sonia Lopez MD [facility] [place] [address] Social History Tobacco Use Types Packs/Day Years Used Date Smoking Tobacco: Every Day Cigarettes 0.5 5 Smokeless Tobacco: Never Alcohol Use Standard Drinks/Week Comments Yes 0 (1 standard drink = 0.6 oz pur e alcohol) occasionally Comments Yes Sex and Gender Information Value Date Recorded Sex Assigned at Not on file Gender Identity Not on file Sexual Orientation Not on file documented as of this encounter Miscellaneous Notes * Telephone Encounter - Sonia Lopez MD - 02/13/2014 2:14 PM EDT Women's Mental health Phone Note Patient called with questions about her Vyvanse-- she had 36 week appointment yesterday and was told that her baby may have growth restriction. Head is measuring 35 weeks, and femur and abdominal circumference are measuring 32 weeks, per patient. Her midwives suggested that this could be related to smoking and/or Vyvanse use and suggested she call me to discuss tapering or discontinuing Vyvanse. I recommended she try stopping the medication for the remainder of her . If she is unable to manage without it, we could consider resuming at a lower dose (~20mg). I also suggested she minimize her smoking as much as possible. She is unsure about and plans to discuss this with her record cutter (regarding safety of Vyvanse). I suggested that she may be able to manage her symptoms without this medication for several months, but that we can re-evaluate if needed. She will stop Vyvanse for now and is scheduled to see me again on 02/28. She will call sooner with questions/concerns. documented in this encounter Plan of Treatment Not on file documented as of this encounter Visit Diagnoses Not on filedocumented in this encounter Care Teams Copper Miner Blasting Relationship Specialty Start Date End Date Antonia De La Vega MD [address] [facility] [address] [place] [address] PCP - General 03/20/12 04/02/19 documented as of this encounter
--- OUTSIDE RECORDS SUMMARY | 2023-12-14 02:45 | XMS_ITS | Encounter Summary ---
Author Organization [facility] Address [facility] [place] [address] Care Team Providers Care Desktop Technician Name Role Phone Kourtney Lam MD Primary Care Provider [phone] Encounter Details Date Type Department Care Team (Late st Contact Info) Description 06/04/2019 [place] [phone] Will Alfredo MD [facility] [address] Social History Tobacco Use Types Packs/Day Years [...] encounter Miscellaneous Notes * Telephone Encounter - Agustin Macdonald RN - 06/04/2019 9:32 AM EST Letter of Metabolic lab work and instructions mailed to Giulia per her request * Telephone Encounter - Soledad Raymond - 06/04/2019 8:44 AM EST Pt called to cancel appt and MRI for Tuesday06/08/[address] Alfredo. She will call back to reschedule. She is also requesting that we resend the letter and orders instructing her how to do the lab work associated with the appt. She has already picked up the prescription she needs for it. She can be reached, if needed at [phone] documented in this encounter Plan of Treatment Not on file documented as of this encounter Visit Diagnoses Not on filedocumented in this encounter Care Teams Desktop Technician Relationship Specialty Start Date End Date Kourtney Lam MD [address] [place] [address] PCP - General Family Medicine 04/03/19 documented as of this encounter
--- OUTSIDE RECORDS SUMMARY | 2023-12-14 02:45 | XMS_ITS | Encounter Summary ---
Author Organization [facility] Address [facility] [place] [address] Care Team Providers Care Mangle Roller Name Role Phone Antonia De La Vega MD Primary Care Provider [phone] Encounter Details Date Type Department Care Team (Late st Contact Info) Description 03/25/2019 Ancillary Procedure [place] [address] Will Alfredo MD [facility] [address] Social History Tobacco Use Types Packs/Day Years Used Date Smoking Tobacco: Never Assessed Comments Yes Sex and Gender Information Value Date Recorded Sex Assigned at Not on file Gender Identity Not on file Sexual Orientation Not on file documented as of this encounter Plan of Treatment Not on file documented as of this encounter Procedures Procedure Name Priority Date/Time Associated Diagnosis Comments FILM LIBRARY STORAGE ONLY CT CHEST ABDOMEN PELVIS Routine 03/25/2019 12:00 AM EST documented in this encounter Results * Film Library- Storage Only CT Chest Abdomen Pelvis (03/25/2019 12:00 AM EST) Narrative [facility] - 05/03/2019 4:26 PM EST This exam is auto-finalizing. It's purpose is for storage only. Will Alfredo MD G FILM LIBRARY ORD ERABLES DH [place], [place] documented in this encounter Visit Diagnoses Not on filedocumented in this encounter Care Teams Mangle Roller Relationship Specialty Start Date End Date Antonia De La Vega MD [address] [facility] [place] [address] PCP - General 03/20/12 04/02/19 documented as of this encounter
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
--- OUTSIDE RECORDS SUMMARY | 2023-12-14 02:45 | XMS_ITS | Encounter Summary ---
Author Organization [facility] Address [facility] [place] [address] Care Team Providers Care Microarray Analyst Name Role Phone Antonia De La Vega MD Primary Care Provider [phone] Encounter Details Date Type Department Care Team (Late st Contact Info) Description 03/25/2019 12:10 AM EST Ancillary Procedure [place] [address] Sanford Soto MD [address] [place] [phone] Social History Tobacco Use Types Packs/Day Years [...] Associated Diagnosis Comments FILM LIBRARY STORAGE ONLY DX ANKLE Routine 03/25/2019 12:10 AM EST documented in this encounter Results * Film Library- Storage Only DX Ankle (03/25/2019 12:10 AM EST) Narrative [facility] - 05/03/2019 4:39 PM EST This exam is auto-finalizing. It's purpose is for storage only. Sanford Soto MD IMG FILM LIBRARY OR DERABLES DH [place], [place] documented in this encounter Visit Diagnoses Not on filedocumented in this encounter Care Teams Microarray Analyst Relationship Specialty Start Date End Date Antonia De La Vega MD [address] [place] [address] PCP - General 03/20/12 04/02/19 documented as of this encounter
--- OUTSIDE RECORDS SUMMARY | 2023-12-14 02:45 | XMS_ITS | Encounter Summary ---
Author Organization [facility] Address [facility] [place] [address] Care Team Providers Care Aircraft Landing Gear Inspector Name Role Phone Kourtney Lam MD Primary Care Provider [phone] Encounter Details Date Type Department Care Team (Late st Contact Info) Description 05/21/2019 [place] [address] Will Alfredo MD [facility] [address] Social History Tobacco Use Types Packs/Day Years [...] on file documented as of this encounter Progress Notes * Agustin Macdonald, RN - 05/21/2019 10:38 AM EST Called Giulia and discussed Metabolic testing. Labs order were sent to [facility] and prescription for 1mg dexamethazone was sent to her pharmacy. She will call once labs are completed and then will notify Dr Alfredo with results. documented in this encounter Plan of Treatment Not on file documented as of this encounter Visit Diagnoses Not on filedocumented in this encounter Care Teams Aircraft Landing Gear Inspector Relationship Specialty Start Date End Date Kourtney Lam MD [address] [place] [address] PCP - General Family Medicine 04/03/19 documented as of this encounter
--- OUTSIDE RECORDS SUMMARY | 2023-12-14 02:45 | XMS_ITS | Encounter Summary ---
Author Organization [facility] Address [facility] [place] [address] Care Team Providers Care Ordnance Officer Name Role Phone Kourtney Lam MD Primary Care Provider [phone] Encounter Details Date Type Department Care Team (Late st Contact Info) Description 05/18/2019 Tele[place] [phone] Will Alfredo MD [facility] [address] Social History Tobacco Use Types Packs/Day Years [...] encounter Miscellaneous Notes * Telephone Encounter - Cammy Mcfarland - 05/21/2019 11:10 AM EST She called back and is scheduled to see Dr. Alfredo on 06/08. Earl spoke with her regarding the metabolic work up, you'll have to make sure to get results scanned in prior her appointment. Typically takes a week for the labs to finalize. Thanks! * Telephone Encounter - Cammy Mcfarland - 05/18/2019 8:35 AM EST VM did not pick pack worker, trying to schedule Appt in ~ 1 month with results of metabolic w/u and MR with Dr. Alfredo on 06/08/19. Earl, the RN will call her in regards to setting up her metabolic work up locally. documented in this encounter Plan of Treatment Not on file documented as of this encounter Visit Diagnoses Not on filedocumented in this encounter Care Teams Ordnance Officer Relationship Specialty Start Date End Date Kourtney Lam MD [address] [place] [address] [address] [place] [address] PCP - General Family Medicine 04/03/19 documented as of this encounter
--- OUTSIDE RECORDS SUMMARY | 2023-12-14 02:45 | XMS_ITS | Encounter Summary ---
Author Organization [facility] Address [facility] [place] [address] Care Team Providers Care Carburetor Mechanic Name Role Phone Antonia De La Vega MD Primary Care Provider [phone] Encounter Details Date Type Department Care Team (Late st Contact Info) Description 03/25/2019 12:05 AM EST Ancillary Procedure [place] [address] Sanford Soto MD [address] [place] [phone] Social History Tobacco Use Types Packs/Day Years [...] Diagnosis Comments FILM LIBRARY STORAGE ONLY DX SHOULDER Routine 03/25/2019 12:05 AM EST documented in this encounter Results * Film Library- Storage Only DX Shoulder (03/25/2019 12:05 AM EST) Narrative [facility] - 05/03/2019 4:37 PM EST This exam is auto-finalizing. It's purpose is for storage only. Sanford Soto MD IMG FILM LIBRARY OR DERABLES DH [place], [place] documented in this encounter Visit Diagnoses Not on filedocumented in this encounter Care Teams Carburetor Mechanic Relationship Specialty Start Date End Date Antonia De La Vega MD [address] [place] [address] PCP - General 03/20/12 04/02/19 documented as of this encounter
--- OUTSIDE RECORDS SUMMARY | 2023-12-14 02:45 | XMS_ITS | Encounter Summary ---
Author Organization [facility] Address [facility] [place] [address] Care Team Providers Care Tafe Lecturer Name Role Phone Kourtney Lam MD Primary Care Provider [phone] Encounter Details Date Type Department Care Team (Late st Contact Info) Description 05/21/2019 Orders [place] [address] Will Alfredo MD [facility] [place] [address] Social History Tobacco Use Types Packs/Day Years [...] on filedocumented in this encounter Care Teams Tafe Lecturer Relationship Specialty Start Date End Date Kourtney Lam MD [address] [place] [address] PCP - General Family Medicine 04/03/19 documented as of this encounter
--- OUTSIDE RECORDS SUMMARY | 2023-12-14 02:45 | XMS_ITS | Encounter Summary ---
Author Organization [facility] Address [facility] [place] [address] Care Team Providers Care Cider Press Operator Name Role Phone Kourtney Lam MD Primary Care Provider [phone] Encounter Details Date Type Department Care Team (Late st Contact Info) Description 06/01/2019 [place] [phone] Will Alfredo MD [facility] [address] Social History Tobacco Use Types Packs/Day Years [...] encounter Miscellaneous Notes * Telephone Encounter - Jono Steele - 06/01/2019 8:15 AM EST LMOM - Need to know if pt had her labs done locally and, if so, where as we have not received them yet. documented in this encounter Plan of Treatment Not on file documented as of this encounter Visit Diagnoses Not on filedocumented in this encounter Care Teams Cider Press Operator Relationship Specialty Start Date End Date Kourtney Lam MD [address] [place] [address] PCP - General Family Medicine 04/03/19 documented as of this encounter
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
--- OUTSIDE RECORDS SUMMARY | 2023-12-14 02:46 | XMS_ITS | Encounter Summary ---
Author Organization [facility] Address [facility] [place] [address] Care Team Providers Care Heel Pricker Name Role Phone Antonia De La Vega MD Primary Care Provider [phone] Encounter Details Date Type Department Care Team (Late st Contact Info) Description 11/29/2013 12:57 PM EDT - 11/29/2013 11:59 PM EDT Hospital En[place] [address] Social History Tobacco Use Types Packs/Day Years [...] on file documented as of this encounter Medications at Time of Discharge Medication Sig Dispensed Refills Start Date End Date ARIPiprazole (ABILIFY) 5 mg Tablet Daily 10/30/2013 lisdexamfetamine (VYVANSE) 70 mg capsule Take 1 capsule by mouth every morning. 30 capsule 0 11/29/2013 12/27/2013 acetaminophen (TYLENOL) 500 mg tablet Take 2 tablets by mouth every 8 hours. 30 tablet 04/28/2013 02/28/2014 sertraline (ZOLOFT) 100 mg tablet Take 1 tablet by mouth Daily. 03/06/2013 05/17/2019 ABILIFY 5 mg tablet Take 1 tablet by mouth Daily. 03/06/2013 05/17/2019 documented as of this encounter Plan of Treatment Not on file documented as of this encounter Procedures Procedure Name Priority Date/Time Associated Diagnosis Comments US OB DETAILED MORPHOLOGY Routine 11/29/2013 1:58 PM EDT documented in this encounter Results * US OB Targeted Morphology (11/29/2013 1:58 PM EDT) Anatomical Region Laterality Modality Pelvis, Abdomen Ultrasound 11/29/2013 1:58 PM EDT Narrative 11/29/2013 2:10 PM EDT ?OBSTETRICS REPORT ? (Signed Final 11/29/2013 02:09 pm) Patient Info ID: ? [id number] ? : ??[birth year] (28 yrs) Name: ? GIULIA MATTHEWS ? Visit Date: 11/29/2013 01:52 pm Performed By Performed By: ?Pat Nagel RDMS Attending: ? Irais SWAN, Lilly Orourke Referred By: ? JOSE BROOKS MD Service(s) Provided [facility] - Targeted Morphology - Genetics - ? [id number] Indications Morphology MFM TO READ Evaluation Num Of Fetuses: ?1 Heart Rate: ??155 ?bpm Cardiac Activity: ??Observed, normal rhythm Presentation: ?Breech Placenta: ?Posterior P. Cord ?Within Normal Limits Insertion: Amniotic Fluid EMILE FV: ?Normal EMILE Sum: ? 15.76 ?? cm ? Larg Pckt: ?5.89 ??cm RUQ: ?? 4.34 ?cm ?LUQ: ?? 2 ?cm RLQ: ?? 5.89 ?cm ?LLQ: ?? 3.53 ?? cm -------- Biometry -------- BPD: ?60 ??mm ?G. Age: ?? 24w 4d ? 14 ??% HC: ? 223 ?? mm ?G. Age: ?? 24w 2d ?5 ??% AC: ? 197 ?? mm ?G. Age: ?? 24w 3d ? 14 ??% FL: ? 43 ??mm ?G. Age: ?? 24w 1d ?7 ??% HUM: ?40 ??mm ?G. Age: ?? 24w 2d ? 18 ??% CI: ? 73.14 ??% ? 70 - 86 FL/HC: ? 19.3 ??% ? 18.7 - 20.3 HC/AC: ? 1.13 ?1.04 - 1.22 FL/BPD: ?71.7 ??% ? 71 - 87 FL/AC: ? 21.8 ??% ? 20 - 24 Est. FW: ? 678 ?? gm ? 1 lb 8 oz ? 44 ??% Gestational Age Clinical LORENZO: ??25w 3d ?LORENZO: ?? 03/11/14 U/S Today: ? 24w 3d ?LORENZO: ?? 03/18/14 Best: ?25w 3d ?? Det. By: ??Clinical LORENZO ? LORENZO: ?? 03/11/14 Targeted Anatomy Central Nervous System Calvarium: ?Within Normal Limits Intracranial: ? Within Normal Limits Lat. Ventricles: ?Within Normal Limits Cerebellum: ? Within Normal Limits Choroid Plexus: ? Within Normal Limits Cisterna Magna: ? Within Normal Limits Spine Cervical: ? Visualized Thoracic: ? Visualized Lumbar: ? Visualized Sacral: ? Visualized Head/Neck Face: ? Within Normal Limits Lips: ? Within Normal Limits Nuchal Fold: ?Within Normal Limits Eyes: ? Within Normal limits Thorax Four Chamber: ? Within Normal Limits Cardiac Motion: ? Normal Rhythm R Outflow Tract: ?Visualized L Outflow Tract: ?Visualized Aortic Arch: ?Visualized Cardiac [place]: ? Visualized Diaphragm: ?Visualized Abdomen Ventral Wall: ? Visualized Stomach: ?Visualized Lt Kidney: ?Visualized Rt Kidney: ?Visualized Bladder: ?Visualized Extremities Lt Humerus: ? Within Nomal Limits Rt Humerus: ? Within Normal Limits Lt Forearm: ? Within Normal Limits Rt Forearm: ? Within Normal Limits Lt Hand: ?Within Normal Limits Rt Hand: ?Within Normal Limits Lt Femur: ? Within Normal Limits Rt Femur: ? Within Normal Limits Lt Lower Leg: ? Within Normal Limits Rt Lower Leg: ? Within Normal Limits Lt Foot: ?Visualized Rt Foot: ?Visualized Other Umbilical Cord: ? 3 vessel cord Cord Insertion: ? WIthin Normal Limits Comment: ? Nasal Bone: Visualized Cervix Uterus Adnexa Left Ovary: ?Not visualized Right Ovary: ?? Not visualized Impression 2nd Trimester - Targeted Morphology- Summary Single intrauterine with a gestational age of 25w 3d based on clinical LORENZO. Composite age based on the current ultrasound alone is 24w 3d. Amniotic fluid volume is Normal, EMILE = 15.76 cm Current growth parameters are consistent indicating normal growth. Detailed anatomic evaluation was performed and no structural abnormalities are noted. I ??viewed the images and agree with the above interpretation. Thank you for allowing us to participate in the care of GIULIA MATTHEWS. Please do not hesitate to call if you have any questions. ? Lilly Braxton MD Electronically Signed Final Report ?? 11/29/2013 02:09 pm Procedure Note Lilly Braxton MD - 11/29/2013 OBSTETRICS REPORT (Signed Final 11/29/2013 02:09 pm) Patient Info ID: [id number] : [birth year] (28 yrs) Name: GIULIA MATTHEWS Visit Date: 11/29/2013 01:52 pm Performed By Performed By: Pat Nagel RDMS Attending: Lilly Braxton MD Referred By: JOSE BROOKS MD Service(s) Provided [facility] - Targeted Morphology - Genetics - [id number] [phone] Indications Morphology MFM TO READ Evaluation Num Of Fetuses: 1 Heart Rate: 155 bpm Cardiac Activity: Observed, normal rhythm Presentation: Breech Placenta: Posterior P. Cord Within Normal Limits Insertion: Amniotic Fluid EMILE FV: Normal EMILE Sum: 15.76 cm Larg Pckt: 5.89 cm RUQ: 4.34 cm LUQ: 2 cm RLQ: 5.89 cm LLQ: 3.53 cm -------- Biometry -------- BPD: 60 mm G. Age: 24w 4d 14 % HC: 223 mm G. Age: 24w 2d 5 % AC: 197 mm G. Age: 24w 3d 14 % FL: 43 mm G. Age: 24w 1d 7 % HUM: 40 mm G. Age: 24w 2d 18 % CI: 73.14 % 70 - 86 FL/HC: 19.3 % 18.7 - 20.3 HC/AC: 1.13 1.04 - 1.22 FL/BPD: 71.7 % 71 - 87 FL/AC: 21.8 % 20 - 24 Est. FW: 678 gm 1 lb 8 oz 44 % Gestational Age Clinical LORENZO: 25w 3d LORENZO: 03/11/14 U/S Today: 24w 3d LORENZO: 03/18/14 Best: 25w 3d Det. By: Clinical LORENZO LORENZO: 03/11/14 Targeted Anatomy Central Nervous System Calvarium: Within Normal Limits Intracranial: Within Normal Limits Lat. Ventricles: Within Normal Limits Cerebellum: Within Normal Limits Choroid Plexus: Within Normal Limits Cisterna Magna: Within Normal Limits Spine Cervical: Visualized Thoracic: Visualized Lumbar: Visualized Sacral: Visualized Head/Neck Face: Within Normal Limits Lips: Within Normal Limits Nuchal Fold: Within Normal Limits Eyes: Within Normal limits Thorax Four Chamber: Within Normal Limits Cardiac Motion: Normal Rhythm R Outflow Tract: Visualized L Outflow Tract: Visualized Aortic Arch: Visualized Cardiac [place]: Visualized Diaphragm: Visualized Abdomen Ventral Wall: Visualized Stomach: Visualized Lt Kidney: Visualized Rt Kidney: Visualized Bladder: Visualized Extremities Lt Humerus: Within Nomal Limits Rt Humerus: Within Normal Limits Lt Forearm: Within Normal Limits Rt Forearm: Within Normal Limits Lt Hand: Within Normal Limits Rt Hand: Within Normal Limits Lt Femur: Within Normal Limits Rt Femur: Within Normal Limits Lt Lower Leg: Within Normal Limits Rt Lower Leg: Within Normal Limits Lt Foot: Visualized Rt Foot: Visualized Other Umbilical Cord: 3 vessel cord Cord Insertion: WIthin Normal Limits Comment: Nasal Bone: Visualized Cervix Uterus Adnexa Left Ovary: Not visualized Right Ovary: Not visualized Impression 2nd Trimester - Targeted Morphology- Summary Single intrauterine with a gestational age of 25w 3d based on clinical LORENZO. Composite age based on the current ultrasound alone is 24w 3d. Amniotic fluid volume is Normal, EMILE = 15.76 cm Current growth parameters are consistent indicating normal growth. Detailed anatomic evaluation was performed and no structural abnormalities are noted. I viewed the images and agree with the above interpretation. Thank you for allowing us to participate in the care of GIULIA MATTHEWS. Please do not hesitate to call if you have any questions. Lilly Braxton MD Electronically Signed Final Report 11/29/2013 02:09 pm Jose Brooks MD IMG US OB ORDERABL ES documented in this encounter Visit Diagnoses Diagnosis state, incidental documented in this encounter Care Teams Heel Pricker Relationship Specialty Start Date End Date Antonia De La Vega MD [address] [place] [address] PCP - General 03/20/12 04/02/19 documented as of this encounter
--- OUTSIDE RECORDS SUMMARY | 2023-12-14 02:46 | XMS_ITS | Encounter Summary ---
Author Organization [facility] Address [facility] [place] [address] Care Team Providers Care Forestry Contractor Name Role Phone Antonia De La Vega MD Primary Care Provider [phone] Encounter Details Date Type Department Care Team (Late st Contact Info) Description 01/31/2014 Notes Only Psychiatry [place] [id number] Sonia Lopez MD [facility] [place] [address] Social History Tobacco Use Types Packs/Day Years [...] as of this encounter Progress Notes * Sonia Lopez MD - 01/31/2014 11:00 AM EDT Received returned mail containing prescription mailed to patient on 01/21/14-- envelope marked Return to Sender. No such number. Unable to forward. Envelope was addressed to address in eDH: Giulia Hand [address] [place] [address] Will need to confirm address with patient prior to sending any additional mail to this address. Will destroy this prescription, which has already been replaced for her. documented in this encounter Plan of Treatment Not on file documented as of this encounter Visit Diagnoses Not on filedocumented in this encounter Care Teams Forestry Contractor Relationship Specialty Start Date End Date Antonia De La Vega MD [address] [place] [address] PCP - General 03/20/12 04/02/19 documented as of this encounter
--- OUTSIDE RECORDS SUMMARY | 2023-12-14 02:46 | XMS_ITS | Encounter Summary ---
Author Organization [facility] Address [facility] [place] [address] Care Team Providers Care Commissioned Defence [employer] Officer Name Role Phone Antonia De La Vega MD Primary Care Provider [phone] Encounter Details Date Type Department Care Team (Late st Contact Info) Description 05/26/2013 [place] [id number] Vern Rankin MD [facility] [place] [address] Social History Tobacco Use Types Packs/Day Years Used Date Smoking Tobacco: Every Day Cigarettes 0.1 5 Smokeless Tobacco: Never Alcohol Use Standard Drinks/Week Comments Yes 0 (1 standard drink = 0.6 oz pur e alcohol) occasionally Sex and Gender Information Value Date Recorded Sex Assigned at Not on file Gender Identity Not on file Sexual Orientation Not on file documented as of this encounter Plan of Treatment Pending Results Name Type Priority Associated Diagnoses Date /Time Film Library- Storage only CT Lower Extremity Imaging Routine 05/26/19 14 11:46 AM EST documented as of this encounter Visit Diagnoses Not on filedocumented in this encounter Care Teams Commissioned [employer] Officer Relationship Specialty Start Date End Date Antonia De La Vega MD [address] [place] [address] PCP - General 03/20/12 04/02/19 documented as of this encounter
--- OUTSIDE RECORDS SUMMARY | 2023-12-14 02:46 | XMS_ITS | Encounter Summary ---
Author Organization [facility] Address [facility] [place] [address] Care Team Providers Care Swiss Machinist Name Role Phone Antonia De La Vega MD Primary Care Provider [phone] Encounter Details Date Type Department Care Team (Latest Contact Info) Description 08/01/2012 2:29 PM EDT - 08/01/2012 11:59 PM EDT Hospital Encounter XRay at [address] [place] [address] Right closed femur fx 02/29/12 Social History Tobacco Use Types Packs/Day Years Used Date Smoking Tobacco: Every Day Cigarettes 0.3 5 Smokeless Tobacco: Never Alcohol Use Standard Drinks/Week Comments Yes 0 (1 standard drink = 0.6 oz pur e alcohol) occasionally Sex and Gender Information Value Date Recorded Sex Assigned at Not on file Gender Identity Not on file Sexual Orientation Not on file documented as of this encounter Medications at Time of Discharge Medication Sig Dispensed Refills Start Date End Date OXYcodone (ROXICODONE) 5 mg immediate release tablet Take 1-2 tablets by mouth every 4 hours as needed for Pain. 70 tablet 0 04/12/2012 02/28/2013 acetaminophen (TYLENOL) 500 mg tablet Take 2 tablets by mouth every 6 hours as needed for Pain. 30 tablet 03/02/2012 04/24/2013 aspirin 325 mg tablet Take 1 tablet by mouth daily. 30 tablet 0 03/02/2012 02/28/2013 aripiprazole (ABILIFY) 5 mg tablet Take 5 mg by mouth daily. 04/24/2013 sertraline (ZOLOFT) 100 mg tablet Take 100 mg by mouth daily. 04/24/2013 lisdexamfetamine (VYVANSE) 70 mg capsule Take 70 mg by mouth every morning. 04/24/2013 documented as of this encounter Plan of Treatment Not on file documented as of this encounter Procedures Procedure Name Priority Date/Time Associated Diagnosis Comments XR FEMUR 2 VIEW Routine 08/01/2012 2:39 PM EDT Closed fracture of unspecified part of femur documented in this encounter Results * XR femur 2 view (08/01/2012 2:39 PM EDT) Anatomical Region Laterality Modality Thigh N/A Radiographic Arianne ging 08/01/2012 2:39 PM EDT Narrative 08/01/2012 4:02 PM EDT Examination DIAG FEMUR 2 VIEWS/RIGHT Clinical History right hip pain Comparison May 23, 2012. Technique AP and lateral right femur. Findings There is a fracture of the midshaft of the right femur that has been fixed with a cephalomedullary yesy which has two distal interlocking screws. ??The fracture fragments are well aligned. ??There is callus at the fracture site. ??The fracture line is only faintly visible. ??There has been progression of healing in the interval since the prior study. Impression Ongoing healing fracture of the mid right femoral shaft. Procedure Note Chidi Brown MD - 08/01/2012 Examination DIAG FEMUR 2 VIEWS/RIGHT Clinical History right hip pain Comparison May 23, 2012. Technique AP and lateral right femur. Findings There is a fracture of the midshaft of the right femur that has been fixedwith a cephalomedullary yesy which has two distal interlocking screws. Thefracture fragments are well aligned. There is callus at the fracture site. The fracture line is only faintly visible. There has been progression ofhealing in the interval since the prior study. Impression Ongoing healing fracture of the mid right femoral shaft. Vern Rankin MD IMG DX ORDERABLES documented in this encounter Visit Diagnoses Diagnosis Right closed femur fx 02/29/12 Closed fracture of unspecified part of femur documented in this encounter Care Teams Swiss Machinist Relationship Specialty Start Date End Date Antonia De La Vega MD [address] [place] [address] PCP - General 03/20/12 04/02/19 documented as of this encounter
--- OUTSIDE RECORDS SUMMARY | 2023-12-14 02:46 | XMS_ITS | Encounter Summary ---
Author Organization [facility] Address [facility] [place] [address] Care Team Providers Care Shoulder Sawyer Name Role Phone Antonia De La Vega MD Primary Care Provider [phone] Reason for Referral * Physical Therapy (Routine) - Closed by system - unspecified Specialty Diagnoses / Procedures Referred By Contac t Referred To Contact Physical Therapy Diagnoses Femur fracture, right, closed, with routine healing, subsequent encounter Fixation hardware in leg, subsequent encounter Niki Jones PA [facility] [place] [address] Referral ID Status Reason Start Date Expiration Date Visits Requested Visits Authorized [id number] Closed by system - unspecified Evaluate and Treat 05/29/2013 11/25/2013 1 1 Reason for Visit * Reason Comments Follow Up Surgery SP LEEANN R FEMUR DOS 1 06/28/12 Encounter Details Date Type Department Care Team (Late st Contact Info) Description 05/29/2013 1:30 PM EST Office [place] [address] Vern Rankin MD [facility] [place] [address] Fixation hardware in leg, subsequent encounter (Primary Dx); Femur fracture, right, closed, with routine healing, subsequent encounter Discharge Disposition: Home Social History Tobacco Use Types Packs/Day Years [...] Sign Reading Time Taken Comments Blood Pressure 109/79 05/29/2013 1:17 PM EST Pulse 90 05/29/2013 1:17 PM EST Temperature 36.7 ??C (98 ??F) 05/29/2013 1:17 PM EST Respiratory Rate - - Oxygen Saturation - - Inhaled Oxygen Concentration - - Weight 65.8 kg (145 lb) 05/29/2013 1:17 PM EST S TATED Height 162.6 cm (5' 4) 05/29/2013 1:17 PM EST S TATED Body Mass Index 24.89 05/29/2013 1:17 PM EST documented in this encounter Progress Notes * Niki Jones PA - 05/31/2013 10:00 PM EST Date of visit: 05/29/2013 Case Date: 04/27/2013 Preoperative Diagnosis: Painful hardware s/p R femur IM nail Postoperative Diagnosis: Same Procedure Performed: Removal of hardware, deep, right femur Trochanteric Bursectomy right hip HPI: patient is 4 weeks s/p above procedure. Continues with pain at incision site along with some edema. Pain over incision on right hip. She has recently presented to outside ED with workup and CT. CT is available today. She states she has had fever and chills along with some nausea and vomitting.. No drainage noted from hip. Continues to be 50% weight bearing without increase pain in extremitywith wt bearing status. Using oxycodone for pain management. She recently had refill that was used more frequently. She did not realize a time change in dosing. Exam: Alert and oriented x 3. NAD. Right hip incision and knee incision well healed. No erythema or drainage. Mild edema noted. Sensitivity to light touch about the lateral aspect of the limb. Some numbness about the incision at the lateral aspect left knee. ROM of hip and knee tolerated. Extremity warm and dry. 2+ pulses. Xray today does not show any fracture or dislocation. A/P: Patient seen with Dr. Rankin. 4 weeks s/p above procedure. Discussed s/s of infection. Will move forward with some lab work today, knowing that it will be elevated due to recent surgery. Can usevalues as baseline moving forward. Wounds and hip/knee ROM very reassuring. Refilled oxycodone wit ween protocol. May use 1-2 tabs q6 PRN for 5 days. Then 1 tab q 6 PRN x 5 days. Will extend to Q8 aft er. This was discussed with the patient. Continue 50%WB for 2 more weeks. i have given her a referral to start PT. Follow up scheduled in 4 weeks with xray. Will move forward with WB after 6 weeks. documented in this encounter Plan of Treatment Scheduled Referrals Name Type Priority Associated Diagnoses Orde r Schedule Referral to Physical Therapy Outpatient Referral Routine Femur fracture, right, closed, with routine healing, subsequent encounter Fixation hardware in leg, subsequent encounter Ordered: 05/29/2013 documented as of this encounter Procedures Procedure Name Priority Date/Time Associated Diagnosis Comments DIFFERENTIAL, AUTOMATED STAT 05/29/2013 3:04 PM EST SEDIMENTATION RATE STAT 05/29/2013 3: 04 PM EST Femur fracture, right, closed, with routine healing, subsequent encounter Fixation hardware in leg, subsequent encounter CBC (WITH DIFF) STAT 05/29/2013 3:04 PM EST Femur fracture, right, closed, with routine healing, subsequent encounter Fixation hardware in leg, subsequent encounter CRP, CARDIAC RISK (HS CRP) STAT 05/29/2013 3:04 PM EST Femur fracture, right, closed, with routine healing, subsequent encounter Fixation hardware in leg, subsequent encounter documented in this encounter Results * (ABNORMAL) Differential, Automated (05/29/2013 3:04 PM EST) Neutrophils % 77.6(H) 34.0 - 71.0 % CERNER MILLENNIUM Neutr Abs (ANC) 6.33(H) 1.50 - 6.30 x10(3)/mc L CERNER MILLENNIUM Lymphocytes % 12.0(L) 19.0 - 53.0 % CERNER MILLENNIUM Lymphocytes Abs 1.0 1.0 - 3.6 x10(3)/mc L CERNER MILLENNIUM Monocytes % 6.7 4.0 - 13.0 % CERNER MILLENNIUM Monocyte Abs 0.6 0.2 - 1.0 x10(3)/mc L CERNER MILLENNIUM Eosinophils % 3.4 0.0 - 7.0 % CERNER MILLENNIUM Eosinophils Abs 0.3 0.0 - 0.5 x10(3)/mc L CERNER MILLENNIUM Basophils % 0.2 0.0 - 2.0 % CERNER MILLENNIUM Basophils Abs 0.0 0.0 - 0.2 x10(3)/mc L CERNER MILLENNIUM Immature Gran % 0.10 0.00 - 0.66 % CERNER MILLENNIUM Comment: Immature granulocytes(IG's)percentage and absolute count will include metamyelocytes, myelocytes, and promyelocytes. Blood smears from CBCs yielding IG's will be scanned manually for concordance. If this scan disagrees with the automated IG or if promyelocytes are noted, a manual differential will be performed. Francesca Gran Abs 0.01 0.00 - 0.05 x10(3)/mc L CERNER MILLENNIUM Blood specimen (specimen) 05/29/2013 3:04 PM EST 05/29/2013 3:16 PM EST Vern Rankin MD HEMATOLOGY ORDERABLE S FRANSICO SCHRADERIUM * Sedimentation rate (05/29/2013 3:04 PM EST) Sed Rate 10 0 - 20 mm/hr CERNER MILLENNIUM Blood specimen (specimen) 05/29/2013 3:04 PM EST 05/29/2013 3:16 PM EST Narrative Resulting Agency Comment Spec In Lab Vern Rankin MD HEMATOLOGY ORDERABLE S CERJOSH SPICERENNIUM * High Sensitivity CRP (05/29/2013 3:04 PM EST) Pathologist [facility] CRP High Sens 28.4 mg/L CERNER MILLENNIUM Comment: Interpretations: 1) For accurate cardiac risk assessment, the average of 2 values >2 weeks apart should be obtained (ref 1&2). A value >10 mg/L indicates an inflammatory condition, concentrations >10 mg/L should not be used for cardiac risk assessment. ?<1.0 mg/L: low risk ?1.0 - 3.0 mg/L: moderate risk ?>3.0 mg/L: high risk groups for future cardiovascular events 2) The general reference range of apparently healthy individuals using this test is <5.0 mg/L (derived from the test package insert) References: 1. Armando MICHAEL et. al. ??AHA/CDC Scientific Statement: Markers of Inflammation and Cardiovascular Disease. ??Circulation 2003; 107:499-511 2. Ridker PM. ??Clinical applications of C-reactive protein for cardiovascular disease detection and prevention. ??Circulation 2003; 107:363-369 Blood specimen (specimen) 05/29/2013 3:04 PM EST 05/29/2013 3:16 PM EST Narrative Resulting Agency Comment Spec In Lab Vern Rankin MD CHEMISTRY ORDERABLES [facility] * (ABNORMAL) CBC (with Diff) (05/29/2013 3:04 PM EST) Pathologist [facility] WBC 8.2 4.0 - 10.0 x10(3)/mcL CERNER MILLENNIUM RBC 4.15 3.93 - 5.22 x10(6)/mcL CERNER MILLENNIUM Hemoglobin 13.9 11.2 - 15.7 gm/dL CERNER MILLENNIUM Hematocrit 40.7 34.0 - 45.0 % CERNER MILLENNIUM MCV 98.1(H) 79.0 - 94.0 fL CERNER MILLENNIUM MCH 33.5(H) 26.6 - 32.2 pg CERNER MILLENNIUM MCHC 34.2 32.0 - 36.5 gm/dL CERNER MILLENNIUM Platelets 267 145 - 370 x10(3)/mcL CERNER MILLENNIUM RDWSD 42.0 35.0 - 46.0 fL FRANSICO SPICERENNIUM RDWCV 11.7 10.9 - 14.4 % FRANSICO SPICERENNIUM MPV 10.0 9.0 - 12.0 fL FRANSICO SCHRADERIUM Blood specimen (specimen) 05/29/2013 3:04 PM EST 05/29/2013 3:16 PM EST Narrative Resulting Agency Comment Spec In Lab Vern Rankin MD HEMATOLOGY ORDERABLE S FRANSICO IRVING documented in this encounter Visit Diagnoses Diagnosis Fixation hardware in leg, subsequent encounter- Primary Femur fracture, right, closed, with routine healing, subsequent encounter documented in this encounter Care Teams Shoulder Sawyer Relationship Specialty Start Date End Date Antonia De La Vega MD [address] [place] [address] PCP - General 03/20/12 04/02/19 documented as of this encounter
--- OUTSIDE RECORDS SUMMARY | 2023-12-14 02:46 | XMS_ITS | Encounter Summary ---
Author Organization [facility] Address [facility] [place] [address] Care Team Providers Care Necktie Maker Name Role Phone Antonia De La Vega MD Primary Care Provider [phone] Encounter Details Date Type Department Care Team (Late st Contact Info) Description 02/01/2013 Ancillary Procedure [place] [address] Will Alfredo MD [facility] [address] Social History Tobacco Use Types Packs/Day Years [...] Diagnosis Comments FILM LIBRARY STORAGE ONLY CT ABDOMEN Routine 02/01/2013 12:00 AM EDT documented in this encounter Results * Film Library- Storage Only CT Abdomen (02/01/2013 12:00 AM EDT) Narrative [facility] - 05/17/2019 12:00 PM EST This exam is auto-finalizing. It's purpose is for storage only. Will Alfredo MD IM FILM LIBRARY ORD ERABLES [place], [place] documented in this encounter Visit Diagnoses Not on filedocumented in this encounter Care Teams Necktie Maker Relationship Specialty Start Date End Date Antonia De La Vega MD [address] [place] [address] PCP - General 03/20/12 04/02/19 documented as of this encounter
--- OUTSIDE RECORDS SUMMARY | 2023-12-14 02:46 | XMS_ITS | Encounter Summary ---
Author Organization [facility] Address [facility] [place] [address] Care Team Providers Care Narcotics Investigator Name Role Phone Antonia De La Vega MD Primary Care Provider [phone] Encounter Details Date Type Department Care Team (Late st Contact Info) Description 04/29/2013 Telephone [place] [phone] Juhi Weaver MD [facility] DR [place] [address] Social History Tobacco Use Types Packs/Day Years [...] encounter Miscellaneous Notes * Telephone Encounter - Juhi Weaver MD - 04/29/2013 3:13 PM EST Pt called because she started her nitrofurantoin this AM and later began to notice a rash on her abd that resembles bug bites and is itching all over. Recommended stopping the nitrofurantoin as this was the only new medication she recently started and take benadryl. Called in a prescription for cipro 500mg BID 7 days. Phone number where she can be reached [phone]. documented in this encounter Plan of Treatment Not on file documented as of this encounter Visit Diagnoses Not on filedocumented in this encounter Care Teams Narcotics Investigator Relationship Specialty Start Date End Date Antonia De La Vega MD [address] [place] [address] PCP - General 03/20/12 04/02/19 documented as of this encounter
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
--- OUTSIDE RECORDS SUMMARY | 2023-12-14 02:46 | XMS_ITS | Encounter Summary ---
Author Organization [facility] Address [facility] [place] [address] Care Team Providers Care Naturalist Name Role Phone Antonia De La Vega MD Primary Care Provider [phone] Reason for Visit * Reason Onset Date Comments Medication Refill 01/28/2014 Encounter Details Date Type Department Care Team (Late st Contact Info) Description 01/28/2014 Refill Psychiatry [place] [address] Sonia Lopez MD [facility] [place] [address] Social History Tobacco Use Types Packs/Day Years [...] on filedocumented in this encounter Care Teams Naturalist Relationship Specialty Start Date End Date Antonia De La Vega MD [address] [place] [address] PCP - General 03/20/12 04/02/19 documented as of this encounter
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
--- OUTSIDE RECORDS SUMMARY | 2023-12-14 02:46 | XMS_ITS | Encounter Summary ---
Author Organization [facility] Address [facility] [place] [address] Care Team Providers Care Wire Bender Hand Name Role Phone Antonia De La Vega MD Primary Care Provider [phone] Encounter Details Date Type Department Care Team (Late st Contact Info) Description 02/28/2013 Orders [place] [address] Vern Rankin MD [facility] [place] [address] Femur fracture, right Social History Tobacco Use Types Packs/Day Years [...] on file documented as of this encounter Results * XR femur 2 view (02/28/2013 4:27 PM EDT) Anatomical Region Laterality Modality Thigh N/A Radiographic Arianne ging 02/28/2013 4:27 PM EDT Narrative 02/28/2013 4:37 PM EDT Examination DIAG FEMUR 2 VIEWS/RIGHT Clinical History S/P R Femur fx Comparison 08/01/2012. Technique AP and lateral views of the right femur. Findings Further healing of the right femur midshaft fracture, with increased bony remodeling. ??Unchanged position of intramedullary nail and interlocking screws, with no hardware complication identified. ??No new osseous pathology is observed. Impression Further healing of right femur midshaft fracture. Procedure Note Sandy Sanchez MD - 02/28/2013 Examination DIAG FEMUR 2 VIEWS/RIGHT Clinical History S/P R Femur fx Comparison 08/01/2012. Technique AP and lateral views of the right femur. Findings Further healing of the right femur midshaft fracture, with increased bony remodeling. Unchanged position of intramedullary nail and interlockingscrews, with no hardware complication identified. No new osseous pathology is observed. Impression Further healing of right femur midshaft fracture. Vern Rankin MD IMG DX ORDERABLES documented in this encounter Visit Diagnoses Diagnosis Femur fracture, right Closed fracture of unspecified part of femur Femur fracture, right Closed fracture of unspecified part of femur documented in this encounter Care Teams Wire Bender Hand Relationship Specialty Start Date End Date Antonia De La Vega MD [address] [place] [address] PCP - General 03/20/12 04/02/19 documented as of this encounter
--- OUTSIDE RECORDS SUMMARY | 2023-12-14 02:46 | XMS_ITS | Encounter Summary ---
Author Organization [facility] Address [facility] [place] [address] Care Team Providers Care Screen Vent Binder Name Role Phone Antonia De La Vega MD Primary Care Provider [phone] Reason for Visit * Reason Onset Date Comments Post-op Problem 05/14/2013 s/p pin and yesy removal right femur Encounter Details Date Type Department Care Team (Late st Contact Info) Description 05/14/2013 Telephone [place] [address] Vern Rankin MD [facility] [place] [address] Post-op Problem (s/p pin and yesy removal right femur) Social History Tobacco Use Types Packs/Day Years [...] Telephone Encounter - Aylin Sethi RN - 05/14/2013 9:59 AM EST Spoke with patient. She states that she is still having a lot of pain in her leg but not different than it has been since surgery. At times it is bad enough that she vomits. She started having cold chills last night but no fever. She does not otherwise feel ill. Suggested she see her PCP but due tosome situation between the patient and PCP she was not willing to do this and states she is gettinga new PCP. We will see her in clinic today. * Telephone Encounter - Kane Brown - 05/14/2013 9:31 AM EST Post right femur surgery, increased pain and question of infection. Please call her at home number listed. documented in this encounter Plan of Treatment Not on file documented as of this encounter Visit Diagnoses Not on filedocumented in this encounter Care Teams Screen Vent Binder Relationship Specialty Start Date End Date Antonia De La Vega MD [address] [place] [address] PCP - General 03/20/12 04/02/19 documented as of this encounter
--- OUTSIDE RECORDS SUMMARY | 2023-12-14 02:46 | XMS_ITS | Encounter Summary ---
Author Organization [facility] Address [facility] [place] [address] Care Team Providers Care Tear Down Man Name Role Phone Antonia De La Vega MD Primary Care Provider [phone] Reason for Visit * Reason Onset Date Comments Medication Refill 01/25/2014 Encounter Details Date Type Department Care Team (Late st Contact Info) Description 01/25/2014 Refill Psychiatry [place] [address] Nadeen Landis MD [facility] [place] [address] Social History Tobacco Use Types Packs/Day Years [...] encounter Miscellaneous Notes * Telephone Encounter - Nadeen Landis MD - 01/25/2014 8:59 AM EDT Has not received Vyvanse prescription from 01/21 yet in mail. Will provide enough to get through weekend and assume that prescription will soon arrive. documented in this encounter Plan of Treatment Not on file documented as of this encounter Visit Diagnoses Not on filedocumented in this encounter Care Teams Tear Down Man Relationship Specialty Start Date End Date Antonia De La Vega MD [address] [facility] [facility] [address] [place] [address] PCP - General 03/20/12 04/02/19 documented as of this encounter
--- OUTSIDE RECORDS SUMMARY | 2023-12-14 02:46 | XMS_ITS | Encounter Summary ---
Author Organization [facility] Address [facility] [place] [address] Care Team Providers Care Plastic Parts Fabricator Trimmer Name Role Phone Antonia De La Vega MD Primary Care Provider [phone] Encounter Details Date Type Department Care Team (Late st Contact Info) Description 08/28/2012 Ancillary Procedure [place] [address] iWll Alfredo MD [facility] [address] Social History Tobacco Use Types Packs/Day Years [...] FILM LIBRARY STORAGE ONLY CT ABDOMEN Routine 08/28/2012 12:00 AM EDT documented in this encounter Results * Film Library- Storage Only CT Abdomen (08/28/2012 12:00 AM EDT) Narrative [facility] - 05/17/2019 11:59 AM EST This exam is auto-finalizing. It's purpose is for storage only. Will Alfredo MD IM FILM LIBRARY ORD ERABLES [place], [place] documented in this encounter Visit Diagnoses Not on filedocumented in this encounter Care Teams Plastic Parts Fabricator Trimmer Relationship Specialty Start Date End Date Antonia De La Vega MD [address] [place] [address] PCP - General 03/20/12 04/02/19 documented as of this encounter
--- OUTSIDE RECORDS SUMMARY | 2023-12-14 02:46 | XMS_ITS | Encounter Summary ---
Author Organization [facility] Address [facility] [place] [address] Care Team Providers Care Director Of Rooms Name Role Phone Antonia De La Vega MD Primary Care Provider [phone] Encounter Details Date Type Department Care Team (Latest Contact Info) Description 05/29/2013 12:48 PM EST - 05/29/2013 11:59 PM [facility] Encounter XRay at [address] [place] [address] History of femur fracture Social History Tobacco Use Types Packs/Day Years [...] 5 mg immediate release tablet Take 1-2 tabs Q6 PRN for 5 days, then take 1 tab Q6h PRN. For 5 days. 60 tablet 0 05/29/2013 06/06/2013 acetaminophen (TYLENOL) 500 mg tablet Take 2 tablets by mouth every 8 hours. 30 tablet 04/28/2013 02/28/2014 VYVANSE 70 mg capsule Take 1 capsule by mouth Daily. 04/03/2013 11/29/2013 sertraline (ZOLOFT) 100 mg tablet Take 1 tablet by mouth Daily. 03/06/2013 05/17/2019 ABILIFY 5 mg tablet Take 1 tablet by mouth Daily. 03/06/2013 05/17/2019 documented as of this encounter Plan of Treatment Not on file documented as of this encounter Procedures Procedure Name Priority Date/Time Associated Diagnosis Comments XR FEMUR 2 VIEW Routine 05/29/2013 1:08 PM EST History of femur fracture documented in this encounter Results * XR femur 2 view (05/29/2013 1:08 PM EST) Anatomical Region Laterality Modality Thigh N/A Radiographic Arianne ging 05/29/2013 1:08 PM EST Narrative 05/29/2013 2:07 PM EST Examination DIAG FEMUR 2 VIEWS/RIGHT Clinical History FU LEEANN R FEMUR; To be performed at postoperative visit Comparison 02/28/2013. Technique AP and lateral views right femur. Findings Since prior study of 02/28/2013, the intra medullary yesy with femoral neck side component have been removed. Ghost tracks from the hardware are seen. The mid right femoral fracture appears solidly united in anatomic position and alignment. Impression No radiographic evidence of complication status post hardware removal. Procedure Note Dar Storey MD - 05/29/2013 Examination DIAG FEMUR 2 VIEWS/RIGHT Clinical History FU LEEANN R FEMUR; To be performed at postoperative visit Comparison 02/28/2013. Technique AP and lateral views right femur. Findings Since prior study of 02/28/2013, the intra medullary yesy with femoral neckside component have been removed. Ghost tracks from the hardware are seen. Themid right femoral fracture appears solidly united in anatomic position and alignment. Impression No radiographic evidence of complication status post hardware removal. Vern Rankin MD IMG DX ORDERABLES documented in this encounter Visit Diagnoses Diagnosis History of femur fracture Personal history of traumatic fracture documented in this encounter Care Teams Director Of Rooms Relationship Specialty Start Date End Date Antonia De La Vega MD [address] [place] [address] PCP - General 03/20/12 04/02/19 documented as of this encounter
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
--- OUTSIDE RECORDS SUMMARY | 2023-12-14 02:46 | XMS_ITS | Encounter Summary ---
Author Organization [facility] Address [facility] [place] [address] Care Team Providers Care Drilling Machine Runner Name Role Phone Antonia De La Vega MD Primary Care Provider [phone] Encounter Details Date Type Department Care Team (Latest Contact Info) Description 02/28/2013 4:15 PM EDT - 02/28/2013 11:59 PM EDT Hospital Encounter XRay at [address] [place] [address] Femur fracture, right Social History Tobacco Use [...] Sig Dispensed Refills Start Date End Date acetaminophen (TYLENOL) 500 mg tablet Take 2 tablets by mouth every 6 hours as needed for Pain. 30 tablet 03/02/2012 04/24/2013 aripiprazole (ABILIFY) 5 mg tablet Take 5 [...] Diagnosis Comments XR FEMUR 2 VIEW Routine 02/28/2013 4:27 PM EDT Femur fracture, right documented in this encounter Results * XR [...] femur documented in this encounter Care Teams Drilling Machine Runner Relationship Specialty Start Date End Date Antonia De La Vega MD [address] [place] [address] PCP - General 03/20/12 04/02/19 documented as of this encounter
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
--- OUTSIDE RECORDS SUMMARY | 2023-12-14 02:46 | XMS_ITS | Encounter Summary ---
Author Organization [facility] Address [facility] [place] [address] Care Team Providers Care Double Cut Sawyer Name Role Phone Antonia De La Vega MD Primary Care Provider [phone] Reason for Visit * Reason Comments Follow Up Surgery DOS 04/27/13 REMOVAL OF HARDWARE Encounter Details Date Type Department Care Team (Late st Contact Info) Description 05/14/2013 12:40 PM EST Office [place] [address] Niki Jones, PA [facility] [place] [address] Fixation hardware in leg, initial encounter; Femur fracture, right, closed, with routine healing, [...] Sign Reading Time Taken Comments Blood Pressure 123/70 05/14/2013 1:09 PM EST Pulse 86 05/14/2013 1:09 PM EST Temperature 36.8 ??C (98.3 ??F) 05/14/2013 1:09 PM ES T Respiratory Rate - - Oxygen Saturation - - Inhaled Oxygen Concentration - - Weight 65 kg (143 lb 3.2 oz) 05/14/2013 1:09 PM EST Height 162.6 cm (5' 4) 05/14/2013 1:09 PM EST S TATED Body Mass Index 24.58 05/14/2013 1:09 PM EST documented in this encounter Progress Notes * Niki Jones PA - 05/14/2013 1:08 PM EST Date of visit: 05/14/13 Case Date: 04/27/2013 Preoperative Diagnosis: Painful hardware s/p R femur IM nail Postoperative Diagnosis: Same Procedure Performed: Removal of hardware, deep, right femur Trochanteric Bursectomy right hip HPI: patient is 2 weeks s/p above procedure. Continues with pain at incision site along with some edema. Pain over incision on right hip especially with light touch. No drainage noted. Continues to be 50% weight bearing without increase pain in extremity with wt bearing status. Having some chills starting today. No fever. No other s/s of infection. Using oxycodone for pain management. Exam: Alert and oriented x 3. NAD. Right hip incision well approximated. No erythema or drainage. Mild edema noted. Sensitivity to light touch about the lateral aspect of the limb. Some numbness about the incision at the lateral aspect left knee. Gentle ROM of hip and knee tolerated. Extremity warm and dry. 2+ pulses. No xray today A/P: 2 weeks s/p above procedure. Discussed s/s of infection and to call if fever or progressive chills. Monitor for wound drainage or increasing erythema. No need for continued dressing over incision. Need for some mild desensitization. Use ice prn. Refilled oxycodone. Continue 50%WB. Has not been receiving PT. Will work on arranging. Follow up scheduled. documented in this encounter Plan of Treatment Not on file documented as of this encounter Visit Diagnoses Diagnosis Fixation hardware in leg, initial encounter Femur fracture, right, closed, with routine healing, subsequent encounter documented in this encounter Care Teams Double Cut Sawyer Relationship Specialty Start Date End Date Antonia De La Vega MD [address] [facility] [address] [place] [address] PCP - General 03/20/12 04/02/19 documented as of this encounter
--- OUTSIDE RECORDS SUMMARY | 2023-12-14 02:46 | XMS_ITS | Encounter Summary ---
Author Organization [facility] Address [facility] [address] Care Team Providers Care Motion Picture Critic Name Role Phone Antonia De La Vega MD Primary Care Provider [phone] Reason for Visit * Reason Onset Date Comments Other 05/24/2013 questions about infection Encounter Details Date Type Department Care Team (Late st Contact Info) Description 05/24/2013 Tele[place] [phone] Aylin Marsh RN Other (questions about infection) Social History Tobacco Use Types Packs/Day Years [...] Telephone Encounter - Aylin Sethi RN - 05/24/2013 10:24 AM EST Spoke with Giulia. She states that yesterday she felt a hardened area under the bottom two incisions, one of which is better today. She does not have a fever and there is not noticeable redness or swelling. She does not have any drainage. She states that on occasion she has random zapping, stinging type pains that can make her cry. She states that ice helps with that. Advised to continue icing,rest, pain medication PRN. She has a follow up appointment on the . She will call back if her symptoms change or there are any signs of infection noted. We will send her a refill of her pain medication today as she is almost out. She takes anywhere from 5 to 10 per day depending on her activitylevel. * Telephone Encounter - Aylin Sethi RN - 05/24/2013 8:56 AM EST Giulia left a voicemail message late yesterday stating she was concerned with a hardened/hot area around her incision. According to chart notes she did speak to the resident operations vice president last night but did not present to the emergency room. Tried to contact her this morning but only got her voicemail. Left a message for her to call back to discuss symptoms. documented in this encounter Plan of Treatment Not on file documented as of this encounter Visit Diagnoses Not on filedocumented in this encounter Care Teams Motion Picture Critic Relationship Specialty Start Date End Date Antonia De La Vega MD [address] [place] [address] PCP - General 03/20/12 04/02/19 documented as of this encounter
--- OUTSIDE RECORDS SUMMARY | 2023-12-14 02:46 | XMS_ITS | Encounter Summary ---
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 pg CERNER MILLENNIUM MCHC 34.1 32.0 - 36.5 gm/dL CERNER MILLENNIUM Platelets 260 145 - 370 x10(3)/mcL CERNER MILLENNIUM RDWSD 41.1 35.0 - 46.0 fL CERNER MILLENNIUM RDWCV 11.5 10.9 - 14.4 % CERNER MILLENNIUM MPV 10.4 9.0 - 12.0 fL CERNER MILLENNIUM Blood specimen (specimen) 04/28/2013 4:45 AM EST 04/28/2013 5:40 AM EST Narrative Resulting Agency Comment Spec In Lab Vern Marcelo MD HEMATOLOGY ORDERABLE S FRANSICO IRVING * Urine culture Clean Catch Urine (04/27/2013 9:29 PM EST) Urine Culture ? Patient Name: LOUIS MATTHEWS ? Ordered By: VERN MARCELO ? MR#: [id number] ?LOC: ??[facility] ? /Sex: ??1985 (27 years), ? Female ? PROCEDURE: Urine Culture ?SOURCE: U [facility] ? COLLECTED: 04/27/2013 21:29 ? STARTED: 04/27/2013 21:45 ? FINAL REPORT ? Final Report ? Verified: 013 14:59 ? 1,000-9,000 cfu/ml mixed mucosal keira ? 1,000-9,000 cfu/ml Gram Negative organisms ? Note: Multiple bacterial morphotypes present. Suggest appropriate ? recollection with timely delivery to ? the laboratory, if clinically significant. ? FRANSICO IRVING Urine specimen obtained by clean catch procedure (specimen) 04/27/2013 9:29 PM EST 04/27/2013 9:45 PM EST Narrative Resulting Agency Comment Spec In Lab Vern Marcelo MD MICROBIOLOGY - [facility] AL ORDERABLES Performing Organization Address [facility] Phone Number FRANSICO IRVING * (ABNORMAL) Urinalysis without microscopic (04/27/2013 9:29 PM EST) Glucose UA 300(A) Negative mg/dL CERNER MILLENNIUM Protein UA 30(A) Neg mg/dL CERNER MILLENNIUM Bilirubin UA Negative Negative mg/dL CERNER MILLENNIUM Comment: Clinical correlation required for positive Urine Bilirubin results as false positive may occur with some drugs and drug related products. If a false positive is suspected a serum total bilirubin should be considered if clinically indicated. Urobilinogen UA Normal mg/dL CERN ER MILLENNIUM pH UA 6.5 5.0 - 8.0 CERNER MILLENNIUM Blood UA Moderate mg/dL CERNER MILLENNIUM Ketones UA Trace(A) Neg mg/dL CERNER MILLENNIUM Nitrite UA Negative CERNER MILLENNIUM Leukocytes UA Large(A) Neg CERNER MILLENNIUM Appearance UA Hazy(A) Clear CERNER MILLENNIUM Spec Mclean UA 1.034(H) 1.002 - 1.030 CERNER MILLENNIUM Color UA Yellow Yellow CERNER MILLENNIUM Urine specimen (specimen) 04/27/2013 9:29 PM EST 04/27/2013 9:36 PM EST Narrative Resulting Agency Comment Spec In Lab Vern Marcelo MD URINE ORDERABLES Performing Organization Address [facility] de Phone Number FRANSICO IRVING documented in this encounter Visit Diagnoses Diagnosis History of femur fracture Personal history of traumatic fracture History of femur fracture Personal history of traumatic fracture documented in this encounter Administered Medications Inactive Administered Medications - up to 3 most recent administrations Medication Order MAR Action Action Date Dose Rate Site acetaminophen (TYLENOL) tablet 1,000 mg 1,000 mg, Oral, EVERY 8 HOURS SCHEDULED, First dose on Tue04/27/13 at 1400, Until Discontinued, Maximum dose of acetaminophen is 4000 mg from all sources in 24 hours., Routine Given 04/28/2013 6:31 AM EST 1,000 mg Given 04/27/2013 10:25 PM EST 1,000 mg Given 04/27/2013 2:00 PM EST 1,000 mg ARIPiprazole (ABILIFY) tablet 5 mg 5 mg, Oral, DAILY, First dose on Tue04/27/13 at 1600, Until Discontinued, Routine Given 04/28/2013 9:00 AM EST 5 mg Given 04/27/2013 4:00 PM EST 5 mg aspirin EC tablet 325 mg 325 mg, Oral, 2 TIMES DAILY, First dose on Tue04/28/13 at 0900, Until Discontinued, Routine Given 04/28/2013 9:00 AM EST 325 mg BUpivacaine-epiNEPHrine 0.25 %-1:200,000 injection ONCE PRN, Starting on Tue04/27/13 at 0956, Until Tue04/27/13 at 1434, Intra-Operative (Intra-Procedure), Routine Given 04/27/2013 9:56 AM EST 50 mLs ceFAZolin (ANCEF) 1g in dextrose 5% 50mL 1,000 mg (1 g), Intravenous, EVERY 8 HOURS, 3 doses, First dose on Tue04/27/13 at 1130, Last dose on Tue04/28/13 at 0000, Administer over 30 Minutes, For 3 doses postoperatively. Adjust to 8 hours from intraoperative dose., Indication for (Active or Suspected): Prophylaxis New Bag 04/28/2013 6:32 AM EST 1,000 mg 100 mL/ hr New Bag 04/27/2013 10:00 PM EST 1,000 mg 100 mL/hr New Bag 04/27/2013 4:00 PM EST 1,000 mg 100 mL/hr celecoxib (celeBREX) capsule 400 mg 400 mg, Oral, ONCE, 1 dose, On Tue04/27/13 at 0730, Administer on arrival to Same Day Program, Day of Surgery (Day of Procedure), Routine Given by Other 04/27/2013 7:30 AM EST 400 mg cloNIDine injection ONCE PRN, Starting on Tue04/27/13 at 0958, Until Tue04/27/13 at 1434, Intra-Operative (Intra-Procedure), Routine Given 04/27/2013 9:58 AM EST 50 mcg 19- Surgical Site diphenhydrAMINE (BENADRYL) injection 25 mg 25 mg, Intravenous, EVERY 30 MIN PRN, 2 doses, Starting on Tue04/27/13 at 1105, Until 04/28/13 at 0934, Itching, May repeat dose in 30 minutes if pruritis not relieved., Routine Given 04/28/2013 7:14 AM EST 25 mg fentaNYL 50mcg/mL injection 25-50 mcg, Intravenous, EVERY 5 MIN PRN, Starting on Tue04/27/13 at 1011, Until Tue04/27/13 at 1426, Pain, for breakthrough pain, Hold for respiratory rate less than 10 per minute. Maximum dose: 250 mcg over one hour., PACU Recovery, Routine Given 04/27/2013 10:55 AM EST 50 mcg Given 04/27/2013 10:50 AM EST 50 mcg gabapentin (NEURONTIN) capsule 600 mg 600 mg, Oral, ONCE, 1 dose, On Tue04/27/13 at 0730, Administer on arrival in Same Day Program, Day of Surgery (Day of Procedure), Routine Given by Other 04/27/2013 7:30 AM EST 600 mg HYDROmorphone (DILAUDID) 1 mg/mL ASSISTANT STORE MANAGER 30 mL Intravenous, ASSISTANT STORE MANAGER ONLY, Starting on Tue04/27/13 at 1130, Until 04/28/13 at 0934 New Syringe/Cartridge 04/27/2013 11:30 AM EST HYDROmorphone (DILAUDID) injection 0.2-0.4 mg 0.2-0.4 mg, Intravenous, EVERY 5 MIN PRN, Starting on Tue04/27/13 at 1011, Until Tue04/27/13 at 1426, Pain, For moderate pain give: 0.2 mg every 5 minute prn For severe pain give: 0.4 mg every 5 minutes prn Maximum dose: 4 mg per hour Hold for respiratory rate less than 10 per minute., PACU Recovery, Routine Given 04/27/2013 12:12 PM EST 0.4 mg Given 04/27/2013 11:41 AM EST 0.4 mg Given 04/27/2013 11:26 AM EST 0.4 mg HYDROmorphone (DILAUDID) tablet 2 mg 2 mg, Oral, EVERY 4 HOURS PRN, Starting on Tue04/27/13 at 1105, Until 04/28/13 at 1408, Pain, For Mild pain. Do not exceed 6 mg in 4 hours. If pain not relieved, call provider., Routine Given 04/28/2013 10:14 AM EST 2 mg Given 04/28/2013 4:39 AM EST 2 mg HYDROmorphone (DILAUDID) tablet 4 mg 4 mg, Oral, EVERY 4 HOURS PRN, Starting on Tue04/27/13 at 1105, Until 04/28/13 at 1408, Pain, For Moderate pain. Do not exceed 6 mg in 4 hours. If pain not relieved, call provider., Routine Given 04/27/2013 4:54 PM EST 4 mg ketorolac (TORADOL) injection ONCE PRN, Starting on Tue04/27/13 at 0958, Until Tue04/27/13 at 1434, Pain, Intra-Operative (Intra-Procedure), Routine Given 04/27/2013 9:58 AM EST 30 mg 19- Surgical Site lactated ringers infusion 1,000 mL 1,000 mL, at 100 mL/hr, Intravenous, CONTINUOUS, Starting on Tue04/27/13 at 1030, Until Tue04/27/13 at 1426, PACU Recovery Rate/Dose Verify 04/27/2013 10:30 AM EST 1,000 mLs 100 mL/hr lactated ringers infusion 1,000 mL 1,000 mL, at 100 mL/hr, Intravenous, CONTINUOUS, Starting on Tue04/27/13 at 1130, Until 04/28/13 at 0934 Restarted 04/28/2013 4:05 AM EST 1,000 mLs 100 mL/hr New Bag 04/28/2013 1:57 AM EST 1,000 mLs 100 mL/hr Rate/Dose Change 04/27/2013 11:00 PM EST 1,000 mLs 100 mL /hr multivitamin Qzrl-Pz-EP-Min (THERAPEUTIC-M) 27-0.4 mg tablet 1 tablet 1 tablet, Oral, DAILY, First dose on 04/28/13 at 0900, Until Discontinued Given 04/28/2013 9:00 AM EST 1 tablet OXYcodone (oxyCONTIN) CR tablet 10 mg 10 mg, Oral, ONCE, On Tue04/27/13 at 0730, 1 dose, Administer on arrival in Same Day Program, Day of Surgery (Day of Procedure) Given by Other 04/27/2013 7:30 AM EST 10 mg polyethylene glycol (MIRALAX) packet 17 g 17 g, Oral, 2 TIMES DAILY, First dose on Tue04/27/13 at 2100, Until Discontinued, Administer if needed per patient's routine or if no bowel movement within 48 hours, Routine Given 04/28/2013 9:00 AM EST 17 g senna-docusate (PERICOLACE) 8.6-50 mg per tablet 1-4 tablet 1-4 tablet, Oral, 2 TIMES DAILY, First dose on Tue04/27/13 at 2100, Until Discontinued, Start with 1 tablet or liquid equivalent orally twice daily and titrate up to achieve: 1. One bowel movement at least every 48 hours, AND 2. Without straining, Routine Given 04/28/2013 9:00 AM EST 1 tablet Given 04/27/2013 10:26 PM EST 1 tablet sertraline (ZOLOFT) tablet 100 mg 100 mg, Oral, DAILY, First dose on Tue04/27/13 at 1500, Until Discontinued, Routine Given 04/28/2013 9:0 0 AM EST 100 mg Given 04/27/2013 3:00 PM EST 100 mg sodium chloride 0.9 % flush 5 mL 5 mL, Intravenous, EVERY 12 HOURS, First dose on Tue04/27/13 at 0730, Until Discontinued, Day of Surgery (Day of Procedure), Routine Given by Other 04/27/2013 7:30 AM EST 5 mLs sodium chloride 0.9 % flush 5 mL 5 mL, Intravenous, EVERY 12 HOURS, First dose on Tue04/27/13 at 1500, Until Discontinued Given 04/27/2013 3:00 PM EST 5 mLs sodium chloride 0.9% 500 mL IV bolus at 500 mL/hr, Intravenous, ONCE, 1 dose, On 04/28/13 at 0245 Given 04/28/2013 3:13 AM EST 500 mL/hr documented in this encounter Active and Recently Administered Medications Times are shown in EST. Scheduled Medication Order 04/26/2013 04/27/2013 04/28/2013 acetaminophen (TYLENOL) tablet 1,000 mg 1,000 mg, Oral, EVERY 8 HOURS SCHEDULED, First dose on Tue04/27/13 at 1400, Until Discontinued, Maximum dose of acetaminophen is 4000 mg from all sources in 24 hours., Routine 1400 (Given - Provider: Rachell Cornejo RN)2225 (Given - Provider: Diandra Morales RN) 0631 (Given - Provider: Diandra Morales RN) ARIPiprazole (ABILIFY) tablet 5 mg (CANCELED) 5 mg, Oral, DAILY, First dose on Tue04/27/13 at 1600, Until Discontinued, Routine 1600 (Given - Provider: Rachell Cornejo RN) 0900 (Given - Provider: Rachell Cornejo RN) aspirin EC tablet 325 mg 325 mg, Oral, 2 TIMES DAILY, First dose on Tue04/28/13 at 0900, Until Discontinued, Routine 0900 (Given - Provid er: Rachell Cornejo RN) ceFAZolin (ANCEF) 1g in dextrose 5% 50mL (COMPLETED) 1,000 mg (1 g), Intravenous, EVERY 8 HOURS, 3 doses, First dose on Tue04/27/13 at 1130, Last dose on Tue04/28/13 at 0000, Administer over 30 Minutes, For 3 doses postoperatively. Adjust to 8 hours from intraoperative dose., Indication for (Active or Suspected): Prophylaxis 1600 (New Bag - Provider: Rachell Cornejo RN)2200 (New Bag - Provider: Diandra Morales RN) 0632 (New Bag - Provider: Diandra Morales RN) ceFAZolin (ANCEF) 2g in dextrose 5% 50 mL (COMPLETED) 2 g, Intravenous, ONCE, 1 dose, On Tue04/27/13 at 0730, To be administered upon arrival to the OR within one hour prior to incision., Day of Surgery (Day of Procedure), Indication for (Active or Suspected): Prophylaxis 0730 (Not Given - Provider: Cammy Hoyos RN - Reason: See comment - Comment: see anesthesia documentation)0833 (Given - Provider: Zohra Duque) celecoxib (celeBREX) capsule 400 mg (COMPLETED) 400 mg, Oral, ONCE, 1 dose, On Tue04/27/13 at 0730, Administer on arrival to Same Day Program, Day of Surgery (Day of Procedure), Routine 0730 (Given by Other - Provider: Cammy Hoyos RN - Comment: pt states received in [facility]. [facility] charge nurse states removed fom acudose. [facility] RN not available) gabapentin (NEURONTIN) capsule 600 mg (COMPLETED) 600 mg, Oral, ONCE, 1 dose, On Tue04/27/13 at 0730, Administer on arrival in Same Day Program, Day of Surgery (Day of Procedure), Routine 0730 (Given by Other - Provider: Cammy Hoyos RN - Comment: pt states [facility] in [facility]. [facility] charge nurse states removed from [facility]. [facility] RN unavailable) multivitamin Eszp-Ft-DO-Min (THERAPEUTIC-M) 27-0.4 mg tablet 1 tablet (CANCELED) 1 tablet, Oral, DAILY, First dose on Tue04/28/13 at 0900, Until Discontinued 0900 (Given - Provid er: Rachell Cornejo RN) nitrofurantoin (macrocrystal-monohydrate) (MACROBID) capsule 100 mg 100 mg, Oral, EVERY 12 HOURS SCHEDULED (2 times per day), 10 doses, First dose on Tue04/28/13 at 1000, Last dose on Tue05/02/13 at 2100, Routine, Indication for (Active or Suspected): Urinary Tract/Pyelonephritis 1000 (Not Given - Provider: Rachell Cornejo RN - Reason: Medication not available - Comment: patient discharged and could not wait) OXYcodone (oxyCONTIN) CR tablet 10 mg (COMPLETED) 10 mg, Oral, ONCE, On Tue04/27/13 at 0730, 1 dose, Administer on arrival in Same Day Program, Day of Surgery (Day of Procedure) 0730 (Given by Other - Provider: Cammy Hoyos RN - Comment: pt states received in [facility], [facility] charge nurse states removed from [facility], [facility] primary nurse not available.) polyethylene glycol (MIRALAX) packet 17 g (CANCELED) 17 g, Oral, 2 TIMES DAILY, First dose on Tue04/27/13 at 2100, Until Discontinued, Administer if needed per patient's routine or if no bowel movement within 48 hours, Routine 2100 (Not Given - Provider: Diandra Morales RN - Reason: Patient/family refused) 0900 (Given - Provider: Rachell Cornejo RN) senna-docusate (PERICOLACE) 8.6-50 mg per tablet 1-4 tablet 1-4 tablet, Oral, 2 TIMES DAILY, First dose on Tue04/27/13 at 2100, Until Discontinued, Start with 1 tablet or liquid equivalent orally twice daily and titrate up to achieve: 1. One bowel movement at least every 48 hours, AND 2. Without straining, Routine 2226 (Given - Provider: Diandra Morales RN) 0900 (Given - Provider: Rachell Cornejo RN) sertraline (ZOLOFT) tablet 100 mg (CANCELED) 100 mg, Oral, DAILY, First dose on Tue04/27/13 at 1500, Until Discontinued, Routine 1500 (Given - Provider: Rachell Cornejo RN) 0900 (Given - Provider: Rachell Cornejo RN) sodium chloride 0.9 % flush 5 mL (CANCELED) 5 mL, Intravenous, EVERY 12 HOURS, First dose on Tue04/27/13 at 0730, Until Discontinued, Day of Surgery (Day of Procedure), Routine 0730 (Given by Other - Provider: Cammy Hoyos RN) sodium chloride 0.9 % flush 5 mL (CANCELED) 5 mL, Intravenous, EVERY 12 HOURS, First dose on Tue04/27/13 at 1500, Until Discontinued 1500 (Given - Provider: Rachell Cornejo RN) 0300 (Not Given - Provider: Diandra Morales RN - Reason: See comment - Comment: IV fluid running) sodium chloride 0.9% 500 mL IV bolus (COMPLETED) at 500 mL/hr, Intravenous, ONCE, 1 dose, On 04/28/13 at 0245 0313 (Given - Provid er: Diandra Morales RN) Continuous Medication Order 04/26/2013 04/27/2013 04/28/2013 HYDROmorphone (DILAUDID) 1 mg/mL ASSISTANT STORE MANAGER 30 mL (CANCELED) Intravenous, ASSISTANT STORE MANAGER ONLY, Starting on Tue04/27/13 at 1130, Until 04/28/13 at 0934 1130 (New Syringe/Cartridge - Provider: Cammy Hoyos, ALINA) lactated ringers infusion 1,000 mL (CANCELED) 1,000 mL, at 100 mL/hr, Intravenous, CONTINUOUS, Starting on Tue04/27/13 at 0730, Until Tue04/27/13 at 1434, Day of Surgery (Day of Procedure) 0730 (Due)0819 (New Bag - Provider: Zohra Duque)1008 (Anesthesia Volume Adjustment - Provider: Zohra Duque) lactated ringers infusion 1,000 mL (CANCELED) 1,000 mL, at 100 mL/hr, Intravenous, CONTINUOUS, Starting on Tue04/27/13 at 1030, Until Tue04/27/13 at 1426, PACU Recovery 1030 (Rate/Dose Verify - Provider: Cammy Hoyos RN) lactated ringers infusion 1,000 mL (CANCELED) 1,000 mL, at 100 mL/hr, Intravenous, CONTINUOUS, Starting on Tue04/27/13 at 1130, Until 04/28/13 at 0934 1130 (New Bag - Provider: Cammy Hoyos, ALINA)1704 (Rate/Dose Change - Provider: Rachell Cornejo RN)2300 (Rate/Dose Change - Provider: Diandra Morales RN) 0157 (New Bag - Provider: Diandra Mroales RN)0313 (Paused - Provider: Diandra Morales RN)0405 (Restarted - Provider: Diandra Morales RN) PRN Medication Order 04/26/2013 04/27/2013 04/28/2013 BUpivacaine-epiNEPHrine 0.25 %-1:200,000 injection (CANCELED) ONCE PRN, Starting on Tue04/27/13 at 0956, Until Tue04/27/13 at 1434, Intra-Operative (Intra-Procedure), Routine 0956 (Given - Provider: Vern Marcelo MD) cloNIDine injection (CANCELED) ONCE PRN, Starting on Tue04/27/13 at 0958, Until Tue04/27/13 at 1434, Intra-Operative (Intra-Procedure), Routine 0958 (Given - Provider: Vern Marcelo MD) diphenhydrAMINE (BENADRYL) injection 25 mg (CANCELED) 25 mg, Intravenous, EVERY 30 MIN PRN, 2 doses, Starting on Tue04/27/13 at 1105, Until 04/28/13 at 0934, Itching, May repeat dose in 30 minutes if pruritis not relieved., Routine 0714 (Given - Provid er: Rachell Cornejo RN) fentaNYL 50mcg/mL injection (CANCELED) 25-50 mcg, Intravenous, EVERY 5 MIN PRN, Starting on Tue04/27/13 at 1011, Until Tue04/27/13 at 1426, Pain, for breakthrough pain, Hold for respiratory rate less than 10 per minute. Maximum dose: 250 mcg over one hour., PACU Recovery, Routine 1050 (Given - Provider: Cammy Hoyos RN)1055 (Given - Provider: Cammy Hoyos RN) HYDROmorphone (DILAUDID) injection 0.2-0.4 mg (CANCELED) 0.2-0.4 mg, Intravenous, EVERY 5 MIN PRN, Starting on Tue04/27/13 at 1011, Until 04/27/13 at 1426, Pain, For moderate pain give: 0.2 mg every 5 minute prn For severe pain give: 0.4 mg every 5 minutes prn Maximum dose: 4 mg per hour Hold for respiratory rate less than 10 per minute., PACU Recovery, Routine 1101 (Given - Provider: Cammy Hoyos RN)1119 (Given - Provider: Cammy Hoyos RN)1126 (Given - Provider: Cammy Hoyos RN)1141 (Given - Provider: Cammy Hoyos RN)1212 (Given - Provider: Cammy Hoyos RN) HYDROmorphone (DILAUDID) tablet 2 mg(Linked Group 1) 2 mg, Oral, EVERY 4 HOURS PRN, Starting on Tue04/27/13 at 1105, Until 04/28/13 at 1408, Pain, For Mild pain. Do not exceed 6 mg in 4 hours. If pain not relieved, call provider., Routine 1653 (See Alternative - Provider: Rachell Cornejo RN) 043 (Given - Provider: Diandra Morales RN)1014 (Given - Provider: Rachell Cornejo RN) HYDROmorphone (DILAUDID) tablet 4 mg (CANCELED)(Linked Group 1) 4 mg, Oral, EVERY 4 HOURS PRN, Starting on Tue04/27/13 at 1105, Until 04/28/13 at 1408, Pain, For Moderate pain. Do not exceed 6 mg in 4 hours. If pain not relieved, call provider., Routine 1653 (Given - Provider: Rachell Cornejo RN) 043 (See Alternative - Provider: Diandra L Andrew, RN)1014 (See Alternative - Provider: Rachell Cornejo RN) ketorolac (TORADOL) injection (CANCELED) ONCE PRN, Starting on Tue04/27/13 at 0958, Until Tue04/27/13 at 1434, Pain, Intra-Operative (Intra-Procedure), Routine 0958 (Given - Provider: Vern Marcelo MD) Linked Groups Order Group 1: HYDROmorphone (DILAUDID) tablet 2 mgJump to med 2 mg, Oral, EVERY 4 HOURS PRN, Starting on Tue04/27/13 at 1105, Until 04/28/13 at 1408, Pain, For Mild pain. Do not exceed 6 mg in 4 hours. If pain not relieved, call provider., Routine Or HYDROmorphone (DILAUDID) tablet 4 mg (CANCELED)Jump to med 4 mg, Oral, EVERY 4 HOURS PRN, Starting on Tue04/27/13 at 1105, Until 04/28/13 at 1408, Pain, For Moderate pain. Do not exceed 6 mg in 4 hours. If pain not relieved, call provider., Routine Or HYDROmorphone (DILAUDID) tablet 6 mg (CANCELED) 6 mg, Oral, EVERY 4 HOURS PRN, Starting on Tue04/27/13 at 1105, Until 04/28/13 at 1408, Pain, For Severe pain. Do not exceed 6 mg in 4 hours. If pain not relieved, call provider., Routine documented in this encounter Care Teams Salesforce Specialist Relationship Specialty Start Date End Date Antonia De La Vega MD [address] [place] [address] [address] PCP - General 03/20/12 04/02/19 documented as of this encounter
--- OUTSIDE RECORDS SUMMARY | 2023-12-14 02:46 | XMS_ITS | Encounter Summary ---
Author Organization [facility] Address [facility] [place] [address] Care Team Providers Care Traffic Workforce Representative Name Role Phone Antonia De La Vega MD Primary Care Provider [phone] Reason for Visit * Reason Onset Date Comments Medication Reaction 05/01/2013 rash after p ain meds. Encounter Details Date Type Department Care Team (Late st Contact Info) Description 05/01/2013 Telephone [place] [id number] Vern Rankin MD [facility] [place] [address] Medication Reaction (rash after pain meds.) Social History Tobacco Use Types Packs/Day Years [...] Telephone Encounter - Aylin Sethi RN - 05/01/2013 3:00 PM EST Patient called back and stated that her PCP would not prescribe the pain medication. We will have aprescription ready for her to waste picker here in clinic. * Telephone Encounter - KayleySoledad hassan Nicolas - 05/01/2013 2:58 PM EST Patient called up crying because her PCP wouldn't prescribe anything because we have already prescribed narcotics for her. She states that she was told that we could prescribe the Oxycodone for her but she would have to waste picker the prescription. She [place] two [place] away and it's snowing so she needs to know yumi whether the prescription will be written for her. Please call her cell at [phone]. * Telephone Encounter - Aylin Sethi RN - 05/01/2013 1:21 PM EST Spoke with Giulia, she states that she went to see her PCP yesterday for the rash. PCP felt it was the Dilaudid so she stopped it and gave her oxy/acet 7.5/325. The rash started to clear up and the itching went away but she could not get the pain under control. She took another dose of the Dilaudidthis morning and broke out in itchy hives all over her torso. Suggested she try Oxycodone but wouldhave to come up here to waste picker the prescription or see if her PCP would write it for her. She willcontact the PCP and call us back. * Telephone Encounter - Kane Brown - 05/01/2013 1:10 PM EST Rash from dilauded. She is returning RN call. She did get your message at [phone], the house phone, please call her there. * Telephone Encounter - Aylin Sethi RN - 05/01/2013 1:05 PM EST First number listed is out due to telephone service issues. Message left on the second number to DCthe Cipro and see if hives resolve as well as taking Benadryl. If she feels it is the dilaudid nurse's number left to call back. * Telephone Encounter - Soledad Betancourt - 05/01/2013 12:56 PM EST Patient called in today stating the Dilauded has caused her to break out in hives all over her body. She says it's so bad that she cannot use her crutches because it rubs the ones under her arm pits.Please call her back first at [phone] or [phone]. She does have to pick her kids up from school. That being said she just had a yesy removed from her leg and I'm not sure if she has been cleared to drive? documented in this encounter Plan of Treatment Not on file documented as of this encounter Visit Diagnoses Not on filedocumented in this encounter Care Teams Traffic Workforce Representative Relationship Specialty Start Date End Date Antonia De La Vega MD [address] [place] [address] PCP - General 03/20/12 04/02/19 documented as of this encounter
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
--- OUTSIDE RECORDS SUMMARY | 2023-12-14 02:46 | XMS_ITS | Encounter Summary ---
Author Organization [facility] Address [facility] [place] [address] Care Team Providers Care Community Coordinator Name Role Phone Antonia De La Vega MD Primary Care Provider [phone] Encounter Details Date Type Department Care Team (Late st Contact Info) Description 05/23/2013 [place] [phone] Juhi Weaver MD [facility] DR ORTHOPAEDIC [place] [address] Social History Tobacco Use Types Packs/Day Years [...] Telephone Encounter - Juhi Weaver MD - 05/24/2013 8:37 AM EST Called with concern about infection. Wound is erythematous and firm. No drainage. Seen in clinic on05/14 with benign wound. Offered ED eval for concerns for infection, but pt was did not present to ED overnight. documented in this encounter Plan of Treatment Not on file documented as of this encounter Visit Diagnoses Not on filedocumented in this encounter Care Teams Community Coordinator Relationship Specialty Start Date End Date Antonia De La Vega MD [address] [place] [address] PCP - General 03/20/12 04/02/19 documented as of this encounter
--- OUTSIDE RECORDS SUMMARY | 2023-12-14 02:46 | XMS_ITS | Encounter Summary ---
Author Organization [facility] Address [facility] [place] [address] Care Team Providers Care Brownfield Program Coordinator Name Role Phone Antonia De La Vega MD Primary Care Provider [phone] Encounter Details Date Type Department Care Team (Late st Contact Info) Description 06/18/2013 Telephone [place] [phone] Vern Rankin MD [facility] [place] [address] Social History Tobacco Use Types Packs/Day Years [...] Telephone Encounter - Aylin Sethi RN - 06/18/2013 3:23 PM EST She states that she is not completely out but is still struggling with discomfort depending on activity. She has been decreasing and not everyday needing them every 8 hours. Explained that we needed to continue to wean her off of the medication so will decrease to BID and mail her the prescription t omorrow. * Telephone Encounter - Miroslava Butt - 06/18/2013 3:02 PM EST PATIENT WOULD LIKE REFILL FOR OXYCODONE 5 MG PLEASE CALL [phone] documented in this encounter Plan of Treatment Not on file documented as of this encounter Visit Diagnoses Not on filedocumented in this encounter Care Teams [place] Program Coordinator Relationship Specialty Start Date End Date Antonia De La Vega MD [address] [place] [address] [address] [place] [address] PCP - General 03/20/12 04/02/19 documented as of this encounter
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
--- OUTSIDE RECORDS SUMMARY | 2023-12-14 02:46 | XMS_ITS | Encounter Summary ---
Author Organization [facility] Address [facility] [place] [address] Care Team Providers Care Drawing Hand Name Role Phone Antonia De La Vega MD Primary Care Provider [phone] Encounter Details Date Type Department Care Team (Latest Contact Info) Description 04/27/2013 6:28 AM EST - 04/28/2013 12:07 PM EST Hospital Encounter [place] [address] Vern Marcelo MD [facility] [place] [address] History of femur fracture Discharge Disposition: Home [...] Sign Reading Time Taken Comments Blood Pressure 110/58 04/28/2013 9:05 AM EST Pulse 73 04/28/2013 9:05 AM EST Temperature 36.7 ??C (98.1 ??F) 04/28/2013 9:05 AM ES T Respiratory Rate 16 04/28/2013 9:05 AM EST Oxygen Saturation 98% 04/28/2013 9:05 AM EST Inhaled Oxygen Concentration - - [...] Sennakot, tofacilitate a bowel movement. Miralax, an ocas-ksc-izbodkk medication can also be taken to help [...] 7 days from surgery. Call your doctor (#[phone]) if you develop: 1. fevers greater than 100.5 2. severe nausea or vomiting 3. increasing pain not controlled by pain medications 4. increasing redness or drainage from incisions 5. Change in sensation FOLLOWUP APPOINTMENTS: 1. You will have followup appointments at [facility] as indicated in Future Appointment and Orders. [...] then d/c to home later today. D/C GATE SERVICES SUPERVISOR and start orals, tylenol standing. * Diandra [...] A/O x 3, pain 3/10 with Dilaudid GATE SERVICES SUPERVISOR. Denies nausea. Right hip dressingCDI. Call light [...] Tolerating po significant other at bedside. 1145 GATE SERVICES SUPERVISOR initiated, patient familiar with use. sgnificant other [...] NAILING, FEMUR performed by VERN MARCELO at [facility] MAIN OR ??? 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 VERN MARCELO MD 04/27/2013 * Op Note - Vern Marcelo MD - 04/27/2013 10:58 AM EST [facility] Operative Note Patient Name: Louis Matthews : [id number] MR#: [id number] Case Date: 04/27/2013 Surgery Start Time: 904 Surgery Stop Time: 1026 Preoperative Diagnosis: Painful hardware s/p R femur IM nail Postoperative Diagnosis: Same Procedure Performed: Removal of hardware, deep, right femur Trochanteric Bursectomy right hip Surgeon: Vern Marcelo MD Manager Of Financial: Julio Cardona PA-C No qualified residential carpet installer available Anaesthesia: GA Estimated Blood Loss: 50cc [...] was taken to the operating room at [facility] where the anaesthetic was [...] of fibrous tissue and the locking screw tour driver of fixed to the screw. We [...] commenced proximally with 0 Vicryl in a [id number]-qs-vgpii fashion to repair the gluteus medius. The [...] Implant Name Type Inv. Item Serial No. Trail[employer] Construction Worker Lot No. [id number] No. Used Action BONE,STIMULAN,STD,CURE,10CC ([id number]) - [id number] IMPLANTS BONE,STIMULAN,STD,CURE,10CC ([id number]) Biocomposites - [id number] Right 1 Implanted * Miscellaneous - [...] intervals supplied above were not validated at [facility]. Results from pediatric patients should be interpreted [...] Comment Spec In Lab Vern Marcelo MD [facility] ORDERABLE S FRANSICO IRVING * Urine culture Clean Catch Urine (04/27/2013 9:29 PM EST) Urine Culture ? Patient Name: LOUIS MATTHEWS ? Ordered By: VERN MARCELO ? MR#: [id number] ?LOC: ??[facility] ? /Sex: ??1985 (27 years), [...] In Lab Vern Marcelo MD MICROBIOLOGY - [facility] AL ORDERABLES Performing Organization Address [facility] Co de Phone Number FRANSICO SCHRADERIUM * (ABNORMAL) Urinalysis without microscopic (04/27/2013 9:29 [...] Appearance UA Hazy(A) Clear CERNER MILLENNIUM Spec [place] UA 1.034(H) 1.002 - 1.030 CERNER MILLENNIUM Color UA Yellow Yellow CERNER MILLENNIUM Urine specimen (specimen) 04/27/2013 9:29 PM EST 04/27/2013 9:36 PM EST Narrative Resulting Agency Comment Spec In Lab Vern Marcelo MD URINE ORDERABLES Performing Organization Address [facility] Co de Phone Number FRANSICO IRVING documented in this encounter Visit Diagnoses Diagnosis s/p Right hip removal of intramedullary nail and right trochanteric bursectomy 04/27 with Chucho- Primary Other complications due to other internal orthopedic device, implant, and graft History of femur fracture Personal history of [...] Given 04/28/2013 9:00 AM EST 325 mg ceFAZolin (ANCEF) 1g in dextrose 5% 50mL [...] Given by Other 04/27/2013 7:30 AM EST 4 00 mg diphenhydrAMINE (BENADRYL) injection 25 mg 25 mg, Intravenous, EVERY 30 MIN PRN, 2 doses, Starting on Tue04/27/13 at 1105, Until Tue04/28/13 at 0934, Itching, May repeat dose in [...] EST 600 mg HYDROmorphone (DILAUDID) 1 mg/mL GATE SERVICES SUPERVISOR 30 mL Intravenous, GATE SERVICES SUPERVISOR ONLY, Starting on Tue04/27/13 at 1130, Until [...] Given 04/27/2013 4:54 PM EST 4 mg lactated ringers infusion 1,000 mL 1,000 [...] EST 1,000 mLs 100 mL /hr multivitamin Wbub-Ck-VK-Min (THERAPEUTIC-M) 27-0.4 mg tablet 1 tablet 1 [...] Cornejo RN)2200 (New Bag - Provider: Diandra Morales, RN) 0632 (New Bag - Provider: Diandra Morales, RN) ceFAZolin (ANCEF) 2g in dextrose 5% [...] in SDP. SDP charge nurse states removed from acudose. SDP RN unavailable) multivitamin Munv-Ki-NX-Min (THERAPEUTIC-M) 27-0.4 mg tablet 1 tablet (CANCELED) [...] RN - Comment: pt states received in SDP, SDp charge nurse states removed from acudose, SDP primary nurse not available.) polyethylene glycol (MIRALAX) packet 17 g (CANCELED) 17 g, Oral, 2 TIMES DAILY, First dose on Tue04/27/13 at 2100, Until Discontinued, Administer if needed per patient's routine or if no bowel movement within 48 hours, Routine 2100 (Not Given - Provider: Diandra Morales RN - Reason: Patient/family refused) 0900 (Given - Provider: Rachell Cornejo, ALINA) senna-docusate (PERICOLACE) 8.6-50 mg per tablet 1-4 tablet 1-4 tablet, Oral, 2 TIMES DAILY, First dose on Tue04/27/13 at 2100, Until Discontinued, Start with 1 tablet or liquid equivalent orally twice daily and titrate up to achieve: 1. One bowel movement at least every 48 hours, AND 2. Without straining, Routine 2226 (Given - Provider: Diandra Morales RN) 0900 (Given - Provider: Rachell Cornejo, ALINA) sertraline (ZOLOFT) tablet 100 mg (CANCELED) 100 mg, Oral, DAILY, First dose on Tue04/27/13 at 1500, Until Discontinued, Routine 1500 (Given - Provider: Rachell Cornejo RN) 0900 (Given - Provider: Rachell Cornejo, ALINA) sodium chloride 0.9 % flush 5 mL [...] 04/26/2013 04/27/2013 04/28/2013 HYDROmorphone (DILAUDID) 1 mg/mL GATE SERVICES SUPERVISOR 30 mL (CANCELED) Intravenous, GATE SERVICES SUPERVISOR ONLY, Starting on Tue04/27/13 at 1130, Until 04/28/13 at 0934 1130 (New Syringe/Cartridge - Provider: Cammy Hoyos RN) lactated ringers [...] 0934 1130 (New Bag - Provider: Cammy Hoyos RN)1704 (Rate/Dose Change - Provider: Rachell Cornejo RN)2300 (Rate/Dose Change - Provider: Diandra Morales RN) 0157 (New Bag - Provider: Diandra Morales RN)0313 (Paused - Provider: Diandra Morales RN)0405 [...] If pain not relieved, call provider., Routine 165 (See Alternative - Provider: Rachell Cornejo RN) 0439 (Given - Provider: Diandra Morales RN)1014 (Given - Provider: Rachell Cornejo RN) HYDROmorphone (DILAUDID) tablet 4 mg (CANCELED)(Linked Group 1) 4 mg, Oral, EVERY 4 HOURS PRN, Starting on Tue04/27/13 at 1105, Until 04/28/13 at 1408, Pain, For Moderate pain. Do not exceed 6 mg in 4 hours. If pain not relieved, call provider., Routine 165 (Given - Provider: Rachell Cornejo RN) 0439 (See Alternative - Provider: Diandra Morales RN)1014 (See Alternative - Provider: Rachell Cornejo [...] Routine documented in this encounter Care Teams Drawing Hand Relationship Specialty Start Date End Date Antonia De La Vega MD [address] [place] [address] PCP - General 03/20/12 04/02/19 documented as of this encounter
--- OUTSIDE RECORDS SUMMARY | 2023-12-14 02:46 | XMS_ITS | Encounter Summary ---
[facility] Organization [facility] [place] [address] Care Team Providers Care Sack Cleaning Hand Name Role Phone Antonia De La Vega MD Primary Care Provider [phone] Encounter Details Date Type Department Care Team (Late st Contact Info) Description 11/05/2013 Orders Only Obstetrics [place] [address] Neetu Rodriguez, RN (Primary Dx) Social History Tobacco Use Types Packs/Day Years [...] documented as of this encounter Results * US OB Targeted Morphology (11/29/2013 1:58 PM EDT) Anatomical Region Laterality Modality Pelvis, Abdomen Ultrasound 11/29/2013 1:58 PM EDT Narrative 11/29/2013 2:10 PM EDT ?OBSTETRICS REPORT ? (Signed Final 11/29/2013 02:09 pm) Patient Info ID: ? [id number] ? : [birth year] (28 yrs) Name: ? GIULIA Venkatesh MATTHEWS ? Visit Date: 11/29/2013 01:52 pm Performed By Performed By: ?Shona LAGUNAS, Pat Attending: ? Irais SWAN, Lilly Orourke Referred By: ? SHANNON BROOKS MD Service(s) Provided [facility] - Targeted Morphology - Genetics - ? [id number] Indications Morphology MFM TO READ Evaluation Num [...] Outflow Tract: ?Visualized Aortic Arch: ?Visualized Cardiac Austin: ? Visualized Diaphragm: ?Visualized Abdomen Ventral Wall: [...] Final 11/29/2013 02:09 pm) Patient Info ID: [id number] : [birth year] (28 yrs) Name: GIULIA MATTHEWS Visit Date: 11/29/2013 01:52 pm Performed By Performed By: Pat Nagel RDMS Attending: Lilly Braxton MD Referred By: SHANNON BROOKS MD Service(s) Provided [facility] - Targeted Morphology - Genetics - [id number] Indications Morphology MFM TO READ Evaluation Num [...] Outflow Tract: Visualized Aortic Arch: Visualized Cardiac Austin: Visualized Diaphragm: Visualized Abdomen Ventral Wall: Visualized [...] call if you have any questions. Lilly Bratxon MD Electronically Signed Final Report 11/29/2013 02:09 pm Shannon Brooks MD IMG US OB ORDERABL ES documented in this encounter Visit Diagnoses Diagnosis - Primary state, incidental state, incidental documented in this encounter Care Teams Sack Cleaning Hand Relationship Specialty Start Date End Date Antonia De La Vega MD [address] [place] [address] [address] [facility] [address] [place] [address] PCP - General 03/20/12 04/02/19 documented as of this encounter
--- OUTSIDE RECORDS SUMMARY | 2023-12-14 02:46 | XMS_ITS | Encounter Summary ---
Author Organization [facility] Address [facility] [place] [address] Care Team Providers Care Metal Finish Inspector Name Role Phone Antonia De La Vega MD Primary Care Provider [phone] Encounter Details Date Type Department Care Team (Latest Contact Info) Description 06/20/2012 9:50 AM EST - 06/20/2012 11:59 PM [facility] Hospital Encounter XRay at [address] [place] [address] Right closed femur fx 02/29/12 Social History [...] Name Priority Date/Time Associated Diagnosis Comments XR HAND DIAGNOSTIC MINIMUM 3 VIEWS Routine 06/20/2012 10:12 AM EST documented in this encounter Results * XR hand diagnostic minimum 3 views (06/20/2012 10:12 AM EST) Anatomical Region Laterality Modality Hand N/A Radiographic Arianne ging 06/20/2012 10:1 2 AM EST Narrative 06/20/2012 11:12 AM EST Examination DIAG HAND MIN 3 VIEWS/RIGHT Clinical History right hand pain/ fracture Comparison None Technique Findings The triquetrum fracture seen on the last examination is less distinctly seen due to overlap. ??No displaced bone fragment or new fracture. Impression ? 1. No new fracture seen. ? 2. The triquetrum fracture is not optimally seen due to overlap. ?? Procedure Note Nasima Barakat MD - 06/20/2012 Examination DIAG HAND MIN 3 VIEWS/RIGHT Clinical History right hand pain/ fracture Comparison None Technique Findings The triquetrum fracture seen on the last examination is less distinctlyseen due to overlap. No displaced bone fragment or new fracture. Impression 1. No new fracture seen. 2. The triquetrum fracture is not optimally seen due to overlap. Vern Rankin MD IMG DX ORDERABLES documented in this encounter Visit Diagnoses Diagnosis Right closed femur fx 02/29/12 Closed fracture of unspecified part of femur documented in this encounter Care Teams Metal Finish Inspector Relationship Specialty Start Date End Date Antonia De La Vega MD [address] [place] [address] [address] [place] [address] PCP - General 03/20/12 04/02/19 documented as of this encounter
--- OUTSIDE RECORDS SUMMARY | 2023-12-14 02:46 | XMS_ITS | Encounter Summary ---
Author Organization [facility] Address [facility] [place] [address] Care Team Providers Care Ruby On Rails Engineer Name Role Phone Antonia De La Vega MD Primary Care Provider [phone] Encounter Details Date Type Department Care Team (Late st Contact Info) Description 04/03/2013 [place] [id number] Vern Rankin MD [facility] [place] [address] Social History Tobacco Use Types Packs/Day Years [...] encounter Miscellaneous Notes * Telephone Encounter - Kayla Mejia - 04/11/2013 10:[address] Rankin put the orders in for surgery and I contacted patient to get her on the surgery schedule. She is scheduled on 04/27/13 for a removal of implant from her RIGHT femur. Thanks. * Telephone Encounter - Kayla Mejia - 04/04/2013 4:43 PM EST Patient returned my call and I was able to confirm with the patient the type of procedure so I was able to send Dr. Rankin the IB message. I let her know that as soon as I get what I need I would give her a call back and get her on the surgery schedule. Thanks. * Telephone Encounter - Kayla Mejia - 04/03/2013 4:03 PM EST I called patient and left her a voicemail to call me back at my direct number. I need to send Dr. Rankin a message asking him to put in the electronic booking order however I need to connect with patient to find out the kind of procedure they discussed as I am not entirely sure based on the last office note. Thanks. * Telephone Encounter - Mable Lynn - 04/03/2013 11:56 AM EST Patient would like to set up her surgery. There are no orders in at this time. Please call patient at [phone]. documented in this encounter Plan of Treatment Not on file documented as of this encounter Visit Diagnoses Not on filedocumented in this encounter Care Teams Ruby On Rails Engineer Relationship Specialty Start Date End Date Antonia De La Vega MD [address] [place] [address] [address] [facility] 1 [place] [address] PCP - General 03/20/12 04/02/19 documented as of this encounter
--- OUTSIDE RECORDS SUMMARY | 2023-12-14 02:46 | XMS_ITS | Encounter Summary ---
Author Organization [facility] Address [facility] [place] [address] Care Team Providers Care Photogrammetric Engineer Name Role Phone Antonia De La Vega MD Primary Care Provider [phone] Reason for Visit * Reason Onset Date Comments Medication Refill 01/21/2014 Encounter Details Date Type Department Care Team (Late st Contact Info) Description 01/21/2014 Refill Psychiatry [place] [address] Sonia Lopez MD [facility] [address] [place] [address] Social History Tobacco Use Types Packs/Day Years [...] on filedocumented in this encounter Care Teams Photogrammetric Engineer Relationship Specialty Start Date End Date Antonia De La Vega MD [address] [place] [address] PCP - General 03/20/12 04/02/19 documented as of this encounter
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
--- OUTSIDE RECORDS SUMMARY | 2023-12-14 02:47 | XMS_ITS | Encounter Summary ---
Author Organization [facility] Address [address] [place] [address] Care Team Providers Care Blueprint Tracer Name Role Phone Kourtney Lam MD Primary Care Provider [phone] Encounter Details Date Type Department Care Team (Late st Contact Info) Description 04/29/2023 Lab Requisition [facility] Pathology & Laboratory Medicine - [facility] [address] [place] [address] Outr Resulting Lab, Provider Social History Tobacco Use Types Packs/Day Years Used Date Smoking Tobacco: Never Assessed Interpersonal Safety Answer Date Record ed Physically Hurt Never 12/16/2019 Verbally Threaten Not on file 12/16/2019 Sex and Gender Information Value Date Recorded Sex Assigned at Not on file Gender Identity Not on file Sexual Orientation Not on file documented as of this encounter Plan of Treatment Not on file documented as of this encounter Procedures Procedure Name Priority Date/Time Associated Diagnosis Comments LYME AB Routine 04/29/2023 9:10 EST documented in this encounter Results * LYME AB (04/29/2023 9:10 EST) Lyme Ab Negative Negative 05/02/2023 11:33 EST [facility] Blood VENOUS BLOOD / Unknown 04/29/2023 9:10 EST 04/29/2023 21:41 EST Provider Outr Resulting Lab IMMUNOLOGY A ND SEROLOGY ORDERABLES [facility] [address] [place] [address] documented in this encounter Visit Diagnoses Not on filedocumented in this encounter Care Teams Blueprint Tracer Relationship Specialty Start Date End Date Kourtney Lam MD [address] [place] [address] PCP - General 09/02/14 documented as of this encounter
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
--- OUTSIDE RECORDS SUMMARY | 2023-12-14 02:47 | XMS_ITS | Encounter Summary ---
Author Organization [facility] Address [address] [place] [address] Care Team Providers Care Manuscripts Archivist Name Role Phone Kourtney Lam MD Primary Care Provider [phone] Encounter Details Date Type Department Care Team (Late st Contact Info) Description 02/27/2021 Lab Requisition [facility] - [facility] [address] [place] [address] Outr Resulting Lab, Provider Social History Tobacco [...] Procedure Name Priority Date/Time Associated Diagnosis Comments ZZCOVID-19 TEST [facility] PCR Today 02/27/2021 10:00 EDT COVID-19 TESTING Routine 02/27/2021 10:0 0 EDT documented in this encounter Results * COVID-19 TEST [facility] PCR (02/27/2021 10:00 EDT) Swab ENTIRE NASOPHARYNX / Unknown 02/27/2021 10:00 EDT 02/27/2021 21:31 EDT Provider Outr Resulting Lab MICROBIOLOGY - GENERAL ORDERABLES [facility] [address] [place] [address] * COVID-19 TESTING (02/27/2021 10:00 EDT) COVID-19 rt-PCR Result Negative Negative 02/28/2021 15:[address] [facility] Comment: This test has not been FDA cleared or approved. This test has been authorized by FDA under an EUA for use by authorized laboratories. This test has been authorized only for detection of nucleic acid from 2019-nCoV, not for any other viruses or pathogens. This test is only authorized for the duration of the declaration that circumstances exist justifying the authorization of emergency use of in vitro diagnostic tests for detection and/or diagnosis of 2019-nCoV under section 564(b)(1) of Act, 21 U.S.C ?? 360bbb-3(b) (1), unless the authorization is terminated or revoked sooner. Negative results do not preclude 2019-nCoV infection and should not be used as the sole basis for treatment or other patient management decisions. Negative results must be combined with clinical observations, patient history, and epidemiological information. This test was developed and its performance characteristics determined by [facility]. It has not been cleared or approved by the US Food and Drug Administration. FDA does not require this test to go through premarket FDA review. This test is used for clinical purposes. It should not be regarded as investigational or for research. This laboratory is certified under the Clinical Laboratory Improvement Amendments (CLIA) as qualified to perform high complexity clinical laboratory testing. This test is based on the [facility] COVID-19 Emergency Use Authorization (EUA) assay, with minor modification as defined by the FDA Performed on the MDCapsuleo 7 Flex RT-PCR System. Performing Lab [facility] 02/28/2021 15:[address] [facility] Swab 02/27/2021 10:0 0 EDT 02/27/2021 21:31 EDT Provider Outr Resulting Lab MICROBIOLOGY - GENERAL ORDERABLES [facility] [address] [place] [address] documented in this encounter Visit Diagnoses Not on filedocumented in this encounter Care Teams Manuscripts Archivist Relationship Specialty Start Date End Date Kourtney Lam MD [address] [place] [address] PCP - General 09/02/14 documented as of this encounter
--- OUTSIDE RECORDS SUMMARY | 2023-12-14 02:47 | XMS_ITS | Encounter Summary ---
Author Organization [facility] Address [facility] [place] [address] Care Team Providers Care Excelsior Cutter Name Role Phone Unknown Primary Care Provider Unavailabl e Encounter Details Date Type Department Care Team (Late st Contact Info) Description 02/29/2012 Orders [place] [address] Rodo Ruffin MD [facility] [place] [address] Social History Tobacco Use Types Packs/Day Years Used Date Smoking Tobacco: Every Day Cigarettes Alcohol Use Standard Drinks/Week Comments Yes 5 (1 standard drink = 0.6 oz pur e alcohol) Sex and Gender Information Value Date Recorded Sex Assigned at Not on file Gender Identity Not on file Sexual Orientation Not on file documented as of this encounter Plan of Treatment Not on file documented as of this encounter Procedures Procedure Name Priority Date/Time Associated Diagnosis Comments FILM LIBRARY STORAGE ONLY DX LOWER EXTREMITY Routine 02/29/2012 2:52 PM EDT documented in this encounter Results * FILM LIBRARY- STORAGE ONLY DX LOWER EXTREMITY (02/29/2012 2:52 PM EDT) Anatomical Region Laterality Modality Other 02/29/2012 2:52 PM EDT Narrative 07/05/2013 9:41 PM EST This is a non-reportable exam. Procedure Note Cruzito Kaye - 07/05/2013 This is a non-reportable exam. Rodo Ruffin MD IMG FILM LIBRARY O RDERABLES documented in this encounter Visit Diagnoses Not on filedocumented in this encounter Care Teams Excelsior Cutter Relationship Specialty Start Date End Date Unknown None PCP - General 02/29/12 03/19/12 documented as of this encounter
--- OUTSIDE RECORDS SUMMARY | 2023-12-14 02:47 | XMS_ITS | Encounter Summary ---
Author Organization [facility] Address [address] [place] [address] Care Team Providers Care Rolling Machine Tender Name Role Phone Kourtney Lam MD Primary Care Provider [phone] Encounter Details Date Type Department Care Team (Late st Contact Info) Description 07/29/2022 Lab Requisition [facility] Pathology & Laboratory Medicine - [address] [address] Outr Resulting Lab, Provider Social History Tobacco [...] Procedure Name Priority Date/Time Associated Diagnosis Comments T3 FREE Routine 07/29/2022 13:15 EDT HOMOCYSTEINE Routine 07/29/2022 13:15 EDT documented in this encounter Results * T3 FREE (07/29/2022 13:15 EDT) T3, Free 4.1 2.8 - 5.3 pg/mL 07/29/2022 22:02 EDT [facility] Blood VENOUS BLOOD / Unknown 07/29/2022 13:15 EDT 07/29/2022 21:20 EDT Provider Outr Resulting Lab CHEMISTRY & BLOOD GAS ORDERABLES Performing Organization Address [facility] Co de Phone Number [facility] [address] [place] [address] * HOMOCYSTEINE (07/29/2022 13:15 EDT) Homocysteine 8.0 5.0 - 13.9 umol/L 07/30/2022 8:00 EDT [facility] Blood VENOUS BLOOD / Unknown 07/29/2022 13:15 EDT 07/29/2022 21:20 EDT Narrative [facility] - 07/30/2022 8:00 EDT Reference range may not apply to non-fasting samples. ??It is not recommended that EDTA plasma and serum from the same patient be used interchangeably. ??Serum concentrations have been observed to be up to 10% higher than EDTA plasma. Reference range may not apply to serum results. Provider Outr Resulting Lab CHEMISTRY & BLOOD GAS ORDERABLES Performing Organization Address [facility] Co de Phone Number [facility] [address] [place] [address] documented in this encounter Visit Diagnoses Not on filedocumented in this encounter Care Teams Rolling Machine Tender Relationship Specialty Start Date End Date Kourtney Lam MD [address] [place] [address] PCP - General 09/02/14 documented as of this encounter
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
--- OUTSIDE RECORDS SUMMARY | 2023-12-14 02:47 | XMS_ITS | Encounter Summary ---
Author Organization [facility] Address [facility] [place] [address] Care Team Providers Care Protective Signal Operator Name Role Phone Unknown Primary Care Provider Unavailabl e Encounter Details Date Type Department Care Team (Late st Contact Info) Description 02/29/2012 Orders Only [place] [address] Rodo Ruffin MD [facility] [place] [place] [address] Social History Tobacco Use Types Packs/Day Years [...] Diagnosis Comments FILM LIBRARY STORAGE ONLY DX SPINE Routine 02/29/2012 2:43 PM EDT documented in this encounter Results * FILM LIBRARY- STORAGE ONLY DX SPINE (02/29/2012 2:43 PM EDT) Anatomical Region Laterality Modality Other 02/29/2012 2:43 PM EDT Narrative 07/05/2013 9:41 PM EST This is a non-reportable exam. Procedure Note Cruzito Kaye - 07/05/2013 This is a non-reportable exam. Rodo Ruffin MD IMG FILM LIBRARY O RDERABLES documented in this encounter Visit Diagnoses Not on filedocumented in this encounter Care Teams Protective Signal Operator Relationship Specialty Start Date End Date Unknown None PCP - General 02/29/12 03/19/12 documented as of this encounter
--- OUTSIDE RECORDS SUMMARY | 2023-12-14 02:47 | XMS_ITS | Referral Summary ---
Author Organization [facility] Address [address] [place] [address] Care Team Providers Care Wood Treating Inspector Name Role Phone Kourtney Lam MD Primary Care Provider [phone] Social History Tobacco Use Types Packs/Day Years Used Date Smoking Tobacco: Never Assessed Interpersonal Safety Answer Date Record ed Physically Hurt Never 12/16/2019 Verbally Threaten Not on file 12/16/2019 Sex and Gender Information Value Date Recorded Sex Assigned at Not on file Gender Identity Not on file Sexual Orientation Not on file Plan of Treatment Not on file Procedures Procedure Name Priority Date/Time Associated Diagnosis Comments HEPATITIS C AB W REFLEX TO HCV RNA BY PCR Routine 03/21/2008 13:35 EST from Last 3 Months or Most Recently Relevant to Health Maintenance Results * HEPATITIS C ANTIBODY (03/21/2008 13:35 EST) Hepatitis C Ab Negative Reference Range: ??Negative [facility] 03/21/2008 13:3 5 EST 03/21/2008 16:06 EST Eliu Mckeon MD CHEMISTRY & BLOOD GA S ORDERABLES [facility] [address] [place] [address] from Last 3 Months or Most Recently Relevant to Health Maintenance Care Teams Wood Treating Inspector Relationship Specialty Start Date End Date Kourtney Lam MD [address] [place], [place] [address] PCP - General 09/02/14
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
--- OUTSIDE RECORDS SUMMARY | 2023-12-14 02:47 | XMS_ITS | Encounter Summary ---
Author Organization [facility] Address [address] [place] [address] Care Team Providers Care Wallpaper Remover Steam Name Role Phone Kourtney Lam MD Primary Care Provider [phone] Encounter Details Date Type Department Care Team (Late st Contact Info) Description 10/08/2020 Lab Requisition [facility]ology [facility] Laboratory Medicine - [facility] [place] [address] [place] [address] Karo Simpson APN [address] [place] [address] Encounter for other general examination Social History Tobacco Use Types Packs/Day Years [...] Procedure Name Priority Date/Time Associated Diagnosis Comments PAP TEST Today 10/07/2020 17:35 EDT Encounter for other general examination CHLAMYDIA/N. GONORRHOEAE AMPLIFIED NUCLEIC ACID, THINPREP Today 10/07/2020 17:35 EDT HPV DNA DETECTION WITH GENOTYPING, PCR Today 10/07/2020 17:35 EDT Encounter for other general examination documented in this encounter Results * HUMAN PAPILLOMAVIRUS (HPV) DETECTION-HIGH RISK TYPES (10/07/2020 17:35 EDT) HPV other High Risk types, PCR Negative Negative 10/23/2020 15:18 [facility] Comment:No E6 or E7 mRNA is detected from HPV types 16,18,31,33,35,39,45,51,52,56,58,59,66, and 68 by occupational health manager mediated amplification. Papanicolaou smear specimen (specimen) CERVIX UTERI STRUCTURE / Unknown 10/07/2020 17:35 EDT 10/22/2020 9:00 EDT Karo Simpson SANDHYA MICROBIOLOGY - GEN ERAL ORDERABLES [facility] [address] [place] [address] * PAP TEST (10/07/2020 17:35 EDT) Specimens A. Cervix and/or Endocervix , ThinPrep Imaging System with Manual Evaluation 10/23/2020 15:18 [facility] Specimen Adequacy Satisfactory for Evaluation - transformation zone component present 10/23/2020 15:18 [facility] General Categorization Negative for intraepithelial lesion or malignancy 10/23/2020 15:18 [facility] Descriptive Diagnosis Reactive cellular changes associated with inflammation present (includes repair). Shift in keira present suggestive of bacterial vaginosis. Trichomonas vaginalis present. 10/23/2020 15:18 [facility] Attestation By the signature below, the attending physician certifies that they have personally conducted a gross and/or microscopic examination of the described specimens and rendered or confirmed the above diagnosis. 10/23/2020 15:18 [facility] at 1518 Clinical History See below 10/24/19 15:18 [facility] HPV The result for the Human Papillomavirus (HPV) Detection-High Risk Types is Negative. No E6 or E7 mRNA is detected from HPV types 16,18,31,33,35,39 ,45,51,52,56,58,5 9,66, and 68 by occupational health manager mediated amplification.Danielle ting was performed on specimen [id number] and was resulted on 10/23/2020 1505 EDT by JANAK, LAB INSTRUMENT RESULTS IN 10/23/2020 15:[address] [facility] Performing Lab [facility] 10/23/2020 15:[address] [facility] Scanned Images 10/23/2020 15:[address] [facility] Papanicolaou smear specimen (specimen) CERVIX UTERI STRUCTURE / Unknown 10/07/2020 17:35 EDT 10/09/2020 15:42 EDT Karo Drummond Calvin SANDHYA PATHOLOGY ORDERABL ES Performing Organization Address City/[facility]/ZIP Co de Phone Number [facility] [address] [place] [address] * CHLAMYDIA/N. GONORRHOEAE AMPLIFIED RNA, THINPREP (10/07/2020 17:35 EDT) Neisseria gonorrhoeae Result Negative Negative 10/09/2020 14:[address] [facility] Chlamydia trachomatis Result Negative Negative 10/09/2020 14:[address] [facility] Papanicolaou smear specimen (specimen) CERVIX UTERI STRUCTURE / Unknown 10/07/2020 17:35 EDT 10/09/2020 8:13 EDT Karo Simpson APN MICROBIOLOGY - GEN ERAL ORDERABLES Performing Organization Address City/[facility]/ZIP Co de Phone Number [facility] [address] [place] [address] documented in this encounter Visit Diagnoses Diagnosis Encounter for other general examination documented in this encounter Care Teams Wallpaper Remover Steam Relationship Specialty Start Date End Date Kourtney Lam MD [address] [place], [place] [address] PCP - General 09/02/14 documented as of this encounter
--- OUTSIDE RECORDS SUMMARY | 2023-12-14 02:47 | XMS_ITS | Clinical Summary ---
Author Organization [facility] Address [address] [place] [address] Care Team Providers Care Organic Gardening Teacher Name Role Phone Kourtney Lam MD Primary Care Provider [phone] Social History Tobacco Use Types Packs/Day Years Used Date Smoking Tobacco: Never Assessed Interpersonal Safety Answer Date Record ed Physically Hurt Never 12/16/2019 Verbally Threaten Not on file 12/16/2019 Sex and Gender Information Value Date Recorded Sex Assigned at Not on file Gender Identity Not on file Sexual Orientation Not on file Plan of Treatment Health Maintenance Due Date Last Done Comments Hepatitis B Vaccine (1 of 3 - 19+ 3-dose series) 07/26 COVID-19 Vaccine ( season) 2023 Hepatitis C Screen Completed 03/21/2008 Procedures Procedure Name Priority Date/Time Associated Diagnosis [...] GA S ORDERABLES [facility] [address] [place] [address] from Last 3 Months or Most Recently Relevant to Health Maintenance Care Teams Organic Gardening Teacher Relationship Specialty Start Date End Date Kourtney Lam MD [address] [place] [address] PCP - General 09/02/14
--- OUTSIDE RECORDS SUMMARY | 2023-12-14 02:47 | XMS_ITS | Encounter Summary ---
Author Organization [facility] Address [facility] [place] [address] Care Team Providers Care Pcmh Specialist Name Role Phone Antonia De La Vega MD Primary Care Provider [phone] Encounter Details Date Type Department Care Team (Late st Contact Info) Description 05/23/2012 9:57 AM EST - 05/23/2012 11:59 PM [facility] Hospital Encounter XRay at [address] [place] [address] Aftercare Social History Tobacco Use Types Packs/Day Years [...] Diagnosis Comments XR FEMUR 2 VIEW Routine 05/23/2012 10:17 AM EST Aftercare documented in this encounter Results * XR [...] documented in this encounter Visit Diagnoses Diagnosis Aftercare Unspecified aftercare documented in this encounter Care Teams Pcmh Specialist Relationship Specialty Start Date End Date Antonia De La Vega MD [address] [place] [address] [address] [place] [address] PCP - General 03/20/12 04/02/19 documented as of this encounter
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
--- OUTSIDE RECORDS SUMMARY | 2023-12-14 02:47 | XMS_ITS | Encounter Summary ---
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 dissolved in water for administration, Routine 1045 (Given - Provider: Xiomara Beltran, RN) senna-docusate (PERICOLACE) 8.6-50 mg per tablet 1-4 tablet (CANCELED) 1-4 tablet, Oral, 2 TIMES DAILY, First dose on Tue03/02/12 at 0900, Until Discontinued, Start with 1 tablet or liquid equivalent orally twice daily and titrate up to achieve: 1. One bowel movement at least every 48 hours, AND 2. Without straining, Routine 0900 (Given - Provider: Hien Storey, RN)2155 (Given - Provider: Vern Butt, ALINA) 0900 (Given - Provider: Margie Tripp, ALINA) sertraline (ZOLOFT) tablet 100 mg (CANCELED) 100 mg, Oral, DAILY, First dose on Tue03/01/12 at 0900, Until Discontinued, Routine 0718 (JUL Hold - Provider: Admin Adt - Reason: Transfer to a Procedural area)0900 (Automatically Held - Provider: Admin Adt)1344 (MAR Unhold - Provider: Admin Adt) 0900 (Given - Provider: Hien Storey RN) 0919 (Given - Provider: Margie Tripp, ALINA) white petrolatum gel Topical, 2 TIMES DAILY, First dose on Tue03/02/12 at 2100, Until Discontinued, To labia 2022 (Given - Provider: Vern Butt, ALINA) 0919 (Given - Provider: Margie Tripp, ALINA) Continuous Medication Order 03/01/2012 03/02/2012 03/03/2012 morphine 1 mg/mL CONDITIONER TUMBLER OPERATOR 30 mL (CANCELED) Intravenous, CONDITIONER TUMBLER OPERATOR ONLY, Starting on Tue02/29/12 at 2245, Until Tue03/02/12 at 0656 0718 (MAR Hold - Provider: Admin Adt - Reason: Transfer to a Procedural area)1124 (MAR Unhold - Provider: Deo Davis, ALINA)1126 (Restarted - Provider: Deo Davis, RN)2218 (New Syringe/Cartridge - Provider: Korina Rogers, ALINA) 0748 (Stopped - Provider: Korina Rogers RN - Comment: verified SC 23 d/c) sodium chloride 0.9% infusion (CANCELED) 1,000 mL, at 100 mL/hr, Intravenous, CONTINUOUS, Starting on Tu02/29/12 at 2245, Until Yaquelin 03/02/12 at 0656 0718 (JUL Hold - Provider: Admin Adt - Reason: Transfer to a Procedural area)1124 (JUL Unhold - Provider: Deo Davis, RN)1128 (Restarted - Provider: Deo Davis, RN)2234 (New Bag - Provider: Korina Rogers [...] Starting on Yaquelin 03/02/12 at 0654, Until Tue03/03/12 at 1853, Constipation, Administer if needed per patient's routine or if no bowel movement within 48 hours, Routine 0920 (Given - Provider: Mragie Tripp RN) BUpivacaine-epiNEPHrine 0.25 %-1:200,000 injection (CANCELED) [...] Recovery, Routine 1149 (Given - Provider: Deo Davis, ALINA)1156 (Given - Provider: Deo Davis RN) HYDROmorphone (DILAUDID) injection 0.2-0.4 mg (CANCELED) 0.2-0.4 mg, Intravenous, EVERY 4 HOURS PRN, Starting on Tue03/01/12 at 0044, Until Tue03/01/12 at 1518, Pain, Routine 0045 (Given - Provider: Jourdan Thakur, ALINA)0540 (Given - Provider: Xiomara Smith, ALINA)0718 (JUL Hold - Provider: Admin Adt - Reason: Transfer to a Procedural area)1344 (JUL Unhold - Provider: Admin Adt) HYDROmorphone (DILAUDID) injection 0.2-0.4 mg (CANCELED) 0.2-0.4 mg, Intravenous, EVERY 5 MIN PRN, Starting on Tue03/01/12 at 1038, Until Tue03/01/12 at 1302, Pain, PACU Recovery, Routine 1203 (Given - Provider: Deo Davis, RN)1216 (Given - Provider: Deo Davis, RN) OXYcodone (ROXICODONE) immediate release tablet 5-15 mg 5-15 mg, Oral, EVERY 4 HOURS PRN, Starting on Yaquelin 03/02/12 at 0655, Until Tue03/03/12 at 1853, Pain, Routine 0747 (Given - Provider: Korina Rogers RN)1448 (Given - Provider: Pat Patel, ALINA)1850 (Given - Provider: Pat Patel, ALINA)2158 (Given - Provider: Vern Butt, ALINA)2354 (Given - Provider: Vern Butt, ALINA) 0438 (Given - Provider: Vern Butt, RN)0620 (Given - Provider: Vern Butt, ALINA)0917 (Given - Provider: Margie Tripp, RN)1131 (Given - Provider: Margie Tripp, ALINA)1450 (Given - Provider: Margie Tripp, ALINA) Linked Groups Order Group 1: famotidine (PEPCID) [...] Routine documented in this encounter Care Teams Conductor Road Freight Relationship Specialty Start Date End Date Unknown None PCP - General 02/29/12 03/19/12 documented as of this encounter
--- OUTSIDE RECORDS SUMMARY | 2023-12-14 02:47 | XMS_ITS | Encounter Summary ---
[facility] Address [facility] [place] [address] Care Team Providers Care Parts Cataloger Name Role Phone Antonia De La Vega MD Primary Care Provider [phone] Encounter Details Date Type Department Care Team (Late st Contact Info) Description 04/11/2012 [place] [id number] Alysia Sethi APRN [facility] [address] [place] [address] Social History Tobacco Use Types Packs/Day Years [...] on filedocumented in this encounter Care Teams Parts Cataloger Relationship Specialty Start Date End Date Antonia De La Vega MD [address] [place] [address] PCP - General 03/20/12 04/02/19 documented as of this encounter
--- OUTSIDE RECORDS SUMMARY | 2023-12-14 02:48 | XMS_ITS | Encounter Summary ---
Author Organization [facility] Address [address] [place] [address] Care Team Providers Care Dialysis Biomed Technician Name Role Phone Rohan Soliz MD Primary Care Provider Unavail able Encounter Details Date Type Department Care Team (Latest Contact Info) Description 08/29/2014 8:58 EDT - 08/29/2014 23:59 EDT Hospital Encounter [address] [address] Unknown, Provider, Discharge Disposition: Home or Self Care Social History Tobacco Use Types Packs/Day Years Used Date Smoking Tobacco: Never Assessed Sex and Gender Information Value Date Recorded Sex Assigned at Not on file Gender Identity Not on file Sexual Orientation Not on file documented as of this encounter Discharge Disposition Disposition Code Departure Means Destination Home or Self [facility] documented in this encounter Plan of Treatment Not on file documented as of this encounter Visit Diagnoses Not on filedocumented in this encounter Care Teams Dialysis Biomed Technician Relationship Specialty Start Date End Date Rohan Soliz MD PCP - General 12/24/10 09/01/14 documented as of this encounter
--- OUTSIDE RECORDS SUMMARY | 2023-12-14 02:48 | XMS_ITS | Encounter Summary ---
Author Organization [facility] Address [address] [place] [address] Care Team Providers Care Pumper Hand Name Role Phone Rohan Soliz MD Primary Care Provider Unavail able Encounter Details Date Type Department Care Team (Late st Contact Info) Description 08/29/2014 Results Only [facility] [phone] Yadi Mireles MD [address] [place] [address],[facility] [place], [place] [id number] Social History Tobacco Use Types Packs/Day Years Used Date Smoking Tobacco: Never Assessed Sex and Gender Information Value Date Recorded Sex Assigned at Not on file Gender Identity Not on file Sexual Orientation Not on file documented as of this encounter Plan of Treatment Not on file documented as of this encounter Procedures Procedure Name Priority Date/Time Associated Diagnosis Comments SURGICAL PATHOLOGY Routine 08/29/2014 20 :21 EDT documented in this encounter Results * SURGICAL PATHOLOGY (08/29/2014 20:21 EDT) Pathology Report: SURGICAL PATHOLOGY REPORT Reports generated via electronic interface contain original data; however they are lacking the format of the original report. Caution should be taken when reading/interpret ing unformatted reports. Name: ? GIULIA AVILES ? Accession #: ? [id number] ? : ? 1985 (Age: 29) ??F ? Collect Date: ? 08/29/2014 ? Location: ? [facility] ? Receive Date: ? 08/29/2014 ? Provider: YADI MIRELES MD Copy to: GRIFFIN TRIANA MD ? Final Pathologic Diagnosis: FALLOPIAN TUBES, SALPINGECTOMY: - ??Bilateral fallopian tubes with full cross sections identified and no specific pathologic features. - ??Bilateral paratubal cysts. Document reviewed and electronically signed by: JOANA LYNN MD Report ??Date: 09/03/2014 09:44 By the signature above, the attending physician certifies that he/she has personally conducted a gross and/or microscopic examination of the described specimens and rendered or confirmed the above diagnosis. Specimen(s) Received: Fallopian tubes Clinical History: Sterilization; laparoscopic salpingectomy Gross Description: ? Received in formalin labelled with proper patient identification (initials B, A) and fallopian tubes are two unoriented fimbriated fallopian tubes (5.2 cm in length x 0.6 cm in diameter and 5.5 cm in length x 0.6 cm in diameter). The slightly shorter fallopian tube is received partially disrupted near the fimbriated end, while the longer is received intact. ??Both have patel-purple smooth serosa and a patel-white cut surface with a pinpoint lumen. ??There is a 0.6 cm in diameter serous filled paratubal cyst attached to the longer fallopian tube. ??Rn Paralegal sections of the shorter tube are submitted in 1 and the longer tube with paratubal cyst in 2. Lorena Aceves 08/30/2014 1:46 PM End of Report [facility] 08/29/2014 20:2 1 EDT 08/29/2014 20:21 EDT Yadi Mireles MD PATHOLOGY ORDERABLES [facility] [address] [place] [address] documented in this encounter Visit Diagnoses Not on filedocumented in this encounter Care Teams Pumper Hand Relationship Specialty Start Date End Date Rohan Soliz MD PCP - General 12/24/10 09/01/14 documented as of this encounter
--- OUTSIDE RECORDS SUMMARY | 2023-12-14 02:48 | XMS_ITS | Encounter Summary ---
Author Organization [facility] Address [address] [place] [address] Care Team Providers Care Promotional Marketing Agent Name Role Phone Unavailable Primary Care Provider Unavailabl e Encounter Details Date Type Department Care Team (Late st Contact Info) Description 12/27/2007 Before [facility] Converted Visit (Maple) [facility] - Maple conversion [address] [place] [address] Cedrick Wall PA Social History Tobacco Use Types Packs/Day Years Used Date Smoking Tobacco: Never Assessed Sex and Gender Information Value Date Recorded Sex Assigned at Not on file Gender Identity Not on file Sexual Orientation Not on file documented as of this encounter Plan of Treatment Not on file documented as of this encounter Procedures Procedure Name Priority Date/Time Associated Diagnosis Comments CYTOPATHOLOGY Routine 12/27/2007 0:00 EDT documented in this encounter Results * CYTOPATHOLOGY (12/27/2007 0:00 EDT) Pathology Report: CYTOPATHOLOGY REPORT ? Reports generated via electronic interface contain original data; ? however they are lacking the format of the original report. ? Caution should be taken when reading/interpreti ng unformatted reports. ? Name: ? MATTHEWS, GIULIA ? Accession #: ? [id number] ? : ? 1985 (Age: 22) ??F ?Collect Date: ? 12/27/2007 ? Location: ? [facility] ? Receive Date: ? 12/27/2007 ? Provider: ?CEDRICK MARYA PA ? Copy to: ? Specimen/Source: ?ThinPrep Pap Test, Cervix/Endocervix, processed on Cytyc ThinPrep Imaging System, with manual evaluation ? Last Menstrual Period: ? 7/12/08 ? Hormonal/Contracep tive Status: ? Control Pills ? Other: ? HPVA - HPV testing requested if ASC-US on the current ThinPrep Pap test. ? SPECIMEN ADEQUACY ? Satisfactory for Evaluation ? - transformation zone component present ? GENERAL CATEGORIZATION ? Negative for Intraepithelial Lesion or Malignancy ? Document reviewed and electronically signed by: ? Lulu Jany, CT(ASCP) ? Report Date: ??01/01/2008 10:19 ? End of Report ? [facility] 12/27/2007 12/27/2007 Cedrick BRICEÑO PATHOLOGY ORDERABLES [facility] [address] [place] [address] documented in this encounter Visit Diagnoses Not on filedocumented in this encounter
--- OUTSIDE RECORDS SUMMARY | 2023-12-14 02:48 | XMS_ITS | Encounter Summary ---
Author Organization [facility] Address [address] [place] [address] Care Team Providers Care Manufacturers Service Representative Name Role Phone Rohan Soliz MD Primary Care Provider Unavail able Encounter Details Date Type Department Care Team (Late st Contact Info) Description 09/13/2013 Results Only [facility]- [facility] [phone] Deandra Templeton, [address] [phone] Social History Tobacco Use Types Packs/Day Years Used Date Smoking Tobacco: Never Assessed Sex and Gender Information Value Date Recorded Sex Assigned at Not on file Gender Identity Not on file Sexual Orientation Not on file documented as of this encounter Plan of Treatment Not on file documented as of this encounter Procedures Procedure Name Priority Date/Time Associated Diagnosis Comments PAP TEST- RESULT ONLY Routine 09/13/2013 0:00 EDT documented in this encounter Results * PAP TEST- RESULT ONLY (09/13/2013 0:00 EDT) Pathology Report: CYTOPATHOLOGY REPORT Reports generated via electronic interface contain original data; however they are lacking the format of the original report. Caution should be taken when reading/interpreti ng unformatted reports. Name: ? GIULIA MATTHEWS ? Accession #: ? [id number] ? : ? 1985 (Age: 28) ??F ?Collect Date: ? 09/13/2013 ? Location: ? [facility] ? Receive Date: ? 09/14/2013 ? Provider: DEANDRA TEMPLETON CN Copy to: GRIFFIN TRIANA MD ? Final Report SPECIMEN ADEQUACY ? Satisfactory for Evaluation - transformation zone component absent GENERAL CATEGORIZATION ? Negative for Intraepithelial Lesion or Malignancy ?? Last Menstrual Period: 05/31/13 Menstrual/Pregnanc y Status: ?? Specimen/Source: ??Pap Test, Cervix/Endocervix, ThinPrep Imaging System with manual evaluation Document reviewed and electronically signed by: ? YEHUDA Randall(ASCP) ? Report ??Date: 09/21/2013 14:24 HPV with Pap Test ? Date Ordered: ? 09/21/2013 ? Status: ?? Signed Out ?Date Complete: ? 09/25/2013 ? By: ??System Interface ? Date Reported: ? 09/25/2013 ? Interpretation RESULT: Negative for HPV. No E6 or E7 mRNA is detected from HPV types 16,18,31,33,35, 39,45,51,52,56,58, 59,66, and 68 by supervisor maintenance mediated amplification. Comments Document reviewed and electronically signed by: ? System Interface ? Report date: 09/25/2013 By the signature above, the attending physician certifies that he/she has personally conducted a gross and/or microscopic examination of the described specimens and rendered or confirmed the above diagnosis. End of Report [facility] 09/13/2013 09/14/2013 Deandra Templeton CNM PATHOLOGY ALFREDO JAUREGUI Performing Organization Address City/State/[facility] Co de Phone Number [facility] [address] [place] [address] documented in this encounter Visit Diagnoses Not on filedocumented in this encounter Care Teams Manufacturers Service Representative Relationship Specialty Start Date End Date Rohan Soliz MD PCP - General 12/24/10 09/01/14 documented as of this encounter
--- OUTSIDE RECORDS SUMMARY | 2023-12-14 02:48 | XMS_ITS | Encounter Summary ---
Author Organization [facility] Address [address] [place] [address] Care Team Providers Care Messenger Office Name Role Phone Rohan Soliz MD Primary Care Provider Unavail able Encounter Details Date Type Department Care Team (Late st Contact Info) Description 09/07/2011 Results Only [facility] - [facility] ([facility] [address] [place] [id number] Cedrick Wall PA Social History Tobacco Use [...] Diagnosis Comments PAP TEST- RESULT ONLY Routine 09/07/2011 0:00 EDT documented in this encounter Results * PAP TEST- RESULT ONLY (09/07/2011 0:00 EDT) Pathology Report: CYTOPATHOLOGY REPORT Reports generated via electronic interface contain original data; however they are lacking the format of the original report. Caution should be taken when reading/interpreti ng unformatted reports. Name: ? GIULIA MATTHEWS ? Accession #: ? [id number] : ? 1985 (Age: 26) ??F ?Collect Date: ? 09/07/2011 Location: ? [facility] ? Receive Date: ? 09/09/2011 Provider: ?CEDRICK BRICEÑO Copy to: ? Specimen/Source: ?Pap Test, Cervix/Endocervix, ThinPrep Imaging System with manual evaluation Last Menstrual Period: ? 09/03/11 Hormonal/Contracep tive Status: ? Intrauterine device ? SPECIMEN ADEQUACY ? Satisfactory for Evaluation - transformation zone component present GENERAL CATEGORIZATION ? Negative for Intraepithelial Lesion or Malignancy INTERPRETATION ? Reactive cellular changes associated with inflammation present (includes repair). Shift in keira present suggestive of bacterial vaginosis. ? Document reviewed and electronically signed by: ? SHANIA BOYLE MD ? Report Date: ??09/14/2011 14:50 End of Report [facility] 09/07/2011 09/09/2011 Cedrick BRICEÑO PATHOLOGY ORDERABLES [facility] [address] [place] [address] documented in this encounter Visit Diagnoses Not on filedocumented in this encounter Care Teams Messenger Office Relationship Specialty Start Date End Date Rohan Soliz MD PCP - General 12/24/10 09/01/14 documented as of this encounter
--- OUTSIDE RECORDS SUMMARY | 2023-12-14 02:48 | XMS_ITS | Encounter Summary ---
Author Organization [facility] Address [address] [place] [address] Care Team Providers Care Program Support Assistant Name Role Phone Unavailable Primary Care Provider Unavailabl e Encounter Details Date Type Department Care Team (Latest Contact Info) Description 03/21/2008 3:00 EST - 03/21/2008 11:59 EST Hospital Encounter [facility] - Other [address] [place] [address] Eliu Burrows MD [address] [place], [place] [phone] Discharge Disposition: Home or Self Care Social History Tobacco Use Types Packs/Day Years Used Date Smoking Tobacco: Never Assessed Sex and Gender Information Value Date Recorded Sex Assigned at Not on file Gender Identity Not on file Sexual Orientation Not on file documented as of this encounter Discharge Disposition Disposition Code Departure Means Destination Home or Self Care documented in this encounter Plan of Treatment Not on file documented as of this encounter Procedures Procedure Name Priority Date/Time Associated Diagnosis Comments HEPATITIS C AB W REFLEX TO HCV RNA BY PCR Routine 03/21/2008 13:35 EST HEPATITIS B SURFACE ANTIBODY Routine 03/21/2008 13:35 EST HEPATITIS B SURFACE ANTIGEN Routine 03/21/2008 13:35 EST COMPLETE BLOOD COUNT AND DIFFERENTIAL Routine 03/21/2008 13:35 EST HIV 1/2 ANTIGEN AND ANTIBODY, 4TH GENERATION Routine 03/21/2008 13:35 EST COMPREHENSIVE METABOLIC PANEL (CMP) Routine 03/21/2008 13:35 EST documented in this encounter Results * HEPATITIS C ANTIBODY (03/21/2008 13:35 EST) Hepatitis C Ab Negative Reference Range: ??Negative [facility] 03/21/2008 13:3 5 EST 03/21/2008 16:06 EST Eliu Mckeon MD CHEMISTRY & BLOOD GA S ORDERABLES Performing Organization Address [facility] Phone Number [facility] [address] [place] [address] * HEPATITIS B SURFACE ANTIBODY (03/21/2008 13:35 EST) Hepatitis B Surface Ab Positive Reference Range: ??Negative Interpretati on depends on clinical setting. [facility] 03/21/2008 13:3 5 EST 03/21/2008 16:06 EST Eliu Mckeon MD CHEMISTRY & BLOOD GA S ORDERABLES Performing Organization Address [facility] Phone Number [facility] [address] [place] [address] * HIV ANTIBODY (03/21/2008 13:35 EST) HIV 1/2 Antibody Negative Reference Range: ??Negative [facility] 03/21/2008 13:3 5 EST 03/21/2008 16:06 EST Eliu Mckeon MD IMMUNOLOGY AND SEROL OGY ORDERABLES Performing Organization Address [facility] de Phone Number [facility] [address] [place] [address] * HEPATITS B SURFACE ANTIGEN (03/21/2008 13:35 EST) Hepatitis B Surface Ag Negative Reference Range: ??Negative [facility] 03/21/2008 13:3 5 EST 03/21/2008 16:06 EST Eliu Mckeon MD CHEMISTRY & BLOOD GA S ORDERABLES Performing Organization Address City/[facility]/ZIP Co de Phone Number [facility] [address] [place] [address] * (ABNORMAL) HEMAGRAM AND DIFFERENTIAL (03/21/2008 13:35 EST) WBC 7.92 4.0 - 12.4 K/cmm [facility] RBC 3.79(L) 3.86 - 5.04 M/cmm [facility] Hemoglobin 12.6 11.6 - 15.2 gm/dl [facility] HCT 36.2 34.9 - 44.4 % [facility] MCV 95 81 - 98 fl [facility] MCH 33.2 26.7 - 33.3 pg [facility] MCHC 34.8 32.1 - 35.9 gm/dl [facility] PLT 332(H) 141 - 320 K/cmm [facility] RDW-CV 12.5 11.7 - 14.6 % [facility] Neutrophils 56.6 45.5 - 79.7 % [facility] Lymphocytes 29.3 15.0 - 46.8 % [facility] Monocytes 6.3 1.8 - 12.0 % [facility] Eosinophils 7.4(H) 0.6 - 6.9 % [facility] Basophils 0.4 0.2 - 1.4 % [facility] ABS Neutrophils 4.48 2.20 - 8.85 K/cmm [facility] ABS Lymphs 2.32 1.09 - 3.30 K/cmm [facility] ABS Monocytes 0.50 0.1 - 0.8 K/cmm [facility] ABS Eosinophils 0.59 0.03 - 0.61 K/cmm [facility] ABS Basophils 0.03 0.01 - 0.11 K/cmm [facility] Type of Diff: Automated [place] [facility] 03/21/2008 13:3 5 EST 03/21/2008 16:06 EST Eliu Mckeon MD PACKAGES & DNA PROBE ORDERABLES [facility] [address] [place] [address] * (ABNORMAL) COMPREHENSIVE METABOLIC PANEL (03/21/2008 13:35 EST) Potassium 4.0 3.5 - 5.0 mEq/L [facility] Sodium 140 136 - 145 mEq/L [facility] Chloride 105 96 - 110 mEq/L [facility] CO2 22(L) 24 - 32 mEq/L [facility] Alkaline Phosphatase 91 38 - 126 U/L [facility] Bilirubin, Total <0.5 0.2 - 1.3 mg/dl [facility] AST 24 15 - 46 U/L [facility] ALT 15 9 - 52 U/L [facility] Albumin 4.2 3.4 - 4.9 g/dl [facility] Total Protein 7.5 6.5 - 8.3 g/dl [facility] Creatinine 0.72 0.7 - 1.5 mg/dl [facility] GFR, Calculated >60 ml/min/1.7 3m2 [facility] BUN 15 10 - 26 mg/dl [facility] Calcium 8.7 8.5 - 10.5 mg/dl [facility] Calculated Calcium 8.9 8.5 - 10.5 mg/dl [facility] Glucose, Serum 77 70 - 100 mg/dl [facility] Fasting? No [facility] 03/21/2008 13:3 5 EST 03/21/2008 16:06 EST Eliu Mckeon MD CHEMISTRY & BLOOD GA S ORDERABLES [facility] [address] [place] [address] documented in this encounter Visit Diagnoses Not on filedocumented in this encounter
--- OUTSIDE RECORDS SUMMARY | 2023-12-14 02:48 | XMS_ITS | Encounter Summary ---
Author Organization [facility] Address [address] [place] [address] Care Team Providers Care Housekeeper Cleaning Cooking Name Role Phone Rohan Soliz MD Primary Care Provider Unavail able Encounter Details Date Type Department Care Team (Late st Contact Info) Description 03/06/2014 Results Only [facility] [phone] Jaycee Dawkins, [facility] [address] [place] [id number] Social History Tobacco Use Types Packs/Day Years Used Date Smoking Tobacco: Never Assessed Sex and Gender Information Value Date Recorded Sex Assigned at Not on file Gender Identity Not on file Sexual Orientation Not on file documented as of this encounter Plan of Treatment Not on file documented as of this encounter Procedures Procedure Name Priority Date/Time Associated Diagnosis Comments SURGICAL PATHOLOGY Routine 03/06/2014 9:11 EDT documented in this encounter Results * SURGICAL PATHOLOGY (03/06/2014 9:11 EDT) Pathology Report: SURGICAL PATHOLOGY REPORT Reports generated via electronic interface contain original data; however they are lacking the format of the original report. Caution should be taken when reading/interpreti ng unformatted reports. Name: ? TRACIGIULIA ? Accession #: ? [id number] ? : ? 1985 (Age: 28) ??F ? Collect Date: ? 03/06/2014 ? Location: ? [facility] ? Receive Date: ? 03/07/2014 ? Provider: JAYCEE DAWKINS [facility] Copy to: GRIFFIN TRIANA MD ? Final Pathologic Diagnosis: ? TERM TORRES PLACENTA: - membranes and umbilical cord with no abnormalities. ? - Placental disc, small for gestation, with no histologic abnormalities. Document reviewed and electronically signed by: TAE SALAZAR MD Report ??Date: 03/11/2014 07:51 By the signature above, the attending physician certifies that he/she has personally conducted a gross and/or microscopic examination of the described specimens and rendered or confirmed the above diagnosis. Specimen(s) Received: Placenta Clinical History: viable female infant Apgars 7(1), 8(5), 39 2/7 wks with IUGR Gross Description: ? Received in formalin labelled with proper patient identification (initials B, A) and placenta is a torres placenta (16.0 x 13.0 x 2.7 cm) with attached umbilical cord (35.7 cm in length x 1.1 cm in diameter) and membranes. After the cord and membranes are removed, the ovoid placental disc weighs 324 g. ? The membranes are patel-white, semi-translucent and insert at the disc margin. The umbilical cord is white, shiny and coiled, with three vessels, and inserts eccentrically, 3.2 cm from the nearest disc margin. The surface is blue-maradiaga with the usual arborizing vasculature. The maternal surface is red-brown with intact and complete cotyledons and a small amount of loosely attached blood clot. Sectioning reveals a dark red, spongy cut surface with no nodules or discrete lesions identified. ? Preventive Maintenance Coordinator sections are submitted as follows: BLOCK MAGALLON 1- ?? membrane rolls and umbilical cord 2-3- ??full thickness placental disc Dr. Booker 03/07/2014 11:41 AM End of Report RACHEL SANTIAGO 03/06/2014 9:11 EDT 03/07/2014 9:11 EDT Jaycee Dawkins CNM [place] [address] documented in this encounter Visit Diagnoses Not on filedocumented in this encounter Care Teams Housekeeper Cleaning Cooking Relationship Specialty Start Date End Date Rohan Soliz MD PCP - General 12/24/10 09/01/14 documented as of this encounter
--- OUTSIDE RECORDS SUMMARY | 2023-12-14 02:48 | XMS_ITS | Encounter Summary ---
Author Organization [facility] Address [address] [place] [address] Care Team Providers Care Occupational Therapy Specialist Name Role Phone Unavailable Primary Care Provider Unavailabl e Encounter Details Date Type Department Care Team (Late st Contact Info) Description 04/19/2006 Results Only [facility] - [facility] [address] [place] [address] Laura Song CNM [address] [place], [place] [id number] Social History Tobacco Use Types Packs/Day Years Used Date Smoking Tobacco: Never Assessed Sex and Gender Information Value Date Recorded Sex Assigned at Not on file Gender Identity Not on file Sexual Orientation Not on file documented as of this encounter Plan of Treatment Not on file documented as of this encounter Procedures Procedure Name Priority Date/Time Associated Diagnosis Comments CYTOPATHOLOGY Routine 04/19/2006 0:00 EST documented in this encounter Results * CYTOPATHOLOGY (04/19/2006 0:00 EST) Pathology Report: CYTOPATHOLOGY REPORT Reports generated via electronic interface contain original data; however they are lacking the format of the original report. Caution should be taken when reading/interpreti ng unformatted reports. Name: ? GIULIA MATTHEWS ? Accession #: ? [id number] : ? 1985 (Age: 20) ??F ?Collect Date: ? 04/19/2006 Location: ? [facility] ? Receive Date: ? 04/20/2006 Provider: ?LAURA SONG CNM Copy to: ? Specimen/Source: ?ThinPrep Pap Test, Cervix/Endocervix, processed on [employer] ThinPrep Imaging System, with manual evaluation Last Menstrual Period: ? 02/18/06 Menstrual/Pregnanc y Status: ? Previous Gynecologic Pathology: ? Benign cellular changes: 02/13 HPV: + Other: ? Additional clinical information: 04/16 Pap neg HPVA - HPV testing requested if ASC-US on the current ThinPrep Pap test. ? SPECIMEN ADEQUACY ? Satisfactory for Evaluation - transformation zone component present GENERAL CATEGORIZATION ? Negative for Intraepithelial Lesion or Malignancy INTERPRETATION ? Reactive cellular changes associated with inflammation present (includes repair). ? Document reviewed and electronically signed by: ? JODIE PARKER MD [facility] ? Report Date: ??04/28/2006 11:13 End of Report RACHEL SANTIAGO 04/19/2006 04/20/2006 Laura Song CNM PATHOLOGY ORDERABLES [facility] [address] [place] [address] documented in this encounter Visit Diagnoses Not on filedocumented in this encounter
--- OUTSIDE RECORDS SUMMARY | 2023-12-14 02:48 | XMS_ITS | Encounter Summary ---
Author Organization [facility] Address [address] [place] [address] Care Team Providers Care Event Host Name Role Phone Unavailable Primary Care Provider Unavailabl e Encounter Details Date Type Department Care Team (Late st Contact Info) Description 05/01/2002 Results Only [facility] - [place] [address] [place] [address] Dary Fritz, [facility] [address] [place] [address] [place] [address] Social History Tobacco Use Types Packs/Day Years Used Date Smoking Tobacco: Never Assessed Sex and Gender Information Value Date Recorded Sex Assigned at Not on file Gender Identity Not on file Sexual Orientation Not on file documented as of this encounter Plan of Treatment Not on file documented as of this encounter Procedures Procedure Name Priority Date/Time Associated Diagnosis Comments HPV DETECTION, HIGH RISK TYPES Routine 05/01/2002 8:38 EST CYTOPATHOLOGY Routine 05/01/2002 0:00 EST documented in this encounter Results * HUMAN PAPILLOMA VIRUS DNA TEST (05/01/2002 8:38 EST) Specimen Description Cervix, ThinPrep vial [facility] Result Positive for one or more of HPV types 16,18,31,33,35 ,39,45,51,52,5 6,58,59, or 68. These high/intermedi ate risk HPV types are associated with dysplasia and some cervical cancers. [facility] Report Status Final [id number] [facility] 05/01/2002 8:38 EST 05/04/2002 8:38 EST Dary Fritz AWS CONSULTANT MICROBIOLOGY - GENER AL ORDERABLES [facility] [address] [place] [address] * CYTOPATHOLOGY (05/01/2002 0:00 EST) Pathology Report: CYTOPATHOLOGY REPORT Reports generated via electronic interface contain original data; however they are lacking the format of the original report. Caution should be taken when reading/interpreti ng unformatted reports. Name: ? MATTHEWS, GIULIA ? Accession #: ? [id number] : ? 1985 (Age: 16) ??F ?Collect Date: ? 05/01/2002 Location: ? [facility] ? Receive Date: ? 05/03/2002 Provider: ?DARY FRITZ AWS CONSULTANT Copy to: ? Specimen/Source: ?ThinPrep Pap Test, Cervix/Endocervix Last Menstrual Period: ? 03/31/02 Menstrual/Pregnanc y Status: ? Previous Gynecologic Pathology: ? Benign cellular changes: 02/28/01 Other: ? HPVDX - HPV testing requested regardless of diagnosis on current ThinPrep Pap test. Additional clinical information: partner with HPV ? SPECIMEN ADEQUACY ? Satisfactory for Evaluation - transformation zone component present GENERAL CATEGORIZATION ? Negative for Intraepithelial Lesion or Malignancy ? Document reviewed and electronically signed by: ? YEHUDA Randall(ASCP) ? Report Date: ??05/03/2002 16:20 End of Report [facility] 05/01/2002 05/03/2002 Dary Fritz AWS CONSULTANT PATHOLOGY ORDERABLES Performing Organization Address City/State/[facility] Co de Phone Number [facility] [address] [place] [address] documented in this encounter Visit Diagnoses Not on filedocumented in this encounter
--- OUTSIDE RECORDS SUMMARY | 2023-12-14 02:48 | XMS_ITS | Encounter Summary ---
Author Organization [facility] Address [address] [place] [address] Care Team Providers Care Chalk Tester Name Role Phone Kourtney Lam MD Primary Care Provider [phone] Encounter Details Date Type Department Care Team (Late st Contact Info) Description 10/05/2019 Lab Requisition [facility] Pathology & Laboratory Medicine - [facility] [address] [place] [address] Kourtney Lam MD [facility] [address] [place] [address] Encounter for other general examination Social History [...] Date/Time Associated Diagnosis Comments PAP TEST Today 10/03/2019 10:30 EDT Encounter for other general examination HPV DNA DETECTION WITH GENOTYPING, PCR Today 10/03/2019 10:30 EDT Encounter for other general examination documented in this encounter Results * HUMAN PAPILLOMAVIRUS (HPV) DETECTION-HIGH RISK TYPES (10/03/2019 10:30 EDT) HPV other High Risk types, PCR Negative Negative 10/11/2019 15:04 EDT [facility] Comment:No E6 or E7 mRNA is detected from HPV types 16,18,31,33,35,39,45,51,52,56,58,59,66, and 68 by metal mixer mediated amplification. Papanicolaou smear specimen (specimen) CERVIX UTERI STRUCTURE / Unknown 10/03/2019 10:30 EDT 10/09/2019 15:22 EDT Kourtney Lam MD MICROBIOLOGY - GENE [facility] ORDERABLES [facility] [address] [place] [address] * PAP TEST (10/03/2019 10:30 EDT) Specimens A. Cervix and/or Endocervix , ThinPrep Imaging System with Manual Evaluation 10/11/2019 15:04 EDT [facility] Specimen Adequacy Satisfactory for Evaluation - transformation zone component present 10/11/2019 15:04 EDT [facility] General Categorization Negative for intraepithelial lesion or malignancy 10/11/2019 15:04 T [facility] Descriptive Diagnosis Trichomonas vaginalis present. Shift in keira present suggestive of bacterial vaginosis. 10/11/2019 15:04 T [facility] Attestation . 10/11/2019 15:04 T [facility] at 1504 Clinical History NONE 10/11/19 20 15:04 EDT [facility] HPV The result for the Human Papillomavirus (HPV) Detection-High Risk Types is Negative. No E6 or E7 mRNA is detected from HPV types 16,18,31,33,35,39 ,45,51,52,56,58,5 9,66, and 68 by metal mixer mediated amplification.Danielle ting was performed on specimen [id number] and was resulted on 10/11/2019 1447 EDT by JANAK, LAB INSTRUMENT RESULTS IN 10/11/2019 15:04 EDT [facility] Scanned Images 10/11/2019 15:04 EDT [facility] Papanicolaou smear specimen (specimen) CERVIX UTERI STRUCTURE / Unknown 10/03/2019 10:30 EDT 10/05/2019 11:15 EDT Kourtney Lam MD PATHOLOGY ORDERABLE S [facility] [address] [place] [address] documented in this encounter Visit Diagnoses Diagnosis Encounter for other general examination documented in this encounter Care Teams Chalk Tester Relationship Specialty Start Date End Date Kourtney Lam MD [address] [place], [place] [id number] PCP - General 09/02/14 documented as of this encounter
--- OUTSIDE RECORDS SUMMARY | 2023-12-14 02:48 | XMS_ITS | Encounter Summary ---
Author Organization [facility] Address [address] [place] [address] Care Team Providers Care Client Services Vice President Name Role Phone Kourtney Lam MD Primary Care Provider Encounter Details Date Type Department Care Team (Late st Contact Info) Description 02/08/2015 9:07 EDT - 02/08/2015 23:59 EDT Hospital Encounter [facility] [address] [place] [address] Key Herrera, JANNIE [address] [facility] [place] [id number] Discharge Disposition: Home or Self Care Social History Tobacco Use Types Packs/Day Years Used Date Smoking Tobacco: Never Assessed Sex and Gender Information Value Date Recorded Sex Assigned at Not on file Gender Identity Not on file Sexual Orientation Not on file documented as of this encounter Discharge Diagnoses Diagnosis 599.0 URIN TRACT INFECTION NOS[ICD-9-CM] 303.90 ALCOH DEP NEC/NOS-UNSPEC[ICD-9-CM] documented in this encounter Discharge Disposition Disposition Code Departure Means Destination Home or Self Half[place] documented in this encounter Plan of Treatment Not on file documented as of this encounter Procedures Procedure Name Priority Date/Time Associated Diagnosis Comments BACTERIAL CULTURE, URINE Routine 02/08/2015 9:20 EDT COMPREHENSIVE METABOLIC PANEL (CMP) Routine 02/08/2015 9:20 EDT CHLAMYDIA/N. GONORRHOEAE AMPLIFIED RNA, URINE Routine 02/08/2015 9:19 EDT CHLAMYDIA/N. GONORRHOEAE AMPLIFIED RNA, URINE Routine 02/08/2015 9:19 EDT URINE CHEMICAL (DIP) & SEDIMENT (MICRO) WITHOUT REFLEX TO CULTURE Routine 02/08/2015 9:19 EDT documented in this encounter Results * BACTERIAL CULTURE, URINE (02/08/2015 9:20 EDT) Result Less than 10,000 CFU/ml Usual urogenital keira. 02/09/2015 12:32 EDT [facility] URINE / Unknown 02/08/2015 9 :20 EDT 02/08/2015 11:30 EDT Key Herrera NP MICROBIOLOGY - GENER AL ORDERABLES Performing Organization Address City/State/[facility] Co de Phone Number [facility] [address] [place] [address] * COMPREHENSIVE METABOLIC PANEL (CMP) (02/08/2015 9:20 EDT) Potassium 4.3 3.5 - 5.0 mEq/L 02/08/2015 11:40 [facility] Sodium 136 136 - 145 mEq/L 02/08/2015 11:40 [facility] Chloride 100 96 - 110 mEq/L 02/08/2015 11:40 [facility] CO2 27 24 - 32 mEq/L 02/08/2015 11:40 [facility] Total Alkaline Phosphatase 64 38 - 126 U/L 02/08/2015 11:40 [facility] Bilirubin, Total 0.5 <1.4 mg/dl 02/09/20 15 11:40 [facility] AST 18 15 - 46 U/L 02/08/2015 11:40 [facility] ALT 21 <53 U/L 02/08/2015 11:40 [facility] Albumin 4.0 3.4 - 4.9 g/dl 02/08/2015 11:40 [facility] Total Protein 6.6 6.3 - 8.2 g/dl 02/08/2015 11:40 [facility] Creatinine 0.71 0.52 - 1.04 mg/dl 02/08/2015 11:40 [facility] GFR, Calculated 114 >60 ml/min/1.7 3m2 02/08/2015 11:40 [facility] Comment: eGFR calculated using CKD-EPI equation for non Americans. Multiply eGFR by 1.16 for Americans. BUN 14 10 - 26 mg/dl 02/08/2015 11:40 T [facility] Calcium 9.5 8.5 - 10.5 mg/dl 02/08/2015 11:40 [facility] Calculated Calcium 9.9 8.5 - 10.5 mg/dl 02/08/2015 11:40 [facility] Glucose, Serum 96 70 - 100 mg/dl 02/08/2015 11:40 [facility] Fasting? No 02/08/2015 9:14 [facility] BLOOD SPECIMEN / Unknown 02/08/2015 9:20 EDT 02/08/2015 11:07 EDT Key Herrera NP CHEMISTRY & BLOOD GA S ORDERABLES [facility] [address] [place] [address] * CHLAMYDIA/GC AMPLIFIED, URINE (02/08/2015 9:19 EDT) Chlamydia Result No Chlamydia trachomatis DNA detected by condenser operator mediated amplification. 02/10/2015 15:06 [facility] Comment: A first catch urine specimen is acceptable for detection of Gonorrhea and Chlamydia, but might detect up to 10% fewer infections when compared with vaginal and endocervical swab samples. GC Result No Neisseria gonorrhoeae DNA detected by condenser operator mediated amplification. 02/10/2015 15:06 [facility] Comment: A first catch urine specimen is acceptable for detection of Gonorrhea and Chlamydia, but might detect up to 10% fewer infections when compared with vaginal and endocervical swab samples. URINE / Unknown 02/08/2015 9 :19 EDT 02/08/2015 11:24 EDT Key Javier DIRECTOR UNDERWRITER SALES MICROBIOLOGY - GENER AL ORDERABLES Performing Organization Address City/[facility] Co de Phone Number [facility] [address] [place] [address] * CHLAMYDIA/GC AMPLIFIED, URINE (02/08/2015 9:19 EDT) Chlamydia Result Duplicate Test Request 02/11/2015 9:46 EDT [facility] Comment:Credit Issued GC Result Duplicate Test Request 02/11/2015 9:46 EDT [facility] Comment:Credit Issued URINE / Unknown 02/08/2015 9 :19 EDT 02/08/2015 11:14 EDT Key Herrera DIRECTOR UNDERWRITER SALES MICROBIOLOGY - GENER AL ORDERABLES Performing Organization Address [facility]/[place] de Phone Number [facility] [address] [place] [address] * (ABNORMAL) UA WITH MICROSCOPIC (02/08/2015 9:19 EDT) Color, UA Yellow 02/08/2015 11:48 T [facility] Clarity, UA Clear 02/08/2015 11:48 T [facility] Glucose, UA Neg Neg 02/08/2015 11:48 T [facility] Bilirubin, UA Neg Neg 02/08/2015 11:48 T [facility] Ketones, UA Neg Neg 02/08/2015 11:48 T [facility] Specific [place], Urine 1.010 1.001 - 1.035 02/08/2015 11:48 T [facility] Blood, UA Neg Neg 02/08/2015 11:48 T [facility] pH, UA 8.0 4.6 - 8.0 02/08/2015 11:48 EDT [facility] Protein, UA Neg Neg 02/08/2015 11:48 T [facility] Urobilinogen, UA 0.2 0.2 - 1.0 E.U./dl 02/08/2015 11:48 EDT [facility] Nitrite, UA Neg Neg 02/08/2015 11:48 EDT [facility] Leuk Esterase 1+(A) Neg 02/08/2015 11:48 EDT [facility] WBC, UA 1 to 5 0 - 5 /HPF 02/08/2015 11:48 EDT [facility] RBC, UA 1 to 5 0 - 5 /HPF 02/08/2015 11:48 EDT [facility] Squam Epithel, UA Few(A) None seen /HPF 02/08/2015 11:48 EDT [facility] Renal Epithel, UA None seen None seen /HPF 02/08/2015 11:48 EDT [facility] Bacteria, UA None seen None seen /HPF 02/08/2015 11:48 EDT [facility] Crystals, UA None seen /HPF 02/08/2015 11:48 EDT [facility] Hyaline Casts, UA None seen /LPF 02/08/2015 11:48 EDT [facility] UA Comment Microscopic results 02/08/2015 9:17 EDT [facility] Comment: are unreliable on urines unrefrig >2hrs or refrig >8hrs. Mucus, UA Present 02/08/2015 11:48 EDT [facility] URINE / Unknown 02/08/2015 9 :19 EDT 02/08/2015 11:14 EDT Key Javier DIRECTOR UNDERWRITER SALES URINALYSIS ORDERABLE S [facility] [address] [place] [address] documented in this encounter Visit Diagnoses Not on filedocumented in this encounter Care Teams Client Services Vice President Relationship Specialty Start Date End Date Kourtney Lam MD [address] [place] [address] PCP - General 09/02/14 documented as of this encounter
--- OUTSIDE RECORDS SUMMARY | 2023-12-14 02:48 | XMS_ITS | Encounter Summary ---
Author Organization [facility] Address [address] [place] [address] Care Team Providers Care Stage Rigger Name Role Phone Kourtney Lam MD Primary Care Provider [phone] Encounter Details Date Type Department Care Team (Late st Contact Info) Description 02/08/2015 Phlebotomy Only [facility] [place] [address] [place] [address] Sound Technician, Outpatient Social History Tobacco Use Types Packs/Day Years Used Date Smoking Tobacco: Never Assessed Sex and Gender Information Value Date Recorded Sex Assigned at Not on file Gender Identity Not on file Sexual Orientation Not on file documented as of this encounter Plan of Treatment Not on file documented as of this encounter Visit Diagnoses Not on filedocumented in this encounter Care Teams Stage Rigger Relationship Specialty Start Date End Date Kourtney Lam MD [address] [place] [address] PCP - General 09/02/14 documented as of this encounter
--- OUTSIDE RECORDS SUMMARY | 2023-12-14 02:48 | XMS_ITS | Encounter Summary ---
Author Organization [facility] Address [address] [place] [address] Care Team Providers Care Stock Shipper Name Role Phone Unavailable Primary Care Provider Unavailabl e Encounter Details Date Type Department Care Team (Late st Contact Info) Description 12/21/[address] [facility] Laboratory Services - [facility] [address] [place], [place] [address] Javier Barton MD [address] [place] [address] [id number] Social History Tobacco Use Types Packs/Day Years Used Date Smoking Tobacco: Never Assessed Sex and Gender Information Value Date Recorded Sex Assigned at Not on file Gender Identity Not on file Sexual Orientation Not on file documented as of this encounter Plan of Treatment Not on file documented as of this encounter Procedures Procedure Name Priority Date/Time Associated Diagnosis Comments SURGICAL PATHOLOGY Routine 12/21/2010 0:00 EDT documented in this encounter Results * SURGICAL PATHOLOGY (12/21/2010 0:00 EDT) Pathology Report: SURGICAL PATHOLOGY REPORT ? Reports generated via electronic interface contain original data; ? however they are lacking the format of the original report. ? Caution should be taken when reading/interpreti ng unformatted reports. ? Name: ? HAND, GIULIA ? Accession #: ? [id number] ? : ? 1985 (Age: 25) ??F ? Collect Date: ? 12/21/2010 ? Location: ? [facility] ? Receive Date: ? 12/21/2010 ? Provider: JAVIER JAUCH MD ? Copy to: KATHERIN BUENO MD ? Final Pathologic Diagnosis: ? A. ?Right tonsil, tonsillectomy: ? 1. ?Reactive lymphoid hyperplasia. ? 2. ? Actinomyces-like organisms identified. ? B. ?Tonsil, left, tonsillectomy: ? 1. ?Reactive lymphoid hyperplasia. ? Document reviewed and electronically signed by: ? ALICIA MOUNT MD ? Report ??Date: 12/23/2010 11:36 ? By the signature above, the attending physician certifies that he/she has ? personally conducted a gross and/or microscopic examination of the described ? specimens and rendered or confirmed the above diagnosis. ? Specimen(s) Received: ? A. ?Right tonsil ? B. ? Left tonsil ? Clinical History: ? Hx tonsillar abscess ? Gross Description: ? Received in formalin labelled Hand, Giulia B and right tonsil are two pink ovoid soft tissues measuring 0.1 x 0.7 x 0.7 cm and 2.3 x 2.0 x 1.5 cm. ? The mucosal surface of the larger piece is pink-patel, smooth, and glistening and cryptic. ??The cut surface is pink-patel, focally hemorrhagic, and has a crypt-like architecture. ??No discrete nodules are present. ??The cut surfaces or the smaller tissue are patel-pink. ??A sales representative wire rope section of tissue is submitted as (A). ? Received in formalin labelled Hand, Giulia B and left tonsil is a pink-patel ovoid tissue measuring 3.0 x 1.6 x 1.3 cm. ??The mucosal surface is pink-patel and cryptic. ??The cut surface is pink-patel with no discrete nodules present. ??A ? sales representative wire rope section is submitted in (B). ??(Dr. Peguero)/[facility] ? End of Report ? [facility] 12/21/2010 12/21/2010 20: 55 EDT Javier Barton MD PATHOLOGY ORDERABLES Performing Organization Address City/State/[facility] Co de Phone Number [address] [address] documented in this encounter Visit Diagnoses Not on filedocumented in this encounter
--- OUTSIDE RECORDS SUMMARY | 2023-12-14 02:48 | XMS_ITS | Encounter Summary ---
Author Organization [facility] Address [address] [place] [address] Care Team Providers Care Drawer In Plain Loom Name Role Phone Rohan Soliz MD Primary Care Provider Unavail able Encounter Details Date Type Department Care Team (Latest Contact Info) Description 03/06/2014 10:36 EDT - 03/06/2014 23:59 EDT Hospital Encounter [facility] [id number] [place] [address] Unknown, Provider, Discharge Disposition: Home or Self Care Social History Tobacco Use Types Packs/Day Years Used Date Smoking Tobacco: Never Assessed Sex and Gender Information Value Date Recorded Sex Assigned at Not on file Gender Identity Not on file Sexual Orientation Not on file documented as of this encounter Discharge Disposition Disposition Code Departure Means Destination Home or Self Nursing Home documented in this encounter Plan of Treatment Not on file documented as of this encounter Visit Diagnoses Not on filedocumented in this encounter Care Teams Drawer In Plain Loom Relationship Specialty Start Date End Date Rohan Soliz MD PCP - General 12/24/10 09/01/14 documented as of this encounter
--- OUTSIDE RECORDS SUMMARY | 2023-12-14 02:48 | XMS_ITS | Encounter Summary ---
Author Organization [facility] Address [address] [place] [address] Care Team Providers Care Operations Support Representative Name Role Phone Unavailable Primary Care Provider Unavailabl e Encounter Details Date Type Department Care Team (Late st Contact Info) Description 10/03/2003 Results Only [facility] - [facility] [address] [place] [address] Dede Burgos, [place], [place] [address] Social History Tobacco Use Types Packs/Day Years Used Date Smoking Tobacco: Never Assessed Sex and Gender Information Value Date Recorded Sex Assigned at Not on file Gender Identity Not on file Sexual Orientation Not on file documented as of this encounter Plan of Treatment Not on file documented as of this encounter Procedures Procedure Name Priority Date/Time Associated Diagnosis Comments CYTOPATHOLOGY Routine 10/03/2003 0:00 EDT documented in this encounter Results * CYTOPATHOLOGY (10/03/2003 0:00 EDT) Pathology Report: CYTOPATHOLOGY REPORT Reports generated via electronic interface contain original data; however they are lacking the format of the original report. Caution should be taken when reading/interpreti ng unformatted reports. Name: ? GIULIA MATTHEWS ? Accession #: ? [id number] : ? 1985 (Age: 18) ??F ?Collect Date: ? 10/03/2003 Location: ? [facility] ? Receive Date: ? 10/04/2003 Provider: ?DEDE BURGOS CNM Copy to: ? Specimen/Source: ?ThinPrep Pap Test, Cervix/Endocervix Last Menstrual Period: ? 03/17 Previous Gynecologic Pathology: ? Benign cellular changes: 02/28/01 HPV Other: ? Additional clinical information: 05/01/02 pap neg. HPVA - HPV testing requested if ASC-US on the current ThinPrep Pap test. ? SPECIMEN ADEQUACY ? Satisfactory for Evaluation - transformation zone component present GENERAL CATEGORIZATION ? Negative for Intraepithelial Lesion or Malignancy INTERPRETATION ? Fungal organisms present morphologically consistent with Amanda species. ? Document reviewed and electronically signed by: ? YEHUDA Randall(ASCP) ? Report Date: ??10/09/2003 12:08 End of Report [facility] 10/03/2003 10/04/2003 Dede Burgos CNM PATHOLOGY ORDERABLES Performing Organization Address City/State/[place] Co de Phone Number [facility] [address] [place] [address] documented in this encounter Visit Diagnoses Not on filedocumented in this encounter
--- OUTSIDE RECORDS SUMMARY | 2023-12-14 02:48 | XMS_ITS | Encounter Summary ---
Author Organization [facility] Address [address] [place] [address] Care Team Providers Care Government Instructor Name Role Phone Unavailable Primary Care Provider Unavailabl e Encounter Details Date Type Department Care Team (Late st Contact Info) Description 02/28/2001 Results Only [facility] - Maple conversion [address] [place] [address] Laura Song CNM [address] [place], [place] [id number] Social History Tobacco Use Types Packs/Day Years Used Date Smoking Tobacco: Never Assessed Sex and Gender Information Value Date Recorded Sex Assigned at Not on file Gender Identity Not on file Sexual Orientation Not on file documented as of this encounter Plan of Treatment Not on file documented as of this encounter Procedures Procedure Name Priority Date/Time Associated Diagnosis Comments CYTOPATHOLOGY Routine 02/28/2001 0:00 EDT documented in this encounter Results * CYTOPATHOLOGY (02/28/2001 0:00 EDT) Pathology Report: CYTOPATHOLOGY REPORT Reports generated via electronic interface contain original data; however they are lacking the format of the original report. Caution should be taken when reading/interpreti ng unformatted reports. Name: ? GIULIA MATTHEWS ? Accession #: ? [id number] : ? 1985 (Age: 15) ??F ?Collect Date: ? 02/28/2001 Location: ? [facility] ? Receive Date: ? 03/02/2001 Provider: ?LAURA SONG CNM Copy to: ? Specimen/Source: ?ThinPrep Pap Test, Cervix/Endocervix Last Menstrual Period: ? 01/05/01 Menstrual/Pregnanc y Status: ? SPECIMEN ADEQUACY ? Satisfactory for evaluation but limited by scant squamous epithelial component secondary to excessive blood. GENERAL CATEGORIZATION ? Benign Cellular Changes DESCRIPTIVE DIAGNOSIS ? Reactive cellular changes associated with inflammation present (includes repair). ? Document reviewed and electronically signed by: ? COSMO GTZ MD ? Report Date: ??03/07/2001 16:49 End of Report [facility] 02/28/2001 03/02/2001 Laura Song CNM PATHOLOGY ORDERABLES [facility] [address] [place] [address] documented in this encounter Visit Diagnoses Not on filedocumented in this encounter
--- OUTSIDE RECORDS SUMMARY | 2023-12-14 02:48 | XMS_ITS | Encounter Summary ---
Author Organization [facility] Address [address] [place] [address] Care Team Providers Care Top Lift Trimmer Name Role Phone Kourtney Lam MD Primary Care Provider [phone] Encounter Details Date Type Department Care Team (Late st Contact Info) Description 07/18/2020 Lab Requisition [facility] Pathology & Laboratory Medicine - [facility] [address] [place] [address] Outr Resulting Lab, Provider Social History Tobacco [...] Comments ZZCOVID-19 TEST [facility] PCR Today 07/17/2020 13:35 EST COVID-19 TESTING Routine 07/17/2020 13:3 5 EST documented in this encounter Results * COVID-19 TEST [facility] PCR (07/17/2020 13:35 EST) Swab ENTIRE NASOPHARYNX / Unknown 07/17/2020 13:35 EST 07/18/2020 15:49 EST Provider Outr Resulting Lab MICROBIOLOGY - GENERAL ORDERABLES [facility] [address] [place] [address] * COVID-19 TESTING (07/17/2020 13:35 EST) COVID-19 rt-PCR Result Negative Negative 07/19/2020 14:01 EST [facility] Comment: This test has not [...] developed and its performance characteristics determined by [facility]. It has not been cleared or approved [...] testing. This test is based on the [facility] COVID-19 Emergency Use Authorization (EUA) assay, with minor modification as defined by the FDA Performed on the GradeBeamo 7 Flex RT-PCR System. Performing Lab [facility] 07/19/2020 14:01 EST [facility] Swab 07/17/2020 13:3 5 EST 07/18/2020 15:49 EST Provider Outr Resulting Lab MICROBIOLOGY - GENERAL ORDERABLES [facility] [address] [place] [address] documented in this encounter Visit Diagnoses Not on filedocumented in this encounter Care Teams Top Lift Trimmer Relationship Specialty Start Date End Date Kourtney Lam MD [address] [place] [address] PCP - General 09/02/14 documented as of this encounter
--- OUTSIDE RECORDS SUMMARY | 2023-12-14 02:48 | XMS_ITS | Encounter Summary ---
Author Organization [facility] Address [address] [place] [address] Care Team Providers Care Taxicab Coordinator Name Role Phone Unavailable Primary Care Provider Unavailabl e Encounter Details Date Type Department Care Team (Late st Contact Info) Description 03/26/2008 8:44 EST - 03/26/2008 11:59 EST Hospital Encounter [facility] - Other [address] [place] [address] Eliu Burrows MD [address] [place], [place] [address] Jonathan Chavez MD [employer]IL [address] [place] [address] Discharge Disposition: Home or Self Care Social [...] Procedure Name Priority Date/Time Associated Diagnosis Comments URINALYSIS WITH MICROSCOPIC IF POSITIVE Routine 03/26/2008 19:20 EST BACTERIAL CULTURE, URINE Routine 03/26/2008 19:20 EST documented in this encounter Results * BACTERIAL CULTURE, URINE (03/26/2008 19:20 EST) Specimen Description Urine [facility] Result Specimen unsuitable for analysis. container received [facility] Report Status Final 03/28/2008 [facility] 03/26/2008 19:2 0 EST 03/27/2008 16:10 EST Jonathan Chavez MD MICROBIOLOGY - GENERAL ORDERABLES Performing Organization Address [facility] Co de Phone Number [facility] [address] [place] [address] * (ABNORMAL) URINALYSIS, CHEMICAL (03/26/2008 19:20 EST) Color, UA Specimen unsuitable for analysis. [facility] Clarity, UA Specimen unsuitable for analysis. [facility] Glucose, UA Specimen unsuitable for analysis.(A) NORM [facility] Bilirubin, UA Specimen unsuitable for analysis.(A) NEG [facility] Ketones, UA Specimen unsuitable for analysis.(A) NEG [facility] Specific Magdalena, Urine Specimen unsuitable for analysis. 1.005 - 1.02 [facility] Blood, UA Specimen unsuitable for analysis.(A) NEG [facility] pH, UA Specimen unsuitable for analysis. 5.0 - 9.0 [facility] Protein, UA Specimen unsuitable for analysis.(A) NEG [facility] Urobilinogen, UA Specimen unsuitable for analysis.(A) NORM mg/dL [facility] Nitrite, UA Specimen unsuitable for analysis.(A) NEG [facility] Leuk Esterase Specimen unsuitable for analysis.(A) NEG [facility] 03/26/2008 19:2 0 EST 03/27/2008 16:10 EST Jonathan Chavez MD URINALYSIS ORD ERABLES Performing Organization Address [facility]/ZIP Co de Phone Number [facility] [address] [place] [address] documented in this encounter Visit Diagnoses Not on filedocumented in this encounter
--- OUTSIDE RECORDS SUMMARY | 2023-12-14 02:48 | XMS_ITS | Encounter Summary ---
Author Organization [facility] Address [address] [place] [address] Care Team Providers Care Social Media Manager Name Role Phone Kourtney Lam MD Primary Care Provider [phone] Encounter Details Date Type Department Care Team (Late st Contact Info) Description 04/25/2019 Lab Requisition [facility] Pathology & Laboratory Medicine - [facility] [address] [place] [address] Мария Greene MD [address] [place] [address] [address] [place], [place] [address] Encounter for other general examination Social History [...] Priority Date/Time Associated Diagnosis Comments SURGICAL PATHOLOGY Today 04/25/2019 7: 55 EST Encounter for other general examination documented in this encounter Results * SURGICAL PATHOLOGY (04/25/2019 7:55 EST) Final Diagnosis A. BREAST, RIGHT, MASS, PARTIAL MASTECTOMY: - Fibroadenoma (1.4 cm grossly), with prominent surrounding fibrocystic change. - Negative for malignancy. 04/30/2019 13:[address] [facility] at 1305 Clinical History Prior left breast DCIS. Right sided breast mass suspicious on mammogram and ultrasound. 04/30/2019 13:[address] [facility] Attestation There was significant resident/fellow involvement in the diagnostic evaluation of this case. By the signature below, the attending physician certifies that they have personally conducted a gross and/or microscopic examination of the described specimens and rendered or confirmed the above diagnosis. 04/30/2019 13:05 [facility] at 1305 Gross Description A. Received in formalin labelled with proper patient identification (initials B, L5) and right breast mass single suture medial double suture anterior is an oriented portion of fibrofatty tissue (15.3 g, 3.6 cm super to inferior x 3.1 cm medial to lateral x 3.5 cm anterior to posterior). The specimen is sectioned from superior (level 1) to inferior (level 8). In levels 4 and 5 there is a firm rubbery mass (1.4 x 0.9 x 0.9 cm) with well-demarcated borders. The mass is 0.2 cm from the nearest anterior margin, is 0.4 cm from the lateral margin, is 0.5 cm from the medial margin, and greater than one cm from all remaining margins. No biopsy site is identified. The remaining cut surface is composed of lobulated adipose tissue with a moderate amount of fibrous tissue. The specimen is entirely submitted as follows: Ink magallon Yellow- anterior Black- posterior Blue- superior Green- inferior Red- medial Sutton- lateral BLOCK MAGALLON A1-A2- level 1, superior end, perpendicular A3-A4- level 2, bisected, medial to lateral A5-A6- level 3, bisected, posterior to anterior A7-A8- level 4, mass, bisected, posterior to anterior A9-A10- level 5, mass, bisected, posterior to anterior A11-A12- level 6, bisected, posterior to anterior A13-A14- level 7, bisected, posterior to anterior A15-A16- level 8, inferior end, perpendicular Time removed from patient: 07504/25/19 Time in formalin: 170704/25/19 Time out of formalin: 189904/26/19 Jhon Rubio MD 04/26/2019 15:41 04/30/2019 13:05 [facility] Resident/Rob w: Jhon Rubio MD 04/30/2019 13:[address] [facility] Scanned Images 04/30/2019 13:[address] [facility] Tissue ENTIRE RIGHT BREAST / Unknown 04/25/2019 7:55 EST 04/25/2019 17:08 EST Мария Greene MD PATHOLOGY ORDERA GAL[place] [facility] [address] [place] [address] documented in this encounter Visit Diagnoses Diagnosis Encounter for other general examination documented in this encounter Care Teams Social Media Manager Relationship Specialty Start Date End Date Kourtney Lam MD [address] [place], [place] [address] PCP - General 09/02/14 documented as of this encounter
[2023-12-14 13:33] LABS: Calculated LDL 73 mg/dL (<100); Cholesterol 144 mg/dL (<200); HDL Cholesterol 57 mg/dL (40-60); Triglyceride 70 mg/dL (<150)
== END 2023-12-14 02:44 | disposition home or self-care (01) ==
LOC: LOS 02:43
PROVIDERS: PCP Nurse Practitioner Family; Visit Provider Nurse Practitioner Family
DX: Z00.00 Encounter for general adult medical examination without abnormal findings (principal)
CPT/HCPCS: 36415; 80061; 83036

== ENCOUNTER 2024-01-01 19:27 | Emergency (ER) | payer MEDICAID, SELFPAY ==
[2024-01-01 19:33] VITALS: BP 135/80; PULSE 78; RESP 15; TEMP 35.6; O2SAT 99
--- OUTSIDE RECORDS SUMMARY | 2024-01-01 19:53 | XMS_ITS | Encounter Summary ---
Author Organization [facility] Address [facility] [place] [address] Care Team Providers Care Underwater Trapper Name Role Phone Kourtney Lam MD Primary Care Provider [phone] Encounter Details Date Type Department Care Team (Late st Contact Info) Description 06/01/2019 [place] [id number] Will Alfredo MD [facility] [place] [address] Social History Tobacco Use Types Packs/Day Years [...] on filedocumented in this encounter Care Teams Underwater Trapper Relationship Specialty Start Date End Date Kourtney Lam MD [address] [place] [address] PCP - General Family Medicine 04/03/19 documented as of this encounter
--- OUTSIDE RECORDS SUMMARY | 2024-01-01 19:53 | XMS_ITS | Clinical Summary ---
Author Organization [facility] Address [facility] [place] [address] Care Team Providers Care Building Insulation Supervisor Name Role Phone Kourtney Lam MD Primary Care Provider [phone] Allergies Active Allergy Reactions Criticality Noted Date [...] series) 01/15/2024 Medical Devices Implanted Type Area Gear Hobber Operator Device Identifier Shelf Expiration Date Model / Serial / Lot Nail,10mm/103 dg,Trch,Rt,36 0mm, ([id number]) (Autoreq) - [id number] Implanted:Qty : 1 on 03/01/2012 at [facility] IMPLANTS DO NOT USE SYNTHES - [id number] 02/13/2020 456.356S / / [id number] Screw,Fmrl,Fu l,T25,Str,5x4 0mm ([id number]) ([employer]oreq) - [id number] Implanted:Qty : 1 on 03/01/2012 at [facility] IMPLANTS DO NOT USE SYNTHES - [id number] 12/13/2020 04.005.530 S / / [id number] Screw,Fmrl,Fu l,T25,Str,5x3 8mm ([id number]) ([employer]oreq) - [id number] Implanted:Qty : 1 on 03/01/2012 at [facility] IMPLANTS DO NOT USE SYNTHES - [id number] 08/13/2020 04.005.528 S / / [id number] Bone,Stimulan ,Std,Cure,10c c ([id number]) - [id number] Implanted:Qty : 1 on 04/27/2013 by Vern Rankin MD at [facility] IMPLANTS Right: Leg [employer]ocom[employer] - [id number] 09/25/2014 620-010 09/25-R178 11.0mmti Troch Fixation Nail Screw 90mm Implanted:Qty : 1 on 03/01/2012 at [facility] 07/14/2019 04.032.090 S / / [id number] Advance Directives * Full Code (Latest Code Status on File) Date Activated Date Inactivated Comments 04/27/2013 11:05 AM 04/28/2013 2:08 PM * Full Code Date Activated Date Inactivated Comments 02/29/2012 10:30 PM 03/03/2012 6:53 PM Question Answer Comments Order Status: Initial Order Does patient have decision m aking capacity? Yes, Order is based on Patients wishes. Care Teams Building Insulation Supervisor Relationship Specialty Start Date End Date Kourtney Lam MD [address] [place] [address] PCP - General Family Medicine 04/03/19
--- OUTSIDE RECORDS SUMMARY | 2024-01-01 19:53 | XMS_ITS | Encounter Summary ---
Author Organization [facility] Address [facility] [place] [address] Care Team Providers Care Bearing Ring Assembler Name Role Phone Antonia De La Vega MD Primary Care Provider [phone] Reason for Visit * Reason Comments ADHD Encounter Details Date Type Department Care Team (Late Contact Info) Description 02/28/2014 1:40 PM EDT Office Visit Psychiatry and [place] [address] Sonia Lopez MD [facility] [place] [address] Anxiety (Primary Dx); ADD (attention deficit disorder) [...] . Call sooner with questions or concerns [phone] or call in an emergency. You need [...] and discussed medication use in with her skein bleacher, who felt that the benefits of outweighed [...] hyperactivity documented in this encounter Care Teams Bearing Ring Assembler Relationship Specialty Start Date End Date Antonia De La Vega MD [address] [place] [address] [address] [place] [address] PCP - General 03/20/12 04/02/19 documented as of this encounter
--- OUTSIDE RECORDS SUMMARY | 2024-01-01 19:53 | XMS_ITS | Encounter Summary ---
Author Organization [facility] Address [facility] [address] [facility] [place] [address] Care Team Providers Care Wafer Fab Technician Name Role Phone Antonia De La Vega MD Primary Care Provider [phone] Reason for Visit * Reason Comments Follow Up Surgery DOS 04/27/13 REMOVAL OF HARDWARE Encounter Details Date Type Department Care Team (Late st Contact Info) Description 05/14/2013 12:40 PM EST Office [place] [address] Niki Jones, PA [facility] DR ORTHOPAEDIC [place] [address] Fixation hardware in leg, initial encounter; Femur [...] encounter documented in this encounter Care Teams Wafer Fab Technician Relationship Specialty Start Date End Date Antonia De La Vega MD [address] [facility] [address] [place] [address] PCP - General 03/20/12 04/02/19 documented as of this encounter
--- OUTSIDE RECORDS SUMMARY | 2024-01-01 19:53 | XMS_ITS | Encounter Summary ---
Author Organization [facility] Address [facility] [address] Care Team Providers Care Mobile Qa Tester Name Role Phone Kourtney Lam MD Primary Care Provider [phone] Encounter Details Date Type Department Care Team (Late st Contact Info) Description 05/21/2019 Orders [place] [address] Will Alfredo MD [facility] [place] [address] Social History Tobacco Use Types Packs/Day Years [...] on filedocumented in this encounter Care Teams Mobile Qa Tester Relationship Specialty Start Date End Date Kourtney Lam MD [address] [place] [address] PCP - General Family Medicine 04/03/19 documented as of this encounter
--- OUTSIDE RECORDS SUMMARY | 2024-01-01 19:53 | XMS_ITS | Encounter Summary ---
[facility] Address [facility] [place] [address] Care Team Providers Care Contract Forester Name Role Phone Antonia De La Vega MD Primary Care Provider [phone] Encounter Details Date Type Department Care Team (Late st Contact Info) Description 05/23/2013 Telephone [place] [phone] Juhi Weaver MD [facility] DR [place]OPA[place] [address] Social History Tobacco Use Types Packs/Day Years [...] on filedocumented in this encounter Care Teams Contract Forester Relationship Specialty Start Date End Date Antonia De La Vega MD [address] [place] [address] PCP - General 03/20/12 04/02/19 documented as of this encounter
--- OUTSIDE RECORDS SUMMARY | 2024-01-01 19:53 | XMS_ITS | Encounter Summary ---
Author Organization [facility] Address [facility] [place] [address] Care Team Providers Care Gum Rolling Machine Tender Name Role Phone Antonia De La Vega MD Primary Care Provider [phone] Reason for Visit * Reason Comments Advice Only Encounter Details Date Type Department Care Team (Late st Contact Info) Description 11/29/2013 3:30 PM EDT Office Visit Obstetrics [place] [phone] CLINIC, Lilly Eugene MD [facility] [place] [address] Medication exposure during first trimester of (Primary [...] antepartum documented in this encounter Care Teams Gum Rolling Machine Tender Relationship Specialty Start Date End Date Antonia De La Vega MD [address] [place] [address] [address] [facility] [address] [place] [address] PCP - General 03/20/12 04/02/19 documented as of this encounter
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
--- OUTSIDE RECORDS SUMMARY | 2024-01-01 19:53 | XMS_ITS | Encounter Summary ---
Author Organization [facility] Address [facility] [place] [address] Care Team Providers Care Construction Carpenters Helper Name Role Phone Antonia De La Vega MD Primary Care Provider [phone] Encounter Details Date Type Department Care Team (Late st Contact Info) Description 01/31/2014 Notes Only Psychiatry [place] [phone] Sonia Lopez MD [facility] [place] [address] Social History Tobacco Use Types Packs/Day Years [...] in eDH: Giulia Hand [address] [place] [address] Will need to confirm address with patient prior to sending any additional mail to this address. Will destroy this prescription, which has already been replaced for her. documented in this encounter Plan of Treatment Not on file documented as of this encounter Visit Diagnoses Not on filedocumented in this encounter Care Teams Construction Carpenters Helper Relationship Specialty Start Date End Date Antonia De La Vega MD [address] [place] [address] PCP - General 03/20/12 04/02/19 documented as of this encounter
--- OUTSIDE RECORDS SUMMARY | 2024-01-01 19:53 | XMS_ITS | Encounter Summary ---
Author Organization [facility] Address [facility] [place] [address] Care Team Providers Care Neighborhood Service Center Director Name Role Phone Antonia De La Vega MD Primary Care Provider [phone] Encounter Details Date Type Department Care Team (Late st Contact Info) Description 03/25/2019 Ancillary Procedure [place] [address] Will Alfredo MD [facility] [place] [address] Social History Tobacco Use Types Packs/Day Years [...] Abdomen Pelvis (03/25/2019 12:00 AM EST) Narrative [facility] - 05/03/2019 4:26 PM EST This exam is auto-finalizing. It's purpose is for storage only. Will Alfredo MD G FILM LIBRARY ORD ERABLES DH [place] documented in this encounter Visit Diagnoses Not on filedocumented in this encounter Care Teams Neighborhood Service Center Director Relationship Specialty Start Date End Date Antonia De La Vega MD [address] [facility] [place] [address] PCP - General 03/20/12 04/02/19 documented as of this encounter
--- OUTSIDE RECORDS SUMMARY | 2024-01-01 19:53 | XMS_ITS | Encounter Summary ---
Author Organization [facility] Address [facility] [place] [address] Care Team Providers Care Hospital Director Name Role Phone Kourtney Lam MD Primary Care Provider [phone] Encounter Details Date Type Department Care Team (Late st Contact Info) Description 06/04/2019 [place] [phone] Will Alfredo MD [facility] [place] [address] Social History Tobacco Use Types Packs/Day Years [...] She can be reached, if needed at [phone] documented in this encounter Plan of Treatment Not on file documented as of this encounter Visit Diagnoses Not on filedocumented in this encounter Care Teams Hospital Director Relationship Specialty Start Date End Date Kourtney Lam MD [address] [place] [address] PCP - General Family Medicine 04/03/19 documented as of this encounter
--- OUTSIDE RECORDS SUMMARY | 2024-01-01 19:53 | XMS_ITS | Encounter Summary ---
Author Organization [facility] Address [facility] [place] [address] Care Team Providers Care Furniture Repairer Name Role Phone Antonia De La Vega MD Primary Care Provider [phone] Encounter Details Date Type Department Care Team (Latest Contact Info) Description 04/27/2013 6:28 AM EST - 04/28/2013 12:07 PM EST Hospital Encounter [place] [address] [facility] [place] [address] History of femur fracture Discharge Disposition: Home [...] Sennakot, tofacilitate a bowel movement. Miralax, an ybzm-zna-yjdtuwr medication can also be taken to help [...] 7 days from surgery. Call your doctor (#[phone]) if you develop: 1. fevers greater than 100.5 2. severe nausea or vomiting 3. increasing pain not controlled by pain medications 4. increasing redness or drainage from incisions 5. Change in sensation FOLLOWUP APPOINTMENTS: 1. You will have followup appointments at [facility] as indicated in Future Appointment and Orders. [...] then d/c to home later today. D/C CLOTHING CONSULTANT and start orals, tylenol standing. * Diandra [...] A/O x 3, pain 3/10 with Dilaudid CLOTHING CONSULTANT. Denies nausea. Right hip dressingCDI. Call light [...] Tolerating po significant other at bedside. 1145 CLOTHING CONSULTANT initiated, patient familiar with use. sgnificant other [...] NAILING, FEMUR performed by VERN MARCELO at [facility] MAIN OR ??? Apply forearm splint, static 03/01/2012 SPLINT APPLICATION, SHORT ARM performed by VERN MARCELO at 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 VERN MARCELO MD 04/27/2013 * Op Note - Vern Marcelo MD - 04/27/2013 10:58 AM EST [facility] Operative Note Patient Name: Louis Matthews : [id number] MR#: [id number] Case Date: 04/27/2013 Surgery Start Time: 904 Surgery Stop Time: 1026 Preoperative Diagnosis: Painful hardware s/p R femur IM nail Postoperative Diagnosis: Same Procedure Performed: Removal of hardware, deep, right femur Trochanteric Bursectomy right hip Surgeon: Vern Marcelo MD Supervisor Fusing Room: Julio Cardona PA-C No qualified residential program manager available Anaesthesia: GA Estimated Blood Loss: 50cc [...] preoperative clearance by her PCP, ANTONIA DE L AVEGA MD. Today, she identified the right leg as the correct operative side. Intraoperative Findings: Well healed fracture, hardware intact. Evidence of irritative bursitis around lateral lag screw and proximal tip of the nail. Details of the Procedure: The patient was taken to the operating room at [facility] where the anaesthetic was administered. A clinical [...] of fibrous tissue and the locking screw local hazmat driver of fixed to the screw. We [...] commenced proximally with 0 Vicryl in a iaiuof-wr-jazug fashion to repair the gluteus medius. The [...] Implant Name Type Inv. Item Serial No. Tree Feller Lot No. LRB No. Used Action BONE,STIMULAN,STD,CURE,10CC ([id number]) - [id number] IMPLANTS BONE,STIMULAN,STD,CURE,10CC ([id number]) Biocomposites - [id number] Right 1 Implanted * Miscellaneous - [...] 04/28/2013 4:45 AM EST BASIC METABOLIC PANEL Routine 04/28/2013 4:45 AM EST URINALYSIS DIPSTICK Routine 04/27/2013 9 :29 PM EST URINE CULTURE Routine 04/27/2013 9:29 [...] (ABNORMAL) Differential, Automated (04/28/2013 4:45 AM EST) Neutrophil % 84.0(H) 34.0 - 71.0 % CERNER MILLENNIUM Neutrophil Absolute 12.89(H) 1.50 - 6.30 x10(3)/mc L CERNER MILLENNIUM Lymph % 6.7(L) 19.0 - 53.0 % CERNER MILLENNIUM Lymphocytes Abs 1.0 1.0 - 3.6 x10(3)/mc L CERNER MILLENNIUM Monocyte % 9.0 4.0 - 13.0 % CERNER MILLENNIUM Monocyte Abs 1.4(H) 0.2 - 1.0 x10(3)/mc L CERNER MILLENNIUM Eos % 0.1 0.0 - 7.0 % CERNER MILLENNIUM Eosinophils Abs 0.0 0.0 - 0.5 x10(3)/mc L CERNER MILLENNIUM Basophil % 0.0 0.0 - 2.0 % CERNER MILLENNIUM Baso Absolute 0.0 0.0 - 0.2 x10(3)/mc L CERNER MILLENNIUM Immature Gran % 0.20 0.00 - 0.66 % CERNER MILLENNIUM Comment: Immature granulocytes(IG's)percentage and absolute count will include metamyelocytes, myelocytes, and promyelocytes. Blood smears from CBCs yielding IG's will be scanned manually for concordance. If this scan disagrees with the automated IG or if promyelocytes are noted, a manual differential will be performed. Immature Gran Absolute 0.03 0.00 - 0.05 x10(3)/mc L CERNER MILLENNIUM Blood specimen (specimen) 04/28/2013 4:45 AM EST 04/28/2013 5:40 AM EST Vern Marcelo MD HEMATOLOGY ORDERABLE S CERNER MILLENNIUM * (ABNORMAL) Basic Metabolic Panel (non-fasting) (04/28/2013 4:45 AM EST) Glucose 115 60 - 199 mg/dL CERNER MILLENNIUM Comment:Diabetes: >=200 mg/d L plus symptoms Blood Urea Nitrogen 15 8 - 18 mg/dL CERNER MILLENNIUM Creatinine 0.61(L) 0.70 - 1.20 mg/dL CERNER MILLENNIUM Comment: Please note that the pediatric reference intervals supplied above were not validated at [facility]. Results from pediatric patients should be interpreted [...] 101 98 - 107 mmol/L CERNER MILLENNIUM Carbon Dioxide 24 22 - 31 mmol/L CERNER MILLENNIUM Anion Gap 11 5 - 15 mmol/L CERNER MILLENNIUM Calcium 8.6 8.5 - 10.5 mg/dL CERNER MILLENNIUM Est Glomerular Filtration Rate >60 >=60 CERNER MILLENNIUM Comment: This estimated [...] CBC (with Diff) (04/28/2013 4:45 AM EST) White Blood Cell 15.3(H) 4.0 - 10.0 x10(3)/mc L CERNER MILLENNIUM Red Blood Cell 3.59(L) 3.93 - 5.22 x10(6)/mc L CERNER MILLENNIUM Hemoglobin 11.9 11.2 - 15.7 gm/dL CERNER MILLENNIUM Hematocrit 34.9 34.0 - 45.0 % CERNER MILLENNIUM Mean Cell Volume 97.2(H) 79.0 - 94.0 fL CERNER MILLENNIUM Mean Cell Hemoglobin 33.1(H) 26.6 - 32.2 pg CERNER MILLENNIUM Mean Cell Hemoglobin Concentration 34.1 32.0 - 36.5 gm/dL CERNER MILLENNIUM Platelet 260 145 - 370 x10(3)/mc L CERNER MILLENNIUM RDW Standard Deviation 41.1 35.0 - 46.0 fL CERNER MILLENNIUM RDW coefficient of variation 11.5 10.9 - 14.4 % CERNER MILLENNIUM Mean Platelet Volume 10.4 9.0 - 12.0 fL FRANSICO IRVING Blood specimen (specimen) 04/28/2013 4:45 AM EST 04/28/2013 5:40 AM EST Narrative Resulting Agency Comment Spec In Lab Vern Marcelo MD HEMATOLOGY CARLTONABLE S FRANSICO IRVING * Urine culture Clean Catch Urine (04/27/2013 9:29 PM EST) Urine Culture ? Patient Name: LOUIS MATTHEWS ? Ordered By: VERN MARCELO ? MR#: [id number] ?LOC: ??[facility] ? /Sex: ??1985 (27 years), [...] ? the laboratory, if clinically significant. ? CERNER MILLENNIUM Urine specimen obtained by clean catch procedure (specimen) 04/27/2013 9:29 PM EST 04/27/2013 9:45 PM EST Narrative Resulting Agency Comment Spec In Lab Vern Marcelo MD MICROBIOLOGY - GENER AL ORDERABLES Performing Organization Address [facility] de Phone Number CERNER MILLENNIUM * (ABNORMAL) Urinalysis without microscopic (04/27/2013 9:29 PM EST) Glucose, Urine Dipstick 300(A) Negative mg/dL CERNER MILLENNIUM Protein, Urine Dipstick 30(A) Neg mg/dL CERNER MILLENNIUM Bilirubin, Urine Dipstick Negative Negative mg/dL CERNER MILLENNIUM Comment: Clinical correlation required for positive Urine Bilirubin results as false positive may occur with some drugs and drug related products. If a false positive is suspected a serum total bilirubin should be considered if clinically indicated. Urobilinogen, Urine Dipstick Normal mg/dL CERNER MILLENNIUM pH, Urn (dipstick) 6.5 5.0 - 8.0 CERNER MILLENNIUM Blood, Urine Dipstick Moderate mg/dL CERNER MILLENNIUM Ketone, Urine Dipstick Trace(A) Neg mg/dL CERNER MILLENNIUM Nitrite, Urine Dipstick Negative CERNER MILLENNIUM Leukocytes, Urine Dipstick Large(A) Neg CERNER MILLENNIUM Appearance, Urine Dipstick Hazy(A) Clear CERNER MILLENNIUM Specific Hanna Urine Automated 1.034(H) 1.002 - 1.030 CERNER MILLENNIUM Color, Urine Dipstick Yellow Yellow CERNER MILLENNIUM Urine specimen (specimen) 04/27/2013 9:29 PM EST 04/27/2013 9:36 PM EST Narrative Resulting Agency Comment Spec In Lab Vern Marcelo MD URINE ORDERABLES Performing Organization Address [facility] de Phone Number CERNER MILLENNIUM documented in this encounter Visit Diagnoses Diagnosis [...] EST 600 mg HYDROmorphone (DILAUDID) 1 mg/mL CLOTHING CONSULTANT 30 mL Intravenous, CLOTHING CONSULTANT ONLY, Starting on Tue04/27/13 at 1130, Until [...] EST 1,000 mLs 100 mL /hr multivitamin Puyw-Sh-MA-Min (THERAPEUTIC-M) 27-0.4 mg tablet 1 tablet 1 [...] 0900 (Given - Provider: Rachell Cornejo, ALINA) aspirin EC tablet 325 mg 325 mg, Oral, 2 TIMES DAILY, First dose on 04/28/13 at 0900, Until Discontinued, Routine 0900 (Given [...] removed from acudose. SDP RN unavailable) multivitamin Snzd-Ux-MB-Min (THERAPEUTIC-M) 27-0.4 mg tablet 1 tablet (CANCELED) [...] 48 hours, AND 2. Without straining, Routine 2225 (Given - Provider: Diandra Morales RN) 0900 [...] 04/26/2013 04/27/2013 04/28/2013 HYDROmorphone (DILAUDID) 1 mg/mL CLOTHING CONSULTANT 30 mL (CANCELED) Intravenous, CLOTHING CONSULTANT ONLY, Starting on Tue04/27/13 at 1130, Until [...] If pain not relieved, call provider., Routine 1654 (See Alternative - Provider: Rachell Cornejo RN) 0439 (Given - Provider: Diandra Morales RN)1014 (Given - Provider: Rachell Cornejo RN) HYDROmorphone (DILAUDID) tablet 4 mg (CANCELED)(Linked Group 1) 4 mg, Oral, EVERY 4 HOURS PRN, Starting on Tue04/27/13 at 1105, Until 04/28/13 at 1408, Pain, For Moderate pain. Do not exceed 6 mg in 4 hours. If pain not relieved, call provider., Routine 1654 (Given - Provider: Rachell Cornejo RN) 0439 [...] Routine documented in this encounter Care Teams Furniture Repairer Relationship Specialty Start Date End Date Antonia De La Vega MD [address] [place] [address] PCP - General 03/20/12 04/02/19 documented as of this encounter
--- OUTSIDE RECORDS SUMMARY | 2024-01-01 19:53 | XMS_ITS | Encounter Summary ---
Author Organization [facility] Address [facility] [place] [address] Care Team Providers Care Laboratory Technology Teacher Name Role Phone Antonia De La Vega MD Primary Care Provider [phone] Encounter Details Date Type Department Care Team (Late st Contact Info) Description 05/01/2013 Telephone [place] [phone] Vern Rankin MD [facility] [place] [address] Social History Tobacco Use Types Packs/Day Years [...] for patient that prescription is ready to fruit or nut picker * Telephone Encounter - Mable Lynn - 05/01/2013 4:13 PM EST Patient states that she was being prescribed oxycodone and she was going to come pick it up. She can't get here today due to the weather. She would like to know if it is ready and if she can pick it up tomorrow if the roads are better. Please call patient at [phone]. documented in this encounter Plan of Treatment Not on file documented as of this encounter Visit Diagnoses Not on filedocumented in this encounter Care Teams Laboratory Technology Teacher Relationship Specialty Start Date End Date Antonia De La Vega MD [address] [place] [address] PCP - General 03/20/12 04/02/19 documented as of this encounter
--- OUTSIDE RECORDS SUMMARY | 2024-01-01 19:53 | XMS_ITS | Encounter Summary ---
Author Organization [facility] Address [facility] [place] [address] Care Team Providers Care Assistant At Surgery Name Role Phone Antonia De La Vega MD Primary Care Provider [phone] Encounter Details Date Type Department Care Team (Latest Contact Info) Description 05/29/2013 12:48 PM EST - 05/29/2013 11:59 PM [facility] Hospital Encounter XRay at [address] [place] [address] History of femur fracture Social History Tobacco [...] fracture documented in this encounter Care Teams Assistant At Surgery Relationship Specialty Start Date End Date Antonia De La Vega MD [address] [place] [address] PCP - General 03/20/12 04/02/19 documented as of this encounter
--- OUTSIDE RECORDS SUMMARY | 2024-01-01 19:53 | XMS_ITS | Encounter Summary ---
Author Organization [facility] Address [facility] [place] [address] Care Team Providers Care Furnace Converter Name Role Phone Antonia De La Vega MD Primary Care Provider [phone] Reason for Visit * Reason Onset Date Comments Post-op Problem 05/14/2013 s/p pin and yesy removal right femur Encounter Details Date Type Department Care Team (Late st Contact Info) Description 05/14/2013 [place] [address] Vern Rankin MD [facility] [place] [address] Post-op Problem (s/p pin and yesy removal [...] on filedocumented in this encounter Care Teams Furnace Converter Relationship Specialty Start Date End Date Antonia De La Vega MD [address] [place] [address] PCP - General 03/20/12 04/02/19 documented as of this encounter
--- OUTSIDE RECORDS SUMMARY | 2024-01-01 19:53 | XMS_ITS | Encounter Summary ---
Author Organization [facility] Address [facility] [place] [address] Care Team Providers Care Fashion Marketer Name Role Phone Kourtney Lam MD Primary Care Provider [phone] Encounter Details Date Type Department Care Team (Late st Contact Info) Description 05/18/2019 [place] [phone] Will Alfredo MD [facility] [place] [address] Social History Tobacco Use Types Packs/Day Years [...] 05/18/2019 8:35 AM EST VM did not grain picker, trying to schedule Appt in ~ 1 month with results of metabolic w/u and MR with Dr. Alfredo on 06/08/19. Earl, the RN will call her in regards to setting up her metabolic work up locally. documented in this encounter Plan of Treatment Not on file documented as of this encounter Visit Diagnoses Not on filedocumented in this encounter Care Teams Fashion Marketer Relationship Specialty Start Date End Date Kourtney Lam MD [address] [place] [address] [address] [place] [address] PCP - General Family Medicine 04/03/19 documented as of this encounter
--- OUTSIDE RECORDS SUMMARY | 2024-01-01 19:53 | XMS_ITS | Encounter Summary ---
Author Organization [facility] Address [facility] [place] [address] Care Team Providers Care Insurance Risk Analyst Name Role Phone Antonia De La Vega MD Primary Care Provider [phone] Encounter Details Date Type Department Care Team (Late st Contact Info) Description 04/29/2013 Telephone [place] [phone] Juhi Weaver MD [facility] DR OR[place]OP[place] [address] Social History Tobacco Use Types Packs/Day Years [...] Phone number where she can be reached [phone]. documented in this encounter Plan of Treatment Not on file documented as of this encounter Visit Diagnoses Not on filedocumented in this encounter Care Teams Insurance Risk Analyst Relationship Specialty Start Date End Date Antonia De La Vega MD [address] [place] [address] PCP - General 03/20/12 04/02/19 documented as of this encounter
--- OUTSIDE RECORDS SUMMARY | 2024-01-01 19:53 | XMS_ITS | Encounter Summary ---
Author Organization [facility] Address [facility] [address] Care Team Providers Care Dress Fitter Name Role Phone Antonia De La Vega MD Primary Care Provider [phone] Reason for Visit * Reason Onset Date Comments Other 05/24/2013 questions about infection Encounter Details Date Type Department Care Team (Late st Contact Info) Description 05/24/2013 [place] [phone] Aylin Marsh RN Other (questions about infection) [...] notes she did speak to the resident second helper last night but did not present to the emergency room. Tried to contact her this morning but only got her voicemail. Left a message for her to call back to discuss symptoms. documented in this encounter Plan of Treatment Not on file documented as of this encounter Visit Diagnoses Not on filedocumented in this encounter Care Teams Dress Fitter Relationship Specialty Start Date End Date Antonia De La Vega MD [address] [place] [address] PCP - General 03/20/12 04/02/19 documented as of this encounter
--- OUTSIDE RECORDS SUMMARY | 2024-01-01 19:53 | XMS_ITS | Encounter Summary ---
Author Organization [facility] Address [facility] [place] [address] Care Team Providers Care Ropeman Name Role Phone Antonia De La Vega MD Primary Care Provider [phone] Reason for Visit * Reason Onset Date Comments Medication Refill 01/21/2014 Encounter Details Date Type Department Care Team (Late st Contact Info) Description 01/21/2014 Refill Psychiatry [place] [address] Sonia Lopez MD [facility] [place] [address] Social History Tobacco Use Types Packs/Day Years [...] on filedocumented in this encounter Care Teams Ropeman Relationship Specialty Start Date End Date Antonia De La Vega MD [address] [place] [address] PCP - General 03/20/12 04/02/19 documented as of this encounter
--- OUTSIDE RECORDS SUMMARY | 2024-01-01 19:53 | XMS_ITS | Encounter Summary ---
Author Organization [facility] Address [facility] [place] [address] Care Team Providers Care Aircraft Maintenance Director Name Role Phone Antonia De La Vega MD Primary Care Provider [phone] Reason for Visit * Reason Onset Date Comments Medication Refill 01/25/2014 Encounter Details Date Type Department Care Team (Late st Contact Info) Description 01/25/2014 Refill Psychiatry and [place] [address] Nadeen Landis MD [facility] DR PSYCHIATRY [place] [address] Social History Tobacco Use Types Packs/Day Years [...] filedocumented in this encounter Care Teams Aircraft Maintenance Director Relationship Specialty Start Date End Date Antonia De La Vega MD [address] [facility] [address] [facility] [address] [place] [address] PCP - General 03/20/12 04/02/19 documented as of this encounter
--- OUTSIDE RECORDS SUMMARY | 2024-01-01 19:53 | XMS_ITS | Encounter Summary ---
Author Organization [facility] Address [facility] [place] [address] Care Team Providers Care Printing Technician Name Role Phone Antonia De La Vega MD Primary Care Provider [phone] Reason for Visit * Reason Onset Date Comments Medication Refill 01/28/2014 Encounter Details Date Type Department Care Team (Late st Contact Info) Description 01/28/2014 Refill Psychiatry [place] [address] Sonia Lopez MD [facility] [place] [address] Social History Tobacco Use Types Packs/Day Years [...] on filedocumented in this encounter Care Teams Printing Technician Relationship Specialty Start Date End Date Antonia De La Vega MD [address] [place] [address] PCP - General 03/20/12 04/02/19 documented as of this encounter
--- OUTSIDE RECORDS SUMMARY | 2024-01-01 19:53 | XMS_ITS | Encounter Summary ---
Author Organization [facility] Address [facility] [place] [address] Care Team Providers Care Stratigrapher Name Role Phone Antonia De La Vega MD Primary Care Provider [phone] Encounter Details Date Type Department Care Team (Late st Contact Info) Description 06/18/2013 [place] [address] Vern Rankin MD [facility] [place] [address] Social History Tobacco Use Types Packs/Day Years [...] REFILL FOR OXYCODONE 5 MG PLEASE CALL [phone] documented in this encounter Plan of Treatment Not on file documented as of this encounter Visit Diagnoses Not on filedocumented in this encounter Care Teams Stratigrapher Relationship Specialty Start Date End Date Antonia De La Vega MD [address] [place] [address] [address] [place] [address] PCP - General 03/20/12 04/02/19 documented as of this encounter
--- OUTSIDE RECORDS SUMMARY | 2024-01-01 19:53 | XMS_ITS | Encounter Summary ---
Author Organization [facility] Address [facility] [place] [address] Care Team Providers Care Accounting Manager Cpa Name Role Phone Kourtney Lam MD Primary Care Provider [phone] Reason for Visit * Consultation (Routine) - Specialty Diagnoses / Procedures Referred By Brittaney bailey Referred To Contact Urology Diagnoses Left kidney mass Dede Peguero MD [address] [place] [address] [facility] [place] [address] Referral ID Status Reason Start Date Expiration Date V isits Requested Visits Authorized [id number] Consult, Test & Treat PCP Updated and/or Approved 04/08/2019 10/07/2019 6 6 Encounter Details Date Type Department Care Team (Late st Contact Info) Description 05/17/2019 9:10 AM EST Office Visit [place] [address] Will Alfredo MD [facility] [place] [address] Renal mass, left (Primary Dx); [...] Had ESWL for a renal stone [facility] She has passed some stones. The [...] Skin is normal, no easy bruising, No Hancock Hump Mineralocoticoid excess: Blood Pressure today is [...] Metabolic evaluation Obtain any old imaging from [facility] (2014 around stone) MR for evaluation [...] glands documented in this encounter Care Teams Accounting Manager Cpa Relationship Specialty Start Date End Date Kourtney Lam MD [address] [place] [address] PCP - General Family Medicine 04/03/19 documented as of this encounter
--- OUTSIDE RECORDS SUMMARY | 2024-01-01 19:53 | XMS_ITS | Encounter Summary ---
Author Organization [facility] Address [facility] [place] [address] Care Team Providers Care Plastic Press Molder Name Role Phone Kourtney Lam MD Primary Care Provider [phone] Encounter Details Date Type Department Care Team (Late st Contact Info) Description 05/21/2019 Orders [place] [address] Will Alfredo MD [facility] [address] Social History Tobacco Use Types Packs/Day Years [...] Metabolic testing. Labs order were sent to [facility] and prescription for 1mg dexamethazone was sent to her pharmacy. She will call once labs are completed and then will notify Dr Alfredo with results. documented in this encounter Plan of Treatment Not on file documented as of this encounter Visit Diagnoses Not on filedocumented in this encounter Care Teams Plastic Press Molder Relationship Specialty Start Date End Date Kourtney Lam MD [address] [place] [address] PCP - General Family Medicine 04/03/19 documented as of this encounter
--- OUTSIDE RECORDS SUMMARY | 2024-01-01 19:53 | XMS_ITS | Encounter Summary ---
Author Organization [facility] Address [facility] [place] [address] Care Team Providers Care Frame Gate Mortiser Operator Name Role Phone Antonia De La Vega MD Primary Care Provider [phone] Encounter Details Date Type Department Care Team (Late st Contact Info) Description 05/26/2013 Orders [place] [address] Vern Rankin MD [facility] DR [place] [address] Social History Tobacco Use Types Packs/Day Years [...] on filedocumented in this encounter Care Teams Frame Gate Mortiser Operator Relationship Specialty Start Date End Date Antonia De La Vega MD [address] [place] [address] PCP - General 03/20/12 04/02/19 documented as of this encounter
--- OUTSIDE RECORDS SUMMARY | 2024-01-01 19:53 | XMS_ITS | Encounter Summary ---
Author Organization [facility] Address [facility] [place] [address] Care Team Providers Care Senior Production Manager Name Role Phone Antonia De La Vega MD Primary Care Provider [phone] Encounter Details Date Type Department Care Team (Late st Contact Info) Description 02/13/2014 Telephone Psychiatry [place] [address] Sonia Lopez MD [facility] [place] [address] Social History Tobacco Use Types Packs/Day Years [...] and plans to discuss this with her loom changer (regarding safety of [place]). I suggested that [...] on filedocumented in this encounter Care Teams Senior Production Manager Relationship Specialty Start Date End Date Antonia De La Vega MD [address] [facility] [place] [address] PCP - General 03/20/12 04/02/19 documented as of this encounter
--- OUTSIDE RECORDS SUMMARY | 2024-01-01 19:53 | XMS_ITS | Encounter Summary ---
Author Organization [facility] [place] [address] Care Team Providers Care City Clerk Name Role Phone Antonia De La Vega MD Primary Care Provider [phone] Encounter Details Date Type Department Care Team (Late st Contact Info) Description 11/05/2013 Orders Only Obstetrics [place] [address] Neetu Rodriguez, RN (Primary Dx) [...] 11/29/2013 02:09 pm) Patient Info ID: ? [id number] ? : [birth year] (28 yrs) Name: ? GIULIA Venkatesh MATTHEWS ? Visit Date: 11/29/2013 01:52 pm Performed By Performed By: ?Shona LAGUNAS, Pat Attending: ? Irais SWAN, Lilly Orourke Referred By: ? SHANNON BROOKS MD Service(s) Provided [facility] - Targeted Morphology - Genetics - ? [id number] Indications Morphology MFM TO READ Evaluation Num [...] Outflow Tract: ?Visualized Aortic Arch: ?Visualized Cardiac Pelican: ? Visualized Diaphragm: ?Visualized Abdomen Ventral Wall: [...] Final 11/29/2013 02:09 pm) Patient Info ID: [id number] : [birth year] (28 yrs) Name: GIULIA MATTHEWS Visit Date: 11/29/2013 01:52 pm Performed By Performed By: Pat Nagel RDMS Attending: Lilly Braxton MD Referred By: SHANNON BROOKS MD Service(s) Provided [facility] - Targeted Morphology - Genetics - [id number] Indications Morphology MFM TO READ Evaluation Num [...] Outflow Tract: Visualized Aortic Arch: Visualized Cardiac Pelican: Visualized Diaphragm: Visualized Abdomen Ventral Wall: Visualized [...] incidental documented in this encounter Care Teams City Clerk Relationship Specialty Start Date End Date Antonia De La Vega MD [address] [place] [address] [address] [facility] 1 [place] [address] PCP - General 03/20/12 04/02/19 documented as of this encounter
--- OUTSIDE RECORDS SUMMARY | 2024-01-01 19:53 | XMS_ITS | Encounter Summary ---
Author Organization [facility] Address [facility] [place] [address] Care Team Providers Care Beef Breaker Name Role Phone Antonia De La Vega MD Primary Care Provider [phone] Reason for Referral * Physical Therapy (Routine) - Closed by system - unspecified Specialty Diagnoses / Procedures Referred By Contac t Referred To Contact Physical Therapy Diagnoses Femur fracture, right, closed, with routine healing, subsequent encounter Fixation hardware in leg, subsequent encounter Niki Jones PA [facility] [place] [address] Referral ID Status Reason Start Date Expiration Date Visits Requested Visits Authorized [id number] Closed by system - unspecified Evaluate and Treat 05/29/2013 11/25/2013 1 1 Reason for Visit * Reason Comments Follow Up Surgery SP LEEANN R FEMUR DOS 1 06/28/12 Encounter Details Date Type Department Care Team (Late st Contact Info) Description 05/29/2013 1:30 PM EST Office [place] [address] Vern Rankin MD [facility] [place] [address] Fixation hardware in leg, subsequent encounter (Primary [...] (ABNORMAL) Differential, Automated (05/29/2013 3:04 PM EST) Neutrophil % 77.6(H) 34.0 - 71.0 % CERNER MILLENNIUM Neutrophil Absolute 6.33(H) 1.50 - 6.30 x10(3)/mc L CERNER [facility]ENNIUM Lymph % 12.0(L) 19.0 - 53.0 % C[facility]ER [facility]ENNIUM Lymphocytes Abs 1.0 1.0 - 3.6 x10(3)/mc L CERNER [facility]ENNIUM Monocyte % 6.7 4.0 - 13.0 % CERNER [place]ENNIUM Monocyte Abs 0.6 0.2 - 1.0 x10(3)/mc L CERNER [facility]ENNIUM Eos % 3.4 0.0 - 7.0 % CERNER MILLENNIUM Eosinophils Abs 0.3 0.0 - 0.5 x10(3)/mc L CERNER [place]ENNIUM Basophil % 0.2 0.0 - 2.0 % CERNER MILLENNIUM Baso [...] differential will be performed. Immature Gran Absolute 0.01 0.00 - 0.05 x10(3)/mc L CERNER MILLENNIUM Blood specimen (specimen) 05/29/2013 3:04 PM EST 05/29/2013 3:16 PM EST Vern Rankin MD HEMATOLOGY ORDERABLE S FRANSICO SCHRADERIUM * Sedimentation rate (05/29/2013 3:04 PM EST) Sedimentation Rate Automated 10 0 - 20 mm/hr CERNER M[facility]ENNIUM Blood specimen (specimen) 05/29/2013 3:04 PM EST 05/29/2013 3:16 PM EST Narrative Resulting Agency Comment Spec In Lab Vern Rankin MD HEMATOLOGY ORDERABLE S FRANSICO SCHRADERIUM * High Sensitivity CRP (05/29/2013 3:04 PM EST) Pathologist [facility] C-Reactive Protein High Sensitivity 28.4 mg/L CERNER MILLENNIUM Comment: Interpretations: 1) [...] In Lab Vern Rankin MD CHEMISTRY ORDERABLES [facility] MARIA FERNANDA * (ABNORMAL) CBC (with Diff) (05/29/2013 3:04 PM EST) Pathologist [facility] White Blood Cell 8.2 4.0 - 10.0 x10(3)/mc L CERNER MILLENNIUM Red Blood Cell 4.15 3.93 - 5.22 x10(6)/mc L CERNER MILLENNIUM Hemoglobin 13.9 11.2 - 15.7 gm/dL CERNER MILLENNIUM Hematocrit 40.7 34.0 - 45.0 % CERNER MILLENNIUM Mean Cell Volume 98.1(H) 79.0 - 94.0 fL CERNER MILLENNIUM Mean Cell Hemoglobin 33.5(H) 26.6 - 32.2 pg CERNER MILLENNIUM Mean Cell Hemoglobin Concentration 34.2 32.0 - 36.5 gm/dL CERNER MILLENNIUM Platelet 267 145 - 370 x10(3)/mc L [facility] R[facility] Standard Deviation 42.0 35.0 - 46.0 fL [facility] RDW coefficient of variation 11.7 10.9 - 14.4 % FR[facility] Mean Platelet Volume 10.0 9.0 - 12.0 fL FRANSICO SCHRADERIUM Blood specimen (specimen) 05/29/2013 3:04 PM EST 05/29/2013 3:16 PM EST Narrative Resulting Agency Comment Spec In Lab Vern Rankin MD HEMATOLOGY ORDERABLE S FRANSICO IRVING documented in this encounter Visit Diagnoses Diagnosis Fixation hardware in leg, subsequent encounter- Primary Femur fracture, right, closed, with routine healing, subsequent encounter documented in this encounter Care Teams Beef Breaker Relationship Specialty Start Date End Date Antonia De La Vega MD [address] [place] [address] PCP - General 03/20/12 04/02/19 documented as of this encounter
--- OUTSIDE RECORDS SUMMARY | 2024-01-01 19:53 | XMS_ITS | Encounter Summary ---
Author Organization [facility] Address [facility] [place] [address] Care Team Providers Care Shut Off Worker Name Role Phone Antonia De La Vega MD Primary Care Provider [phone] Encounter Details Date Type Department Care Team (Late st Contact Info) Description 06/06/2013 Telephone [place] [address] Vern Rankin MD [facility] [place] [address] Social History Tobacco Use Types Packs/Day Years [...] her prescription. Please call her back at [phone]. documented in this encounter Plan of Treatment Not on file documented as of this encounter Visit Diagnoses Not on filedocumented in this encounter Care Teams Shut Off Worker Relationship Specialty Start Date End Date Antonia De La Vega MD [address] [facility] [facility] [place] [address] PCP - General 03/20/12 04/02/19 documented as of this encounter
--- OUTSIDE RECORDS SUMMARY | 2024-01-01 19:53 | XMS_ITS | Encounter Summary ---
Author Organization [facility] Address [facility] [place] [address] Care Team Providers Care Relations Coordinator Name Role Phone Antonia De La Vega MD Primary Care Provider [phone] Encounter Details Date Type Department Care Team (Late st Contact Info) Description 11/29/2013 12:57 PM EDT - 11/29/2013 11:59 PM EDT Hospital En[place] [address] Social History Tobacco Use Types Packs/Day Years [...] 11/29/2013 02:09 pm) Patient Info ID: ? [id number] ? : ??[birth year] (28 yrs) Name: ? GIULIA MATTHEWS ? Visit Date: 11/29/2013 01:52 pm Performed By Performed By: ?Pat Nagel RDMS Attending: ? Irais SWAN, Lilly Orourke Referred By: ? JOSE BROOKS MD Service(s) Provided [facility] - Targeted Morphology - Genetics - ? [id number] Indications Morphology MFM TO READ Evaluation Num [...] Outflow Tract: ?Visualized Aortic Arch: ?Visualized Cardiac Ashby: ? Visualized Diaphragm: ?Visualized Abdomen Ventral Wall: [...] Final 11/29/2013 02:09 pm) Patient Info ID: [id number] : [birth year] (28 yrs) Name: GIULIA MATTHEWS Visit Date: 11/29/2013 01:52 pm Performed By Performed By: Pat Nagel RDMS Attending: Lilly Braxton MD Referred By: JOSE BROOKS MD Service(s) Provided [facility] - Targeted Morphology - Genetics - [id number] Indications Morphology MFM TO READ Evaluation Num [...] Outflow Tract: Visualized Aortic Arch: Visualized Cardiac Ashby: Visualized Diaphragm: Visualized Abdomen Ventral Wall: Visualized [...] incidental documented in this encounter Care Teams Relations Coordinator Relationship Specialty Start Date End Date Antonia De La Vega MD [address] [place] [address] PCP - General 03/20/12 04/02/19 documented as of this encounter
--- OUTSIDE RECORDS SUMMARY | 2024-01-01 19:53 | XMS_ITS | Encounter Summary ---
Author Organization [facility] [place] [address] Care Team Providers Care Supervisor Customer Services Name Role Phone Antonia De La Vega MD Primary Care Provider [phone] Encounter Details Date Type Department Care Team (Late st Contact Info) Description 04/24/2013 12:20 PM EST Clinical [place] [address] Social History Tobacco Use Types Packs/Day Years [...] on filedocumented in this encounter Care Teams Supervisor Customer Services Relationship Specialty Start Date End Date Antonia De La Vega MD [address] [place] [address] PCP - General 03/20/12 04/02/19 documented as of this encounter
--- OUTSIDE RECORDS SUMMARY | 2024-01-01 19:53 | XMS_ITS | Encounter Summary ---
Author Organization [facility] [place] [address] Care Team Providers Care Package Reinspector Name Role Phone Antonia De La Vega MD Primary Care Provider [phone] Encounter Details Date Type Department Care Team (Late st Contact Info) Description 03/25/2019 12:05 AM EST Ancillary Procedure [place] [address] Sanford Soto MD [address] [place] [id number] Social History Tobacco Use Types Packs/Day Years [...] MD IMG FILM LIBRARY OR DERABLES DH [place], [place] documented in this encounter Visit Diagnoses Not on filedocumented in this encounter Care Teams Package Reinspector Relationship Specialty Start Date End Date Antonia De La Vega MD [address] [place] [address] PCP - General 03/20/12 04/02/19 documented as of this encounter
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
--- OUTSIDE RECORDS SUMMARY | 2024-01-01 19:53 | XMS_ITS | Encounter Summary ---
Author Organization [facility] Address [facility] [place] [address] Care Team Providers Care Basketball Scout Name Role Phone Antonia De La Vega MD Primary Care Provider [phone] Encounter Details Date Type Department Care Team (Latest Contact Info) Description 12/27/2013 2:40 PM EDT Office Visit Psychiatry [place] [address] Sonia Lopez MD [facility] [place] [address] Anxiety (Primary Dx); ADHD (attention deficit hyperactivity [...] month. Call sooner with questions or concerns [phone] or call in an emergency. documented in [...] hyperactivity documented in this encounter Care Teams Basketball Scout Relationship Specialty Start Date End Date Antonia De La Vega MD [address] [place] [address] PCP - General 03/20/12 04/02/19 documented as of this encounter
--- OUTSIDE RECORDS SUMMARY | 2024-01-01 19:53 | XMS_ITS | Encounter Summary ---
Author Organization [facility] Address [facility] [place] [address] Care Team Providers Care Oil Pipeline Operator Name Role Phone Antonia De La Vega MD Primary Care Provider [phone] Encounter Details Date Type Department Care Team (Late st Contact Info) Description 03/25/2019 12:10 AM EST Ancillary Procedure [place] [address] Sanford Soto MD [address] [place] [address] [id number] Social History Tobacco Use Types Packs/Day Years [...] MD IMG FILM LIBRARY OR DERABLES [place], [place] documented in this encounter Visit Diagnoses Not on filedocumented in this encounter Care Teams Oil Pipeline Operator Relationship Specialty Start Date End Date Antonia De La Vega MD [address] [place] [address] PCP - General 03/20/12 04/02/19 documented as of this encounter
--- OUTSIDE RECORDS SUMMARY | 2024-01-01 19:53 | XMS_ITS | Encounter Summary ---
Author Organization [facility] Address [facility] [place] [address] Care Team Providers Care Profiler Operator Name Role Phone Antonia De La Vega MD Primary Care Provider Encounter Details Date Type Department Care Team (Late st Contact Info) Description 04/27/2013 8:19 AM EST Anesthesia [place] [address] Grayson Quevedo MD [facility] [place] [address] Zohra Duque MD [facility] [place] [address] Anesthesia Record Procedure Summary Procedure Name Responsible [...] NAILING, FEMUR performed by SANDHYA MARCELO at [facility] MAIN OR ??? Apply forearm splint, static 03/01/2012 SPLINT APPLICATION, SHORT ARM performed by SANDHYA MARCELO at [facility] MAIN OR History Substance Use Topics [...] discussed with patient. Plan discussed with attending. [facility] Assessment: documented in this encounter Plan of [...] mg documented in this encounter Care Teams Profiler Operator Relationship Specialty Start Date End Date Antonia De La Vega MD [address] [place] [address] PCP - General 03/20/12 04/02/19 documented as of this encounter
--- OUTSIDE RECORDS SUMMARY | 2024-01-01 19:53 | XMS_ITS | Encounter Summary ---
Author Organization [facility] Address [facility] [place] [address] Care Team Providers Care Acid Extractor Name Role Phone Antonia De La Vega MD Primary Care Provider [phone] Encounter Details Date Type Department Care Team (Late st Contact Info) Description 04/27/2013 8:30 AM EST - 04/27/2013 10:28 AM EST Surgery [place] [address] Vern Marcelo MD [facility] [place] [address] REMOVAL OF IMPLANT, DEEP, FEMUR (WRVU 5.96) [...] Sennakot, tofacilitate a bowel movement. Miralax, an poaj-xeo-udeqpto medication can also be taken to help [...] 7 days from surgery. Call your doctor (#[phone]) if you develop: 1. fevers greater than 100.5 2. severe nausea or vomiting 3. increasing pain not controlled by pain medications 4. increasing redness or drainage from incisions 5. Change in sensation FOLLOWUP APPOINTMENTS: 1. You will have followup appointments at [facility] as indicated in Future Appointment and [...] then d/c to home later today. D/C ATMOSPHERIC TECHNICIAN and start orals, tylenol standing. * Diandra [...] A/O x 3, pain 3/10 with Dilaudid ATMOSPHERIC TECHNICIAN. Denies nausea. Right hip dressingCDI. Call light [...] Tolerating po significant other at bedside. 1145 ATMOSPHERIC TECHNICIAN initiated, patient familiar with use. sgnificant other [...] FEMUR performed by VERN MARCELO at [facility] MAIN OR ??? Apply forearm splint, static 03/01/2012 SPLINT APPLICATION, SHORT ARM performed by VERN MARCELO at 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 VERN MARCELO MD 04/27/2013 * Op Note - Vern Marcelo MD - 04/27/2013 10:58 AM EST [facility] Operative Note Patient Name: Louis Matthews : [id number] MR#: [id number] Case Date: 04/27/2013 Surgery Start Time: 904 Surgery Stop Time: 1026 Preoperative Diagnosis: Painful hardware s/p R femur IM nail Postoperative Diagnosis: Same Procedure Performed: Removal of hardware, deep, right femur Trochanteric Bursectomy right hip Surgeon: Vern Marcelo MD Ammunition Components Inspector: Julio Cardona PA-C No qualified residential sales manager available Anaesthesia: GA Estimated Blood Loss: [...] was taken to the operating room at [facility] where the anaesthetic was administered. A [...] of fibrous tissue and the locking screw bulk delivery driver of fixed to the screw. We [...] commenced proximally with 0 Vicryl in a igtyes-wz-udcfd fashion to repair the gluteus medius. The [...] Implant Name Type Inv. Item Serial No. Teacher Private Lot No. LRB No. Used Action BONE,STIMULAN,STD,CURE,10CC ([id number]) - [id number] IMPLANTS BONE,STIMULAN,STD,CURE,10CC ([id number]) Biocomposites - [id number] Right 1 Implanted * Miscellaneous - [...] EST Vern Marcelo MD HEMATOLOGY ORDERABLE S [facility] * (ABNORMAL) Basic Metabolic Panel (non-fasting) (04/28/2013 4:45 AM EST) Glucose 115 60 - 199 mg/dL [facility] Comment:Diabetes: >=200 mg/d L plus symptoms Blood Urea Nitrogen 15 8 - 18 mg/dL [facility] Creatinine 0.61(L) 0.70 - 1.20 mg/dL [facility] Comment: Please note that the pediatric reference intervals supplied above were not validated at [facility]. Results from pediatric patients [...] Platelet Volume 10.4 9.0 - 12.0 fL [facility] Blood specimen (specimen) 04/28/2013 4:45 AM EST 04/28/2013 5:40 AM EST Narrative Resulting Agency Comment Spec In Lab Vern Marcelo MD HEMATOLOGY ORDERABLE S [facility] * Urine culture Clean Catch Urine (04/27/2013 9:29 PM EST) Urine Culture ? Patient Name: LOUIS MATTHEWS ? Ordered By: VERN MARCELO ? MR#: [id number] ?LOC: ??[facility] ? /Sex: ??1985 (27 years), [...] - GENER AL ORDERABLES Performing Organization Address [facility] de Phone Number [facility] * [...] Urine Dipstick Hazy(A) Clear [facility] Specific [place] Urine Automated 1.034(H) 1.002 - 1.030 [facility] Color, Urine Dipstick Yellow Yellow [facility] Urine specimen (specimen) 04/27/2013 9:29 PM EST 04/27/2013 9:36 PM EST Narrative Resulting Agency Comment Spec In Lab Vern Marcelo MD URINE ORDERABLES Performing Organization Address [facility] Co de Phone Number [facility]EN[facility] documented [...] PRN, Starting on Tue04/27/13 at 0958, Until 12/13/13 at 1434, Intra-Operative (Intra-Procedure), Routine Given 04/27/2013 [...] EST 600 mg HYDROmorphone (DILAUDID) 1 mg/mL ATMOSPHERIC TECHNICIAN 30 mL Intravenous, ATMOSPHERIC TECHNICIAN ONLY, Starting on Tue04/27/13 at 1130, Until [...] CONTINUOUS, Starting on Tue04/27/13 at 1130, Until Tue04/28/13 at 0934 Restarted 04/28/2013 4:05 AM EST 1,000 mLs 100 mL/hr New Bag 04/28/2013 1:57 AM EST 1,000 mLs 100 mL/hr Rate/Dose Change 04/27/2013 11:00 PM EST 1,000 mLs 100 mL /hr multivitamin Ynad-Es-IA-Min (THERAPEUTIC-M) 27-0.4 mg tablet 1 tablet 1 [...] Morales RN) 0632 (New Bag - Provider: Diandar Morales RN) ceFAZolin (ANCEF) 2g in dextrose [...] in SDP. SDP [facility] RN not available) gabapentin (NEURONTIN) capsule 600 mg (COMPLETED) 600 mg, Oral, ONCE, 1 dose, On Tue04/27/13 at 0730, Administer on arrival in Same Day Program, Day of Surgery (Day of Procedure), Routine 0730 (Given by Other - Provider: Cammy Hoyos RN - Comment: pt states received in [facility]. [facility] charge nurse states removed from [facility]. [facility] RN unavailable) multivitamin Galo-Nj-AS-Min (THERAPEUTIC-M) 27-0.4 mg tablet 1 tablet (CANCELED) [...] RN - Comment: pt states received in [facility], [facility] charge nurse states removed from [facility], [facility] primary nurse not available.) polyethylene glycol (MIRALAX) [...] 04/26/2013 04/27/2013 04/28/2013 HYDROmorphone (DILAUDID) 1 mg/mL ATMOSPHERIC TECHNICIAN 30 mL (CANCELED) Intravenous, ATMOSPHERIC TECHNICIAN ONLY, Starting on Tue04/27/13 at 1130, Until 04/28/13 at 0934 1130 (New Syringe/Cartridge - Provider: Cammy Hyoos, ALINA) lactated ringers infusion 1,000 mL (CANCELED) [...] Recovery 1030 (Rate/Dose Verify - Provider: Cammy Hoyos, ALINA) lactated ringers [...] provider., Routine 1654 (Given - Provider: Rachell Cornejo, ALINA) 0439 (See Alternative - Provider: Diandra Morales [...] Routine documented in this encounter Care Teams Acid Extractor Relationship Specialty Start Date End Date Antonia De La Vega MD [address] [place] [address] PCP - General 03/20/12 04/02/19 documented as of this encounter
--- OUTSIDE RECORDS SUMMARY | 2024-01-01 19:54 | XMS_ITS | Encounter Summary ---
Author Organization [facility] Address [facility] [place] [address] Care Team Providers Care Psychology Instructor Name Role Phone Antonia De La Vega MD Primary Care Provider [phone] Encounter Details Date Type Department Care Team (Late st Contact Info) Description 05/23/2012 9:57 AM EST - 05/23/2012 11:59 PM [facility] Hospital Encounter XRay at [address] [place] [address] Aftercare Social History Tobacco Use Types Packs/Day [...] aftercare documented in this encounter Care Teams Psychology Instructor Relationship Specialty Start Date End Date Antonia De La Vega MD [address] [place] [address] [address] [place] [address] PCP - General 03/20/12 04/02/19 documented as of this encounter
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
--- OUTSIDE RECORDS SUMMARY | 2024-01-01 19:54 | XMS_ITS | Encounter Summary ---
Author Organization [facility] Address [facility] [place] [address] Care Team Providers Care Mortar Man Name Role Phone Antonia De La Vega MD Primary Care Provider [phone] Encounter Details Date Type Department Care Team (Late st Contact Info) Description 08/28/2012 Ancillary Procedure [place] [address] Will Alfredo MD [facility] [place] [address] Social History Tobacco Use Types Packs/Day Years [...] Abdomen (08/28/2012 12:00 AM EDT) Narrative [facility] - 05/17/2019 11:59 AM EST This exam is auto-finalizing. It's purpose is for storage only. Will Alfredo MD IM FILM LIBRARY ORD ERABLES [place], [place] documented in this encounter Visit Diagnoses Not on filedocumented in this encounter Care Teams Mortar Man Relationship Specialty Start Date End Date Antonia De La Vega MD [address] [place] [address] PCP - General 03/20/12 04/02/19 documented as of this encounter
--- OUTSIDE RECORDS SUMMARY | 2024-01-01 19:54 | XMS_ITS | Encounter Summary ---
Author Organization [facility] Address [facility] [place] [address] Care Team Providers Care Fiber Designer Name Role Phone Antonia De La Vega MD Primary Care Provider [phone] Reason for Visit * Reason Comments Follow Up Surgery Right Leg Pain Encounter Details Date Type Department Care Team (Late st Contact Info) Description 02/28/2013 3:45 PM EDT Office [place] [address] Vern Rankin MD [facility] [place] [address] History of femur fracture (Primary Dx) Discharge [...] Hemoglobin A1c (04/24/2013 1:07 PM EST) Hemoglobin A1c 4.8 4.3 - 6.1 % [facility] Comment: The [place] Diabetes Association (ADA) has stated that HbA1c [...] Diabetes ? 2013. Diabetes Care 2013:36;suppl 1:S11-S66. Estimated Average Glucose 91 mg/dL [facility] Comment: eAG equivalents for HbA1c percentages: [...] into estimated average glucose values. ??Diabetes Care 2008:31(8):2156-1693. Blood specimen (specimen) 04/24/2013 1:07 PM EST 04/24/2013 1:12 PM EST Narrative Resulting Agency Comment Spec In Lab Vern Rankin MD CHEMISTRY ORDERABLES [facility] * High Sensitivity CRP (04/24/2013 1:07 PM EST) C-Reactive Protein High Sensitivity 0.6 mg/L [facility] Comment: Interpretations: 1) For accurate cardiac [...] Rankin MD CHEMISTRY ORDERABLES Performing Organization Address [facility] Phone Number [email or web address] * Sedimentation rate (04/24/2013 1:07 PM EST) Sedimentation Rate Automated 9 0 - 20 mm/hr [facility] Blood specimen (specimen) 04/24/2013 1:07 PM EST 04/24/2013 1:12 PM EST Narrative Resulting Agency Comment Spec In Lab Vern Rankin MD HEMATOLOGY ORDERABLE S Performing Organization Address [facility] Phone Number [email or web address] * APTT (04/24/2013 1:07 PM EST) Partial Thromboplastin Time 29 25 - 35 sec [facility] Comment: Recommended therapeutic PTT range for full dose unfractionated heparin is 80-114 seconds. Blood specimen (specimen) 04/24/2013 1:07 PM EST 04/24/2013 1:12 PM EST Narrative Resulting Agency Comment Spec In Lab Vern Rankin MD HEMATOLOGY ORDERABLE S Performing Organization Address [facility] Phone Number [facility] * Prothrombin Time (04/24/2013 1:07 PM EST) Prothrombin Time 12.9 12.0 - 15.0 sec [facility] Comment: [facility] Transfusion Committee Guidelines: INR less than 2.0, PTT less than OR equal to 43.5 seconds, or Fibrinogen greater than or equal to 100 mg/dl indicate adequate procoagulant activity for hemostasis in patients without underlying bleeding disorders. International Normalization Ratio 0.9 0.9 - 1.1 [facility] Blood specimen (specimen) 04/24/2013 1:07 PM EST 04/24/2013 1:12 PM EST Narrative Resulting Agency Comment Spec In Lab Vern Rankin MD HEMATOLOGY ORDERABLE S [facility] * (ABNORMAL) Basic Metabolic Panel (non-fasting) (04/24/2013 1:07 PM EST) Glucose 90 60 - 199 mg/dL [facility] Comment:Diabetes: >=200 mg/d L plus symptoms Blood Urea Nitrogen 16 8 - 18 mg/dL [facility] Creatinine 0.67(L) 0.70 - 1.20 mg/dL [facility] Comment: Please note that the pediatric reference intervals supplied above were not validated at [facility]. Results from pediatric patients [...] 104 98 - 107 mmol/L [facility] Carbon Dioxide 26 22 - 31 mmol/L [facility] Anion Gap 11 5 - 15 mmol/L [facility] Calcium 9.1 8.5 - 10.5 mg/dL [facility] Est [...] CBC (with Diff) (04/24/2013 1:07 PM EST) White Blood Cell 6.0 4.0 - 10.0 x10(3)/mc L [facility] Red Blood Cell 4.06 3.93 - 5.22 x10(6)/mc L [facility] Hemoglobin 13.6 11.2 - 15.7 gm/dL [facility] Hematocrit 39.5 34.0 - 45.0 % [facility] Mean Cell Volume 97.3(H) 79.0 - 94.0 fL [facility] Mean Cell Hemoglobin 33.5(H) 26.6 - 32.2 pg [facility]NI[facility] Mean Cell Hemoglobin Concentration 34.4 32.0 - 36.5 gm/dL [facility] Platelet 250 145 - 370 x10(3)/mc L [facility] RDW Standard Deviation 41.7 35.0 - 46.0 fL [facility] RDW coefficient of variation 11.7 10.9 - 14.4 % [facility] Mean Platelet Volume 9.9 9.0 - 12.0 fL [facility] Blood specimen (specimen) 04/24/2013 1:07 PM EST 04/24/2013 1:12 PM EST Narrative Resulting Agency Comment Spec In Lab Vern Rankin MD HEMATOLOGY ORDERABLE S [facility] documented in this encounter Visit Diagnoses Diagnosis History of femur fracture- Primary Personal history of traumatic fracture History of femur fracture Personal history of traumatic fracture documented in this encounter Care Teams Fiber Designer Relationship Specialty Start Date End Date Antonia De La Vega MD [address] [place] [address] PCP - General 03/20/12 04/02/19 documented as of this encounter
--- OUTSIDE RECORDS SUMMARY | 2024-01-01 19:54 | XMS_ITS | Encounter Summary ---
Author Organization [facility] [place] [address] Care Team Providers Care Residential Insurance Inspector Name Role Phone Antonia De La Vega MD Primary Care Provider [phone] Reason for Visit * Reason Comments Right Leg Pain case req 04/27/13 ri ght femur bell Encounter Details Date Type Department Care Team (Late st Contact Info) Description 04/24/2013 1:10 PM EST Office Visit [place] [address] Vern Rankin MD [facility] [place] [address] Femur fracture, right, closed, with routine healing, [...] of this 30-minute encounter was spent on [id number] counseling regarding the patient's diagnosis, its etiology, [...] History of femur fracture BASIC METABOLIC PANEL Routine 04/24/2013 1:07 PM EST History of femur fracture documented in this encounter Results * Differential, Automated (04/24/2013 1:07 PM EST) Neutrophil % 55.5 34.0 - 71.0 % CERNER MILLENNIUM Neutrophil Absolute 3.35 1.50 - 6.30 x10(3)/mcL CERNER MILLENNIUM Lymph % 30.6 19.0 - 53.0 % CERNER MILLENNIUM Lymphocytes Abs 1.8 1.0 - 3.6 x10(3)/mcL CERNER MILLENNIUM Monocyte % 8.1 4.0 - 13.0 % CERNER MILLENNIUM Monocyte Abs 0.5 0.2 - 1.0 x10(3)/mcL CERNER MILLENNIUM Eos % 5.5 0.0 - 7.0 % CERNER MILLENNIUM Eosinophils Abs 0.3 0.0 - 0.5 x10(3)/mcL CERNER MILLENNIUM Basophil % 0.3 0.0 - 2.0 % CERNER MILLENNIUM Baso Absolute 0.0 0.0 - 0.2 x10(3)/mcL CERNER MILLENNIUM Immature Gran % 0.00 0.00 - 0.66 % CERNER MILLENNIUM Comment: Immature granulocytes(IG's)percentage and absolute count will include metamyelocytes, myelocytes, and promyelocytes. Blood smears from CBCs yielding IG's will be scanned manually for concordance. If this scan disagrees with the automated IG or if promyelocytes are noted, a manual differential will be performed. Immature Gran Absolute 0.00 0.00 - 0.05 x10(3)/mcL CERNER MILLENNIUM Blood specimen (specimen) 04/24/2013 1:07 PM EST 04/24/2013 1:12 PM EST Vern Rankin MD HEMATOLOGY ORDERABLE S [facility] MARIA FERNANDA * Hemoglobin A1c (04/24/2013 1:07 PM EST) Hemoglobin A1c 4.8 4.3 - 6.1 % CERNER MILLENNIUM Comment: The [place] [employer] (ADA) has stated that HbA1c [...] 2013:36;suppl 1:S11-S66. Estimated Average Glucose 91 mg/dL [facility] Comment: eAG equivalents for HbA1c percentages: HbA1c(%) [...] into estimated average glucose values. ??Diabetes Care 2008:31(8):0149-7772. Blood specimen (specimen) 04/24/2013 1:07 PM EST 04/24/2013 1:12 PM EST Narrative Resulting Agency Comment Spec In Lab Vern Rankin MD CHEMISTRY ORDERABLES [facility] * High Sensitivity CRP (04/24/2013 1:07 PM EST) C-Reactive Protein High Sensitivity 0.6 mg/L [facility] Comment: Interpretations: 1) For accurate cardiac risk [...] Rankin MD CHEMISTRY ORDERABLES Performing Organization Address [facility] de Phone Number [facility] [employer] * Sedimentation rate (04/24/2013 1:07 PM EST) Sedimentation Rate Automated 9 0 - 20 mm/hr [facility] Blood specimen (specimen) 04/24/2013 1:07 PM EST 04/24/2013 1:12 PM EST Narrative Resulting Agency Comment Spec In Lab Vern Rankin MD HEMATOLOGY ORDERABLE S Performing Organization Address [facility] Phone Number [facility] * APTT (04/24/2013 1:07 PM EST) Partial Thromboplastin Time 29 25 - 35 sec [facility] Comment: Recommended therapeutic PTT range for full dose unfractionated heparin is 80-114 seconds. Blood specimen (specimen) 04/24/2013 1:07 PM EST 04/24/2013 1:12 PM EST Narrative Resulting Agency Comment Spec In Lab Vern Rankin MD HEMATOLOGY ORDERABLE S Performing Organization Address [facility] Co de Phone Number [facility]ER[facility] * Prothrombin Time (04/24/2013 1:07 PM EST) Prothrombin Time 12.9 12.0 - 15.0 sec CERNER MILLENNIUM Comment: [facility] Transfusion Committee Guidelines: INR less than 2.0, [...] MD HEMATOLOGY ORDERABLE S Performing Organization Address [facility] de Phone Number CERJOSH SPICERENNIUM * (ABNORMAL) Basic Metabolic Panel (non-fasting) (04/24/2013 1:07 PM EST) Glucose 90 60 - 199 mg/dL CERNER MILLENNIUM Comment:Diabetes: >=200 mg/d L plus symptoms Blood Urea Nitrogen 16 8 - 18 mg/dL CERNER MILLENNIUM Creatinine 0.67(L) 0.70 - 1.20 mg/dL CERNER MILLENNIUM Comment: Please note that the pediatric reference intervals supplied above were [place] validated at [facility] Results from pediatric patients should be interpreted [...] fracture documented in this encounter Care Teams Residential Insurance Inspector Relationship Specialty Start Date End Date Antonia De La Vega MD [address] [place] [address] PCP - General 03/20/12 04/02/19 documented as of this encounter
--- OUTSIDE RECORDS SUMMARY | 2024-01-01 19:54 | XMS_ITS | Encounter Summary ---
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 Comment: [facility] Transfusion Committee Guidelines: INR less than 2.0, PTT less than OR equal to 43.5 seconds, or Fibrinogen greater than or equal to 100 mg/dl indicate adequate procoagulant activity for hemostasis in patients without underlying bleeding disorders. International Normalization Ratio 1.0 0.9 - 1.1 CERNER MILLENNIUM Blood specimen (specimen) 02/29/2012 5:25 PM EDT 02/29/2012 5:37 PM EDT Narrative Resulting Agency Comment Spec In Lab Sony Borden MD HEMATOLOGY ORDERABLE S Performing Organization Address [facility] Phone Number FRANS[facility] IRVING * (ABNORMAL) Basic Metabolic Panel (non-fasting) (02/29/2012 5:25 PM EDT) Glucose 114 60 - 199 mg/dL CERNER MILLENNIUM Comment:Diabetes: >=200 mg/d L plus symptoms Blood Urea Nitrogen 16 8 - 18 mg/dL CERNER MILLENNIUM Creatinine 0.60(L) 0.70 - 1.20 mg/dL CERNER MILLENNIUM Comment: Please note that the pediatric reference intervals supplied above were not validated at [facility]. Results from pediatric [...] 107 98 - 107 mmol/L CERNER MILLENNIUM Carbon Dioxide 26 22 - 31 mmol/L CERNER MILLENNIUM Anion Gap 8 5 - 15 mmol/L CERNER MILLENNIUM Calcium 8.3(L) 8.5 - 10.5 mg/dL CERNER MILLENNIUM Est Glomerular Filtration Rate >60 >=60 CERNER MILLENNIUM Comment: The National [...] Borden MD CHEMISTRY ORDERABLES Performing Organization Address City/[facility] Co de Phone Number CERNER MILLENNIUM * (ABNORMAL) CBC (with Diff) (02/29/2012 5:25 PM EDT) White Blood Cell 11.5(H) 4.0 - 10.0 x10(3)/mc L CERNER MILLENNIUM Red Blood Cell 3.84(L) 3.93 - 5.22 x10(6)/mc L CERNER MILLENNIUM Hemoglobin 12.9 11.2 - 15.7 gm/dL CERNER MILLENNIUM Hematocrit 38.0 34.0 - 45.0 % CERNER MILLENNIUM Mean Cell Volume 99.0(H) 79.0 - 94.0 fL CERNER MILLENNIUM Mean Cell Hemoglobin 33.6(H) 26.6 - 32.2 pg CERNER MILLENNIUM Mean Cell Hemoglobin Concentration 33.9 32.0 - 36.5 gm/dL CERNER MILLENNIUM Platelet 273 145 - 370 x10(3)/mc L CERNER MILLENNIUM RDW Standard Deviation 40.9 35.0 - 46.0 fL CERNER MILLENNIUM RDW coefficient of variation 11.5 10.9 - 14.4 % CERNER MILLENNIUM Mean Platelet Volume 9.8 9.0 - 12.0 fL CERNER MILLENNIUM Blood specimen (specimen) 02/29/2012 5:25 PM EDT 02/29/2012 5:36 PM EDT Narrative Resulting Agency Comment Spec In Lab Sony Borden MD HEMATOLOGY ORDERABLE S Performing Organization Address City/[facility]/ZIP Co de Phone Number FRANSICO IRVING documented [...] PM EDT 1 mg morphine 1 mg/mL BLENDING TANK TENDER 30 mL Intravenous, BLENDING TANK TENDER ONLY, Starting on Tue02/29/12 at 2245, Until [...] Pat Patel RN)2155 (Given - Provider: Vern Butt RN) 0257 (Given - Provider: Vern Butt RN)0645 (Given - Provider: Vern Butt RN)1131 (Given - Provider: Margie Tripp, ALINA)1451 [...] (1 g), Intravenous, ONCE, 1 dose, On 03/01/12 at 0730, Administer over 30 Minutes, To [...] Tract/Pyelonephritis 1451 (Given - Provider: Margie Tripp, ALINA) famotidine (PEPCID) tablet 20 mg (CANCELED)(Linked Group [...] Routine 1045 (Given - Provider: Xiomara Beltran, ALINA) senna-docusate (PERICOLACE) 8.6-50 mg per tablet [...] Storey, RN)2155 (Given - Provider: Vern Butt, RN) 0900 (Given - Provider: Margie Tripp, RN) sertraline (ZOLOFT) tablet 100 mg (CANCELED) 100 mg, Oral, DAILY, First dose on Tue03/01/12 at 0900, Until Discontinued, Routine 0718 (JUL Hold - Provider: Admin Adt - Reason: Transfer to a Procedural area)0900 (Automatically Held - Provider: Admin Adt)1344 (MAR Unhold - Provider: Admin Adt) 0900 (Given - Provider: Hien Storey, RN) 0919 (Given - Provider: Margie Tripp, RN) white petrolatum gel Topical, 2 TIMES DAILY, First dose on Tue03/02/12 at 2100, Until Discontinued, To labia 2022 (Given - Provider: Vern Butt, ALINA) 0919 (Given - Provider: Margie Tripp, ALINA) Continuous Medication Order 03/01/2012 03/02/2012 03/03/2012 morphine 1 mg/mL BLENDING TANK TENDER 30 mL (CANCELED) Intravenous, BLENDING TANK TENDER ONLY, Starting on Tue02/29/12 at 2245, Until Yaquelin 03/02/12 at 0656 0718 (JUL Hold - Provider: Admin Adt - Reason: Transfer to a Procedural area)1124 (MAR Unhold - Provider: Deo Davis RN)1126 (Restarted - Provider: Deo Davis, ALINA)2218 (New Syringe/Cartridge - Provider: Korina Rogers RN) 0748 (Stopped - Provider: Korina Rogers RN - Comment: verified SC 23 d/c) sodium chloride 0.9% infusion (CANCELED) 1,000 mL, at 100 mL/hr, Intravenous, CONTINUOUS, Starting on Tue02/29/12 at 2245, Until Yaquelin 03/02/12 at 0656 0718 (JUL Hold - Provider: Admin Adt - Reason: Transfer to a Procedural area)1124 (MAR Unhold - Provider: Deo Davis, ALINA)1128 (Restarted - Provider: Deo Davis, RN)2234 (New Bag - Provider: Korina Rogers RN) PRN Medication Order 03/01/2012 03/02/2012 03/03/2012 acetaminophen (TYLENOL) tablet 1,000 mg 1,000 mg, Oral, EVERY 6 HOURS PRN, Starting on Tue03/02/12 at 1028, Until Tue03/03/12 at 1853, Pain, [...] Patel, ALINA)2158 (Given - Provider: Vern Butt, RN)2354 (Given - Provider: Vern Butt RN) 0438 (Given - Provider: Vern Butt [...] Routine documented in this encounter Care Teams Grinder Set Up Operator Universal Relationship Specialty Start Date End Date Unknown None PCP - General 02/29/12 03/19/12 documented as of this encounter
--- OUTSIDE RECORDS SUMMARY | 2024-01-01 19:54 | XMS_ITS | Encounter Summary ---
Author Organization Formerly [facility], 1928–1983 Address [facility] [place] [address] Care Team Providers Care Certified Orthotic Fitter Name Role Phone Antonia De La Vega MD Primary Care Provider [phone] Reason for Visit * Reason Comments Right Leg Pain Encounter Details Date Type Department Care Team (Late st Contact Info) Description 08/01/2012 2:10 PM EDT Office [place] [phone] Vern Rankin MD [facility] [place] [address] Femur fracture, right (Primary Dx) Discharge Disposition: [...] femur documented in this encounter Care Teams Certified Orthotic Fitter Relationship Specialty Start Date End Date Antonia De La Vega MD [address] [place] [address] PCP - General 03/20/12 04/02/19 documented as of this encounter
--- OUTSIDE RECORDS SUMMARY | 2024-01-01 19:54 | XMS_ITS | Encounter Summary ---
Author Organization Formerly [facility] Address [facility] [place] [address] Care Team Providers Care Loader Magazine Grinder Name Role Phone Antonia De La Vega MD Primary Care Provider [phone] Encounter Details Date Type Department Care Team (Late st Contact Info) Description 04/11/2012 [place] [phone] Alysia Sethi APRN [facility] [place] [address] Social History Tobacco Use Types Packs/Day Years [...] on filedocumented in this encounter Care Teams Loader Magazine Grinder Relationship Specialty Start Date End Date Antonia De La Vega MD [address] [place] [address] PCP - General 03/20/12 04/02/19 documented as of this encounter
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
--- OUTSIDE RECORDS SUMMARY | 2024-01-01 19:54 | XMS_ITS | Encounter Summary ---
Author Organization Formerly [facility] Address One [facility] [place] [address] Care Team Providers Care Branner Machine Tender Name Role Phone Antonia De La Vega MD Primary Care Provider [phone] Encounter Details Date Type Department Care Team (Latest Contact Info) Description 03/21/2012 7:29 AM EST - 03/21/2012 11:59 PM [facility] Hospital Encounter XRay at [address] [place] [address] Right closed femur fx 02/29/12 Social History [...] femur documented in this encounter Care Teams Branner Machine Tender Relationship Specialty Start Date End Date Antonia De La Vega MD [address] [place] [address] PCP - General 03/20/12 04/02/19 documented as of this encounter
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
--- OUTSIDE RECORDS SUMMARY | 2024-01-01 19:54 | XMS_ITS | Encounter Summary ---
Author Organization [facility] Address [facility] [place] [address] Care Team Providers Care Engraving Press Operator Name Role Phone Antonia De La Vega MD Primary Care Provider [phone] Encounter Details Date Type Department Care Team (Late st Contact Info) Description 02/28/2013 Orders [place] [address] Vern Rankin MD [facility] [place] [address] Femur fracture, right Social History Tobacco Use [...] femur documented in this encounter Care Teams Engraving Press Operator Relationship Specialty Start Date End Date Antonia De La Vega MD [address] [place] [address] PCP - General 03/20/12 04/02/19 documented as of this encounter
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
--- OUTSIDE RECORDS SUMMARY | 2024-01-01 19:54 | XMS_ITS | Encounter Summary ---
Author Organization [facility] Address One [facility] [place] [address] Care Team Providers Care Class C Driver Name Role Phone Antonia De La Vega MD Primary Care Provider [phone] Encounter Details Date Type Department Care Team (Latest Contact Info) Description 06/20/2012 9:50 AM EST - 06/20/2012 11:59 PM [facility] Hospital Encounter XRay at [address] [place] [address] Right closed femur fx 02/29/12 Social History [...] femur documented in this encounter Care Teams Class C Driver Relationship Specialty Start Date End Date Antonia De La Vega MD [address] [place] [address] [address] [place] [address] PCP - General 03/20/12 04/02/19 documented as of this encounter
--- OUTSIDE RECORDS SUMMARY | 2024-01-01 19:54 | XMS_ITS | Encounter Summary ---
Author Organization [facility] Address One [facility] [place] [address] Care Team Providers Care Nursery School Teacher Name Role Phone Antonia De La Vega MD Primary Care Provider [phone] Encounter Details Date Type Department Care Team (Latest Contact Info) Description 02/28/2013 4:15 PM EDT - 02/28/2013 11:59 PM EDT Hospital Encounter XRay at [address] [place] [address] Femur fracture, right Social History Tobacco Use [...] femur documented in this encounter Care Teams Nursery School Teacher Relationship Specialty Start Date End Date Antonia De La Vega MD [address] [place] [address] PCP - General 03/20/12 04/02/19 documented as of this encounter
--- OUTSIDE RECORDS SUMMARY | 2024-01-01 19:54 | XMS_ITS | Encounter Summary ---
Author Organization [facility] Address One [facility] [place] [address] Care Team Providers Care Stack Matcher Name Role Phone Antonia De La Vega MD Primary Care Provider [phone] Encounter Details Date Type Department Care Team (Latest Contact Info) Description 08/01/2012 2:29 PM EDT - 08/01/2012 11:59 PM EDT Hospital Encounter XRay at [address] [place] [address] Right closed femur fx 02/29/12 Social History [...] femur documented in this encounter Care Teams Stack Matcher Relationship Specialty Start Date End Date Antonia De La Vega MD [address] [place] [address] PCP - General 03/20/12 04/02/19 documented as of this encounter
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
--- OUTSIDE RECORDS SUMMARY | 2024-01-01 19:54 | XMS_ITS | Encounter Summary ---
Author Organization [facility] Address [facility] [place] [address] Care Team Providers Care Oxygen Therapy Technician Name Role Phone Antonia De La Vega MD Primary Care Provider [phone] Encounter Details Date Type Department Care Team (Late st Contact Info) Description 02/01/2013 Ancillary Procedure [place] [address] Will Alfredo MD [facility] [place] [address] Social History Tobacco Use Types Packs/Day Years [...] CT Abdomen (02/01/2013 12:00 AM EDT) Narrative [facility] - 05/17/2019 12:00 PM EST This exam is auto-finalizing. It's purpose is for storage only. Will Alfredo MD IM FILM LIBRARY ORD ERABLES [place], [place] documented in this encounter Visit Diagnoses Not on filedocumented in this encounter Care Teams Oxygen Therapy Technician Relationship Specialty Start Date End Date Antonia De La Vega MD [address] [place] [address] PCP - General 03/20/12 04/02/19 documented as of this encounter
--- OUTSIDE RECORDS SUMMARY | 2024-01-01 19:54 | XMS_ITS | Encounter Summary ---
Author Organization [facility] Address [facility] [place] [address] Care Team Providers Care Kohinoor Operator Name Role Phone Antonia De La Vega MD Primary Care Provider [phone] Encounter Details Date Type Department Care Team (Late st Contact Info) Description 04/03/2013 Telephone [place] [address] Vern Rankin MD [facility] [place] [address] Social History Tobacco Use Types Packs/Day Years [...] at this time. Please call patient at [phone]. documented in this encounter Plan of Treatment Not on file documented as of this encounter Visit Diagnoses Not on filedocumented in this encounter Care Teams Kohinoor Operator Relationship Specialty Start Date End Date Antonia De La Vega MD [address] [place] [address] [address] [facility] 1 [place] [address] PCP - General 03/20/12 04/02/19 documented as of this encounter
--- OUTSIDE RECORDS SUMMARY | 2024-01-01 19:54 | XMS_ITS | Encounter Summary ---
Author Organization [facility]ly [facility] Address [facility] [place] [address] Care Team Providers Care Manager Aviation Name Role Phone Unknown Primary Care Provider Unavailabl e Encounter Details Date Type Department Care Team (Late st Contact Info) Description 03/01/2012 7:28 AM EDT Anesthesia Event [place] [phone] Jean Carlos Barragan MD [facility] [place] [address] Anesthesia Record Procedure Summary Procedure Name Responsible [...] SYNTHES SPLINT APPLICATION, SHORT ARM Patient location: [facility] Surgical Floor Post-op pain: Moderate pain in [...] consented to blood products. Plan discussed with DISCHARGE DOOR OPERATOR. Misc. Assessment: documented in this encounter Miscellaneous Notes * Addendum Note - Melissa Siegel - 03/02/2012 10:17 AM EDT Addendum created 03/02/12 1017 by Melissa Siegel Modules edited:Anesthesia Events, Anesthesia Responsible Staff documented in this encounter Plan of Treatment Not on file documented as of this encounter Visit Diagnoses Not on filedocumented in this encounter Care Teams Manager Aviation Relationship Specialty Start Date End Date Unknown None PCP - General 02/29/12 03/19/12 documented as of this encounter
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
--- OUTSIDE RECORDS SUMMARY | 2024-01-01 19:55 | XMS_ITS | Encounter Summary ---
Author Organization [facility] Address [address] [place] [address] Care Team Providers Care Sleeve Wheel Maker Name Role Phone Unavailable Primary Care Provider Unavailabl e Encounter Details Date Type Department Care Team (Late st Contact Info) Description 04/19/2006 Results Only [facility] - Maple conversion [address] [place] [address] Laura Song CNM [address] [place], [place] [id number] Social History Tobacco Use Types Packs/Day Years [...] ? GIULIA MATTHEWS ? Accession #: ? [id number] : ? 1985 (Age: 20) ??F ?Collect Date: ? 04/19/2006 Location: ? [facility] ? Receive Date: ? 04/20/2006 Provider: ?LAURA SONG CNM Copy to: ? Specimen/Source: ?ThinPrep Pap Test, Cervix/Endocervix, processed on [employer] ThinPrep Imaging System, with manual evaluation Last [...] electronically signed by: ? JODIE PARKER MD [facility] ? Report Date: ??04/28/2006 11:13 End of Report [facility] 04/19/2006 04/20/2006 Laura Song CNM PATHOLOGY ORDERABLES [facility] [address] [place] [address] documented in this encounter Visit Diagnoses Not on filedocumented in this encounter
--- OUTSIDE RECORDS SUMMARY | 2024-01-01 19:55 | XMS_ITS | Encounter Summary ---
Author Organization [facility] Address [address] [place] [address] Care Team Providers Care Blood Bank Technologist Name Role Phone Unavailable Primary Care Provider Unavailabl e Encounter Details Date Type Department Care Team (Late st Contact Info) Description 10/03/2003 Results Only [facility] - Maple conversion [address] [place] [address] Dede Burgos, [place], [place] [address] Social History Tobacco Use Types Packs/Day Years [...] ? GIULIA MATTHEWS ? Accession #: ? [id number] : ? 1985 (Age: 18) ??F ?Collect [...] Burgos CNM PATHOLOGY ORDERABLES Performing Organization Address City/State/[facility] Co de Phone Number R[facility]HEL SANTIAG[facility] [address] [place] [address] documented in this encounter Visit Diagnoses Not on filedocumented in this encounter
--- OUTSIDE RECORDS SUMMARY | 2024-01-01 19:55 | XMS_ITS | Encounter Summary ---
Author Organization [facility] Address [address] [place] [address] Care Team Providers Care Silk Examiner Name Role Phone Kourtney Lam MD Primary Care Provider [phone] Encounter Details Date Type Department Care Team (Late st Contact Info) Description 02/27/2021 Lab Requisition [facility] [place] Pathology & Laboratory Medicine - [facility] [address] [place] [address] Outr Resulting Lab, Provider Social History Tobacco [...] Outr Resulting Lab MICROBIOLOGY - GENERAL ORDERABLES [facility] [address] [place] [address] * COVID-19 TESTING (02/27/2021 10:00 EDT) COVID-19 rt-PCR Result Negative Negative 02/28/2021 15:26 EDT [facility] Comment: This test has not [...] developed and its performance characteristics determined by [facility]. It has not been cleared or approved [...] testing. This test is based on the [facility] COVID-19 Emergency Use Authorization (EUA) assay, with minor modification as defined by the FDA Performed on the [employer] 7 Flex RT-PCR System. Performing Lab [facility] Lab 02/28/2021 15:26 EDT [facility] Swab 02/27/2021 10:0 0 EDT 02/27/2021 21:31 EDT Provider Outr Resulting Lab MICROBIOLOGY - GENERAL ORDERABLES [facility] [address] [place] [address] documented in this encounter Visit Diagnoses Not on filedocumented in this encounter Care Teams Silk Examiner Relationship Specialty Start Date End Date Kourtney Lam MD [address] [place] [address] PCP - General 09/02/14 documented as of this encounter
--- OUTSIDE RECORDS SUMMARY | 2024-01-01 19:55 | XMS_ITS | Clinical Summary ---
Author Organization [facility] Address [address] [place] [address] Care Team Providers Care Cryogenics Engineer Name Role Phone Kourtney Lam MD Primary Care Provider [phone] Social History Tobacco Use Types Packs/Day Years [...] GA S ORDERABLES [facility] [address] [place] [address] from Last 3 Months or Most Recently Relevant to Health Maintenance Care Teams Cryogenics Engineer Relationship Specialty Start Date End Date Kourtney Lam MD [address] [place] [address] PCP - General 09/02/14
--- OUTSIDE RECORDS SUMMARY | 2024-01-01 19:55 | XMS_ITS | Encounter Summary ---
Author Organization [facility] Address [address] [place] [address] Care Team Providers Care Commercial Sales Specialist Name Role Phone Kourtney Lam MD Primary Care Provider [phone] Encounter Details Date Type Department Care Team (Late st Contact Info) Description 04/25/2019 Lab Requisition [facility] Pathology & Laboratory Medicine - [facility] [address] [place] [address] Мария Greene MD [address] [place] [address] [place], [place] [address] Encounter for other general examination Social History [...] for malignancy. 04/30/2019 13:05 EST [facility] at 1305 Clinical History Prior left breast DCIS. Right sided breast mass suspicious on mammogram and ultrasound. 04/30/2019 13:05 EST [facility] Attestation There was significant resident/fellow involvement in the diagnostic evaluation of this case. By the signature below, the attending physician certifies that they have personally conducted a gross and/or microscopic examination of the described specimens and rendered or confirmed the above diagnosis. 04/30/2019 13:05 [facility] at 1305 Gross Description A. [...] posterior Blue- superior Green- inferior Red- medial Wetzel- lateral BLOCK MAGALLON A1-A2- level 1, superior [...] Jhon Rubio MD 04/26/2019 15:41 04/30/2019 13:05 [facility] Resident/Rob w: Jhon Rubio MD 04/30/2019 13:05 EST [facility] Scanned Images 04/30/2019 13:05 EST [facility] Tissue ENTIRE RIGHT BREAST / Unknown 04/25/2019 7:55 EST 04/25/2019 17:08 EST Мраия Greene MD PATHOLOGY ORDERA GALEN [facility] [address] [place] [address] documented in this encounter Visit Diagnoses Diagnosis Encounter for other general examination documented in this encounter Care Teams Commercial Sales Specialist Relationship Specialty Start Date End Date Kourtney Lam MD [address] [place], [place] [id number] PCP - General 09/02/14 documented as of this encounter
--- OUTSIDE RECORDS SUMMARY | 2024-01-01 19:55 | XMS_ITS | Encounter Summary ---
Author Organization [facility] Address [address] [place] [address] Care Team Providers Care Duster Tender Name Role Phone Unavailable Primary Care Provider Unavailabl e Encounter Details Date Type Department Care Team (Late st Contact Info) Description 03/26/2008 8:44 EST - 03/26/2008 11:59 EST Hospital Encounter [facility] - Other [address] [place] [address] Eliu Burrows MD [address] [place], [place] [address] Jonathan Chavez MD [facility] [address] [place] [address] Discharge Disposition: Home or Self Care Social [...] MICROBIOLOGY - GENERAL ORDERABLES Performing Organization Address [facility] Co de Phone Number [facility] [address] [place] [address] * (ABNORMAL) URINALYSIS, CHEMICAL (03/26/2008 19:20 EST) Color, UA Specimen unsuitable for analysis. [facility] Clarity, UA Specimen unsuitable for analysis. [facility] Glucose, UA Specimen unsuitable for analysis.(A) NORM [facility] Bilirubin, UA Specimen unsuitable for analysis.(A) NEG [facility] Ketones, UA Specimen unsuitable for analysis.(A) NEG [facility] Specific [place], Urine Specimen unsuitable for analysis. 1.005 - [...] MD URINALYSIS ORD ERABLES Performing Organization Address [facility]/ZIP Co de Phone Number [facility] [address] [place] [address] documented in this encounter Visit Diagnoses Not on filedocumented in this encounter
--- OUTSIDE RECORDS SUMMARY | 2024-01-01 19:55 | XMS_ITS | Encounter Summary ---
Author Organization [facility] Address [address] [place] [address] Care Team Providers Care Surgical Appliances Salesperson Name Role Phone Unavailable Primary Care Provider Unavailabl e Encounter Details Date Type Department Care Team (Late st Contact Info) Description 12/27/2007 Before PRISM Converted Visit (Maple) [facility] - Maple conversion [address] [place] [address] Cedrick Wall PA Social History Tobacco Use [...] ? MATTHEWS, GIULIA ? Accession #: ? [id number] ? : ? 1985 (Age: 22) ??F [...] Cedrick BRICEÑO PATHOLOGY ORDERABLES [facility] [address] [place] [address] documented in this encounter Visit Diagnoses Not on filedocumented in this encounter
--- OUTSIDE RECORDS SUMMARY | 2024-01-01 19:55 | XMS_ITS | Encounter Summary ---
Author Organization [facility] Address [address] [place] [address] Care Team Providers Care Weir Fisherman Name Role Phone Kourtney Lam MD Primary Care Provider [phone] Encounter Details Date Type Department Care Team (Late st Contact Info) Description 10/05/2019 Lab Requisition [facility] Pathology & Laboratory Medicine - [facility] [address] [place] [address] Kourtney Lam MD [facility] [address] [place] [address] Encounter for other general examination [...] types, PCR Negative Negative 10/11/2019 15:04 EDT [facility] Comment:No E6 or E7 mRNA is detected from HPV types 16,18,31,33,35,39,45,51,52,56,58,59,66, and 68 by oracle database analyst mediated amplification. Papanicolaou smear specimen (specimen) CERVIX UTERI STRUCTURE / Unknown 10/03/2019 10:30 EDT 10/09/2019 15:22 EDT Kourtney Lam MD MICROBIOLOGY - GENE [facility] ORDERABLES [facility] [address] [place] [address] * PAP TEST (10/03/2019 10:30 EDT) Specimens A. Cervix and/or Endocervix , ThinPrep Imaging System with Manual Evaluation 10/11/2019 15:04 EDT [facility] Specimen Adequacy Satisfactory for Evaluation - transformation zone component present 10/11/2019 15:04 EDT [facility] General Categorization Negative for intraepithelial lesion or malignancy 10/11/2019 15:04 T [facility] Descriptive Diagnosis Trichomonas vaginalis present. Shift in keira present suggestive of bacterial vaginosis. 10/11/2019 15:04 T [facility] Attestation . 10/11/2019 15:04 T [facility] at 1504 Clinical History NONE 10/11/19 20 15:04 EDT [facility] HPV The result for the Human Papillomavirus (HPV) Detection-High Risk Types is Negative. No E6 or E7 mRNA is detected from HPV types 16,18,31,33,35,39 ,45,51,52,56,58,5 9,66, and 68 by oracle database analyst mediated amplification.Danielle ting was performed on specimen [id number] and was resulted on 10/11/2019 1447 EDT by JANAK, LAB INSTRUMENT RESULTS IN 10/11/2019 15:04 EDT [facility] Scanned Images 10/11/2019 15:04 EDT [facility] Papanicolaou smear specimen (specimen) CERVIX UTERI STRUCTURE / Unknown 10/03/2019 10:30 EDT 10/05/2019 11:15 EDT Kourtney Lam MD PATHOLOGY ORDERABLE S [facility] [address] [place] [address] documented in this encounter Visit Diagnoses Diagnosis Encounter for other general examination documented in this encounter Care Teams Weir Fisherman Relationship Specialty Start Date End Date Kourtney Lam MD [address] [place], [place] [id number] PCP - General 09/02/14 documented as of this encounter
--- OUTSIDE RECORDS SUMMARY | 2024-01-01 19:55 | XMS_ITS | Encounter Summary ---
Author Organization [facility] Address [address] [place] [address] Care Team Providers Care Shot Man Name Role Phone Kourtney Lam MD Primary Care Provider [phone] Encounter Details Date Type Department Care Team (Late st Contact Info) Description 04/29/2023 Lab Requisition [facility] Pathology & Laboratory Medicine - [facility] [address] [place] [address] Outr Resulting Lab, Provider Social History Tobacco [...] Lyme Ab Negative Negative 05/02/2023 11:33 EST [facility] Blood VENOUS BLOOD / Unknown 04/29/2023 9:10 EST 04/29/2023 21:41 EST Provider Outr Resulting Lab IMMUNOLOGY A ND SEROLOGY ORDERABLES [facility] [address] [place] [address] documented in this encounter Visit Diagnoses Not on filedocumented in this encounter Care Teams Shot Man Relationship Specialty Start Date End Date Kourtney Lam MD [address] [place] [address] PCP - General 09/02/14 documented as of this encounter
--- OUTSIDE RECORDS SUMMARY | 2024-01-01 19:55 | XMS_ITS | Encounter Summary ---
Author Organization [facility] Address [address] [place] [address] Care Team Providers Care Cellular Plastics Cutter Name Role Phone Unavailable Primary Care Provider Unavailabl e Encounter Details Date Type Department Care Team (Late st Contact Info) Description 12/21/2010 Results Only [facility] Laboratory Services - [facility] [address] [place], [place] [address] Javier Barton MD [address] [place] [id number] Social History Tobacco Use Types Packs/Day Years [...] ? HAND, GIULIA ? Accession #: ? [id number] ? : ? 1985 (Age: 25) ??F [...] or the smaller tissue are patel-pink. ??A car sales representative section of tissue is submitted as (A). ? Received in formalin labelled Hand, Giulia B and left tonsil is a pink-patel ovoid tissue measuring 3.0 x 1.6 x 1.3 cm. ??The mucosal surface is pink-patel and cryptic. ??The cut surface is pink-patel with no discrete nodules present. ??A ? car sales representative section is submitted in (B). ??(Dr. Peguero)/[facility] ? End of Report ? [facility] 12/21/2010 12/21/2010 20: 55 EDT Javier Barton MD PATHOLOGY ORDERABLES Performing Organization Address City/State/[place] Co de Phone Number [address] [address] documented in this encounter Visit Diagnoses Not on filedocumented in this encounter
--- OUTSIDE RECORDS SUMMARY | 2024-01-01 19:55 | XMS_ITS | Encounter Summary ---
Author Organization [facility] Address [facility] [place] [address] Care Team Providers Care Jewelry Mold Maker Name Role Phone Unknown Primary Care Provider Unavailabl e Encounter Details Date Type Department Care Team (Late st Contact Info) Description 02/29/2012 Orders [place] [address] Rodo Ruffin MD [facility] [place] [address] Social History Tobacco Use Types Packs/Day Years [...] on filedocumented in this encounter Care Teams Jewelry Mold Maker Relationship Specialty Start Date End Date Unknown None PCP - General 02/29/12 03/19/12 documented as of this encounter
--- OUTSIDE RECORDS SUMMARY | 2024-01-01 19:55 | XMS_ITS | Encounter Summary ---
Author Organization [facility] Address [address] [place] [address] Care Team Providers Care Parts Classifier Name Role Phone Kourtney Lam MD Primary Care Provider [phone] Encounter Details Date Type Department Care Team (Late st Contact Info) Description 07/29/2022 Lab Requisition [facility] Pathology & Laboratory Medicine - [address] [address] Outr Resulting Lab, Provider Social History Tobacco [...] 2.8 - 5.3 pg/mL 07/29/2022 22:02 EDT [facility] Blood VENOUS BLOOD / Unknown 07/29/2022 13:15 EDT 07/29/2022 21:20 EDT Provider Outr Resulting Lab CHEMISTRY & BLOOD GAS ORDERABLES Performing Organization Address [facility] Co de Phone Number [facility] [address] [place] [address] * HOMOCYSTEINE (07/29/2022 13:15 EDT) Homocysteine 8.0 5.0 - 13.9 umol/L 07/30/2022 8:00 EDT [facility] Blood VENOUS BLOOD / Unknown 07/29/2022 13:15 EDT 07/29/2022 21:20 EDT Narrative [facility] - 07/30/2022 8:00 EDT Reference [...] & BLOOD GAS ORDERABLES Performing Organization Address [facility] Co de Phone Number [facility] [address] [place] [address] documented in this encounter Visit Diagnoses Not on filedocumented in this encounter Care Teams Parts Classifier Relationship Specialty Start Date End Date Kourtney Lam MD [address] [place] [address] PCP - General 09/02/14 documented as of this encounter
--- OUTSIDE RECORDS SUMMARY | 2024-01-01 19:55 | XMS_ITS | Encounter Summary ---
Author Organization [facility] Address [address] [place] [address] Care Team Providers Care Sagger Soak Name Role Phone Rohan Soliz MD Primary Care Provider Unavail able Encounter Details Date Type Department Care Team (Late st Contact Info) Description 08/29/2014 Results Only [facility] [phone] Yadi Mireles MD [address] [place] [address],[facility] [place], [place] [id number] Social History Tobacco Use Types Packs/Day Years [...] ? GIULIA AVILES ? Accession #: ? [id number] ? : ? 1985 (Age: 29) ??F [...] cyst attached to the longer fallopian tube. ??Chair Finisher sections of the shorter tube are submitted in 1 and the longer tube with paratubal cyst in 2. Lorena Aceves 08/30/2014 1:[address] [facility] 08/29/2014 20:2 1 EDT 08/29/2014 20:21 EDT Yadi Mireles MD PATHOLOGY ORDERABLES [facility] [address] [place] [address] documented in this encounter Visit Diagnoses Not on filedocumented in this encounter Care Teams Sagger Soak Relationship Specialty Start Date End Date Rohan Soliz MD PCP - General 12/24/10 09/01/14 documented as of this encounter
--- OUTSIDE RECORDS SUMMARY | 2024-01-01 19:55 | XMS_ITS | Encounter Summary ---
Author Organization [facility] Address [address] [place] [address] Care Team Providers Care Railroad Detective Name Role Phone Unavailable Primary Care Provider Unavailabl e Encounter Details Date Type Department Care Team (Latest Contact Info) Description 03/21/2008 3:00 EST - 03/21/2008 11:59 EST Hospital Encounter [facility] - Other [address] [place] [address] Eliu Burrows MD [address] [place], [place] [id number] Discharge Disposition: Home or Self Care Social [...] Hepatitis C Ab Negative Reference Range: ??Negative [facility] 03/21/2008 13:3 5 EST 03/21/2008 16:06 EST Eliu Mckeon MD CHEMISTRY & BLOOD GA S ORDERABLES Performing Organization Address [facility] Phone Number [facility] [address] [place] [address] * HEPATITIS B SURFACE ANTIBODY (03/21/2008 13:35 EST) Hepatitis B Surface Ab Positive Reference Range: ??Negative Interpretati on depends on clinical setting. [facility] 03/21/2008 13:3 5 EST 03/21/2008 16:06 EST Eliu Mckeon MD CHEMISTRY & BLOOD GA S ORDERABLES Performing Organization Address [facility] Phone Number [facility] [address] [place] [address] * HIV ANTIBODY (03/21/2008 13:35 EST) HIV 1/2 Antibody Negative Reference Range: ??Negative [facility] 03/21/2008 13:3 5 EST 03/21/2008 16:06 EST Eliu Mkceon MD IMMUNOLOGY AND SEROL OGY ORDERABLES Performing Organization Address [facility] de Phone Number [facility] [address] [place] [address] * HEPATITS B SURFACE ANTIGEN (03/21/2008 13:35 EST) Hepatitis B Surface Ag Negative Reference Range: ??Negative [facility] 03/21/2008 13:3 5 EST 03/21/2008 16:06 EST Eliu Mckeon MD CHEMISTRY & BLOOD GA S ORDERABLES Performing Organization Address City/[facility]/ZIP Co de Phone Number [facility] [address] [place] [address] * (ABNORMAL) HEMAGRAM AND DIFFERENTIAL (03/21/2008 13:35 [...] DNA PROBE ORDERABLES [facility] [address] [place] [address] * (ABNORMAL) COMPREHENSIVE METABOLIC PANEL (03/21/2008 13:35 [...] Total Protein 7.5 6.5 - 8.3 g/dl [facility] Creatinine 0.72 0.7 - 1.5 [...] GA S ORDERABLES [facility] [address] [place] [address] documented in this encounter Visit Diagnoses Not on filedocumented in this encounter
--- OUTSIDE RECORDS SUMMARY | 2024-01-01 19:55 | XMS_ITS | Encounter Summary ---
Author Organization [facility] Address [address] [place] [address] Care Team Providers Care Atomic Fuel Assembler Name Role Phone Unavailable Primary Care Provider Unavailabl e Encounter Details Date Type Department Care Team (Late st Contact Info) Description 05/01/2002 Results Only [facility] - [facility] [address] [place] [address] Dary Fritz, [facility] [address] [place] [address] [place] [address] Social History Tobacco Use Types [...] cancers. [facility] Report Status Final [id number] [facility] 05/01/2002 8:38 EST 05/04/2002 8:38 EST Dary Fritz LPN CARE MANAGER MICROBIOLOGY - GENER AL ORDERABLES [facility] [address] [place] [address] * CYTOPATHOLOGY (05/01/2002 0:00 EST) Pathology Report: CYTOPATHOLOGY REPORT Reports generated via electronic interface contain original data; however they are lacking the format of the original report. Caution should be taken when reading/interpreti ng unformatted reports. Name: ? MATTHEWS, GIULIA ? Accession #: ? [id number] : ? 1985 (Age: 16) ??F ?Collect Date: ? 05/01/2002 Location: ? [facility] ? Receive Date: ? 05/03/2002 Provider: ?DARY FRITZ LPN CARE MANAGER Copy to: ? Specimen/Source: ?ThinPrep Pap Test, [...] [facility] 05/01/2002 05/03/2002 Dary Fritz LPN CARE MANAGER PATHOLOGY ORDERABLES Performing Organization Address City/State/[facility] Co de Phone Number [facility] [address] [place] [address] documented in this encounter Visit Diagnoses Not on filedocumented in this encounter
--- OUTSIDE RECORDS SUMMARY | 2024-01-01 19:55 | XMS_ITS | Encounter Summary ---
Author Organization [facility] Address [facility] [place] [address] Care Team Providers Care Mastic Man Name Role Phone Unknown Primary Care Provider Unavailabl e Encounter Details Date Type Department Care Team (Late st Contact Info) Description 02/29/2012 Orders Only [place] [address] Rodo Ruffin MD [facility] [place] [address] Social History Tobacco Use Types Packs/Day Years [...] on filedocumented in this encounter Care Teams Mastic Man Relationship Specialty Start Date End Date Unknown None PCP - General 02/29/12 03/19/12 documented as of this encounter
--- OUTSIDE RECORDS SUMMARY | 2024-01-01 19:55 | XMS_ITS | Encounter Summary ---
Author Organization [facility] Address [address] [place] [address] Care Team Providers Care Lead Recreation Assistant Name Role Phone Rohan Soliz MD Primary Care Provider Unavail able Encounter Details Date Type Department Care Team (Late st Contact Info) Description 03/06/2014 Results Only [facility] [phone] Jaycee Dawkins, [facility] [address] [place] [id number] Social History Tobacco Use Types Packs/Day Years [...] Name: ? TRACIGIULIA ? Accession #: ? [id number] ? : ? 1985 (Age: 28) ??F ? Collect Date: ? 03/06/2014 ? Location: ? [facility] ? Receive Date: ? 03/07/2014 ? Provider: JAYCEE DAWKINS [facility] Copy to: GRIFFIN TRIANA MD ? Final [...] no nodules or discrete lesions identified. ? Plate Grainer Apprentice sections are submitted as follows: BLOCK MAGALLON 1- ?? membrane rolls and umbilical cord 2-3- ??full thickness placental disc Dr. Booker 03/07/2014 11:41 AM End of Report [facility] 03/06/2014 9:11 EDT 03/07/2014 9:11 EDT Jaycee Dawkins CNM PATHOLOGY [place] [address] documented in this encounter Visit Diagnoses Not on filedocumented in this encounter Care Teams Lead Recreation Assistant Relationship Specialty Start Date End Date Rohan Soliz MD PCP - General 12/24/10 09/01/14 documented as of this encounter
--- OUTSIDE RECORDS SUMMARY | 2024-01-01 19:55 | XMS_ITS | Encounter Summary ---
Author Organization [facility] Address [address] [place] [address] Care Team Providers Care Fence Supervisor Name Role Phone Kourtney Lam MD Primary Care Provider Encounter Details Date Type Department Care Team (Late st Contact Info) Description 02/08/2015 9:07 EDT - 02/08/2015 23:59 EDT Hospital Encounter [place] [address] [place] [address] Key Herrera, JANNIE [address] [facility], [address] [place] [id number] Discharge Disposition: Home or Self Care Social [...] Code Departure Means Destination Home or Self Correction documented in this encounter Plan of Treatment [...] CFU/ml Usual urogenital keira. 02/09/2015 12:32 EDT [facility] URINE / Unknown 02/08/2015 9 :20 EDT 02/08/2015 11:30 EDT Key Herrera NP MICROBIOLOGY - GENER AL ORDERABLES Performing Organization Address City/State/[facility] Co de Phone Number [facility] [address] [place] [address] * COMPREHENSIVE METABOLIC PANEL (CMP) (02/08/2015 9:20 EDT) Potassium 4.3 3.5 - 5.0 mEq/L 02/08/2015 11:40 [facility] Sodium 136 136 - 145 mEq/L 02/08/2015 11:40 [facility] Chloride 100 96 - 110 mEq/L 02/08/2015 11:40 [facility] CO2 27 24 - 32 mEq/L 02/08/2015 11:40 [facility] Total Alkaline Phosphatase 64 38 - 126 U/L 02/08/2015 11:40 [facility] Bilirubin, Total 0.5 <1.4 mg/dl 02/09/20 15 11:40 [facility] AST 18 15 - 46 U/L 02/08/2015 11:40 [facility] ALT 21 <53 U/L 02/08/2015 11:40 [facility] Albumin 4.0 3.4 - 4.9 g/dl 02/08/2015 11:40 [facility] Total Protein 6.6 6.3 - 8.2 g/dl 02/08/2015 11:40 [facility] Creatinine 0.71 0.52 - 1.04 mg/dl 02/08/2015 11:40 [facility] GFR, Calculated 114 >60 ml/min/1.7 3m2 02/08/2015 11:40 [facility] Comment: eGFR calculated using CKD-EPI equation for non Americans. Multiply eGFR by 1.16 for Americans. BUN 14 10 - 26 mg/dl 02/08/2015 11:40 T [facility] Calcium 9.5 8.5 - 10.5 mg/dl 02/08/2015 11:40 [facility] Calculated Calcium 9.9 8.5 - 10.5 mg/dl 02/08/2015 11:40 [facility] Glucose, Serum 96 70 - 100 mg/dl 02/08/2015 11:40 [facility] Fasting? No 02/08/2015 9:14 [facility] BLOOD SPECIMEN / Unknown 02/08/2015 9:20 EDT 02/08/2015 11:07 EDT Key Herrera NP CHEMISTRY & BLOOD GA S ORDERABLES [facility] [address] [place] [address] * CHLAMYDIA/GC AMPLIFIED, URINE (02/08/2015 9:19 EDT) Chlamydia Result No Chlamydia trachomatis DNA detected by salvage cutter mediated amplification. 02/10/2015 15:06 [facility] Comment: A first catch urine specimen is acceptable for detection of Gonorrhea and Chlamydia, but might detect up to 10% fewer infections when compared with vaginal and endocervical swab samples. GC Result No Neisseria gonorrhoeae DNA detected by salvage cutter mediated amplification. 02/10/2015 15:06 [facility] Comment: A first catch urine specimen is acceptable for detection of Gonorrhea and Chlamydia, but might detect up to 10% fewer infections when compared with vaginal and endocervical swab samples. URINE / Unknown 02/08/2015 9 :19 EDT 02/08/2015 11:24 EDT Key Javier CERTIFIED PHARMACY TECH MICROBIOLOGY - GENER AL ORDERABLES Performing Organization Address City/[facility] Co de Phone Number [facility] [address] [place] [address] * CHLAMYDIA/GC AMPLIFIED, URINE (02/08/2015 9:19 EDT) Chlamydia Result Duplicate Test Request 02/11/2015 9:46 EDT [facility] Comment:Credit Issued GC Result Duplicate Test Request 02/11/2015 9:46 EDT [facility] Comment:Credit Issued URINE / Unknown 02/08/2015 9 :19 EDT 02/08/2015 11:14 EDT Key Herrera CERTIFIED PHARMACY TECH MICROBIOLOGY - GENER AL ORDERABLES Performing Organization Address [facility] de Phone Number [facility] [address] [place] [address] * (ABNORMAL) UA WITH MICROSCOPIC (02/08/2015 9:19 EDT) Color, UA Yellow 02/08/2015 11:48 T [facility] Clarity, UA Clear 02/08/2015 11:48 T [facility] Glucose, UA Neg Neg 02/08/2015 11:48 T [facility] Bilirubin, UA Neg Neg 02/08/2015 11:48 T [facility] Ketones, UA Neg Neg 02/08/2015 11:48 T [facility] Specific [place], Urine 1.010 1.001 - 1.035 02/08/2015 11:48 T [facility] Blood, UA Neg Neg 02/08/2015 11:48 T [facility] pH, UA 8.0 4.6 - 8.0 02/08/2015 11:48 EDT [facility] Protein, UA Neg Neg 02/08/2015 11:48 T [facility] Urobilinogen, UA 0.2 0.2 - 1.0 E.U./dl 02/08/2015 11:48 EDT [facility] Nitrite, UA Neg Neg 02/08/2015 11:48 EDT [facility] Leuk Esterase 1+(A) Neg 02/08/2015 11:48 EDT [facility] WBC, UA 1 to 5 0 - 5 /HPF 02/08/2015 11:48 EDT [facility] RBC, UA 1 to 5 0 - 5 /HPF 02/08/2015 11:48 EDT [facility] Squam Epithel, UA Few(A) None seen /HPF 02/08/2015 11:48 EDT [facility] Renal Epithel, UA None seen None seen /HPF 02/08/2015 11:48 EDT [facility] Bacteria, UA None seen None seen /HPF 02/08/2015 11:48 EDT [facility] Crystals, UA None seen /HPF 02/08/2015 11:48 EDT [facility] Hyaline Casts, UA None seen /LPF 02/08/2015 11:48 EDT [facility] UA Comment Microscopic results 02/08/2015 9:17 EDT [facility] Comment: are unreliable on urines unrefrig >2hrs or refrig >8hrs. Mucus, UA Present 02/08/2015 11:48 EDT [facility] URINE / Unknown 02/08/2015 9 :19 EDT 02/08/2015 11:14 EDT Key Javier CERTIFIED PHARMACY TECH URINALYSIS ORDERABLE S [facility] [address] [place] [address] documented in this encounter Visit Diagnoses Not on filedocumented in this encounter Care Teams Fence Supervisor Relationship Specialty Start Date End Date Kourtney Lam MD [address] [place] [address] PCP - General 09/02/14 documented as of this encounter
--- OUTSIDE RECORDS SUMMARY | 2024-01-01 19:55 | XMS_ITS | Encounter Summary ---
Author Organization [facility] Address [address] [place] [address] Care Team Providers Care Dietitian Research Name Role Phone Rohan Soliz MD Primary Care Provider Unavail able Encounter Details Date Type Department Care Team (Latest Contact Info) Description 08/29/2014 8:58 EDT - 08/29/2014 23:59 EDT Hospital Encounter [address] [address] Unknown, Provider, Discharge Disposition: Home or Self Care Social History Tobacco Use Types Packs/Day Years Used Date Smoking Tobacco: Never Assessed Sex and Gender Information Value Date Recorded Sex Assigned at Not on file Gender Identity Not on file Sexual Orientation Not on file documented as of this encounter Discharge Disposition Disposition Code Departure Means Destination Home or Self Senior Living documented in this encounter Plan of Treatment Not on file documented as of this encounter Visit Diagnoses Not on filedocumented in this encounter Care Teams Dietitian Research Relationship Specialty Start Date End Date Rohan Soliz MD PCP - General 12/24/10 09/01/14 documented as of this encounter
--- OUTSIDE RECORDS SUMMARY | 2024-01-01 19:55 | XMS_ITS | Encounter Summary ---
Author Organization [facility] Address [address] [place] [address] Care Team Providers Care Professor Of Biblical Studies Name Role Phone Kourtney Lam MD Primary Care Provider [phone] Encounter Details Date Type Department Care Team (Late st Contact Info) Description 02/08/2015 Phlebotomy Only [facility] [address] [place] [address] Evp Operations, Outpatient Social History Tobacco Use Types Packs/Day Years Used Date Smoking Tobacco: Never Assessed Sex and Gender Information Value Date Recorded Sex Assigned at Not on file Gender Identity Not on file Sexual Orientation Not on file documented as of this encounter Plan of Treatment Not on file documented as of this encounter Visit Diagnoses Not on filedocumented in this encounter Care Teams Professor Of Biblical Studies Relationship Specialty Start Date End Date Kourtney Lam MD [address] [place] [address] PCP - General 09/02/14 documented as of this encounter
--- OUTSIDE RECORDS SUMMARY | 2024-01-01 19:55 | XMS_ITS | Encounter Summary ---
Author Organization [facility] Address [address] [place] [address] Care Team Providers Care Marble Rubber Name Role Phone Rohan Soliz MD Primary Care Provider Unavail able Encounter Details Date Type Department Care Team (Latest Contact Info) Description 03/06/2014 10:36 EDT - 03/06/2014 23:59 EDT Hospital Encounter [address] [place] [address] Unknown, Provider, Discharge Disposition: Home or Self Care Social History Tobacco Use Types Packs/Day Years Used Date Smoking Tobacco: Never Assessed Sex and Gender Information Value Date Recorded Sex Assigned at Not on file Gender Identity Not on file Sexual Orientation Not on file documented as of this encounter Discharge Disposition Disposition Code Departure Means Destination Home or Self Longterm documented in this encounter Plan of Treatment Not on file documented as of this encounter Visit Diagnoses Not on filedocumented in this encounter Care Teams Marble Rubber Relationship Specialty Start Date End Date Rohan Soliz MD PCP - General 12/24/10 09/01/14 documented as of this encounter
--- OUTSIDE RECORDS SUMMARY | 2024-01-01 19:55 | XMS_ITS | Encounter Summary ---
Author Organization [facility] Address [address] [place] [address] Care Team Providers Care Machine Welt Butter Name Role Phone Kourtney Lam MD Primary Care Provider [phone] Encounter Details Date Type Department Care Team (Late st Contact Info) Description 07/18/2020 Lab Requisition [facility] Pathology & Laboratory Medicine - [facility] [address] [place] [address] Outr Resulting Lab, Provider Social History Tobacco [...] Outr Resulting Lab MICROBIOLOGY - GENERAL ORDERABLES [facility] [address] [place] [address] * COVID-19 TESTING (07/17/2020 13:35 EST) COVID-19 rt-PCR Result Negative Negative 07/19/2020 14:01 EST [facility] Comment: This test has [...] developed and its performance characteristics determined by [facility]. It has not been cleared or approved [...] testing. This test is based on the [facility] COVID-19 Emergency Use Authorization (EUA) assay, with minor modification as defined by the FDA Performed on the [employer] 7 Flex RT-PCR System. Performing Lab [facility] Lab 07/19/2020 14:01 EST [facility] Swab 07/17/2020 13:3 5 EST 07/18/2020 15:49 EST Provider Outr Resulting Lab MICROBIOLOGY - GENERAL ORDERABLES [facility] [address] [place] [address] documented in this encounter Visit Diagnoses Not on filedocumented in this encounter Care Teams Machine Welt Butter Relationship Specialty Start Date End Date Kourtney Lam MD [address] [place] [address] PCP - General 09/02/14 documented as of this encounter
--- OUTSIDE RECORDS SUMMARY | 2024-01-01 19:55 | XMS_ITS | Encounter Summary ---
Author Organization [facility] Address [address] [place] [address] Care Team Providers Care Customer Success Associate Name Role Phone Kourtney Lam MD Primary Care Provider [phone] Encounter Details Date Type Department Care Team (Late st Contact Info) Description 10/08/2020 Lab Requisition [facility] Pathology & Laboratory Medicine - [facility] [address] [place] [address] Karo Simpson APN [address] [place] [address] Encounter for other general examination [...] Risk types, PCR Negative Negative 10/23/2020 15:18 [facility] Comment:No E6 or E7 mRNA is detected from HPV types 16,18,31,33,35,39,45,51,52,56,58,59,66, and 68 by miller kiln dried salt mediated amplification. Papanicolaou smear specimen (specimen) CERVIX UTERI STRUCTURE / Unknown 10/07/2020 17:35 EDT 10/22/2020 9:00 EDT Karo Simpson SANDHYA MICROBIOLOGY - GEN ERAL ORDERABLES [facility] [address] [place] [address] * PAP TEST (10/07/2020 17:35 EDT) Specimens A. Cervix and/or Endocervix , ThinPrep Imaging System with Manual Evaluation 10/23/2020 15:18 [facility] Specimen Adequacy Satisfactory for Evaluation - transformation zone component present 10/23/2020 15:18 [facility] General Categorization Negative for intraepithelial lesion or malignancy 10/23/2020 15:18 [facility] Descriptive Diagnosis Reactive cellular changes associated with inflammation present (includes repair). Shift in keira present suggestive of bacterial vaginosis. Trichomonas vaginalis present. 10/23/2020 15:18 [facility] Attestation By the signature below, the attending physician certifies that they have personally conducted a gross and/or microscopic examination of the described specimens and rendered or confirmed the above diagnosis. 10/23/2020 15:18 [facility] at 1518 Clinical History See below 10/24/19 15:18 [facility] HPV The result for the Human Papillomavirus (HPV) Detection-High Risk Types is Negative. No E6 or E7 mRNA is detected from HPV types 16,18,31,33,35,39 ,45,51,52,56,58,5 9,66, and 68 by miller kiln dried salt mediated amplification.Danielle ting was performed on specimen [id number] and was resulted on 10/23/2020 1505 EDT by JANAK, LAB INSTRUMENT RESULTS IN 10/23/2020 15:18 EDT [facility] Performing Lab [facility] 10/23/2020 15:18 EDT [facility] Scanned Images 10/23/2020 15:18 EDT [facility] Papanicolaou smear specimen (specimen) CERVIX UTERI STRUCTURE / Unknown 10/07/2020 17:35 EDT 10/09/2020 15:42 EDT Karo Drummond Calvin SANDHYA PATHOLOGY ORDERABL ES Performing Organization Address City/[facility]/ZIP Co de Phone Number [facility] [address] [place] [address] * CHLAMYDIA/N. GONORRHOEAE AMPLIFIED RNA, THINPREP (10/07/2020 17:35 EDT) Neisseria gonorrhoeae Result Negative Negative 10/09/2020 14:30 EDT [facility] Chlamydia trachomatis Result Negative Negative 10/09/2020 14:30 EDT [facility] Papanicolaou smear specimen (specimen) CERVIX UTERI STRUCTURE / Unknown 10/07/2020 17:35 EDT 10/09/2020 8:13 EDT Karo Simpson APN MICROBIOLOGY - GEN ERAL ORDERABLES Performing Organization Address City/[facility]/ZIP Co de Phone Number [facility] [address] [place] [address] documented in this encounter Visit Diagnoses Diagnosis Encounter for other general examination documented in this encounter Care Teams Customer Success Associate Relationship Specialty Start Date End Date Kourtney Lam MD [address] [place], [place] [address] PCP - General 09/02/14 documented as of this encounter
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
--- OUTSIDE RECORDS SUMMARY | 2024-01-01 19:55 | XMS_ITS | Encounter Summary ---
Author Organization [facility] Address [address] [place] [address] Care Team Providers Care Television News Reporter Name Role Phone Rohan Soliz MD Primary Care Provider Unavail able Encounter Details Date Type Department Care Team (Late st Contact Info) Description 09/13/2013 Results Only [facility] [phone] Deandra Templeton, [address] [phone] Social History Tobacco Use Types [...] ? GIULIA MATTHEWS ? Accession #: ? [id number] ? : ? 1985 (Age: 28) ??F [...] types 16,18,31,33,35, 39,45,51,52,56,58, 59,66, and 68 by head porter baggage mediated amplification. Comments Document reviewed and electronically signed by: ? System Interface ? Report date: 09/25/2013 By the signature above, the attending physician certifies that he/she has personally conducted a gross and/or microscopic examination of the described specimens and rendered or confirmed the above diagnosis. End of Report [facility] 09/13/2013 09/14/2013 Deandra Templeton CNM PATHOLOGY ALFREDO JAUREGUI Performing Organization Address City/State/[facility] Co de Phone Number [facility] [address] [place] [address] documented in this encounter Visit Diagnoses Not on filedocumented in this encounter Care Teams Television News Reporter Relationship Specialty Start Date End Date Rohan Soliz MD PCP - General 12/24/10 09/01/14 documented as of this encounter
--- OUTSIDE RECORDS SUMMARY | 2024-01-01 19:55 | XMS_ITS | Encounter Summary ---
Author Organization [facility] Address [address] [place] [id number] Care Team Providers Care Commercial Title Examiner Name Role Phone Rohan Soliz MD Primary Care Provider Unavail able Encounter Details Date Type Department Care Team (Late st Contact Info) Description 09/07/2011 Results Only [facility] ([facility] [address] [place] [id number] Cedrick Wall PA Social History Tobacco Use [...] ? GIULIA MATTHEWS ? Accession #: ? [id number] : ? 1985 (Age: 26) ??F ?Collect [...] BRICEÑO PATHOLOGY ORDERABLES [facility] [address] [place] [address] documented in this encounter Visit Diagnoses Not on filedocumented in this encounter Care Teams Commercial Title Examiner Relationship Specialty Start Date End Date Rohan Soliz MD PCP - General 12/24/10 09/01/14 documented as of this encounter
--- OUTSIDE RECORDS SUMMARY | 2024-01-01 19:55 | XMS_ITS | Encounter Summary ---
Author Organization [facility] Address [address] [place] [address] Care Team Providers Care Logistics Service Representative Name Role Phone Unavailable Primary Care Provider Unavailabl e Encounter Details Date Type Department Care Team (Late st Contact Info) Description 02/28/2001 Results Only [facility] [address] [place] [address] Laura Song CNM [address] [place], [place] [id number] Social History Tobacco Use Types Packs/Day Years [...] ? GIULIA MATTHEWS ? Accession #: ? [id number] : ? 1985 (Age: 15) ??F ?Collect [...] CNM PATHOLOGY ORDERABLES [facility] [address] [place] [address] documented in this encounter Visit Diagnoses Not on filedocumented in this encounter
--- OUTSIDE RECORDS SUMMARY | 2024-01-01 19:55 | XMS_ITS | Referral Summary ---
Author Organization [facility] Address [address] [place] [address] Care Team Providers Care Optometrist/Practice Owner Name Role Phone Kourtney Lam MD Primary Care Provider [phone] Social History Tobacco Use Types Packs/Day Years [...] GA S ORDERABLES [facility] [address] [place] [address] from Last 3 Months or Most Recently Relevant to Health Maintenance Care Teams Optometrist/Practice Owner Relationship Specialty Start Date End Date Kourtney Lam MD [address] [place], [place] [phone] PCP - General 09/02/14
== END 2024-01-01 20:55 | disposition left against medical advice (07) ==
LOC: ER 19:51
PROVIDERS: PCP Nurse Practitioner Family
DX: Z53.21 Procedure and treatment not carried out due to patient leaving prior to being seen by health care provider (principal)

== ENCOUNTER 2025-01-22 08:07 | Outpatient (CLI) | payer OTHER, SELFPAY ==
--- NOTE | 2025-01-22 08:28 | DI.MAMMO_ITS ---
Exam(s) MAMMO SCREENING EXAM: MAMMO SCREENING CLINICAL HISTORY: screening,z12.39. TECHNIQUE: Bilateral full field digital CC and MLO mammographic images were obtained with 3D tomosynthesis and utilizing computer aided detection (CAD). COMPARISON: Prior mammograms were reviewed. FINDINGS: There has been no significant change in the appearance and distribution of the fibroglandular tissue. Previously described small benign-appearing nodular density medially in the left breast is unchanged from March 2023 and upon 3D imaging may just represent a bend in a vessel. There are no malignant-appearing microcalcification groups in this region or elsewhere in either breast. No new architectural distortion or skin thickening-retraction. IMPRESSION: Stable benign-appearing findings. No radiographic evidence of malignancy. BI-RADS Category 2 - Benign Findings Breast Density - Category C - The breast are heterogeneously dense, which may obscure small masses. Breast density Category C or D implies that the patient has dense breast tissue. Dense breast tissue can make it harder to find cancer on a mammogram. Dense breast tissue is also associated with an increased risk of breast cancer. This information about the result of the mammogram report was provided to the patient to raise their awareness. Use this report when you speak with the patient about their risks for breast cancer, which includes their family history. At that time, you may recommend additional screening tests (Ultrasound or MRI) as these tests may add significant information. A negative radiographic report should not delay biopsy if a dominant or clinically suspicious mass is present. Up to ten percent of cancers are not identified on mammography. A negative report may reinforce clinical impression. Adenosis and dense breasts may obscure an underlying neoplasm. False positive reports average 6 to 10%. Patient will receive a letter notifying them of these results.
== END 2025-01-22 08:27 ==
LOC: DI 08:07
PROVIDERS: PCP Nurse Practitioner Family; Visit Provider Nurse Practitioner Family
DX: Z12.31 Encounter for screening mammogram for malignant neoplasm of breast (principal)
CPT/HCPCS: 77063; 77067

== ENCOUNTER 2025-02-14 08:33 | Outpatient (CLI) | payer OTHER, SELFPAY ==
[2025-02-14 09:17] LABS: Hemoglobin A1C 5.0 % (<5.7)
[2025-02-14 09:47] LABS: ALT 110 U/L (14-59); AST 50 U/L (15-37); Albumin 3.9 g/dL (3.4-5.0); Alkaline Phosphatase 103 U/L (46-116); Anion Gap 10.3 mmol/L (3-11); BUN 19 mg/dL (7-18); Bilirubin, Total 0.4 mg/dL (0.2-1.0); CO2 25.7 mmol/L (21.0-32.0); Calcium 8.9 mg/dL (8.5-10.1); Calculated LDL 94 mg/dL (<100); Chloride 103 mmol/L (98-107); Cholesterol 176 mg/dL (<200); Estimated GFR 111.36 (mL/min/1.73m2); Glucose 103 mg/dL (74-106); HDL Cholesterol 58 mg/dL (>or=50); Potassium 4.1 mmol/L (3.5-5.1); Sodium 139 mmol/L (136-145); TSH (W/Ref FT4) 1.35 uIU/mL (0.36-3.74); Total Protein 7.6 g/dL (6.4-8.2); Triglyceride 123 mg/dL (<150)
[2025-02-14 16:54] LABS: HCT 44.7 % (36.0-46.0); HGB 15.6 g/dL (11.2-15.7); MCH 34.4 pg (27.0-33.0); MCHC 34.9 % (32.0-36.0); MCV 99 fL (80-95); MPV 10.2 fL (8.0-11.0); Platelet Count 331 10^3/uL (130-400); RBC 4.53 10^6/uL (3.93-5.22); RDW 11.3 % (11.7-14.6); RDW-SD 41.1 fL; WBC 7.24 10^3/uL (4.4-10.8)
[2025-02-14 17:10] LABS: ALT 113 U/L (14-59); AST 49 U/L (15-37); Albumin 4.0 g/dL (3.4-5.0); Alkaline Phosphatase 104 U/L (46-116); Bilirubin, Direct 0.1 mg/dL (0.0-0.2); Bilirubin, Total 0.3 mg/dL (0.2-1.0); Total Protein 7.6 g/dL (6.4-8.2)
[2025-02-14 17:15] LABS: Iron 125 ug/dL (50-170)
== END 2025-02-14 08:34 | disposition home or self-care (01) ==
LOC: LBO 08:33
PROVIDERS: PCP Nurse Practitioner Family; Visit Provider Nurse Practitioner Family
DX: R73.01 Impaired fasting glucose; F32.9 Major depressive disorder, single episode, unspecified; F98.8 Other specified behavioral and emotional disorders with onset usually occurring in childhood and adolescence; E66.9 Obesity, unspecified; Z72.0 Tobacco use; R53.83 Other fatigue
CPT/HCPCS: 36415; 80053; 80061; 80076; 85027; 83036; 83540; 83550; 84443